=== PATIENT | female | born 1950 | race Two or more races ===

== ENCOUNTER 2018-01-31 23:51 | Inpatient (IN) | payer OTHER, MEDICAID ==
[~2018-01-31] VITALS: Ht 154.9 cm; Wt 65.7 kg
[~2018-01-31 23:51] MED LIST: ATOR40TA52 PO; CALC-473 PO; DILT240C PO; DONE5TAB31 PO; HYDR25TA35 PO; MET50T PO; MULT-228 PO
[2018-02-01 00:42] LABS: Basophils # (auto) 0 uL; Basophils % (auto) 0.3 % (0.0-2.0); Eosinophils # (auto) 0.1 uL; Eosinophils % (auto) 1.5 % (0.0-7.0); Hematocrit 35.3 % (36.0-46.0); Hemoglobin 11.8 g/dL (12.2-16.2); Lymphocytes # (auto) 0.5 uL; Lymphocytes % (auto) 5.6 % (10.0-50.0); Mean Corpuscular Hemoglobin 28.4 pg (28.0-32.0); Mean Corpuscular Hgb Conc. 33.6 g/dL (32.0-36.0); Mean Corpuscular Volume 84.6 fL (80.0-100.0); Monocytes # (auto) 0.6 uL; Monocytes % (auto) 6.9 % (0.0-12.0); Neutrophils # (auto) 7.6 uL; Neutrophils % (auto) 85.7 % (37.0-80.0); Platelet Count (auto) 184 10^3/uL (140-450); Red Blood Cells 4.17 10^6/uL (4.0-5.20); Red Cell Distribution Width 13.9 % (11.8-14.3); White Blood Cell 8.9 10^3/uL (4.4-10.8)
[2018-02-01 00:56] LABS: Alanine Aminotransferase 26 U/L (13-56); Albumin 3.5 g/dL (3.4-5.0); Anion Gap 12 (5-15); Aspartate Aminotransferase 22 U/L (15-37); Blood Urea Nitrogen 38 mg/dL (7-18); Calcium 8.3 mg/dL (8.5-10.1); Carbon Dioxide 22 mmol/L (21-32); Chloride 106 mmol/L (98-107); GFR African American 24 mL/min; GFR Non-African American 20 mL/min; Glucose 106 mg/dL (74-106); Potassium 3.4 mmol/L (3.5-5.1); Sodium 140 mmol/L (136-145)
[2018-02-01 01:00] LABS: Alkaline Phosphatase 93 U/L (45-117); Bilirubin, Total 0.5 mg/dL (0.2-1.0); Total Protein 7.2 g/dL (6.4-8.2)
[2018-02-01] MEDS ORDERED: SODIUM CHLORIDE 0.9% 1,950 ML IV ONE (01:00)
[2018-02-01 01:01] LABS: INR 0.97 (0.9-1.15); Partial Thromboplastin Time 26.6 sec (23.78-33.04); Prothrombin Time 10.4 sec (9.27-12.13)
[2018-02-01 01:33] LABS: Urine Bacteria FEW /hpf (None Seen); Urine Blood Negative /uL (Negative); Urine Specific Gravity 1.003 (1.001-1.035); Urine WBC 1 /hpf (0 - 5)
[2018-02-01] MEDS ORDERED: cefTRIAXone 1GM/10ml IVPUSH 10 ML IV ONE (02:15)
[2018-02-01] MEDS ORDERED: PIPERACILLIN-TAZOB 3.375GM 100 ML IV ONE (02:15)
[2018-02-01] MEDS ORDERED: ACETAMINOPHEN 500 MG TAB PO ONE (03:45)
[2018-02-01] MEDS ORDERED: NITROGLYCERIN 0.4 MG SL TAB SL PRN (06:15)
[2018-02-01] MEDS ORDERED: HYDROcodone-ACET 5/325MG TAB PO PRN (06:15)
[2018-02-01] MEDS ORDERED: MORPHINE SULFATE 4 MG/ML SYR/VIAL IV PRN (06:15)
[2018-02-01] MEDS ORDERED: ONDANSETRON HCL 4 MG/2 ML VIAL IV PRN (06:15)
[2018-02-01] MEDS ORDERED: TEMAZEPAM 15 MG CAP PO PRN (06:15)
[2018-02-01 06:17] LABS: Lactic Acid w/Reflex 2.2 mmol/L (0.4-2.0)
[2018-02-01 09:00] VITALS: BP 157/73
[2018-02-01] MEDS: ENOXAPARIN SOD 30 MG/0.3 ML SYRINGE SC SCH (10:00)
[2018-02-01] MEDS: LEVOFLOXACIN 250MG 50 ML IV SCH (10:00)
[2018-02-01] MEDS: PANTOPRAZOLE 40 MG TAB PO SCH (10:00)
[2018-02-01] MEDS: METOPROLOL TARTRATE 50 MG TAB PO SCH ×2 (10:00→22:14)
[2018-02-01] MEDS: hydrALAZINE HCL 25 MG TAB PO SCH ×2 (10:00→22:16)
[2018-02-01] MEDS: DILTIAZEM HCL 120MG ER CAP PO SCH (10:00)
[2018-02-01] MEDS: ACETAMINOPHEN 325 MG TAB PO PRN (10:42)
[2018-02-01] MEDS ORDERED: POTASSIUM CHL 20 Meq TABLET PO ONE (11:30)
[2018-02-01 13:00] VITALS: BP 136/80
[2018-02-01 17:00] VITALS: BP 152/81
[2018-02-01 20:00] VITALS: BP 153/85
[2018-02-01 22:00] VITALS: BP 153/85
[2018-02-01] MEDS: ATORVASTATIN 20 MG TAB PO SCH (22:07)
[2018-02-01] MEDS: DONEPEZIL HYDROCHLORIDE 5 MG TAB PO SCH (22:07)
[2018-02-02 05:00] VITALS: BP 154/81
[2018-02-02 06:47] LABS: Basophils # (auto) 0 uL; Basophils % (auto) 0.3 % (0.0-2.0); Eosinophils # (auto) 0.2 uL; Eosinophils % (auto) 2.6 % (0.0-7.0); Hematocrit 31.4 % (36.0-46.0); Hemoglobin 10.5 g/dL (12.2-16.2); Lymphocytes # (auto) 0.7 uL; Lymphocytes % (auto) 9.7 % (10.0-50.0); Mean Corpuscular Hemoglobin 28.9 pg (28.0-32.0); Mean Corpuscular Hgb Conc. 33.6 g/dL (32.0-36.0); Monocytes # (auto) 0.6 uL; Monocytes % (auto) 8.5 % (0.0-12.0); Neutrophils # (auto) 5.3 uL; Neutrophils % (auto) 78.9 % (37.0-80.0); Nucleated Red Blood Cells % 0.1 %; Platelet Count (auto) 139 10^3/uL (140-450); Red Blood Cells 3.65 10^6/uL (4.0-5.20); Red Cell Distribution Width 14.1 % (11.8-14.3); White Blood Cell 6.7 10^3/uL (4.4-10.8)
[2018-02-02 07:00] LABS: Albumin 2.8 g/dL (3.4-5.0); BUN/Creatinine Ratio 10.6; Calcium 7.6 mg/dL (8.5-10.1); Potassium 3.3 mmol/L (3.5-5.1)
[2018-02-02 07:03] LABS: Bilirubin, Total 0.6 mg/dL (0.2-1.0); Total Protein 6.4 g/dL (6.4-8.2)
[2018-02-02 09:00] VITALS: BP 163/86
[2018-02-02] MEDS: LEVOFLOXACIN 250MG 50 ML IV SCH (10:05)
[2018-02-02] MEDS: ENOXAPARIN SOD 30 MG/0.3 ML SYRINGE SC SCH (10:05)
[2018-02-02] MEDS: PANTOPRAZOLE 40 MG TAB PO SCH (10:06)
[2018-02-02] MEDS: METOPROLOL TARTRATE 50 MG TAB PO SCH ×3 (10:06→23:00)
[2018-02-02] MEDS: DILTIAZEM HCL 120MG ER CAP PO SCH (10:07)
[2018-02-02] MEDS: hydrALAZINE HCL 25 MG TAB PO SCH ×2 (10:07→23:00)
[2018-02-02] MEDS ORDERED: POTASSIUM CHL 20 Meq TABLET PO ONE (10:30)
[2018-02-02 13:00] VITALS: BP 146/83
[2018-02-02 17:00] VITALS: BP 163/85
[2018-02-02] MEDS ORDERED: cloNIDine HCL 0.1 MG TAB PO PRN ×2 (18:15)
[2018-02-02 22:00] VITALS: BP 149/80
[2018-02-02] MEDS ORDERED: hydrALAZINE HCL 25 MG TAB PO SCH (22:00)
[2018-02-02] MEDS: ATORVASTATIN 20 MG TAB PO SCH (22:59)
[2018-02-02] MEDS: DONEPEZIL HYDROCHLORIDE 5 MG TAB PO SCH (23:01)
[2018-02-03] MEDS: ACETAMINOPHEN 325 MG TAB PO PRN (03:16)
[2018-02-03 06:20] LABS: Basophils # (auto) 0 uL; Basophils % (auto) 0.3 % (0.0-2.0); Eosinophils # (auto) 0.2 uL; Eosinophils % (auto) 3.1 % (0.0-7.0); Hematocrit 33.4 % (36.0-46.0); Hemoglobin 11.2 g/dL (12.2-16.2); Lymphocytes # (auto) 0.6 uL; Lymphocytes % (auto) 11.4 % (10.0-50.0); Mean Corpuscular Hemoglobin 28.8 pg (28.0-32.0); Mean Corpuscular Hgb Conc. 33.4 g/dL (32.0-36.0); Monocytes # (auto) 0.5 uL; Monocytes % (auto) 9.1 % (0.0-12.0); Neutrophils % (auto) 76.1 % (37.0-80.0); Platelet Count (auto) 135 10^3/uL (140-450); Red Blood Cells 3.89 10^6/uL (4.0-5.20); White Blood Cell 5.2 10^3/uL (4.4-10.8)
[2018-02-03 06:31] LABS: BUN/Creatinine Ratio 9.6; Potassium 3.3 mmol/L (3.5-5.1)
[2018-02-03] MEDS: hydrALAZINE HCL 25 MG TAB PO SCH ×2 (06:41→14:03)
[2018-02-03 09:04] VITALS: BP 150/75
[2018-02-03] MEDS ORDERED: ENOXAPARIN SOD 30 MG/0.3 ML SYRINGE SC SCH (10:00)
[2018-02-03] MEDS: LEVOFLOXACIN 250MG 50 ML IV SCH (10:55)
[2018-02-03] MEDS: PANTOPRAZOLE 40 MG TAB PO SCH (10:56)
[2018-02-03] MEDS: DILTIAZEM HCL 120MG ER CAP PO SCH (10:56)
[2018-02-03] MEDS: ENOXAPARIN SOD 30 MG/0.3 ML SYRINGE SC SCH (10:57)
[2018-02-03 12:47] VITALS: BP 162/85
[2018-02-03] MEDS ORDERED: POTASSIUM CHL 20 Meq TABLET PO ONE (13:00)
[2018-02-03 13:35] VITALS: BP 162/85
== END 2018-02-03 14:20 | disposition home or self-care (01) | DRG 872 ==
LOC: ER 23:54 → OVERFLOW 23:55 → EAST 02-01 08:37
PROVIDERS: ADMIT Nurse Practitioner; ATTEND Internal Medicine
DX: A41.51 Sepsis due to Escherichia coli [E. coli] (principal); N18.3 Chronic kidney disease, stage 3 (moderate); E78.5 Hyperlipidemia, unspecified; N39.0 Urinary tract infection, site not specified; I12.9 Hypertensive chronic kidney disease with stage 1 through stage 4 chronic kidney disease, or unspecified chronic kidney disease; Z83.3 Family history of diabetes mellitus; Z84.1 Family history of disorders of kidney and ureter; Z82.49 Family history of ischemic heart disease and other diseases of the circulatory system; Z80.9 Family history of malignant neoplasm, unspecified
CPT/HCPCS: 36415; 36600; 71045; 80048; 80053; 81001; 82805; 83605; 83880; 84484; 85025; 85610; 85730; 86141; 87040; 87077; 87086; 87088; 87186; 87804; 93005; 96361; 96365; 96366; 96375; 99291; J2543

== ENCOUNTER 2018-10-24 13:34 | Emergency (ER) | payer OTHER, MEDICAID ==
[~2018-10-24 13:34] MED LIST changes: +HYDR-4296 PO; -HYDR25TA35 PO
[2018-10-24] MEDS ORDERED: cloNIDine HCL 0.1 MG TAB ONE (13:53)
[2018-10-24] MEDS ORDERED: cloNIDine HCL 0.1 MG TAB PO ONE (14:00)
[2018-10-24 14:09] LABS: Basophils # (auto) 0.1 uL; Basophils % (auto) 0.9 % (0.0-2.0); Eosinophils # (auto) 0.4 uL; Eosinophils % (auto) 4.4 % (0.0-7.0); Hematocrit 42.1 % (36.0-46.0); Hemoglobin 13.8 g/dL (12.2-16.2); Lymphocytes # (auto) 1.6 uL; Lymphocytes % (auto) 16.4 % (10.0-50.0); Mean Corpuscular Hemoglobin 28.2 pg (28.0-32.0); Mean Corpuscular Hgb Conc. 32.8 g/dL (32.0-36.0); Monocytes # (auto) 0.4 uL; Monocytes % (auto) 4.1 % (0.0-12.0); Neutrophils # (auto) 7.5 uL; Neutrophils % (auto) 74.2 % (37.0-80.0); Platelet Count (auto) 309 10^3/uL (140-450); Red Cell Distribution Width 14.6 % (11.8-14.3)
[2018-10-24 14:24] LABS: Urine Bacteria FEW /hpf (None Seen); Urine Blood Negative /uL (Negative); Urine Specific Gravity 1.009 (1.001-1.035); Urine WBC 9 /hpf (0 - 5)
[2018-10-24 14:27] LABS: Albumin 4.4 g/dL (3.4-5.0); Anion Gap 7 (5-15); Blood Urea Nitrogen 42 mg/dL (7-18); Calcium 9.4 mg/dL (8.5-10.1); Carbon Dioxide 23 mmol/L (21-32); Chloride 109 mmol/L (98-107); Glucose 96 mg/dL (74-106); Potassium 4.8 mmol/L (3.5-5.1); Sodium 139 mmol/L (136-145)
[2018-10-24 14:33] LABS: Alanine Aminotransferase 29 U/L (13-56); Alkaline Phosphatase 100 U/L (45-117); Aspartate Aminotransferase 22 U/L (15-37); BUN/Creatinine Ratio 13.7; Bilirubin, Total 0.5 mg/dL (0.2-1.0); GFR African American 19 mL/min; GFR Non-African American 16 mL/min; Total Protein 8.6 g/dL (6.4-8.2)
[2018-10-24 17:19] VITALS: BP 158/79
== END 2018-10-24 17:23 | disposition home or self-care (01) ==
LOC: ER 13:40
DX: I10 Essential (primary) hypertension (principal); F41.9 Anxiety disorder, unspecified; E78.5 Hyperlipidemia, unspecified; Z88.0 Allergy status to penicillin; Z86.39 Personal history of other endocrine, nutritional and metabolic disease
CPT/HCPCS: 36415; 80053; 81001; 84484; 85025

== ENCOUNTER 2020-12-08 08:47 | Inpatient (IN) | payer OTHER, MEDICAID ==
[2020-12-08] VITALS (7 sets, daily range): BP systolic 142–158; BP diastolic 78–92
[~2020-12-08] VITALS: Ht 170.2 cm; Wt 61.0 kg
[~2020-12-08 08:47] MED LIST changes: +DILT-29 PO; -DILT240C PO; -DONE5TAB31 PO; +DONE5TAB80 PO
[2020-12-08 10:03] LABS: Basophils # (auto) 0 10 ^3/uL (0-0.2); Basophils % (auto) 0.1 % (0.0-2.0); Eosinophils # (auto) 0 10 ^3/uL (0-0.8); Eosinophils % (auto) 0.2 % (0.0-7.0); Hematocrit 23.3 % (36.0-46.0); Hemoglobin 8.1 g/dL (12.2-16.2); Lymphocytes # (auto) 0.1 10 ^3/uL (0.4-5.4); Lymphocytes % (auto) 1.7 % (10.0-50.0); Mean Corpuscular Hemoglobin 30.9 pg (28.0-32.0); Mean Corpuscular Hgb Conc. 34.6 g/dL (32.0-36.0); Mean Corpuscular Volume 89.2 fL (80.0-100.0); Monocytes # (auto) 0.3 10 ^3/uL (0-1.3); Monocytes % (auto) 4.1 % (0.0-12.0); Neutrophils % (auto) 93.9 % (37.0-80.0); Platelet Count (auto) 89 10^3/uL (140-450); Red Blood Cells 2.61 10^6/uL (4.0-5.20); Red Cell Distribution Width 13.4 % (11.8-14.3); White Blood Cell 6.4 10^3/uL (4.4-10.8)
[2020-12-08 10:40] LABS: Chloride 107 mmol/L (98-107); Sodium 139 mmol/L (136-145)
[2020-12-08 10:52] LABS: Alanine Aminotransferase 35 U/L (13-56); Albumin 3.2 g/dL (3.4-5.0); Alkaline Phosphatase 110 U/L (45-117); Anion Gap 15 (5-15); Aspartate Aminotransferase 47 U/L (15-37); BUN/Creatinine Ratio 9.2; Bilirubin, Total 0.6 mg/dL (0.2-1.0); Blood Urea Nitrogen 64 mg/dL (7-18); Calcium 7.9 mg/dL (8.5-10.1); Carbon Dioxide 17 mmol/L (21-32); GFR African American 8 mL/min; GFR Non-African American 6 mL/min; Glucose 89 mg/dL (74-106); Magnesium 2.4 mg/dL (1.6-2.6); Total Protein 6.4 g/dL (6.4-8.2)
[2020-12-08 10:53] LABS: Urine Amorphous Crystal FEW /hpf (None Seen); Urine Bacteria FEW /hpf (None Seen); Urine Blood 1+ /uL (Negative); Urine Budding Yeast OCCASIONAL /hpf (None Seen); Urine Mucus FEW (None Seen); Urine Specific Gravity 1.016 (1.001-1.035); Urine WBC 37 /hpf (0 - 5)
[2020-12-08 11:03] LABS: CRP High Sensitivity > 19 mg/dL (< 0.3)
[2020-12-08] MEDS ORDERED: cefTRIAXone 1GM/50ML D5W 50 ML IV ONE (11:15)
[2020-12-08] MEDS ORDERED: ENOXAPARIN SOD 60 MG/0.6 ML SYRINGE SC ONE (11:15)
[2020-12-08] MEDS ORDERED: POTASSIUM EFFERVESENT TAB 25 MEQ PO ONE (11:15)
[2020-12-08] MEDS ORDERED: FUROSEMIDE 40 MG/4 ML VIAL IV ONE (12:45)
[2020-12-08] MEDS ORDERED: METOPROLOL TARTRATE 25 MG TAB PO ONE (13:30)
[2020-12-08] MEDS ORDERED: ASPirin 81 mg TAB PO ONE (14:15)
[2020-12-08] MEDS ORDERED: NITROGLYCERIN 0.4 MG SL TAB SL PRN (14:15)
[2020-12-08] MEDS ORDERED: BUMETANIDE 2.5mg/10ml (0.25 mg/ml) INJ IV ONE (14:15)
[2020-12-08] MEDS ORDERED: MORPHINE SULF INJ 2 MG/ML SYRINGE 1ML IV PRN ×2 (14:15)
[2020-12-08] MEDS ORDERED: ONDANSETRON HCL 4 MG/2 ML VIAL IV PRN (14:15)
[2020-12-08] MEDS: FAMOTIDINE 20 MG TAB PO SCH (14:52)
[2020-12-08 15:01] LABS: Cholesterol 97 mg/dL (< 200); Triglycerides 106 mg/dL (< 150)
[2020-12-08 15:04] LABS: HDL Cholesterol 37 mg/dL (40-59); LDL Cholesterol 41 mg/dL (< 100)
[2020-12-08] MEDS ORDERED: BENA40TA8 PO (18:09)
[2020-12-08] MEDS ORDERED: ISOS60TA24 PO (18:09)
[2020-12-08] MEDS ORDERED: LEVO25TA6 PO (18:09)
[2020-12-08 18:24] LABS: Phosphorus 4.7 mg/dL (2.5-4.90); Uric Acid 9.2 mg/dL (2.6-6.0)
[2020-12-08] MEDS: METOPROLOL TARTRATE 25 MG TAB PO SCH (21:37)
[2020-12-08] MEDS: ATORVASTATIN 20 MG TAB PO SCH (21:37)
[2020-12-08] MEDS ORDERED: ATORVASTATIN 20 MG TAB PO SCH (22:00)
[2020-12-08] MEDS ORDERED: METOPROLOL TARTRATE 25 MG TAB PO SCH (22:00)
[2020-12-08] MEDS ORDERED: VANCOMYCIN PER PHARMACY 0 MG IV SCH (22:15)
[2020-12-08] MEDS ORDERED: VANCOMYCIN 750mg/250ml 250 ML IV ONE (22:30)
[2020-12-08] MEDS: HYDROcodone-ACET 5/325MG TAB PO PRN (23:15)
[2020-12-09] VITALS (20 sets, daily range): BP systolic 110–171; BP diastolic 68–90
[2020-12-09 06:21] LABS: Basophils # (auto) 0 10 ^3/uL (0-0.2); Basophils % (auto) 0.4 % (0.0-2.0); Eosinophils # (auto) 0.1 10 ^3/uL (0-0.8); Eosinophils % (auto) 0.8 % (0.0-7.0); Hematocrit 25.5 % (36.0-46.0); Hemoglobin 8.8 g/dL (12.2-16.2); Lymphocytes # (auto) 0.7 10 ^3/uL (0.4-5.4); Mean Corpuscular Hgb Conc. 34.6 g/dL (32.0-36.0); Mean Corpuscular Volume 89.4 fL (80.0-100.0); Monocytes # (auto) 0.6 10 ^3/uL (0-1.3); Monocytes % (auto) 6.2 % (0.0-12.0); Neutrophils # (auto) 8.2 10 ^3/uL (1.6-8.6); Neutrophils % (auto) 85.6 % (37.0-80.0); Platelet Count (auto) 123 10^3/uL (140-450); Red Blood Cells 2.85 10^6/uL (4.0-5.20); White Blood Cell 9.6 10^3/uL (4.4-10.8)
[2020-12-09] MEDS: hydrALAZINE HCL 20 MG/ML VL IV PRN (06:22)
[2020-12-09 06:36] LABS: INR 0.99 (0.9-1.15); Partial Thromboplastin Time 37.9 sec (23.0-31.2)
[2020-12-09 06:38] LABS: BUN/Creatinine Ratio 10.3; Calcium 7.5 mg/dL (8.5-10.1); Potassium 4.3 mmol/L (3.5-5.1)
[2020-12-09] MEDS ORDERED: SODIUM CHL 0.9% 1000 ML BAG XX ONE (07:00)
[2020-12-09] MEDS: HYDROcodone-ACET 5/325MG TAB PO PRN (07:00)
[2020-12-09] MEDS ORDERED: ENOXAPARIN SOD 60 MG/0.6 ML SYRINGE SC SCH (10:00)
[2020-12-09] MEDS ORDERED: ENOXAPARIN SOD 60 MG/0.6 ML SYRINGE SC ONE (10:15)
[2020-12-09] MEDS ORDERED: LIDOCAINE 2%HCL (LOCAL ANESTH.) INJ 20ML MDV ONE (11:56)
[2020-12-09] MEDS ORDERED: IODIXANOL 320MG/ML 100ML BTL IV ONE (11:56)
[2020-12-09] MEDS ORDERED: HEPARIN IN NS 1000Units/500mL 0 ML ONE (11:57)
[2020-12-09] MEDS ORDERED: VANCOMYCIN 750mg/250ml 250 ML IV ONE (14:00)
[2020-12-09] MEDS: LISINOPRIL 10 MG TAB PO SCH (16:00)
[2020-12-09] MEDS: METOPROLOL TARTRATE 25 MG TAB PO SCH ×2 (16:00→22:29)
[2020-12-09] MEDS: ASPirin-EC 81 mg tab PO SCH (16:00)
[2020-12-09] MEDS: cefTRIAXone 1GM/50ML D5W 50 ML IV SCH (16:00)
[2020-12-09] MEDS ORDERED: EPOETIN ALFA-EPBX 10,000 UNIT/1ML VIAL SC ONE (21:00)
[2020-12-09] MEDS: ATORVASTATIN 20 MG TAB PO SCH (22:29)
[2020-12-09] MEDS ORDERED: dilTIAZem 25 MG/5 ML VIAL IV ONE ×2 (23:27→23:30)
[2020-12-10] VITALS (37 sets, daily range): BP systolic 108–181; BP diastolic 54–95
[2020-12-10] MEDS: ACETAMINOPHEN 500 MG TAB PO PRN ×2 (00:06→17:52)
[2020-12-10] MEDS: HYDROcodone-ACET 5/325MG TAB PO PRN (05:02)
[2020-12-10 06:27] LABS: Basophils # (auto) 0 10 ^3/uL (0-0.2); Basophils % (auto) 0.5 % (0.0-2.0); Eosinophils # (auto) 0.1 10 ^3/uL (0-0.8); Eosinophils % (auto) 1.2 % (0.0-7.0); Hemoglobin 8.3 g/dL (12.2-16.2); Lymphocytes # (auto) 0.6 10 ^3/uL (0.4-5.4); Lymphocytes % (auto) 8.2 % (10.0-50.0); Mean Corpuscular Hemoglobin 30.6 pg (28.0-32.0); Mean Corpuscular Hgb Conc. 34.5 g/dL (32.0-36.0); Mean Corpuscular Volume 88.7 fL (80.0-100.0); Monocytes # (auto) 0.7 10 ^3/uL (0-1.3); Monocytes % (auto) 10.1 % (0.0-12.0); Neutrophils # (auto) 5.8 10 ^3/uL (1.6-8.6); Platelet Count (auto) 132 10^3/uL (140-450); Red Blood Cells 2.71 10^6/uL (4.0-5.20); Red Cell Distribution Width 13.5 % (11.8-14.3); White Blood Cell 7.3 10^3/uL (4.4-10.8)
[2020-12-10 06:34] LABS: Calcium 7.1 mg/dL (8.5-10.1)
[2020-12-10 06:37] LABS: BUN/Creatinine Ratio 8.8
[2020-12-10] MEDS: cefTRIAXone 1GM/50ML D5W 50 ML IV SCH (08:30)
[2020-12-10] MEDS ORDERED: ANGIOMAX 250 MG VIAL IV ONE (09:44)
[2020-12-10] MEDS: METOPROLOL TARTRATE 25 MG TAB PO SCH ×3 (09:45→23:02)
[2020-12-10] MEDS ORDERED: MIDAZOLAM HCL 1MG/1ML-2 ML VIAL ONE (09:45)
[2020-12-10] MEDS: FAMOTIDINE 20 MG TAB PO SCH (09:45)
[2020-12-10] MEDS ORDERED: VERAPAMIL 2.5MG/ML INJ 2ML VIAL IV ONE (09:45)
[2020-12-10] MEDS ORDERED: fentaNYL CITRATE 100 MCG/2 ML VL ONE (09:45)
[2020-12-10] MEDS ORDERED: SODIUM CHL 0.9% 0 ML ONE (09:45)
[2020-12-10] MEDS: LISINOPRIL 10 MG TAB PO SCH (09:45)
[2020-12-10] MEDS: ASPirin-EC 81 mg tab PO SCH (09:45)
[2020-12-10] MEDS ORDERED: HEPARIN SODIUM (PORCINE) 5000 UNITS/ML 1ML VIAL ONE (09:45)
[2020-12-10] MEDS ORDERED: LIDOCAINE 2%HCL (LOCAL ANESTH.) INJ 20ML MDV ONE (09:48)
[2020-12-10] MEDS ORDERED: SODIUM CHL 0.9% 1000 ML BAG XX ONE (11:15)
[2020-12-10] MEDS: hydrALAZINE HCL 20 MG/ML VL IV PRN (16:49)
[2020-12-10] MEDS ORDERED: LABETALOL HCL 5 MG/ML 4ML SYRINGE IV PRN (18:15)
[2020-12-10] MEDS: LABETALOL HCL 5 MG/ML ML 20ML VIAL IV PRN (18:39)
[2020-12-10] MEDS: ATORVASTATIN 20 MG TAB PO SCH (22:10)
[2020-12-11] MEDS ORDERED: dilTIAZem 25 MG/5 ML VIAL IV ONE ×2 (02:40→05:45)
[2020-12-11 05:00] VITALS: BP 155/87
[2020-12-11] MEDS ORDERED: SODIUM CHLORIDE 0.9% 250 ML IV ONE (06:00)
[2020-12-11] MEDS ORDERED: VANCOMYCIN HCL 125MG/5ML ORAL SOL PO SCH (06:00)
[2020-12-11 06:32] LABS: Hematocrit 23.4 % (36.0-46.0)
[2020-12-11 06:46] LABS: Calcium 8.1 mg/dL (8.5-10.1); Magnesium 2.3 mg/dL (1.6-2.6); Potassium 3.9 mmol/L (3.5-5.1)
[2020-12-11 06:49] LABS: BUN/Creatinine Ratio 6.8
[2020-12-11] MEDS: cefTRIAXone 1GM/50ML D5W 50 ML IV SCH (08:48)
[2020-12-11] MEDS: ASPirin-EC 81 mg tab PO SCH (08:49)
[2020-12-11] MEDS: METOPROLOL TARTRATE 25 MG TAB PO SCH ×2 (08:50→21:11)
[2020-12-11] MEDS: LISINOPRIL 10 MG TAB PO SCH (08:51)
[2020-12-11 09:00] VITALS: BP 145/75
[2020-12-11] MEDS ORDERED: levoFLOXacin 250 MG TAB PO ONE (12:45)
[2020-12-11] MEDS ORDERED: LIDOCAINE 2%HCL (LOCAL ANESTH.) INJ 20ML MDV ONE ×2 (12:58→14:25)
[2020-12-11 13:00] VITALS: BP 142/84
[2020-12-11] MEDS ORDERED: fentaNYL CITRATE 100 MCG/2 ML VL ONE (14:24)
[2020-12-11] MEDS ORDERED: MIDAZOLAM HCL 1MG/1ML-2 ML VIAL ONE (14:25)
[2020-12-11] MEDS ORDERED: HEPARIN SODIUM (PORCINE) 5000 UNITS/ML 1ML VIAL ONE (14:31)
[2020-12-11 15:02] LABS: Hepatitis B Surface Antigen Negative (Negative); Hepatitis C Antibody Negative (Negative)
[2020-12-11 17:15] VITALS: BP 140/76
[2020-12-11] MEDS: HYDROcodone-ACET 5/325MG TAB PO PRN (20:05)
[2020-12-11] MEDS: ATORVASTATIN 20 MG TAB PO SCH (21:10)
[2020-12-11] MEDS: LABETALOL HCL 5 MG/ML ML 20ML VIAL IV PRN (21:11)
[2020-12-11 22:00] VITALS: BP 173/99
[2020-12-12] VITALS (7 sets, daily range): BP systolic 134–161; BP diastolic 83–89
[2020-12-12] MEDS: LABETALOL HCL 5 MG/ML ML 20ML VIAL IV PRN (01:47)
[2020-12-12 07:08] LABS: Basophils # (auto) 0 10 ^3/uL (0-0.2); Eosinophils # (auto) 0.1 10 ^3/uL (0-0.8); Hemoglobin 7.3 g/dL (12.2-16.2); Lymphocytes # (auto) 0.6 10 ^3/uL (0.4-5.4); Mean Corpuscular Hemoglobin 30.3 pg (28.0-32.0); Monocytes # (auto) 0.9 10 ^3/uL (0-1.3); White Blood Cell 6.8 10^3/uL (4.4-10.8)
[2020-12-12 07:10] LABS: Basophils % (auto) 0.2 % (0.0-2.0); Eosinophils % (auto) 1.3 % (0.0-7.0); Hematocrit 21.4 % (36.0-46.0); Lymphocytes % (auto) 8.8 % (10.0-50.0); Mean Corpuscular Hgb Conc. 33.9 g/dL (32.0-36.0); Mean Corpuscular Volume 89.5 fL (80.0-100.0); Monocytes % (auto) 13.4 % (0.0-12.0); Neutrophils # (auto) 5.2 10 ^3/uL (1.6-8.6); Neutrophils % (auto) 76.3 % (37.0-80.0); Platelet Count (auto) 161 10^3/uL (140-450); Red Blood Cells 2.39 10^6/uL (4.0-5.20); Red Cell Distribution Width 13.3 % (11.8-14.3)
[2020-12-12 07:28] LABS: BUN/Creatinine Ratio 6.8; Calcium 8.3 mg/dL (8.5-10.1); Magnesium 2.5 mg/dL (1.6-2.6); Potassium 4.5 mmol/L (3.5-5.1)
[2020-12-12] MEDS: dilTIAZem 120MG ER CAP PO SCH (09:08)
[2020-12-12] MEDS: ASPirin-EC 81 mg tab PO SCH (09:08)
[2020-12-12] MEDS: METOPROLOL TARTRATE 25 MG TAB PO SCH ×2 (09:09→22:35)
[2020-12-12] MEDS: FAMOTIDINE 20 MG TAB PO SCH (09:09)
[2020-12-12] MEDS ORDERED: levoFLOXacin 500 MG TAB PO SCH (10:00)
[2020-12-12] MEDS ORDERED: SACU1TAB PO (11:10)
[2020-12-12] MEDS ORDERED: hydrALAZINE HCL 25 MG TAB PO ONE (11:45)
[2020-12-12] MEDS ORDERED: LEVO500T31 PO (12:31)
[2020-12-12] MEDS: SACUBITRIL-VALSARTAN 24mg/26mg TAB PO SCH (22:31)
[2020-12-12] MEDS: ATORVASTATIN 20 MG TAB PO SCH (22:32)
[2020-12-13] MEDS: ACETAMINOPHEN 500 MG TAB PO PRN (05:21)
[2020-12-13 05:50] VITALS: BP 149/88
[2020-12-13 08:35] VITALS: BP 127/85
[2020-12-13] MEDS: METOPROLOL TARTRATE 25 MG TAB PO SCH (10:00)
[2020-12-13] MEDS: SACUBITRIL-VALSARTAN 24mg/26mg TAB PO SCH (10:00)
[2020-12-13] MEDS: ASPirin-EC 81 mg tab PO SCH (10:01)
[2020-12-13] MEDS: dilTIAZem 120MG ER CAP PO SCH (10:01)
[2020-12-13 13:00] VITALS: BP 126/78
== END 2020-12-13 13:30 | disposition home health service (06) | DRG 871 ==
LOC: EDBD 08:47 → ER 08:47 → TELE 08:48 → DOU IN ICU 16:14 → TELE-CENTR 12-10 20:55
PROVIDERS: ADMIT Nurse Practitioner Acute Care; ATTEND Internal Medicine
PROC: 5A1D70Z Performance of Urinary Filtration, Intermittent, Less than 6 Hours Per Day (ICD-10-PCS; 2020-12-09)
PROC: 02HV33Z Insertion of Infusion Device into Superior Vena Cava, Percutaneous Approach (ICD-10-PCS; 2020-12-09)
PROC: 4A023N7 Measurement of Cardiac Sampling and Pressure, Left Heart, Percutaneous Approach (ICD-10-PCS; principal; 2020-12-10)
PROC: B2111ZZ Fluoroscopy of Multiple Coronary Arteries using Low Osmolar Contrast (ICD-10-PCS; 2020-12-10)
PROC: B2151ZZ Fluoroscopy of Left Heart using Low Osmolar Contrast (ICD-10-PCS; 2020-12-10)
PROC: 0JH63XZ Insertion of Tunneled Vascular Access Device into Chest Subcutaneous Tissue and Fascia, Percutaneous Approach (ICD-10-PCS; 2020-12-11)
PROC: 02H633Z Insertion of Infusion Device into Right Atrium, Percutaneous Approach (ICD-10-PCS; 2020-12-11)
PROC: B5181ZA Fluoroscopy of Superior Vena Cava using Low Osmolar Contrast, Guidance (ICD-10-PCS; 2020-12-11)
DX: A41.51 Sepsis due to Escherichia coli [E. coli] (principal); N18.6 End stage renal disease; I50.43 Acute on chronic combined systolic (congestive) and diastolic (congestive) heart failure; I21.A1 Myocardial infarction type 2; E44.1 Mild protein-calorie malnutrition; E87.2 Acidosis; N39.0 Urinary tract infection, site not specified; I13.2 Hypertensive heart and chronic kidney disease with heart failure and with stage 5 chronic kidney disease, or end stage renal disease; Z20.822 Contact with and (suspected) exposure to COVID-19; E87.6 Hypokalemia; E03.9 Hypothyroidism, unspecified; D63.8 Anemia in other chronic diseases classified elsewhere; E78.5 Hyperlipidemia, unspecified; Z68.21 Body mass index [BMI] 21.0-21.9, adult; D69.59 Other secondary thrombocytopenia; I25.10 Atherosclerotic heart disease of native coronary artery without angina pectoris; I25.2 Old myocardial infarction; Z79.899 Other long term (current) drug therapy
CPT/HCPCS: 36415; 36561; 71045; 76775; 76942; 77001; 80048; 80053; 80061; 80202; 81001; 83605; 83735; 83880; 84100; 84443; 84484; 84550; 85014; 85018; 85025; 85610; 85730; 86141; 86803; 87040; 87077; 87081; 87086; 87186; 87340; 87426; 90935; 93005; 93306; 93458; 96365; 96372; 99152; 99153; G0378; J0696; J1642; J2250; Q9967

== ENCOUNTER 2023-08-01 15:31 | Emergency (ER) | payer OTHER, MEDICAID ==
[~2023-08-01] VITALS: Ht 152.4 cm; Wt 60.0 kg
[~2023-08-01 15:31] MED LIST changes: +ISOS60TA24 PO; +LEVO25TA6 PO; +LEVO500T31 PO; +SACU1TAB PO
[2023-08-01 16:46] LABS: Basophils # (auto) 0 10 ^3/uL (0-0.2); Basophils % (auto) 0.1 % (0.0-2.0); Eosinophils # (auto) 0.2 10 ^3/uL (0-0.8); Eosinophils % (auto) 1.3 % (0.0-7.0); Hematocrit 32.9 % (36.0-46.0); Hemoglobin 10.6 g/dL (12.2-16.2); Lymphocytes # (auto) 1.2 10 ^3/uL (0.4-5.4); Lymphocytes % (auto) 10.1 % (10.0-50.0); Mean Corpuscular Hemoglobin 28.9 pg (28.0-32.0); Mean Corpuscular Hgb Conc. 32.1 g/dL (32.0-36.0); Mean Corpuscular Volume 90.2 fL (80.0-100.0); Monocytes # (auto) 0.8 10 ^3/uL (0-1.3); Neutrophils # (auto) 9.4 10 ^3/uL (1.6-8.6); Neutrophils % (auto) 81.5 % (37.0-80.0); Red Blood Cells 3.65 10^6/uL (4.0-5.20); Red Cell Distribution Width 14.2 % (11.8-14.3); White Blood Cell 11.5 10^3/uL (4.4-10.8)
[2023-08-01 17:06] LABS: Albumin 3.4 g/dL (3.2-4.8); Alkaline Phosphatase 115 U/L (46-116); Anion Gap 15 (5-15); Aspartate Aminotransferase < 8 U/L (13-40); BUN/Creatinine Ratio 4.8 (10.0-20.0); Bilirubin, Total 0.3 mg/dL (0.2-1.0); Blood Urea Nitrogen 15 mg/dL (9-23); Calcium 6.7 mg/dL (8.5-10.1); Carbon Dioxide 27 mmol/L (20-30); Chloride 97 mmol/L (98-107); Glucose 84 mg/dL (74-106); Potassium 3.4 mmol/L (3.5-5.1); Sodium 139 mmol/L (136-145); Total Protein 5.3 g/dL (5.7-8.2)
[2023-08-01 17:56] LABS: Alanine Aminotransferase < 9 U/L (7-40)
[2023-08-01 20:38] LABS: Urine Bacteria FEW /hpf (None Seen); Urine Blood TRACE /uL (Negative); Urine Clarity CLOUDY (Clear); Urine Color Yellow (Yellow); Urine Protein, UAD 2+ (Negative); Urine Specific Gravity 1.013 (1.001-1.035); Urine Urobilinogen Normal (Negative); Urine WBC 22 /hpf (0 - 5); Urine pH 8.5 (5.0-8.0)
[2023-08-01] MEDS ORDERED: NITR-87 PO (21:29)
[2023-08-01 23:22] VITALS: BP 115/74; PULSE 85; RESP 18; TEMP 98.2; O2SAT 98
== END 2023-08-01 23:22 | disposition home or self-care (01) ==
LOC: ER 15:31
DX: N39.0 Urinary tract infection, site not specified (principal); I12.0 Hypertensive chronic kidney disease with stage 5 chronic kidney disease or end stage renal disease; N18.6 End stage renal disease; E78.5 Hyperlipidemia, unspecified; E03.9 Hypothyroidism, unspecified; Z79.2 Long term (current) use of antibiotics; Z79.899 Other long term (current) drug therapy; Z88.0 Allergy status to penicillin
CPT/HCPCS: 36415; 74176; 80053; 81001; 85025; 93005

== ENCOUNTER 2023-12-19 13:39 | Inpatient (IN) | payer OTHER, MEDICAID ==
[~2023-12-19] VITALS: Ht 152.4 cm; Wt 61.9 kg
[~2023-12-19 13:39] MED LIST changes: -HYDR-4296 PO; +HYDR25TA88 PO; +ISOS1TAB29 PO; -ISOS60TA24 PO; +NITR-87 PO
[2023-12-19 14:37] LABS: Eosinophils # (auto) 0.4 10 ^3/uL (0-0.8); Lymphocytes # (auto) 0.8 10 ^3/uL (0.4-5.4); Monocytes # (auto) 0.8 10 ^3/uL (0-1.3)
[2023-12-19 14:38] LABS: Urine Bacteria None Seen /hpf (None Seen)
[2023-12-19 14:40] LABS: Basophils # (auto) 0 10 ^3/uL (0-0.2); Basophils % (auto) 0.5 % (0.0-2.0); Eosinophils % (auto) 4.7 % (0.0-7.0); Hematocrit 31.5 % (36.0-46.0); Hemoglobin 10.1 g/dL (12.2-16.2); Lymphocytes % (auto) 9.7 % (10.0-50.0); Mean Corpuscular Hemoglobin 26.8 pg (28.0-32.0); Mean Corpuscular Hgb Conc. 31.9 g/dL (32.0-36.0); Mean Corpuscular Volume 84.1 fL (80.0-100.0); Monocytes % (auto) 9.7 % (0.0-12.0); Neutrophils # (auto) 6.1 10 ^3/uL (1.6-8.6); Neutrophils % (auto) 75.4 % (37.0-80.0); Nucleated Red Blood Cells % 0.1 %; Red Blood Cells 3.75 10^6/uL (4.0-5.20); White Blood Cell 8.1 10^3/uL (4.4-10.8)
[2023-12-19 14:48] LABS: Urine Blood 2+ /uL (Negative); Urine Clarity Clear (Clear); Urine Color Light-Yellow (Yellow); Urine Protein, UAD 1+ (Negative); Urine Specific Gravity 1.006 (1.001-1.035); Urine Urobilinogen Normal (Negative); Urine WBC 1 /hpf (0 - 5)
[2023-12-19 14:55] LABS: Alanine Aminotransferase < 9 U/L (7-40); Albumin 4.2 g/dL (3.2-4.8); Alkaline Phosphatase 100 U/L (46-116); Anion Gap 5 (5-15); Aspartate Aminotransferase 22 U/L (13-40); BUN/Creatinine Ratio 4.3 (10.0-20.0); Blood Urea Nitrogen 19 mg/dL (9-23); Calcium 9.2 mg/dL (8.5-10.1); Carbon Dioxide 36 mmol/L (20-30); Chloride 96 mmol/L (98-107); Glucose 114 mg/dL (74-106); Potassium 3.2 mmol/L (3.5-5.1); Sodium 137 mmol/L (136-145)
[2023-12-19 14:56] LABS: Bilirubin, Total 0.4 mg/dL (0.2-1.0); Total Protein 6.7 g/dL (5.7-8.2)
[2023-12-19] MEDS ORDERED: MORPHINE SULFATE INJ 2 MG/ml SYRG IV PRN ×2 (18:45→19:30)
[2023-12-19] MEDS ORDERED: ACETAMINOPHEN 325 MG TAB PO PRN (18:45)
[2023-12-19] MEDS ORDERED: DOCUSATE SOD 100 MG CAP PO PRN (18:45)
[2023-12-19] MEDS ORDERED: NITROGLYCERIN 0.4 MG SL TAB SL PRN (18:45)
[2023-12-19] MEDS ORDERED: HYDR50TA47 PO (19:29)
[2023-12-19] MEDS ORDERED: OMEP1CAP70 PO (19:29)
[2023-12-19] MEDS ORDERED: B-CO-6 PO (19:29)
[2023-12-19] MEDS ORDERED: HYDROcodone-ACET 5/325MG TAB PO PRN (19:30)
[2023-12-19 22:05] VITALS: PULSE 97; RESP 16; O2SAT 97
[2023-12-20] VITALS (8 sets, daily range): BP systolic 141–158; BP diastolic 65–76; PULSE 72–78; RESP 16–20; TEMP 97.1–98.3; O2SAT 96–100
[2023-12-20] MEDS: hydrALAZINE HCL 25 MG TAB PO SCH (00:06)
[2023-12-20] MEDS: LEVOTHYROXINE SODIUM 25 MCG TAB PO SCH (06:02)
[2023-12-20 07:46] LABS: Basophils # (auto) 0 10 ^3/uL (0-0.2); Basophils % (auto) 0.4 % (0.0-2.0); Eosinophils # (auto) 0.4 10 ^3/uL (0-0.8); Hemoglobin 8.8 g/dL (12.2-16.2); Neutrophils # (auto) 4.9 10 ^3/uL (1.6-8.6); White Blood Cell 7.1 10^3/uL (4.4-10.8)
[2023-12-20 07:47] LABS: Eosinophils % (auto) 5.5 % (0.0-7.0); Hematocrit 27.9 % (36.0-46.0); Lymphocytes % (auto) 14.6 % (10.0-50.0); Mean Corpuscular Hemoglobin 26.9 pg (28.0-32.0); Mean Corpuscular Hgb Conc. 31.7 g/dL (32.0-36.0); Mean Corpuscular Volume 84.9 fL (80.0-100.0); Monocytes # (auto) 0.7 10 ^3/uL (0-1.3); Monocytes % (auto) 10.6 % (0.0-12.0); Neutrophils % (auto) 68.9 % (37.0-80.0); Red Blood Cells 3.28 10^6/uL (4.0-5.20); Red Cell Distribution Width 19.8 % (11.8-14.3)
[2023-12-20 08:03] LABS: Albumin 3.7 g/dL (3.2-4.8); Alkaline Phosphatase 85 U/L (46-116); Anion Gap 5 (5-15); Aspartate Aminotransferase 18 U/L (13-40); BUN/Creatinine Ratio 3.4 (10.0-20.0); Blood Urea Nitrogen 22 mg/dL (9-23); Calcium 8.7 mg/dL (8.5-10.1); Carbon Dioxide 34 mmol/L (20-30); Chloride 97 mmol/L (98-107); Glucose 89 mg/dL (74-106); Potassium 3.7 mmol/L (3.5-5.1); Sodium 136 mmol/L (136-145)
[2023-12-20 08:04] LABS: Alanine Aminotransferase < 9 U/L (7-40); Bilirubin, Total 0.5 mg/dL (0.2-1.0); Total Protein 5.9 g/dL (5.7-8.2)
[2023-12-20] MEDS: DONEPEZIL HYDROCHLORIDE 5 MG TAB PO SCH (09:15)
[2023-12-20] MEDS: B-COMPLEX W/ C & FOLIC ACID(NEPHROVITE TAB) PO SCH (09:15)
[2023-12-20] MEDS: ENOXAPARIN SOD 30 MG/0.3 ML SYRINGE SC SCH (09:15)
[2023-12-20] MEDS: ATORVASTATIN 20 MG TAB PO SCH (09:15)
[2023-12-20] MEDS: DONEPEZIL HYDROCHLORIDE 5 MG TAB ONE (09:15)
[2023-12-20] MEDS: hydrALAZINE HCL 25 MG TAB ONE ×2 (09:15)
[2023-12-20] MEDS: ATORVASTATIN 20 MG TAB ONE (09:15)
[2023-12-20] MEDS: ENOXAPARIN SOD 30 MG/0.3 ML SYRINGE ONE (09:15)
[2023-12-20] MEDS: B-COMPLEX W/ C & FOLIC ACID(NEPHROVITE TAB) ONE (09:15)
[2023-12-20] MEDS: LEVOTHYROXINE SODIUM 25 MCG TAB ONE (09:15)
[2023-12-20] MEDS ORDERED: OMEPRAZOLE 40MG/20ML ORAL SUSP PO SCH (10:00)
[2023-12-20] MEDS: OMEPRAZOLE-SOD BICARB 20 MG POWDER GT SCH (10:30)
[2023-12-21] VITALS (9 sets, daily range): BP systolic 140–164; BP diastolic 61–82; PULSE 69–85; RESP 14–20; TEMP 97.9–98.8; O2SAT 96–100
[2023-12-21] MEDS ORDERED: SODIUM CHL 0.9% 1000 ML BAG XX ONE (07:00)
[2023-12-21] MEDS: ONDANSETRON HCL 4 MG/2 ML VIAL IV PRN (07:04)
[2023-12-21] MEDS: dilTIAZem 120MG ER CAP PO SCH (09:46)
[2023-12-21] MEDS: FAMOTIDINE 20 MG TAB PO SCH (09:47)
[2023-12-21] MEDS ORDERED: PATIENTS OWN MEDICATION (Diltiazem Hcl (Diltiazem Hcl Er) 1 CAP) PO SCH (10:00)
[2023-12-21] MEDS: hydrALAZINE HCL 25 MG TAB PO PRN (16:46)
[2023-12-21] MEDS: CARVEDILOL 3.125 MG TAB PO ONE (18:18)
[2023-12-21] MEDS: cloNIDine HCL 0.1 MG TAB PO ONE (19:44)
[2023-12-21] MEDS: EPOETIN ALFA-EPBX 4,000 UNIT/ML VIAL SC ONE (21:00)
[2023-12-22] MEDS ORDERED: PANTOPRAZOLE 40 MG TAB PO SCH (10:00)
== END 2023-12-21 22:43 | disposition home or self-care (01) | DRG 441 ==
LOC: ER 13:39 → OVERFLOW 18:50 → WEST WING 12-20 01:35
PROVIDERS: ADMIT Nurse Practitioner Family; ATTEND Family Medicine
PROC: 5A1D70Z Performance of Urinary Filtration, Intermittent, Less than 6 Hours Per Day (ICD-10-PCS; principal; 2023-12-21)
DX: K76.89 Other specified diseases of liver (principal); N18.6 End stage renal disease; I12.0 Hypertensive chronic kidney disease with stage 5 chronic kidney disease or end stage renal disease; E03.9 Hypothyroidism, unspecified; E87.6 Hypokalemia; E87.8 Other disorders of electrolyte and fluid balance, not elsewhere classified; Z99.2 Dependence on renal dialysis; E78.00 Pure hypercholesterolemia, unspecified; K21.9 Gastro-esophageal reflux disease without esophagitis; I48.91 Unspecified atrial fibrillation; Z88.0 Allergy status to penicillin; Z90.710 Acquired absence of both cervix and uterus; Z83.3 Family history of diabetes mellitus; Z82.49 Family history of ischemic heart disease and other diseases of the circulatory system; Z82.71 Family history of polycystic kidney; Z91.199 Patient's noncompliance with other medical treatment and regimen due to unspecified reason
CPT/HCPCS: 36415; 74176; 80053; 81001; 85025; 87081; 87340; 90935; 93005; G0378; J2405

== ENCOUNTER 2023-12-28 05:11 | Inpatient (IN) | payer OTHER, MEDICAID ==
[~2023-12-28] VITALS: Ht 152.4 cm; Wt 77.0 kg
[~2023-12-28 05:11] MED LIST changes: +B-CO-6 PO; +HYDR50TA47 PO; +OMEP1CAP70 PO
[2023-12-28 06:00] VITALS: PULSE 89; RESP 25; O2SAT 93
[2023-12-28] MEDS: ACETAMINOPHEN 325 MG TAB PO ONE (06:29)
[2023-12-28 07:05] LABS: Basophils # (auto) 0 10 ^3/uL (0-0.2); Eosinophils # (auto) 0 10 ^3/uL (0-0.8); Eosinophils % (auto) 0.5 % (0.0-7.0); Hemoglobin 8.2 g/dL (12.2-16.2); Lymphocytes # (auto) 0.7 10 ^3/uL (0.4-5.4); Neutrophils # (auto) 7.5 10 ^3/uL (1.6-8.6)
[2023-12-28 07:09] LABS: Basophils % (auto) 0.1 % (0.0-2.0); Hematocrit 25.9 % (36.0-46.0); Lymphocytes % (auto) 8.1 % (10.0-50.0); Mean Corpuscular Hemoglobin 26.4 pg (28.0-32.0); Mean Corpuscular Hgb Conc. 31.7 g/dL (32.0-36.0); Mean Corpuscular Volume 83.4 fL (80.0-100.0); Monocytes # (auto) 0.9 10 ^3/uL (0-1.3); Monocytes % (auto) 9.9 % (0.0-12.0); Neutrophils % (auto) 81.4 % (37.0-80.0); Red Cell Distribution Width 18.9 % (11.8-14.3); White Blood Cell 9.2 10^3/uL (4.4-10.8)
[2023-12-28 07:20] LABS: Chloride 100 mmol/L (98-107); Potassium 4.8 mmol/L (3.5-5.1); Sodium 138 mmol/L (136-145)
[2023-12-28 07:21] LABS: Anion Gap 7 (5-15); Carbon Dioxide 31 mmol/L (20-30)
[2023-12-28 07:26] LABS: BUN/Creatinine Ratio 4.9 (10.0-20.0); Blood Urea Nitrogen 34 mg/dL (9-23); Glucose 99 mg/dL (74-106)
[2023-12-28 08:00] VITALS: PULSE 87; RESP 25; O2SAT 95
[2023-12-28] MEDS ORDERED: DOCUSATE SOD 100 MG CAP PO PRN (09:15)
[2023-12-28] MEDS: hydrALAZINE HCL 25 MG TAB PO SCH (10:00)
[2023-12-28] MEDS: SACUBITRIL-VALSARTAN 24mg/26mg TAB PO SCH (10:00)
[2023-12-28] MEDS: PANTOPRAZOLE 40 MG TAB PO SCH (10:00)
[2023-12-28] MEDS: ISOSORBIDE MONONITRATE ER 60 MG TAB PO SCH (10:00)
[2023-12-28] MEDS: METOPROLOL TARTRATE 50 MG TAB PO SCH (10:00)
[2023-12-28] MEDS ORDERED: ACETAMINOPHEN 650 mg PER 20.3 mL UD PO PRN (10:15)
[2023-12-28] MEDS: DONEPEZIL HYDROCHLORIDE 5 MG TAB PO SCH (10:44)
[2023-12-28] MEDS: MULTIPLE VITAMIN TAB PO SCH (10:46)
[2023-12-28] MEDS: B-COMPLEX W/ C & FOLIC ACID(NEPHROVITE TAB) PO SCH (10:46)
[2023-12-28 11:16] LABS: Urine Bacteria None Seen /hpf (None Seen)
[2023-12-28 11:50] LABS: Urine Blood Negative /uL (Negative); Urine Clarity Clear (Clear); Urine Color Light-Yellow (Yellow); Urine Protein, UAD 2+ (Negative); Urine Specific Gravity 1.008 (1.001-1.035); Urine Urobilinogen Normal (Negative); Urine WBC 1 /hpf (0 - 5); Urine pH 8.5 (5.0-9.0)
[2023-12-28] MEDS: ONDANSETRON HCL 4 MG/2 ML VIAL IV PRN (13:32)
[2023-12-28] MEDS: MORPHINE SULFATE INJ 2 MG/ml SYRG IV PRN (13:38)
[2023-12-28 14:54] LABS: Rapid Influenza A Negative (Negative); Rapid Influenza B Negative (Negative)
[2023-12-28 14:57] LABS: COVID19 ANTIGEN SOFIA FIA NEGATIVE (NEGATIVE)
[2023-12-28] MEDS ORDERED: PIPERACILLIN-TAZOB 3.375GM 100 ML IV ONE (16:15)
[2023-12-28] MEDS: cefTRIAXone 1GM/50ML D5W 50 ML IV ONE (17:06)
[2023-12-28] MEDS: metroNIDAZOLE 500MG/100ML 100 ML IV SCH (17:07)
[2023-12-28] MEDS ORDERED: PIPERACILLIN-TAZOB 3.375GM 100 ML IV SCH (18:00)
[2023-12-28 19:27] LABS: INR 1.14 (0.9-1.15); Prothrombin Time 11.9 sec (9.3-11.8)
[2023-12-28 19:35] VITALS: PULSE 90; RESP 18; O2SAT 94
[2023-12-28] MEDS: ATORVASTATIN 20 MG TAB PO SCH (22:00)
[2023-12-29] MEDS ORDERED: VANCOMYCIN PER PHARMACY 0 MG IV SCH
[2023-12-29] MEDS ORDERED: ACETAMINOPHEN/CODEINE#3 (300/30mg) TAB PO PRN (01:15)
[2023-12-29] MEDS: VANCOMYCIN 1GM/200ML 200 ML IV ONE (01:42)
[2023-12-29] MEDS: ACETAMINOPHEN 325 MG TAB PO PRN (02:05)
[2023-12-29 05:16] LABS: Basophils # (auto) 0 10 ^3/uL (0-0.2); Basophils % (auto) 0.4 % (0.0-2.0); Eosinophils # (auto) 0.2 10 ^3/uL (0-0.8); Eosinophils % (auto) 1.2 % (0.0-7.0); Hematocrit 27.7 % (36.0-46.0); Hemoglobin 8.5 g/dL (12.2-16.2); Lymphocytes # (auto) 1.2 10 ^3/uL (0.4-5.4); Lymphocytes % (auto) 9.4 % (10.0-50.0); Mean Corpuscular Hemoglobin 25.9 pg (28.0-32.0); Mean Corpuscular Hgb Conc. 30.7 g/dL (32.0-36.0); Mean Corpuscular Volume 84.4 fL (80.0-100.0); Monocytes # (auto) 1.2 10 ^3/uL (0-1.3); Monocytes % (auto) 9.1 % (0.0-12.0); Neutrophils # (auto) 10.3 10 ^3/uL (1.6-8.6); Neutrophils % (auto) 79.9 % (37.0-80.0); Red Blood Cells 3.28 10^6/uL (4.0-5.20); Red Cell Distribution Width 19.5 % (11.8-14.3); White Blood Cell 12.9 10^3/uL (4.4-10.8)
[2023-12-29 05:36] LABS: Alanine Aminotransferase 10 U/L (7-40); Albumin 3.8 g/dL (3.2-4.8); Alkaline Phosphatase 105 U/L (46-116); Anion Gap 11 (5-15); Aspartate Aminotransferase 16 U/L (13-40); BUN/Creatinine Ratio 4.9 (10.0-20.0); Bilirubin, Total 0.3 mg/dL (0.2-1.0); Blood Urea Nitrogen 43 mg/dL (9-23); Calcium 9.6 mg/dL (8.7-10.4); Carbon Dioxide 28 mmol/L (20-30); Chloride 98 mmol/L (98-107); Glucose 96 mg/dL (74-106); Potassium 4.8 mmol/L (3.5-5.1); Sodium 137 mmol/L (136-145); Total Protein 6.6 g/dL (5.7-8.2)
[2023-12-29] MEDS: LEVOTHYROXINE SODIUM 25 MCG TAB PO SCH (07:00)
[2023-12-29] MEDS ORDERED: SODIUM CHL 0.9% 1000 ML BAG XX ONE (07:00)
[2023-12-29] MEDS: cefTRIAXone 1GM/50ML D5W 50 ML IV SCH (09:25)
[2023-12-29] MEDS ORDERED: traMADol HCL 50 MG TAB PO PRN ×2 (10:45→12:00)
[2023-12-29 11:00] VITALS: RESP 18; O2SAT 94
[2023-12-29 11:44] VITALS: BP 138/75; PULSE 72; RESP 17; TEMP 98.4; O2SAT 93
[2023-12-29 11:46] VITALS: BP 138/75; PULSE 72; RESP 17; TEMP 98.4; O2SAT 93
[2023-12-29] MEDS ORDERED: APIX2.5T PO (12:23)
[2023-12-29 13:42] LABS: Magnesium 2.4 mg/dL (1.6-2.6)
[2023-12-29 13:43] LABS: Phosphorus 3.6 mg/dL (2.4-5.1)
[2023-12-29 16:43] VITALS: BP 140/75; PULSE 80; RESP 20; TEMP 98.2; O2SAT 96
[2023-12-29 20:22] LABS: Free T3 1.75 pg/mL (2.3-4.2)
[2023-12-29 20:23] LABS: Free T4 (Free Thyroxine) 1.01 ng/dL (0.89-1.76)
[2023-12-29] MEDS: EPOETIN ALFA-EPBX 10,000 UNIT/1ML VIAL SC ONE (21:28)
[2023-12-29 21:54] VITALS: BP 138/74; PULSE 80; RESP 18; TEMP 98.3; O2SAT 100
[2023-12-30 01:29] VITALS: BP 133/73; PULSE 80; RESP 18; TEMP 99; O2SAT 93
[2023-12-30 05:46] VITALS: BP 136/81; PULSE 81; RESP 18; TEMP 98.6; O2SAT 96
[2023-12-30] MEDS: LEVOTHYROXINE SODIUM 50 MCG TAB PO SCH (05:48)
[2023-12-30 06:33] LABS: Eosinophils # (auto) 0.2 10 ^3/uL (0-0.8); Hemoglobin 7.8 g/dL (12.2-16.2); Mean Corpuscular Volume 85.1 fL (80.0-100.0); Red Cell Distribution Width 19.2 % (11.8-14.3)
[2023-12-30 06:36] LABS: Basophils # (auto) 0.1 10 ^3/uL (0-0.2); Basophils % (auto) 0.5 % (0.0-2.0); Eosinophils % (auto) 1.9 % (0.0-7.0); Hematocrit 25.1 % (36.0-46.0); Lymphocytes # (auto) 0.9 10 ^3/uL (0.4-5.4); Lymphocytes % (auto) 8.6 % (10.0-50.0); Mean Corpuscular Hemoglobin 26.5 pg (28.0-32.0); Mean Corpuscular Hgb Conc. 31.1 g/dL (32.0-36.0); Monocytes # (auto) 0.9 10 ^3/uL (0-1.3); Monocytes % (auto) 8.8 % (0.0-12.0); Neutrophils # (auto) 8.6 10 ^3/uL (1.6-8.6); Neutrophils % (auto) 80.2 % (37.0-80.0); Red Blood Cells 2.94 10^6/uL (4.0-5.20); White Blood Cell 10.7 10^3/uL (4.4-10.8)
[2023-12-30 06:46] LABS: Albumin 3.4 g/dL (3.2-4.8); Alkaline Phosphatase 89 U/L (46-116); Anion Gap 11 (5-15); Aspartate Aminotransferase 15 U/L (13-40); BUN/Creatinine Ratio 4.9 (10.0-20.0); Blood Urea Nitrogen 49 mg/dL (9-23); Calcium 9.1 mg/dL (8.7-10.4); Carbon Dioxide 25 mmol/L (20-30); Chloride 99 mmol/L (98-107); Glucose 96 mg/dL (74-106); Magnesium 2.4 mg/dL (1.6-2.6); Phosphorus 3.5 mg/dL (2.4-5.1); Potassium 4.9 mmol/L (3.5-5.1); Sodium 135 mmol/L (136-145)
[2023-12-30 06:47] LABS: Alanine Aminotransferase < 9 U/L (7-40); Bilirubin, Total 0.2 mg/dL (0.2-1.0); Total Protein 5.9 g/dL (5.7-8.2)
[2023-12-30 09:00] VITALS: BP 143/72; PULSE 77; RESP 18; TEMP 98.7; O2SAT 97
[2023-12-30] MEDS: dilTIAZem 120MG ER CAP PO SCH (09:57)
[2023-12-30] MEDS: PIPERACILLIN-TAZOB 2.25GM 50 ML IV ONE (10:30)
[2023-12-30 13:00] VITALS: BP 141/76; PULSE 76; RESP 20; TEMP 98; O2SAT 97
[2023-12-30 21:00] VITALS: BP 152/73; PULSE 87; RESP 17; TEMP 98; O2SAT 95
[2023-12-30] MEDS: PIPERACILLIN-TAZOB 2.25GM 50 ML IV SCH (21:20)
[2023-12-31] VITALS (7 sets, daily range): BP systolic 142–156; BP diastolic 72–79; PULSE 71–115; RESP 17–19; TEMP 97.9–98.9; O2SAT 93–99
[2023-12-31 07:03] LABS: Basophils # (auto) 0 10 ^3/uL (0-0.2); Eosinophils # (auto) 0.1 10 ^3/uL (0-0.8); Eosinophils % (auto) 1.8 % (0.0-7.0); Hematocrit 23.9 % (36.0-46.0); Monocytes # (auto) 0.8 10 ^3/uL (0-1.3); Nucleated Red Blood Cells % 0.1 %; Red Blood Cells 2.88 10^6/uL (4.0-5.20); White Blood Cell 7.9 10^3/uL (4.4-10.8)
[2023-12-31 07:07] LABS: Basophils % (auto) 0.4 % (0.0-2.0); Hemoglobin 7.7 g/dL (12.2-16.2); Lymphocytes % (auto) 12.2 % (10.0-50.0); Mean Corpuscular Hemoglobin 26.6 pg (28.0-32.0); Monocytes % (auto) 10.2 % (0.0-12.0); Neutrophils # (auto) 5.9 10 ^3/uL (1.6-8.6); Neutrophils % (auto) 75.4 % (37.0-80.0); Red Cell Distribution Width 19.3 % (11.8-14.3)
[2023-12-31 07:28] LABS: Albumin 3.3 g/dL (3.2-4.8); Alkaline Phosphatase 89 U/L (46-116); Anion Gap 10 (5-15); Aspartate Aminotransferase 21 U/L (13-40); BUN/Creatinine Ratio 4.3 (10.0-20.0); Blood Urea Nitrogen 22 mg/dL (9-23); Calcium 8.4 mg/dL (8.5-10.1); Carbon Dioxide 29 mmol/L (20-30); Chloride 100 mmol/L (98-107); Glucose 96 mg/dL (74-106); Potassium 4.3 mmol/L (3.5-5.1); Sodium 139 mmol/L (136-145)
[2023-12-31 07:29] LABS: Bilirubin, Total 0.3 mg/dL (0.2-1.0); Phosphorus 2.2 mg/dL (2.4-5.1); Total Protein 5.4 g/dL (5.7-8.2)
[2023-12-31 07:32] LABS: Alanine Aminotransferase < 9 U/L (7-40)
[2023-12-31] MEDS: guaiFENesin-DM 100/10mg/5ml SYR PO ONE (11:29)
[2023-12-31 21:32] LABS: Amphetamine Screen, Urine Neg (NEGATIVE); Barbiturate Scree,Urine Neg (NEGATIVE); Benzodiazephine Screen, Urine Neg (NEGATIVE); Cannabinoid Screen, Urine Neg (NEGATIVE); Cocaine Screen, Urine Neg (NEGATIVE); Opiate Scree,Urine Neg (NEGATIVE); Phencyclidine Screen, Urine Neg (NEGATIVE)
[2024-01-01] VITALS (7 sets, daily range): BP systolic 128–167; BP diastolic 61–81; PULSE 70–95; RESP 16–20; TEMP 97.7–98.8; O2SAT 93–98
[2024-01-01 07:35] LABS: Basophils # (auto) 0 10 ^3/uL (0-0.2); Basophils % (auto) 0.6 % (0.0-2.0); Eosinophils # (auto) 0.2 10 ^3/uL (0-0.8); Hemoglobin 8.1 g/dL (12.2-16.2); Lymphocytes # (auto) 1.2 10 ^3/uL (0.4-5.4); Monocytes # (auto) 0.8 10 ^3/uL (0-1.3); Nucleated Red Blood Cells % 0.1 %; White Blood Cell 8.1 10^3/uL (4.4-10.8)
[2024-01-01 07:37] LABS: Eosinophils % (auto) 2.7 % (0.0-7.0); Hematocrit 25.9 % (36.0-46.0); Lymphocytes % (auto) 14.5 % (10.0-50.0); Mean Corpuscular Hemoglobin 26.2 pg (28.0-32.0); Mean Corpuscular Hgb Conc. 31.2 g/dL (32.0-36.0); Mean Corpuscular Volume 84.1 fL (80.0-100.0); Monocytes % (auto) 9.5 % (0.0-12.0); Neutrophils # (auto) 5.9 10 ^3/uL (1.6-8.6); Neutrophils % (auto) 72.7 % (37.0-80.0); Red Blood Cells 3.08 10^6/uL (4.0-5.20); Red Cell Distribution Width 19.5 % (11.8-14.3)
[2024-01-01 07:49] LABS: Albumin 3.4 g/dL (3.2-4.8); Alkaline Phosphatase 92 U/L (46-116); Anion Gap 11 (5-15); Aspartate Aminotransferase 15 U/L (13-40); BUN/Creatinine Ratio 4.7 (10.0-20.0); Bilirubin, Total 0.3 mg/dL (0.2-1.0); Blood Urea Nitrogen 31 mg/dL (9-23); Calcium 8.4 mg/dL (8.5-10.1); Carbon Dioxide 27 mmol/L (20-30); Chloride 100 mmol/L (98-107); Glucose 110 mg/dL (74-106); Potassium 4.7 mmol/L (3.5-5.1); Sodium 138 mmol/L (136-145); Total Protein 5.6 g/dL (5.7-8.2)
[2024-01-01 07:51] LABS: Alanine Aminotransferase < 9 U/L (7-40)
[2024-01-01] MEDS: hydrALAZINE HCL 25 MG TAB PO SCH (10:00)
[2024-01-01] MEDS: HEPARIN SODIUM (PORCINE) 5000 UNITS/ML 1ML VIAL IV ONE (12:45)
[2024-01-01 14:54] LABS: Basophils # (auto) 0 10 ^3/uL (0-0.2); Basophils % (auto) 0.3 % (0.0-2.0); Eosinophils # (auto) 0.2 10 ^3/uL (0-0.8); Hemoglobin 8.2 g/dL (12.2-16.2); Lymphocytes # (auto) 0.9 10 ^3/uL (0.4-5.4); Monocytes # (auto) 0.9 10 ^3/uL (0-1.3); Neutrophils # (auto) 7.1 10 ^3/uL (1.6-8.6)
[2024-01-01 14:56] LABS: Eosinophils % (auto) 2.7 % (0.0-7.0); Hematocrit 26.2 % (36.0-46.0); Lymphocytes % (auto) 9.3 % (10.0-50.0); Mean Corpuscular Hemoglobin 26.7 pg (28.0-32.0); Mean Corpuscular Hgb Conc. 31.5 g/dL (32.0-36.0); Mean Corpuscular Volume 84.7 fL (80.0-100.0); Monocytes % (auto) 9.5 % (0.0-12.0); Neutrophils % (auto) 78.2 % (37.0-80.0); Red Blood Cells 3.09 10^6/uL (4.0-5.20); Red Cell Distribution Width 19.2 % (11.8-14.3); White Blood Cell 9.1 10^3/uL (4.4-10.8)
[2024-01-01 15:11] LABS: INR 1.17 (0.9-1.15); Partial Thromboplastin Time 33.1 SEC (24.5-34.5); Prothrombin Time 12.2 sec (9.3-11.8)
[2024-01-01] MEDS: HEPARIN DRIP/D5W 100UNITS/ML 250 ML IV SCH (16:24)
[2024-01-01] MEDS: CALCIUM ACETATE 667 MG CAP PO SCH (17:40)
[2024-01-01 23:04] LABS: INR 1.17 (0.9-1.15); Prothrombin Time 12.2 sec (9.3-11.8)
[2024-01-02] VITALS (12 sets, daily range): BP systolic 109–173; BP diastolic 60–79; PULSE 61–75; RESP 15–19; TEMP 97.4–98.6; O2SAT 95–99
[2024-01-02] MEDS: cloNIDine HCL 0.1 MG TAB PO PRN (01:39)
[2024-01-02 07:43] LABS: INR 1.16 (0.9-1.15); Partial Thromboplastin Time 33.6 SEC (24.5-34.5); Prothrombin Time 12.1 sec (9.3-11.8)
[2024-01-02 07:47] LABS: Albumin 3.4 g/dL (3.2-4.8); Alkaline Phosphatase 90 U/L (46-116); Anion Gap 8 (5-15); Aspartate Aminotransferase 16 U/L (13-40); BUN/Creatinine Ratio 4.6 (10.0-20.0); Blood Urea Nitrogen 36 mg/dL (9-23); Calcium 8.6 mg/dL (8.7-10.4); Carbon Dioxide 28 mmol/L (20-30); Chloride 99 mmol/L (98-107); Glucose 101 mg/dL (74-106); Magnesium 2.1 mg/dL (1.6-2.6); Potassium 4.8 mmol/L (3.5-5.1); Sodium 135 mmol/L (136-145)
[2024-01-02 07:48] LABS: Bilirubin, Total 0.3 mg/dL (0.2-1.0); Phosphorus 3.5 mg/dL (2.4-5.1); Total Protein 5.9 g/dL (5.7-8.2)
[2024-01-02 07:50] LABS: Alanine Aminotransferase < 9 U/L (7-40)
[2024-01-02 08:41] LABS: Hepatitis B Surface Antigen Negative (Negative)
[2024-01-02 09:02] LABS: Hepatitis A Ab IgM Negative
[2024-01-02 09:03] LABS: Hepatitis B Core IgM Negative; Hepatitis C Antibody Negative (Negative)
[2024-01-02] MEDS: IPRATROPIUM BROM 0.5 MG/2.5ML INH SOL NEB SCH (14:05)
[2024-01-02] MEDS ORDERED: SODIUM CHL 0.9% 1000 ML BAG XX ONE (14:15)
[2024-01-02] MEDS: guaiFENesin 200 MG/10 ML UD PO PRN (17:02)
[2024-01-02] MEDS ORDERED: EPOETIN ALFA-EPBX 10,000 UNIT/1ML VIAL SC ONE (21:00)
[2024-01-03] VITALS (7 sets, daily range): BP systolic 138–179; BP diastolic 72–76; PULSE 58–69; RESP 14–20; TEMP 36.7; O2SAT 97–100
[2024-01-03 06:55] LABS: Eosinophils # (auto) 0.4 10 ^3/uL (0-0.8); Monocytes # (auto) 0.9 10 ^3/uL (0-1.3); White Blood Cell 9.2 10^3/uL (4.4-10.8)
[2024-01-03] MEDS ORDERED: SODIUM CHL 0.9% 1000 ML BAG XX ONE (07:00)
[2024-01-03 07:01] LABS: Basophils # (auto) 0.1 10 ^3/uL (0-0.2); Basophils % (auto) 0.7 % (0.0-2.0); Hematocrit 24.3 % (36.0-46.0); Hemoglobin 7.9 g/dL (12.2-16.2); Lymphocytes # (auto) 1.3 10 ^3/uL (0.4-5.4); Lymphocytes % (auto) 14.1 % (10.0-50.0); Mean Corpuscular Hemoglobin 26.8 pg (28.0-32.0); Mean Corpuscular Hgb Conc. 32.3 g/dL (32.0-36.0); Monocytes % (auto) 9.3 % (0.0-12.0); Neutrophils # (auto) 6.6 10 ^3/uL (1.6-8.6); Neutrophils % (auto) 71.9 % (37.0-80.0); Nucleated Red Blood Cells % 0.1 %; Red Blood Cells 2.93 10^6/uL (4.0-5.20); Red Cell Distribution Width 19.2 % (11.8-14.3)
[2024-01-03 07:03] LABS: Albumin 3.1 g/dL (3.2-4.8); Alkaline Phosphatase 79 U/L (46-116); Anion Gap 9 (5-15); Aspartate Aminotransferase 13 U/L (13-40); BUN/Creatinine Ratio 4.6 (10.0-20.0); Bilirubin, Total 0.2 mg/dL (0.2-1.0); Blood Urea Nitrogen 41 mg/dL (9-23); Calcium 8.5 mg/dL (8.7-10.4); Carbon Dioxide 25 mmol/L (20-30); Chloride 100 mmol/L (98-107); Glucose 90 mg/dL (74-106); Magnesium 2.3 mg/dL (1.6-2.6); Potassium 5.3 mmol/L (3.5-5.1); Sodium 134 mmol/L (136-145); Total Protein 5.4 g/dL (5.7-8.2)
[2024-01-03 07:12] LABS: Alanine Aminotransferase < 9 U/L (7-40)
[2024-01-03] MEDS ORDERED: MET500T PO (11:54)
[2024-01-03] MEDS ORDERED: LEVO250T58 PO (11:54)
[2024-01-03] MEDS ORDERED: LEV50T PO (11:54)
[2024-01-03] MEDS ORDERED: GUA200LQ PO ×2 (11:54→15:13)
[2024-01-03] MEDS ORDERED: EPOETIN ALFA-EPBX 10,000 UNIT/1ML VIAL SC ONE (21:00)
== END 2024-01-03 17:11 | disposition home or self-care (01) | DRG 871 ==
LOC: ER 05:11 → EDBD 05:11 → OVERFLOW 10:13 → WEST WING 12-29 12:09 → TELE-WESTW 01-01 14:35 → WEST WING 01-02 21:18
PROVIDERS: ADMIT Internal Medicine; ATTEND Internal Medicine
PROC: 5A1D70Z Performance of Urinary Filtration, Intermittent, Less than 6 Hours Per Day (ICD-10-PCS; 2023-12-30)
PROC: 05HB33Z Insertion of Infusion Device into Right Basilic Vein, Percutaneous Approach (ICD-10-PCS; principal; 2024-01-01)
PROC: B54MZZA Ultrasonography of Right Upper Extremity Veins, Guidance (ICD-10-PCS; 2024-01-01)
PROC: 5A1D70Z Performance of Urinary Filtration, Intermittent, Less than 6 Hours Per Day (ICD-10-PCS; 2024-01-03)
DX: A41.81 Sepsis due to Enterococcus (principal); K75.0 Abscess of liver; N18.6 End stage renal disease; N25.81 Secondary hyperparathyroidism of renal origin; I50.22 Chronic systolic (congestive) heart failure; Q61.3 Polycystic kidney, unspecified; I13.2 Hypertensive heart and chronic kidney disease with heart failure and with stage 5 chronic kidney disease, or end stage renal disease; D68.69 Other thrombophilia; C22.8 Malignant neoplasm of liver, primary, unspecified as to type; E78.5 Hyperlipidemia, unspecified; E03.9 Hypothyroidism, unspecified; D63.1 Anemia in chronic kidney disease; I16.0 Hypertensive urgency; Z20.822 Contact with and (suspected) exposure to COVID-19; K42.9 Umbilical hernia without obstruction or gangrene; R16.0 Hepatomegaly, not elsewhere classified; Z99.2 Dependence on renal dialysis; Z88.0 Allergy status to penicillin; Z90.710 Acquired absence of both cervix and uterus; Z82.71 Family history of polycystic kidney; Z83.3 Family history of diabetes mellitus; Z82.49 Family history of ischemic heart disease and other diseases of the circulatory system; Z80.9 Family history of malignant neoplasm, unspecified
CPT/HCPCS: 36415; 71045; 74176; 76700; 78226; 80048; 80053; 80074; 80202; 80307; 81001; 82140; 82306; 82607; 83036; 83605; 83735; 84100; 84439; 84443; 84481; 85025; 85610; 85730; 87040; 87077; 87086; 87186; 87426; 87804; 90935; 93005; 93306; 94640; 97110; 97116; 97163; 97530; G0378; J2405; J2543; J3490

== ENCOUNTER 2024-01-10 09:27 | Inpatient (IN) | payer OTHER, MEDICAID ==
[~2024-01-10] VITALS: Ht 152.4 cm; Wt 91.6 kg
[~2024-01-10 09:27] MED LIST changes: +APIX2.5T PO; +GUA200LQ PO; -HYDR25TA88 PO; +LEV50T PO; +LEVO250T58 PO; -LEVO25TA6 PO; -LEVO500T31 PO; +MET500T PO; -NITR-87 PO
[2024-01-10] MEDS ORDERED: SODIUM CHLORIDE 0.9% 1,000 ML IV ONE ×2 (10:15)
[2024-01-10 10:47] LABS: Basophils # (auto) 0 10 ^3/uL (0-0.2); Basophils % (auto) 0.4 % (0.0-2.0); Eosinophils # (auto) 0.2 10 ^3/uL (0-0.8); Eosinophils % (auto) 3.4 % (0.0-7.0); Hematocrit 26.4 % (36.0-46.0); Hemoglobin 8.2 g/dL (12.2-16.2); Lymphocytes # (auto) 1.1 10 ^3/uL (0.4-5.4); Lymphocytes % (auto) 16.9 % (10.0-50.0); Mean Corpuscular Hemoglobin 26.2 pg (28.0-32.0); Mean Corpuscular Hgb Conc. 31.1 g/dL (32.0-36.0); Mean Corpuscular Volume 84.3 fL (80.0-100.0); Monocytes # (auto) 0.7 10 ^3/uL (0-1.3); Monocytes % (auto) 11.1 % (0.0-12.0); Neutrophils # (auto) 4.5 10 ^3/uL (1.6-8.6); Neutrophils % (auto) 68.2 % (37.0-80.0); Red Blood Cells 3.13 10^6/uL (4.0-5.20); Red Cell Distribution Width 19.6 % (11.8-14.3); White Blood Cell 6.7 10^3/uL (4.4-10.8)
[2024-01-10 10:50] LABS: Urine Bacteria FEW /hpf (None Seen); Urine Blood TRACE /uL (Negative); Urine Clarity Clear (Clear); Urine Color Light-Yellow (Yellow); Urine Protein, UAD 2+ (Negative); Urine Specific Gravity 1.013 (1.001-1.035); Urine Urobilinogen Normal (Negative); Urine WBC 7 /hpf (0 - 5); Urine pH 8.5 (5.0-9.0)
[2024-01-10 11:01] VITALS: PULSE 74; RESP 16; O2SAT 95
[2024-01-10 11:36] LABS: Albumin 3.9 g/dL (3.2-4.8); Alkaline Phosphatase 95 U/L (46-116); Anion Gap 8 (5-15); Aspartate Aminotransferase 16 U/L (13-40); BUN/Creatinine Ratio 4.5 (10.0-20.0); Bilirubin, Total 0.3 mg/dL (0.2-1.0); Blood Urea Nitrogen 25 mg/dL (9-23); Calcium 9.1 mg/dL (8.7-10.4); Carbon Dioxide 30 mmol/L (20-30); Chloride 98 mmol/L (98-107); Glucose 86 mg/dL (74-106); Lipase 94 U/L (12-53); Potassium 4.7 mmol/L (3.5-5.1); Sodium 136 mmol/L (136-145); Total Protein 6.7 g/dL (5.7-8.2)
[2024-01-10 11:41] LABS: Alanine Aminotransferase < 9 U/L (7-40)
[2024-01-10] MEDS ORDERED: ONDANSETRON HCL 4 MG/2 ML VIAL IV PRN (12:45)
[2024-01-10] MEDS ORDERED: MORPHINE SULFATE INJ 2 MG/ml SYRG IV PRN (12:45)
[2024-01-10] MEDS ORDERED: DOCUSATE SOD 100 MG CAP PO PRN (12:45)
[2024-01-10 16:55] VITALS: PULSE 84; RESP 14; O2SAT 97
[2024-01-10 19:45] VITALS: PULSE 82; RESP 16; O2SAT 98
[2024-01-10] MEDS: ATORVASTATIN 20 MG TAB PO SCH (22:00)
[2024-01-10] MEDS: SACUBITRIL-VALSARTAN 24mg/26mg TAB PO SCH (22:00)
[2024-01-10] MEDS: hydrALAZINE HCL 25 MG TAB PO SCH (22:00)
[2024-01-10] MEDS: APIXABAN 2.5 MG TAB PO SCH (22:00)
[2024-01-10] MEDS: METOPROLOL TARTRATE 50 MG TAB PO SCH (22:02)
[2024-01-11] VITALS (7 sets, daily range): BP systolic 147–165; BP diastolic 70–79; PULSE 66–76; RESP 16–19; TEMP 97.8–99.3; O2SAT 95–98
[2024-01-11] MEDS: HYDROcodone-ACET 5/325MG TAB PO PRN (03:34)
[2024-01-11 06:29] LABS: Basophils # (auto) 0 10 ^3/uL (0-0.2); Eosinophils # (auto) 0.3 10 ^3/uL (0-0.8); Hemoglobin 7.9 g/dL (12.2-16.2); Lymphocytes # (auto) 1.1 10 ^3/uL (0.4-5.4); Monocytes # (auto) 0.7 10 ^3/uL (0-1.3)
[2024-01-11 06:33] LABS: Basophils % (auto) 0.4 % (0.0-2.0); Eosinophils % (auto) 3.9 % (0.0-7.0); Hematocrit 24.9 % (36.0-46.0); Lymphocytes % (auto) 15.5 % (10.0-50.0); Mean Corpuscular Hemoglobin 26.5 pg (28.0-32.0); Mean Corpuscular Hgb Conc. 31.8 g/dL (32.0-36.0); Mean Corpuscular Volume 83.5 fL (80.0-100.0); Monocytes % (auto) 9.7 % (0.0-12.0); Neutrophils % (auto) 70.5 % (37.0-80.0); Nucleated Red Blood Cells % 0.1 %; Red Blood Cells 2.98 10^6/uL (4.0-5.20); Red Cell Distribution Width 19.5 % (11.8-14.3); White Blood Cell 7.1 10^3/uL (4.4-10.8)
[2024-01-11 06:40] LABS: Albumin 3.5 g/dL (3.2-4.8); Alkaline Phosphatase 90 U/L (46-116); Anion Gap 9 (5-15); Aspartate Aminotransferase 30 U/L (13-40); BUN/Creatinine Ratio 4.5 (10.0-20.0); Bilirubin, Total 0.2 mg/dL (0.2-1.0); Blood Urea Nitrogen 31 mg/dL (9-23); Calcium 8.8 mg/dL (8.5-10.1); Carbon Dioxide 30 mmol/L (20-30); Chloride 98 mmol/L (98-107); Glucose 82 mg/dL (74-106); Potassium 5.4 mmol/L (3.5-5.1); Sodium 137 mmol/L (136-145); Total Protein 6.2 g/dL (5.7-8.2)
[2024-01-11 06:41] LABS: Alanine Aminotransferase < 9 U/L (7-40)
[2024-01-11] MEDS: SODIUM CHL 0.9% 1000 ML BAG XX ONE (09:00)
[2024-01-11] MEDS: B-COMPLEX W/ C & FOLIC ACID(NEPHROVITE TAB) PO SCH (13:02)
[2024-01-11] MEDS: dilTIAZem 120MG ER CAP PO SCH (13:15)
[2024-01-11] MEDS: LEVOTHYROXINE SODIUM 50 MCG TAB PO SCH (15:04)
[2024-01-11] MEDS: DONEPEZIL HYDROCHLORIDE 5 MG TAB PO SCH (15:04)
[2024-01-11] MEDS: MULTIPLE VITAMIN TAB PO SCH (16:08)
[2024-01-11] MEDS: PANTOPRAZOLE 40 MG TAB PO SCH (16:09)
[2024-01-11] MEDS: ISOSORBIDE MONONITRATE ER 60 MG TAB PO SCH (16:36)
[2024-01-11] MEDS: EPOETIN ALFA-EPBX 10,000 UNIT/1ML VIAL SC ONE (21:03)
[2024-01-12 01:00] VITALS: BP 145/75; PULSE 75; RESP 18; TEMP 97.3; O2SAT 100
[2024-01-12 04:41] VITALS: BP 152/85; PULSE 74; RESP 16; TEMP 98.6; O2SAT 94
[2024-01-12 05:59] LABS: Anion Gap 8 (5-15); Carbon Dioxide 30 mmol/L (20-30); Chloride 97 mmol/L (98-107); Potassium 4.5 mmol/L (3.5-5.1); Sodium 135 mmol/L (136-145)
[2024-01-12 06:06] LABS: BUN/Creatinine Ratio 3.7 (10.0-20.0); Blood Urea Nitrogen 19 mg/dL (9-23); Glucose 84 mg/dL (74-106)
[2024-01-12 08:00] VITALS: PULSE 76; RESP 20
[2024-01-12 09:00] VITALS: BP 147/74; PULSE 76; RESP 20; TEMP 98.2; O2SAT 96
[2024-01-12 13:00] VITALS: BP 140/78; PULSE 75; RESP 18; TEMP 98.2; O2SAT 97
[2024-01-12 14:55] VITALS: BP 140/78; PULSE 75; RESP 18; TEMP 98.6; O2SAT 97
== END 2024-01-12 15:27 | disposition home or self-care (01) | DRG 438 ==
LOC: ER 09:27 → OVERFLOW 13:48 → CENTRAL 01-11 13:47
PROVIDERS: ADMIT Nurse Practitioner Family; ATTEND Nurse Practitioner Acute Care
PROC: 5A1D70Z Performance of Urinary Filtration, Intermittent, Less than 6 Hours Per Day (ICD-10-PCS; principal; 2024-01-11)
DX: K85.90 Acute pancreatitis without necrosis or infection, unspecified (principal); N18.6 End stage renal disease; Q61.2 Polycystic kidney, adult type; I13.2 Hypertensive heart and chronic kidney disease with heart failure and with stage 5 chronic kidney disease, or end stage renal disease; I50.22 Chronic systolic (congestive) heart failure; E78.5 Hyperlipidemia, unspecified; E87.5 Hyperkalemia; I48.0 Paroxysmal atrial fibrillation; K76.89 Other specified diseases of liver; D63.1 Anemia in chronic kidney disease; E03.9 Hypothyroidism, unspecified; K42.9 Umbilical hernia without obstruction or gangrene; F10.10 Alcohol abuse, uncomplicated; Y90.9 Presence of alcohol in blood, level not specified; R16.0 Hepatomegaly, not elsewhere classified; Z99.2 Dependence on renal dialysis; Z88.0 Allergy status to penicillin; Z79.899 Other long term (current) drug therapy; Z90.710 Acquired absence of both cervix and uterus; Z82.71 Family history of polycystic kidney; Z82.49 Family history of ischemic heart disease and other diseases of the circulatory system; Z83.3 Family history of diabetes mellitus
CPT/HCPCS: 36415; 70450; 74176; 76705; 80048; 80053; 81001; 83690; 85025; 87086; 90935; G0378

== ENCOUNTER 2024-01-25 14:32 | Emergency (ER) | payer OTHER, MEDICAID ==
[~2024-01-25] VITALS: Ht 152.4 cm; Wt 57.6 kg
[2024-01-25] MEDS ORDERED: NAP500T GT (18:03)
[2024-01-25 23:50] VITALS: BP 148/75; PULSE 83; RESP 16; TEMP 98.8; O2SAT 98
== END 2024-01-25 23:50 | disposition home or self-care (01) ==
LOC: ER 14:32
DX: M79.18 Myalgia, other site (principal); M54.6 Pain in thoracic spine; M54.2 Cervicalgia; I12.0 Hypertensive chronic kidney disease with stage 5 chronic kidney disease or end stage renal disease; N18.6 End stage renal disease; E78.5 Hyperlipidemia, unspecified; Z90.710 Acquired absence of both cervix and uterus; Z88.0 Allergy status to penicillin
CPT/HCPCS: 72040; 72070

== ENCOUNTER 2024-07-05 12:41 | Emergency (ER) | payer OTHER, MEDICAID ==
[~2024-07-05] VITALS: Ht 152.4 cm; Wt 58.7 kg
[~2024-07-05 12:41] MED LIST changes: -LEV50T PO; +LEVO-848 PO; +NAP500T GT
[2024-07-05] MEDS ORDERED: TRAM50TA2 PO (13:20)
[2024-07-05 15:10] VITALS: BP 151/77; PULSE 79; RESP 16; TEMP 98; O2SAT 96
== END 2024-07-05 15:13 | disposition home or self-care (01) ==
LOC: ER 12:41
DX: M54.9 Dorsalgia, unspecified (principal); I12.0 Hypertensive chronic kidney disease with stage 5 chronic kidney disease or end stage renal disease; N18.6 End stage renal disease; E78.5 Hyperlipidemia, unspecified; Z76.0 Encounter for issue of repeat prescription; Z90.710 Acquired absence of both cervix and uterus; Z98.890 Other specified postprocedural states; Z88.0 Allergy status to penicillin; Z79.1 Long term (current) use of non-steroidal anti-inflammatories (NSAID); Z79.01 Long term (current) use of anticoagulants; Z79.899 Other long term (current) drug therapy

== ENCOUNTER 2024-07-21 13:01 | Emergency (ER) | payer OTHER, MEDICAID ==
[~2024-07-21] VITALS: Ht 152.4 cm; Wt 58.0 kg
[~2024-07-21 13:01] MED LIST changes: +TRAM50TA2 PO
[2024-07-21 13:52] VITALS: TEMP 98.4
[2024-07-21 13:55] VITALS: BP 133/74; PULSE 88; RESP 16; O2SAT 98
[2024-07-21] MEDS ORDERED: TRAM-626 PO (13:59)
--- NOTE | 2024-07-21 13:59 | ED.PDOC ---
History of Present Illness HPI Comments A 74 YEAR OLD FEMALE PRESENTS TO THE ED WITH COMPLAINT OF CHRONIC BACK PAIN AND MEDICATION REFILL. PATIENT STATES SHE HAS A HISTORY OF CHRONIC BACK PAIN/DDD AND TAKES TRAMADOL TO MANAGE HER PAIN. PATIENT REPORTS SHE RAN OUT OF THIS MEDICATION AND WOULD NOW LIKE A MEDICATION REFILL FOR HER TRAMADOL. PATIENT DENIES SADDLE ANESTHESIA, URINARY INCONTINENCE, BOWEL INCONTINENCE, FEVER, CHILLS, SHORTNESS OF BREATH, CHEST PAIN, ABDOMINAL PAIN, NAUSEA, VOMITING, HEADACHE, OR OTHER COMPLAINTS. NO OTHER SYMPTOMS OR MODIFYING FACTORS AT THIS TIME. PATIENT IS ALERT, ORIENTED X 4, AND HAS STEADY GAIT. Chief Complaint: Back Pain Time Seen by MD: 13:08 Primary Care Provider: UNKNOWN Reviewed Notes: Nurses Notes, Medications, Allergies Allergies: Coded Allergies: Penicillins (Verified Allergy, Unknown, 06/14/22) Home Meds Active Scripts Tramadol HCl (Tramadol HCl) 50 Mg Tab, 50 MG PO BID, #24 TAB Prov:DOMINICK PHELPS 07/21/24 Tramadol Hcl (Tramadol Hcl) 50 Mg Tab, 50 MG PO DAILY PRN for 30 Days, #30 TAB Prov:LEDA ARGUELLO MD 07/05/24 Naproxen (NAPROSYN TABLET) 500 Mg Tb, 500 MG GT BID for 20 Days, #40 TAB Prov:NORRIS RAMIREZ MD 01/25/24 Guaifenesin (Guaifenesin) 100 Mg/5 Ml Syp, 100 MG PO Q6HPRN PRN for 30 Days, #30 SYP Prov:THEO ARCOS 01/03/24 Metronidazole (Metronidazole) 500 Mg Tab, 500 MG PO TID for 10 Days, #30 TAB Prov:THEO ARCOS 01/03/24 Levofloxacin Hemihydrate (LEVOFLOXACIN) 250 Mg Tab, 250 MG PO DAILY for 10 Days, #10 TAB Prov:THEO ARCOS 01/03/24 Levothyroxine Sodium (SYNTHROID TABLET) 50 Mcg Tb, 50 MCG PO QAM for 30 Days, #30 TAB Prov:THEO ARCOS 01/03/24 Guaifenesin (Guaifenesin) 100 Mg/5 Ml Syp, 200 MG PO Q4HP PRN for 30 Days, #30 SYP Prov:THEO ARCOS 01/03/24 Sacubitril-Valsartan (Entresto 24-26 mg) 1 Tab Tab, 1 TAB PO BID, #60 TAB Prov:CALLY HOOPER MD 12/12/20 Reported Medications Apixaban Base (ELIQUIS) 2.5 Mg Tab, 1 TAB PO BID 12/29/23 Hydralazine Hcl (Hydralazine Hcl) 50 Mg Tab, 1 TAB PO TID 12/19/23 B-Complex W/ C & Folic Acid (Shannan-Agnieszka Rx) Tab, 1 TAB PO DAILY 12/19/23 Omeprazole (Omeprazole Dr) 20 Mg Cap, 1 CAP PO DAILY 12/19/23 Isosorbide Mononitrate (Isosorbide Mononitrate Er) 60 Mg Tab, 60 MG PO for 30 Days, MG 12/08/20 Calcium Carbonate-Cholecalcife (Oyster Calcium/D3 500-200 mg-Unit) 1 Tab Tab, 1 TAB PO DAILY, TAB 08/18/17 Diltiazem Hcl (DILTIAZEM HCL ER) 240 Mg Cap, 1 CAP PO DAILY, #30 CAP 5 Refills 08/04/17 Multiple Vitamin (Multi-Day Vitamins) Vitamins Tab, 1 TAB PO DAILY, #30 TAB 08/04/17 Donepezil Hydrochloride (DONEPEZIL HCL) 5 Mg Tab, 1 TAB PO DAILY, #30 TAB 5 Refills 08/04/17 Metoprolol Tartrate (LOPRESSOR TABLET) 50 Mg Tb, 1 TAB PO BID, #180 TAB 1 Refill 08/04/17 Atorvastatin Calcium (ATORVASTATIN CALCIUM) 40 Mg Tab, 1 TAB PO DAILY, #30 TAB 5 Refills 08/04/17 Information Source: Patient Mode of Arrival: Ambulatory Severity: Mild, Moderate, None Timing: Days Duration: Since onset, Days Prehospital treatment: None Medication Refill: Ran out of Medication, For: Pain, For: Other (MEDICATION REFILL FOR PAIN MEDICINE) Past Medical History PAST MEDICAL HISTORY: ESRD, High Lipids, HTN, Thyroid Past Medical History (Other): DDD/CHRONIC BACK PAIN Surgical History: Hernia Repair, Hysterectomy 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 Family History Family History: Reviewed,noncontributory to illness Social History Smoker: Non-Smoker Alcohol: Denies ETOH Use Drugs: Denies Drug Use Lives In: Home Constitutional: denies: chills, diaphoresis, fatigue, fever, malaise, sweats, weakness, others EENTM: denies: blurred vision, double vision, ear bleeding, ear discharge, ear drainage, ear pain, ear ringing, eye pain, eye redness, hearing loss, mouth pain, mouth swelling, nasal discharge, nose bleeding, nose congestion, nose pain, photophobia, tearing, throat pain, throat swelling, voice changes, others Respiratory: denies: cough, hemoptysis, orthopnea, SOB at rest, shortness of breath, SOB with excertion, stridor, wheezing, others Cardiovascular: denies: chest pain, dizzy spells, diaphoresis, Dyspnea on exertion, edema, irregular heart beat, left arm pain, lightheadedness, p alpitations, PND, syncope, others Gastrointestinal: denies: abdomen distended, abdominal pain, blood streaked bowels, constipated, diarrhea, dysphagia, difficulty swallowing, hematemesis, melena, nausea, poor appetite, poor fluid intake, rectal bleeding, rectal pain, vomiting, others Genitourinary: denies: abnormal vagina bleeding, burning, dyspareunia, dysuria, flank pain, frequency, hematuria, incontinence, pain, , vagina discharge, urgency, others Neurological: denies: dizziness, fainting, headache, left sided numbness, left sided weakness, numbness, paresthesia, pre-existing deficit, right sided numbness, right sided weakness, seizure, speech problems, tingling, tremors, weakness, others Musculoskeletal: reports: back pain, muscle pain; denies: gout, joint pain, joint swelling, muscle stiffness, neck pain, others Integumetry: denies: bruises, change in color, change in hair/nails, dryness, laceration, lesions, lumps, rash, wounds, others Allergic/Immunocompromised: denies: Difficulty Healing, Frequent Infections, Hives, Itching, others Hematologic/Lymphatic: denies: anemia, blood clots, easy bleeding, easy bruising, swollen glands, others Endocrine: denies: excessive hunger, excessive sweating, excessive thirst, excessive urination, flushing, intolerance to cold, intolerance to heat, u nexplained weight gain, unexplained weight loss, others Psychiatric: denies: anxiety, bipolar disorder, depression, hopeless, panic disorder, schizophrenia, sleepless, suicidal, others All Other Systems: Reviewed and Negative Physical Exam General Appearance: No Apparent Distress, Normal HEENT: Normal ENT Inspection, PERRL/EOMI, Pharynx Normal, TMs Normal Neck: Full Range of Motion, Non-Tender, Normal, Normal Inspection Respiratory: Chest Non-Tender, Lungs Clear, No Accessory Muscle Use, No Respiratory Distress, Normal Breath Sounds Cardiovascular: No Edema, No JVD, No Murmur, No Gallop, Normal Peripheral Pulses, Regular Rate/Rhythm Breast Exam: Deferred Gastrointestinal: No Organomegaly, Non Tender, No Pulsatile Mass, Normal Bowel Sounds, Soft Genitalia: Deferred Pelvic: Deferred Rectal: Deferred Extremities: No calf tenderness, Normal capillary refill, Normal inspection, Normal range of motion, Non-tender, No pedal edema Musculoskeletal : Location: Bilateral Extremity Location: Back Apperance: Tenderness (muscle spasm on lower back, no bony tenderness, swelling and deformity. 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 Was a procedure done?: No Differential Dx Considerations may include: MEDICATION REFILL FOR PAIN MEDICINE, DDD, CHRONIC BACK PAIN X-Ray, Labs, Meds, VS Vital Signs Date Time Temp Pulse Resp B/P (MAP) Pulse Ox O2 Delivery O2 Flow Rate FiO2 07/21/24 13:55 98.4 88 16 133/74 (93) 98 07/21/24 13:52 88 16 98 Room Air 07/21/24 13:52 98.4 88 16 133/74 (93) 98 98.4 Time of 1ST Reevaluation: 14:02 Reevaluation 1ST: Improved Patient Education/Counseling: Diagnosis, Treatment, Need For Follow Up Family Education/Counseling: Diagnosis, Treatment, Need For Follow Up Medical Screening: No EMC Exist At This Time Departure 1 Departure Time of Disposition: 14:02 Impression: Primary Impression: Encounter for medication refill Additional Impression: History of chronic back pain Disposition: 01 HOME / SELF CARE / HOMELESS Condition: Stable Additional Instructions: FOLLOW-UP WITH PCP IN 1 TO 2 DAYS. TAKE MEDICATIONS PRESCRIBED. RETURN TO ED FOR ANY NEW OR WORSENING SYMPTOMS. e-Prescriptions Tramadol HCl (Tramadol HCl) 50 Mg Tab 50 MG PO BID, #24 TAB Prov: DOMINICK PHELPS 07/21/24 Discharged With: Self Critical Care Note Critical Care Time?: No Stability Stability form required: No I personally scribed for DOMINICK PHELPS ([email or web address]) on 07/21/24 at 13:59. Electronically submitted by Higinio Wright ([email or web address]). DOMINICK PHELPS Jul 21, 2024 13:59
== END 2024-07-21 14:09 | disposition home or self-care (01) ==
LOC: ER 13:01
DX: M54.9 Dorsalgia, unspecified (principal); G89.29 Other chronic pain; I12.0 Hypertensive chronic kidney disease with stage 5 chronic kidney disease or end stage renal disease; N18.6 End stage renal disease; E78.5 Hyperlipidemia, unspecified; Z76.0 Encounter for issue of repeat prescription; Z98.890 Other specified postprocedural states; Z90.710 Acquired absence of both cervix and uterus; Z88.0 Allergy status to penicillin; Z79.01 Long term (current) use of anticoagulants; Z79.1 Long term (current) use of non-steroidal anti-inflammatories (NSAID); Z79.899 Other long term (current) drug therapy

== ENCOUNTER 2024-10-06 10:36 | Emergency (ER) | payer OTHER, MEDICAID ==
[~2024-10-06] VITALS: Ht 152.4 cm; Wt 55.4 kg
[~2024-10-06 10:36] MED LIST changes: +TRAM-626 PO
[2024-10-06 10:55] VITALS: TEMP 98.1
[2024-10-06 11:47] VITALS: BP 147/72; PULSE 83; RESP 16; O2SAT 98
[2024-10-06] MEDS ORDERED: TRAM50TA2 PO (12:41)
--- NOTE | 2024-10-06 12:42 | ED.PDOC ---
History of Present Illness HPI Comments A 74 YEAR OLD FEMALE PRESENTS TO THE ED WITH COMPLAINT OF MEDICATION REFILL FOR PAIN MEDICATION. PATIENT STATES SHE HAS A HISTORY OF CHRONIC LOWER BACK PAIN/DDD AND TAKES TRAMADOL TO MANAGE HER PAIN, BUT RECENTLY RAN OUT OF THIS MEDICATION. PATIENT IS REQUESTING A MEDICATION REFILL FOR HER TRAMADOL. PATIENT DENIES FEVER, CHILLS, SHORTNESS OF BREATH, CHEST PAIN, ABDOMINAL PAIN, NAUSEA, VOMITING, HEADACHE, OR OTHER COMPLAINTS. NO OTHER SYMPTOMS OR MODIFYING FACTORS AT THIS TIME. PATIENT IS ALERT, ORIENTED X 4, AND HAS STEADY GAIT. Chief Complaint: Back Pain Time Seen by MD: 11:41 Primary Care Provider: UNKNOWN Reviewed Notes: Nurses Notes, Medications, Allergies Allergies: Coded Allergies: Penicillins (Verified Allergy, Unknown, 06/14/22) Home Meds Active Scripts Tramadol Hcl (Tramadol Hcl) 50 Mg Tab, 50 MG PO BID, #24 TAB Prov:DOMINICK PHELPS 10/06/24 Tramadol HCl (Tramadol HCl) 50 Mg Tab, 50 MG PO BID, #24 TAB Prov:DOMINICK PHELPS 07/21/24 Tramadol Hcl (Tramadol Hcl) 50 Mg Tab, 50 MG PO DAILY PRN for 30 Days, #30 TAB Prov:LEDA ARGUELLO MD 07/05/24 Naproxen (NAPROSYN TABLET) 500 Mg Tb, 500 MG GT BID for 20 Days, #40 TAB Prov:NORRIS RAMIREZ MD 01/25/24 Guaifenesin (Guaifenesin) 100 Mg/5 Ml Syp, 100 MG PO Q6HPRN PRN for 30 Days, #30 SYP Prov:THEO ARCOS 01/03/24 Metronidazole (Metronidazole) 500 Mg Tab, 500 MG PO TID for 10 Days, #30 TAB Prov:THEO ARCOS 01/03/24 Levofloxacin Hemihydrate (LEVOFLOXACIN) 250 Mg Tab, 250 MG PO DAILY for 10 Days, #10 TAB Prov:THEO ARCOS 01/03/24 Levothyroxine Sodium (SYNTHROID TABLET) 50 Mcg Tb, 50 MCG PO QAM for 30 Days, #30 TAB Prov:THEO ARCOS 01/03/24 Guaifenesin (Guaifenesin) 100 Mg/5 Ml Syp, 200 MG PO Q4HP PRN for 30 Days, #30 SYP Prov:THEO ARCOS RESIDENT 01/03/24 Sacubitril-Valsartan (Entresto 24-26 mg) 1 Tab Tab, 1 TAB PO BID, #60 TAB Prov:CALLY HOOPER MD 12/12/20 Reported Medications Apixaban Base (ELIQUIS) 2.5 Mg Tab, 1 TAB PO BID 12/29/23 Hydralazine Hcl (Hydralazine Hcl) 50 Mg Tab, 1 TAB PO TID 12/19/23 B-Complex W/ C & Folic Acid (Shannan-Agnieszka Rx) Tab, 1 TAB PO DAILY 12/19/23 Omeprazole (Omeprazole Dr) 20 Mg Cap, 1 CAP PO DAILY 12/19/23 Isosorbide Mononitrate (Isosorbide Mononitrate Er) 60 Mg Tab, 60 MG PO for 30 Days, MG 12/08/20 Calcium Carbonate-Cholecalcife (Oyster Calcium/D3 500-200 mg-Unit) 1 Tab Tab, 1 TAB PO DAILY, TAB 08/18/17 Diltiazem Hcl (DILTIAZEM HCL ER) 240 Mg Cap, 1 CAP PO DAILY, #30 CAP 5 Refills 08/04/17 Multiple Vitamin (Multi-Day Vitamins) Vitamins Tab, 1 TAB PO DAILY, #30 TAB 08/04/17 Donepezil Hydrochloride (DONEPEZIL HCL) 5 Mg Tab, 1 TAB PO DAILY, #30 TAB 5 Refills 08/04/17 Metoprolol Tartrate (LOPRESSOR TABLET) 50 Mg Tb, 1 TAB PO BID, #180 TAB 1 Refill 08/04/17 Atorvastatin Calcium (ATORVASTATIN CALCIUM) 40 Mg Tab, 1 TAB PO DAILY, #30 TAB 5 Refills 08/04/17 Information Source: Patient Mode of Arrival: Ambulatory Severity: Moderate Timing: Days Duration: Since onset, Days Prehospital treatment: None Medication Refill: Ran out of Medication, For: Other (MEDICATION REFILL) Past Medical History PAST MEDICAL HISTORY: ESRD, High Lipids, HTN, Thyroid Past Medical History (Other): CHRONIC LOWER BACK PAIN Surgical History: Hernia Repair, Hysterectomy 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 DOCUMENT CONTROL CLERK Hx Family History Family History: Reviewed,noncontributory to illness Social History Smoker: Non-Smoker Alcohol: Denies ETOH Use Drugs: Denies Drug Use Lives In: Home Constitutional: denies: chills, diaphoresis, fatigue, fever, malaise, sweats, weakness, others EENTM: denies: blurred vision, double vision, ear bleeding, ear discharge, ear drainage, ear pain, ear ringing, eye pain, eye redness, hearing loss, mouth pain, mouth swelling, nasal discharge, nose bleeding, nose congestion, nose p ain, photophobia, tearing, throat pain, throat swelling, voice changes, others Respiratory: denies: cough, hemoptysis, orthopnea, SOB at rest, shortness of breath, SOB with excertion, stridor, wheezing, others Cardiovascular: denies: chest pain, dizzy spells, diaphoresis, Dyspnea on exertion, edema, irregular heart beat, left arm pain, lightheadedness, palpitations, PND, syncope, others Gastrointestinal: denies: abdomen distended, abdominal pain, blood streaked bowels, constipated, diarrhea, dysphagia, difficulty swallowing, hematemesis, melena, nausea, poor appetite, poor fluid intake, rectal bleeding, rectal pain, vomiting, others Genitourinary: denies: abnormal vagina bleeding, burning, dyspareunia, dysuria, flank pain, frequency, hematuria, incontinence, pain, , vagina discharge, urgency, others Neurological: denies: dizziness, fainting, headache, left sided numbness, left sided weakness, numbness, paresthesia, pre-existing deficit, right sided numbness, right sided weakness, seizure, speech problems, tingling, tremors, weakness, others Musculoskeletal: reports: back pain (LOWER BACK PAIN), muscle pain; denies: gout, joint pain, joint swelling, muscle stiffness, neck pain, others Integumetry: denies: bruises, change in color, change in hair/nails, dryness, laceration, lesions, lumps, rash, wounds, others Allergic/Immunocompromised: denies: Difficulty Healing, Frequent Infections, Hives, Itching, others Hematologic/Lymphatic: denies: anemia, blood clots, easy bleeding, easy bruising, swollen glands, others Endocrine: denies: excessive hunger, excessive sweating, excessive thirst, excessive urination, flushing, intolerance to cold, intolerance to heat, unexplained weight gain, unexplained weight loss, others Psychiatric: denies: anxiety, bipolar disorder, depression, hopeless, panic disorder, schizophrenia, sleepless, suicidal, others All Other Systems: Reviewed and Negative Physical Exam General Appearance: No Apparent Distress, Normal, Obese HEENT: Normal ENT Inspection, PERRL/EOMI, Pharynx Normal, TMs Normal Neck: Full Range of Motion, Non-Tender, Normal, Normal Inspection Respiratory: Chest Non-Tender, Lungs Clear, No Accessory Muscle Use, No Respiratory Distress, Normal Breath Sounds Cardiovascular: No Edema, No JVD, No Murmur, No Gallop, Normal Peripheral Pulses, Regular Rate/Rhythm Breast Exam: Deferred Gastrointestinal: No Organomegaly, Non Tender, No Pulsatile Mass, Normal Bowel Sounds, Soft Genitalia: Deferred Pelvic: Deferred Rectal: Deferred Extremities: No calf tenderness, Normal capillary refill, Normal inspection, Normal range of motion, Non-tender, No pedal edema Musculoskeletal : Location: Bilateral Extremity Location: Back Apperance: Tenderness (and muscle spasm on low back, no bony tenderness, swelling and deformity. ) Neurologic: Alert, disaster recovery specialist II-XII nml as Tested, No Motor Deficits, Normal Affect, Normal Mood, No Sensory Deficits Cerebellar Function: Normal Reflexes: Normal Skin: Dry, Normal Color, Warm Peripheral Pulses: 2+ carotid (R), 2+ carotid (L) Lymphatic: No Adenopathy Was a procedure done? Was a procedure done?: No Differential Dx Considerations may include: MEDICATION REFILL, HISTORY OF CHRONIC LOWER BACK PAIN, HISTORY OF DDD X-Ray, Labs, Meds, VS Vital Signs Date Time Temp Pulse Resp B/P (MAP) Pulse Ox O2 Delivery O2 Flow Rate FiO2 10/06/24 11:47 98.1 83 16 147/72 (97) 98 10/06/24 10:55 83 18 98 Room Air 10/06/24 10:55 98.1 83 18 147/72 (97) 98 98.1 X-Ray, Labs, Meds, VS Comment EXTERNAL MEDICAL RECORDS REVIEWED: [NONE] INDEPENDENT HISTORIANS: [NONE] SOCIAL DETERMINANTS OF HEALTH: [NONE] LABS ORDERED: NONE REVIEWED AND INTERPRETED RESULTS: NONE IMAGING ORDERED: NONE TREATMENTS ORDERED: NONE PROCEDURES PERFORMED: NONE CRITICAL CARE TIME: NONE I HAVE DISCUSSED THE PATIENT WITH THE ATTENDING PHYSICIAN DR. PROCTOR AND SHE AGREES WITH THE PATIENT'S PLAN OF CARE AND DISPOSITION. BASED ON HISTORY OF PRESENT ILLNESS, AND PHYSICAL EXAM, PATIENT WILL BE DISCHARGED HOME. DISCUSSED PLAN FOR DISCHARGE HOME WITH RX [[id number]]. MEDICATION WARNINGS GIVEN. SHARED DECISION MAKING: PATIENT INSTRUCTED TO FOLLOW UP WITH PRIMARY CARE PROVIDER IN 1-2 DAYS FOR RE-EVALUATION OF SYMPTOMS. PATIENT VERBALIZES UNDERSTANDING TO RETURN TO ED FOR NEW OR WORSENING SYMPTOMS OR IF FOLLOW UP WITH PCP CANNOT BE OBTAINED. PATIENT FEELS COMFORTABLE GOING HOME AT THIS TIME. ALL QUESTIONS ADDRESSED AT TIME OF DISCHARGE. Time of 1ST Reevaluation: 12:44 Reevaluation 1ST: Improved Patient Education/Counseling: Diagnosis, Treatment, Need For Follow Up Family Education/Counseling: Diagnosis, Treatment, Need For Follow Up Medical Screening: No EMC Exist At This Time Departure 1 Departure Time of Disposition: 13:00 Impression: Primary Impression: Encounter for medication refill Additional Impression: Chronic low back pain Qualified Codes: M54.50 - Low back pain, unspecified; G89.29 - Other chronic pain Disposition: 01 HOME / SELF CARE / HOMELESS Condition: Stable Additional Instructions: FOLLOW-UP WITH PCP IN 1 TO 2 DAYS. TAKE MEDICATIONS PRESCRIBED. RETURN TO ED FOR ANY NEW OR WORSENING SYMPTOMS. e-Prescriptions Tramadol Hcl (Tramadol Hcl) 50 Mg Tab 50 MG PO BID, #24 TAB Prov: DOMINICK PHELPS 10/06/24 Discharged With: Self Critical Care Note Critical Care Time?: No Stability Stability form required: No I personally scribed for DOMINICK PHELPS ([email or web address]) on 10/06/24 at 12:42. Electronically submitted by Higinio Wright ([email or web address]). DOMINICK PHELPS Oct 06, 2024 12:42
== END 2024-10-06 12:52 | disposition home or self-care (01) ==
LOC: ER 10:36
DX: G89.29 Other chronic pain (principal); M54.59 Other low back pain; E03.9 Hypothyroidism, unspecified; E78.5 Hyperlipidemia, unspecified; I12.0 Hypertensive chronic kidney disease with stage 5 chronic kidney disease or end stage renal disease; N18.6 End stage renal disease; Z90.710 Acquired absence of both cervix and uterus; Z98.890 Other specified postprocedural states; Z76.0 Encounter for issue of repeat prescription; Z88.0 Allergy status to penicillin; Z79.899 Other long term (current) drug therapy; Z79.84 Long term (current) use of oral hypoglycemic drugs

== ENCOUNTER 2024-11-08 10:36 | Emergency (ER) | payer OTHER, MEDICAID ==
[~2024-11-08] VITALS: Ht 152.4 cm; Wt 58.2 kg
[2024-11-08] MEDS ORDERED: TRAM-626 PO (11:09)
--- NOTE | 2024-11-08 11:15 | ED.PDOC ---
History of Present Illness HPI Comments A 74 YEAR OLD FEMALE PRESENTS TO THE ED WITH CHIEF COMPLAINT OF MEDICATION REFILL. PATIENT REPORTS THAT SHE NEEDS A REFILL OF HER TRAMADOL TO TREAT HER CHRONIC LOWER BACK PAIN. PATIENT RELAYS THAT SHE ONLY USES 1 PILL EVERY 3 DAYS. PATIENT DENIES SOB, CHEST PAIN, NAUSEA, VOMITING, ABD PAIN, NUMBNESS, WEAKNESS, DIZZINESS, FALL, OR INJURY. NO OTHER SYMPTOMS REPORTED AT THIS TIME OF CARE. Chief Complaint: Back Pain Time Seen by MD: 11:12 Primary Care Provider: UNKNOWN Reviewed Notes: Nurses Notes, Medications, Allergies Allergies: Coded Allergies: Penicillins (Verified Allergy, Unknown, 06/14/22) Home Meds Active Scripts Tramadol HCl (Tramadol HCl) 50 Mg Tab, 50 MG PO DAILY, #20 TAB Prov:DOMINICK PHELPS 11/08/24 Tramadol Hcl (Tramadol Hcl) 50 Mg Tab, 50 MG PO BID, #24 TAB Prov:DOMINICK PHELPS 10/06/24 Tramadol HCl (Tramadol HCl) 50 Mg Tab, 50 MG PO BID, #24 TAB Prov:DOMINICK PHELPS 07/21/24 Tramadol Hcl (Tramadol Hcl) 50 Mg Tab, 50 MG PO DAILY PRN for 30 Days, #30 TAB Prov:LEDA ARGUELLO MD 07/05/24 Naproxen (NAPROSYN TABLET) 500 Mg Tb, 500 MG GT BID for 20 Days, #40 TAB Prov:NORRIS RAMIREZ MD 01/25/24 Guaifenesin (Guaifenesin) 100 Mg/5 Ml Syp, 100 MG PO Q6HPRN PRN for 30 Days, #30 SYP Prov:THEO ARCOS 01/03/24 Metronidazole (Metronidazole) 500 Mg Tab, 500 MG PO TID for 10 Days, #30 TAB Prov:THEO ARCOS 01/03/24 Levofloxacin Hemihydrate (LEVOFLOXACIN) 250 Mg Tab, 250 MG PO DAILY for 10 Days, #10 TAB Prov:THEO ARCOS 01/03/24 Levothyroxine Sodium (SYNTHROID TABLET) 50 Mcg Tb, 50 MCG PO QAM for 30 Days, #30 TAB Prov:THEO ARCOS 01/03/24 Guaifenesin (Guaifenesin) 100 Mg/5 Ml Syp, 200 MG PO Q4HP PRN for 30 Days, #30 SYP Prov:THEO ARCOS 01/03/24 Sacubitril-Valsartan (Entresto 24-26 mg) 1 Tab Tab, 1 TAB PO BID, #60 TAB Prov:CALLY HOOPER MD 12/12/20 Reported Medications Apixaban Base (ELIQUIS) 2.5 Mg Tab, 1 TAB PO BID 12/29/23 Hydralazine Hcl (Hydralazine Hcl) 50 Mg Tab, 1 TAB PO TID 12/19/23 B-Complex W/ C & Folic Acid (Shannan-Agnieszka Rx) Tab, 1 TAB PO DAILY 12/19/23 Omeprazole (Omeprazole Dr) 20 Mg Cap, 1 CAP PO DAILY 12/19/23 Isosorbide Mononitrate (Isosorbide Mononitrate Er) 60 Mg Tab, 60 MG PO for 30 Days, MG 12/08/20 Calcium Carbonate-Cholecalcife (Oyster Calcium/D3 500-200 mg-Unit) 1 Tab Tab, 1 TAB PO DAILY, TAB 08/18/17 Diltiazem Hcl (DILTIAZEM HCL ER) 240 Mg Cap, 1 CAP PO DAILY, #30 CAP 5 Refills 08/04/17 Multiple Vitamin (Multi-Day Vitamins) Vitamins Tab, 1 TAB PO DAILY, #30 TAB 08/04/17 Donepezil Hydrochloride (DONEPEZIL HCL) 5 Mg Tab, 1 TAB PO DAILY, #30 TAB 5 Refills 08/04/17 Metoprolol Tartrate (LOPRESSOR TABLET) 50 Mg Tb, 1 TAB PO BID, #180 TAB 1 Refill 08/04/17 Atorvastatin Calcium (ATORVASTATIN CALCIUM) 40 Mg Tab, 1 TAB PO DAILY, #30 TAB 5 Refills 08/04/17 Information Source: Patient Mode of Arrival: Ambulatory Severity: Mild Timing: Days Duration: Since onset Prehospital treatment: None Medication Refill: Ran out of Medication, For: Pain Past Medical History PAST MEDICAL HISTORY: ESRD, High Lipids, HTN, Thyroid Past Medical History (Other): CHRONIC BACK PAIN Surgical History: Hernia Repair, Hysterectomy 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: 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 all MACHINE FITTER Hx Family History Family History: Reviewed,noncontributory to illness Social History Smoker: Non-Smoker Alcohol: Denies ETOH Use Drugs: Denies Drug Use Lives In: Home Constitutional: denies: chills, diaphoresis, fatigue, fever, malaise, sweats, weakness, others EENTM: denies: blurred vision, double vision, ear bleeding, ear discharge, ear drainage, ear pain, ear ringing, eye pain, eye redness, hearing loss, mouth pain, mouth swelling, nasal discharge, nose bleeding, nose congestion, nose pain, photophobia, tearing, throat pain, throat swelling, voice changes, others Respiratory: denies: cough, hemoptysis, orthopnea, SOB at rest, shortness of breath, SOB with excertion, stridor, wheezing, others Cardiovascular: denies: chest pain, dizzy spells, diaphoresis, Dyspnea on exertion, edema, irregular heart beat, left arm pain, lightheadedness, palpitations, PND, syncope, others Gastrointestinal: denies: abdomen distended, abdominal pain, blood streaked bowels, constipated, diarrhea, dysphagia, difficulty swallowing, hematemesis, melena, nausea, poor appetite, poor fluid intake, rectal bleeding, rectal pain, vomiting, others Genitourinary: denies: abnormal vagina bleeding, burning, dyspareunia, dysuria, flank pain, frequency, hematuria, incontinence, pain, , vagina discharge, urgency, others Neurological: denies: dizziness, fainting, headache, left sided numbness, left sided weakness, numbness, paresthesia, pre-existing deficit, right sided numbness, right sided weakness, seizure, speech problems, tingling, tremors, weakness, others Musculoskeletal: reports: back pain, muscle pain; denies: gout, joint pain, joint swelling, muscle stiffness, neck pain, others Integumetry: denies: bruises, change in color, change in hair/nails, dryness, laceration, lesions, lumps, rash, wounds, others Allergic/Immunocompromised: denies: Difficulty Healing, Frequent Infections, Hives, Itching, others Hematologic/Lymphatic: denies: anemia, blood clots, easy bleeding, easy bruising, swollen glands, others Endocrine: denies: excessive hunger, excessive sweating, excessive thirst, excessive urination, flushing, intolerance to cold, intolerance to heat, unexplained weight gain, unexplained weight loss, others Psychiatric: denies: anxiety, bipolar disorder, depression, hopeless, panic disorder, schizophrenia, sleepless, suicidal, others All Other Systems: Reviewed and Negative Physical Exam General Appearance: No Apparent Distress, Normal HEENT: Normal ENT Inspection, PERRL/EOMI Neck: Full Range of Motion, Non-Tender, Normal, Normal Inspection Respiratory: Chest Non-Tender, Lungs Clear, No Accessory Muscle Use, No Respiratory Distress, Normal Breath Sounds Cardiovascular: No Edema, No JVD, No Murmur, No Gallop, Normal Peripheral Pulses, Regular Rate/Rhythm Breast Exam: Deferred Gastrointestinal: No Organomegaly, Non Tender, No Pulsatile Mass, Normal Bowel Sounds, Soft Genitalia: Deferred Pelvic: Deferred Rectal: Deferred Extremities: No calf tenderness, Normal capillary refill, Normal inspection, Normal range of motion, Non-tender, No pedal edema Musculoskeletal : Location: Bilateral Extremity Location: Back Apperance: Tenderness (BACK, NO BONY TENDERNESS, SWELLING AND DEFORMITY. ) Neurologic: Alert, pill packer II-XII nml as Tested, No Motor Deficits, Normal Affect, Normal Mood, No Sensory Deficits Cerebellar Function: Normal Reflexes: Normal Skin: Dry, Normal Color, Warm Peripheral Pulses: 2+ carotid (R), 2+ carotid (L), 2+ Radial (R), 2+ Radial (L) Lymphatic: No Adenopathy Was a procedure done? Was a procedure done?: No Differential Dx Considerations may include: CHRONIC BACK PAIN, MEDICATION REFILL X-Ray, Labs, Meds, VS Vital Signs Date Time Temp Pulse Resp B/P (MAP) Pulse Ox O2 Delivery O2 Flow Rate FiO2 11/08/24 10:46 98.1 95 18 148/70 (96) 97 X-Ray, Labs, Meds, VS Comment EXTERNAL MEDICAL RECORDS REVIEWED: 10/06/24 FOR MED REFILL INDEPENDENT HISTORIANS: [NONE] SOCIAL DETERMINANTS OF HEALTH: [NONE] LABS ORDERED: NONE REVIEWED AND INTERPRETED RESULTS: NONE IMAGING ORDERED: NONE TREATMENTS ORDERED: NONE PROCEDURES PERFORMED: NONE CRITICAL CARE TIME: NONE I HAVE DISCUSSED THE PATIENT WITH THE ATTENDING PHYSICIAN DR. GARDUNO AND HE AGREES WITH THE PATIENT'S PLAN OF CARE AND DISPOSITION. BASED ON HISTORY OF PRESENT ILLNESS, AND PHYSICAL EXAM, PATIENT WILL BE DISCHARGED HOME. DISCUSSED PLAN FOR DISCHARGE HOME WITH RX TRAMADOL. MEDICATION WARNINGS GIVEN. SHARED DECISION MAKING: DISCUSSED WITH PATIENT THAT THEIR WORKUP WAS NORMAL. PATIENT INSTRUCTED TO FOLLOW UP WITH PRIMARY CARE PROVIDER IN 1-2 DAYS FOR RE- EVALUATION OF SYMPTOMS. PATIENT VERBALIZES UNDERSTANDING TO RETURN TO ED FOR NEW OR WORSENING SYMPTOMS OR IF FOLLOW UP WITH PCP CANNOT BE OBTAINED. PATIENT FEELS COMFORTABLE GOING HOME AT THIS TIME. ALL QUESTIONS ADDRESSED AT TIME OF DISCHARGE. Time of 1ST Reevaluation: 11:13 Reevaluation 1ST: Improved Patient Education/Counseling: Diagnosis, Treatment, Need For Follow Up Family Education/Counseling: Diagnosis, Treatment, Need For Follow Up Medical Screening: No EMC Exist At This Time Departure 1 Departure Time of Disposition: 11:20 Impression: Primary Impression: Encounter for medication refill Additional Impression: History of chronic back pain Disposition: 01 HOME / SELF CARE / HOMELESS Condition: Stable Additional Instructions: FOLLOW-UP WITH PCP IN 1 TO 2 DAYS. TAKE MEDICATIONS PRESCRIBED. RETURN TO ED FOR ANY NEW OR WORSENING SYMPTOMS. e-Prescriptions Tramadol HCl (Tramadol HCl) 50 Mg Tab 50 MG PO DAILY, #20 TAB Prov: DOMINICK PHELPS 11/08/24 Discharged With: Self Critical Care Note Critical Care Time?: No Stability Stability form required: No Heart Score Heart Score: Heart Score Response (Comments) Value History N/A 0 EKG N/A 0 Age N/A 0 Risk Factors N/A 0 Troponin N/A 0 Total 0 I personally scribed for DOMINICK PHELPS ([email or web address]) on 11/08/24 at 11:15. Electronically submitted by Yevgeniy Fragoso ([email or web address]). DOMINICK PHELPS Nov 08, 2024 11:15
[2024-11-08 11:31] VITALS: BP 148/70; PULSE 95; RESP 18; TEMP 98.1; O2SAT 97
== END 2024-11-08 11:30 | disposition home or self-care (01) ==
LOC: ER 10:36
DX: G89.29 Other chronic pain (principal); M54.50 Low back pain, unspecified; I12.0 Hypertensive chronic kidney disease with stage 5 chronic kidney disease or end stage renal disease; N18.6 End stage renal disease; Z76.0 Encounter for issue of repeat prescription; Z90.710 Acquired absence of both cervix and uterus; Z98.890 Other specified postprocedural states; Z79.01 Long term (current) use of anticoagulants; Z79.1 Long term (current) use of non-steroidal anti-inflammatories (NSAID); Z79.890 Hormone replacement therapy; Z79.899 Other long term (current) drug therapy; Z88.0 Allergy status to penicillin

== ENCOUNTER 2024-12-02 12:23 | Emergency (ER) | payer OTHER, MEDICAID ==
[~2024-12-02] VITALS: Ht 152.4 cm; Wt 57.6 kg
--- NOTE | 2024-12-02 13:25 | ED.PDOC ---
SOB-HPI HPI Comments 74 year old female presents to the ED with chief complaint of cough. Patient reports that she has been experiencing a cough with associated nasal congestion and phlegm production for the past 2 weeks. Patient relays that she has not been able to spit out all phlegm in her chest and she still feels congested. Patient states she is currently taking Promethazine with no relief noted. Patient denies any SOB, chest pain, fever, chills, N/V, or abdominal pain. Chief Complaint: Flu like Time Seen by MD: 13:23 Primary Care Provider: UNKNOWN Reviewed notes: Nurses Notes, Medications, Allergies Information Source: Patient Mode of Arrival: Ambulatory Severity: Moderate Timing: Weeks Duration: Since onset Context: At Rest PE Risk Factors: None History of: None Prehospital treatment: None Modifying Factors: Nothing Associated Signs and Symptoms: Cough, Nasal Congestion If cough with SOB: Productive Past Medical History PAST MEDICAL HISTORY: DM, ESRD, High Lipids, HTN, Thyroid Surgical History: Hernia Repair, Hysterectomy RUG DYER HELPER History: Denies all RUG DYER HELPER Hx Family History Family History: Reviewed,noncontributory to illness Social History Smoker: Non-Smoker Alcohol: Denies ETOH Use Drugs: Denies Drug Use Lives In: Home Constitutional: denies: chills, diaphoresis, fatigue, fever, malaise, sweats, w eakness, others EENTM: reports: nose congestion; denies: blurred vision, double vision, ear bleeding, ear discharge, ear drainage, ear pain, ear ringing, eye pain, eye redness, hearing loss, mouth pain, mouth swelling, nasal discharge, nose bleeding, nose pain, photophobia, tearing, throat pain, throat swelling, voice changes, others Respiratory: reports: cough; denies: hemoptysis, orthopnea, SOB at rest, shortness of breath, SOB with excertion, stridor, wheezing, others Cardiovascular: denies: chest pain, dizzy spells, diaphoresis, Dyspnea on exertion, edema, irregular heart beat, left arm pain, lightheadedness, palpitations, PND, syncope, others Gastrointestinal: denies: abdomen distended, abdominal pain, blood streaked bowels, constipated, diarrhea, dysphagia, difficulty swallowing, hematemesis, melena, nausea, poor appetite, poor fluid intake, rectal bleeding, rectal pain, vomiting, others Genitourinary: denies: abnormal vagina bleeding, burning, dyspareunia, dysuria, flank pain, frequency, hematuria, incontinence, pain, , vagina discharge, urgency, others Neurological: denies: dizziness, fainting, headache, left sided numbness, left sided weakness, numbness, paresthesia, pre-existing deficit, right sided numbness, right sided weakness, seizure, speech problems, tingling, tremors, weakness, others Musculoskeletal: denies: back pain, gout, joint pain, joint swelling, muscle pain, muscle stiffness, neck pain, others Integumetry: denies: bruises, change in color, change in hair/nails, dryness, laceration, lesions, lumps, rash, wounds, others Allergic/Immunocompromised: denies: Difficulty Healing, Frequent Infections, Hives, Itching, others Hematologic/Lymphatic: denies: anemia, blood clots, easy bleeding, easy bruising, swollen glands, others Endocrine: denies: excessive hunger, excessive sweating, excessive thirst, excessive urination, flushing, intolerance to cold, intolerance to heat, unexplained weight gain, unexplained weight loss, others Psychiatric: denies: anxiety, bipolar disorder, depression, hopeless, panic disorder, schizophrenia, sleepless, suicidal, others All Other Systems: Reviewed and Negative Physical Exam General Appearance: Mild Distress, Normal HEENT: Normal ENT Inspection, PERRL/EOMI Neck: Full Range of Motion, Non-Tender, Normal, Normal Inspection Respiratory: Chest Non-Tender, Decreased Breath Sounds, Expiration, Inspiration, No Accessory Muscle Use, No Respiratory Distress, Rhonchi, Wheezing Cardiovascular: No Edema, No JVD, No Murmur, No Gallop, Normal Peripheral Pulses, Regular Rate/Rhythm Breast Exam: Deferred Gastrointestinal: No Organomegaly, Non Tender, No Pulsatile Mass, Normal Bowel Sounds, Soft Genitalia: Deferred Pelvic: Deferred Rectal: Deferred Extremities: No calf tenderness, Normal capillary refill, Normal inspection, Normal range of motion, Non-tender, No pedal edema Musculoskeletal : Apperance: Normal Neurologic: Alert, pharmacy order entry technician II-XII nml as Tested, No Motor Deficits, Normal Affect, Normal Mood, No Sensory Deficits Cerebellar Function: Normal Reflexes: Normal Skin: Dry, Normal Color, Warm Peripheral Pulses: 1+ carotid (R), 1+ carotid (L) Lymphatic: No Adenopathy Was a procedure done? Was a procedure done?: No Differential Dx Differential Diagnosis: Asthma, Bronchitis, CHF, Dysrhythmia, Hypertension, Hyponatremia, Pneumonia, Respiratory Distress, URI X-Ray, Labs, Meds, VS Vital Signs Date Time Temp Pulse Resp B/P (MAP) Pulse Ox O2 Delivery O2 Flow Rate FiO2 12/02/24 13:51 15 97 Room Air* 0 21 12/02/24 13:49 97.0 79 15 135/70 (91) 97 97.0 12/02/24 12:40 98.1 89 19 152/73 (99) 99 98.1 12/02/24 12:39 19 99 Room Air* 0 21 Lab Test 12/02/24 14:15 12/02/24 13:29 Range/Units Urine Color Light-yellow Yellow Urine Clarity Clear Clear Urine pH 8.0 5.0-9.0 Urine Specific [place] 1.007 1.001-1.035 Urine Protein 2+ H Negative Urine Ketones Negative Negative Urine Blood Trace H Negative /uL Urine Nitrite Negative Negative Urine Bilirubin Negative Negative Urine Urobilinogen Normal Negative mg/dL Urine Leukocyte Esterase Negative Negative /uL Urine RBC 2 0 - 4 /hpf Urine Microscopic WBC 4 0-5 /HPF Urine Squamous Epithelial Cells Mod <5 /hpf Urine Bacteria None seen None Seen /hpf Urine Glucose 1+ H Normal mg/dL White Blood Count 9.8 4.4-10.8 10^3/uL Red Blood Count 4.42 4.0-5.20 10^6/uL Hemoglobin 11.1 L 12.2-16.2 g/dL Hematocrit 35.9 L 36.0-46.0 % Mean Corpuscular Volume 81.2 80.0-100.0 fL Mean Corpuscular Hemoglobin 25.1 L 28.0-32.0 pg Mean Corpuscular Hemoglobin Concent 30.9 L 32.0-36.0 g/dL Red Cell Distribution Width 19.6 H 11.8-14.3 % Platelet Count 312 140-450 10^3/uL Mean Platelet Volume 7.2 6.9-10.8 fL Neutrophils (%) (Auto) 79.9 37.0-80.0 % Lymphocytes (%) (Auto) 9.0 L 10.0-50.0 % Monocytes (%) (Auto) 6.9 0.0-12.0 % Eosinophils (%) (Auto) 3.8 0.0-7.0 % Basophils (%) (Auto) 0.4 0.0-2.0 % Neutrophils # (Auto) 7.9 1.6-8.6 10 ^3/uL Lymphocytes # (Auto) 0.9 0.4-5.4 10 ^3/uL Monocytes # (Auto) 0.7 0-1.3 10 ^3/uL Eosinophils # (Auto) 0.4 0-0.8 10 ^3/uL Basophils # (Auto) 0 0-0.2 10 ^3/uL Nucleated Red Blood Cells 0.0 % Prothrombin Time 12.0 H 9.3-11.8 sec Prothrombin Time INR 1.15 0.9-1.15 Activated Partial Thromboplast Time 35.2 H 24.5-34.5 SEC D-Dimer, Quantitative 1.99 H 0.0-0.49 mg/L FEU Sodium Level 135 L 136-145 mmol/L Potassium Level 4.6 3.5-5.1 mmol/L Chloride Level 94 L 98-107 mmol/L Carbon Dioxide Level 27 20-31 mmol/L Anion Gap 14 5-15 Blood Urea Nitrogen 49 H 9-23 mg/dL Creatinine 7.09 H 0.550-1.02 mg/dL Glomerular Filtration Rate Calc 6 >90 mL/min BUN/Creatinine Ratio 6.9 L 10.0-20.0 Serum Glucose 108 H 74-106 mg/dL Calcium Level 9.5 8.7-10.4 mg/dL Magnesium Level 2.4 1.6-2.6 mg/dL Total Bilirubin 0.2 0.2-1.0 mg/dL Aspartate Amino Transferase (AST) 15 13-40 U/L Alanine Aminotransferase (ALT) 11 7-40 U/L Alkaline Phosphatase 154 H 46-116 U/L Troponin I High Sensitivity 17 </=34 ng/L B-Type Natriuretic Peptide 571.17 0-100 pg/mL Total Protein 7.6 5.7-8.2 g/dL Albumin 4.5 3.2-4.8 g/dL Thyroid Stimulating Hormone (TSH) 5.29 H 0.55-4.78 uIU/mL Current Medications Medications (Trade) Dose Ordered Sig/Geo Route Start Time Stop Time Status Last Admin Sodium Chloride 1,000 ml @ 30 mls/hr Q24H ONCE IV 12/02/24 13:30 12/03/24 13:29 12/02/24 18:07 Chest XR: FINDINGS: Lines and Tubes: None Lungs: No focal consolidation. Pleura: No effusion. No pneumothorax. Cardiomediastinal contours: Unremarkable Bones: No acute osseous abnormality. IMPRESSION: No acute cardiopulmonary disease. X-Ray, Labs, Meds, VS Comment Course in the emergency department eventful patient came in because of cough shortness of breath for the past two weeks admitted two weeks ago for pneumonia patient has history of CHF hypothyroidism high cholesterol hypertension GERD and also dementia her blood pressure is 154/73 The chest x-ray is normal EKG pending CT chest angio pending CBC 9800 79.9% neutrophils H&H 11 and 36 INR 1.15 D-dimer 1.99 elevated BUN 49 creatinine 7.09 with a GFR of six patient is on dialysis Magnesium 2.4 Troponin [address] Warner to follow Images Reviewed?: Images reviewed and evaluated by me Time of 1ST Reevaluation: 14:23 Reevaluation 1ST: Unchanged Time of 2ND Reevaluation: 18:11 Reevaluation 2ND: Unchanged Patient Education/Counseling: Diagnosis, Treatment Family Education/Counseling: No Family Present Departure 1 Departure Time of Disposition: 18:11 Impression: Primary Impression: ESRD on dialysis Additional Impressions: Pulmonary vascular congestion Elevated d-dimer Anemia in chronic kidney disease Disposition: 30 STILL A PATIENT Condition: Fair Critical Care Note Critical Care Time?: No Stability Stability form required: Yes Heart Score Heart Score: Heart Score Response (Comments) Value History Slightly Suspicious 0 EKG Normal 0 Age >65 2 Risk Factors 1 or 2 risk factors 1 Troponin N/A 0 Total 3 I personally scribed for MINA TORRES MD ([email or web address]) on 12/02/24 at 13:25. Electronically submitted by Yevgeniy Fragoso ([email or web address]). I personally scribed for MINA TORRES MD ([email or web address]) on 12/02/24 at 14:16. Electronically submitted by Yevgeniy Fragoso ([email or web address]). MINA TORRES MD Dec 02, 2024 13:25
[2024-12-02 13:49] LABS: Basophils # (auto) 0 10 ^3/uL (0-0.2); Basophils % (auto) 0.4 % (0.0-2.0); Eosinophils # (auto) 0.4 10 ^3/uL (0-0.8); Eosinophils % (auto) 3.8 % (0.0-7.0); Hematocrit 35.9 % (36.0-46.0); Hemoglobin 11.1 g/dL (12.2-16.2); Lymphocytes # (auto) 0.9 10 ^3/uL (0.4-5.4); Mean Corpuscular Hemoglobin 25.1 pg (28.0-32.0); Mean Corpuscular Hgb Conc. 30.9 g/dL (32.0-36.0); Mean Corpuscular Volume 81.2 fL (80.0-100.0); Monocytes # (auto) 0.7 10 ^3/uL (0-1.3); Monocytes % (auto) 6.9 % (0.0-12.0); Neutrophils # (auto) 7.9 10 ^3/uL (1.6-8.6); Neutrophils % (auto) 79.9 % (37.0-80.0); Platelet Count (auto) 312 10^3/uL (140-450); Red Blood Cells 4.42 10^6/uL (4.0-5.20); Red Cell Distribution Width 19.6 % (11.8-14.3); White Blood Cell 9.8 10^3/uL (4.4-10.8)
[2024-12-02 13:51] VITALS: RESP 15; O2SAT 97
--- NOTE | 2024-12-02 13:51 | DVH ---
XY CHEST TWO VIEWS ROUTINE CLINICAL HISTORY: sob chf COMPARISON: None TECHNIQUE: Frontal and lateral view of the chest was obtained FINDINGS: Lines and Tubes: None Lungs: No focal consolidation. Pleura: No effusion. No pneumothorax. Cardiomediastinal contours: Unremarkable Bones: No acute osseous abnormality. IMPRESSION: No acute cardiopulmonary disease.
[2024-12-02] MEDS: SODIUM CHLORIDE 0.9% 1,000 ML IV ONE (13:59)
[2024-12-02 14:08] LABS: Alanine Aminotransferase 11 U/L (7-40); Albumin 4.5 g/dL (3.2-4.8); Anion Gap 14 (5-15); Aspartate Aminotransferase 15 U/L (13-40); Calcium 9.5 mg/dL (8.7-10.4); Carbon Dioxide 27 mmol/L (20-31); Magnesium 2.4 mg/dL (1.6-2.6); Potassium 4.6 mmol/L (3.5-5.1); Total Protein 7.6 g/dL (5.7-8.2)
[2024-12-02 14:12] LABS: INR 1.15 (0.9-1.15); Partial Thromboplastin Time 35.2 SEC (24.5-34.5)
[2024-12-02 14:13] LABS: Alkaline Phosphatase 154 U/L (46-116); Bilirubin, Total 0.2 mg/dL (0.2-1.0); Chloride 94 mmol/L (98-107); Glucose 108 mg/dL (74-106); Sodium 135 mmol/L (136-145)
[2024-12-02 14:24] LABS: Urine Bacteria None Seen /hpf (None Seen)
[2024-12-02 14:24] LABS: BUN/Creatinine Ratio 6.9 (10.0-20.0)
[2024-12-02 14:26] LABS: Blood Urea Nitrogen 49 mg/dL (9-23)
[2024-12-02 14:44] LABS: Urine Blood TRACE /uL (Negative); Urine Clarity Clear (Clear); Urine Color Light-Yellow (Yellow); Urine Protein, UAD 2+ (Negative); Urine Specific Gravity 1.007 (1.001-1.035); Urine Squamous Epithelial Cell MOD /hpf (<5); Urine Urobilinogen Normal (Negative); Urine WBC 4 /HPF (0-5)
[2024-12-02 19:30] VITALS: BP 154/81; TEMP 98.7
[2024-12-02] MEDS: IOHEXOL 350 MG/ML 100ML IJ ONE ×2 (19:30→21:03)
[2024-12-02 19:47] VITALS: PULSE 89; RESP 17; O2SAT 97
[2024-12-02 20:00] VITALS: PULSE 86
--- NOTE | 2024-12-02 21:46 | ED.PDOC ---
Departure 1 Departure Time of Disposition: 21:45 (He was signs and symptoms of viral syndrome. She has now resolved he had likely in the setting of ESRD and viral syndrome. Patient reports she is feeling significantly better. She would like to go home. We will discharge patient home with outpatient follow up) Impression: Primary Impression: ESRD on dialysis Additional Impressions: Elevated d-dimer Pulmonary vascular congestion Anemia in chronic kidney disease Disposition: HOME / SELF CARE / HOMELESS Condition: Stable Additional Instructions: You likely have a viral illness. It is important to stay well rested and well hydrated. You can take Tylenol and Motrin as needed for pain and fever. For a sore throat you can drink warm tea with honey. You can take [id number] pseudoephedrine for nasal congestion. He should follow up with your regular doctor within 1 week to ensure you are doing better. If your symptoms worsen or you have any other concerns please return to the emergency room. Discharged With: Self TONY LEE MD Dec 02, 2024 21:46
== END 2024-12-02 22:35 | disposition home or self-care (01) ==
LOC: ER 12:23
DX: N18.6 End stage renal disease (principal); R09.89 Other specified symptoms and signs involving the circulatory and respiratory systems; R74.01 Elevation of levels of liver transaminase levels; D63.1 Anemia in chronic kidney disease; I13.2 Hypertensive heart and chronic kidney disease with heart failure and with stage 5 chronic kidney disease, or end stage renal disease; I50.9 Heart failure, unspecified; E11.22 Type 2 diabetes mellitus with diabetic chronic kidney disease; E03.9 Hypothyroidism, unspecified; E78.00 Pure hypercholesterolemia, unspecified; K21.9 Gastro-esophageal reflux disease without esophagitis; Z90.710 Acquired absence of both cervix and uterus; Z98.890 Other specified postprocedural states; Z99.2 Dependence on renal dialysis
CPT/HCPCS: 36415; 71046; 80053; 81001; 83735; 83880; 84443; 84484; 85025; 85379; 85610; 85730; 96360; 96361; 99285; J7030

== ENCOUNTER 2024-12-31 15:03 | Inpatient (IN) | payer OTHER, MEDICAID ==
[~2024-12-31] VITALS: Ht 152.4 cm; Wt 57.9 kg
--- NOTE | 2024-12-31 15:57 | ED.PDOC ---
HPI Comments 74 y.o female presents to the ED for an evaluation evaluation of a medication refill for chronic back pain. Patient ran out of her medication 3 days ago, is taking Toradol. During triage vital sign assessment, patient was incidentally found to be AFIB with RVR. Patient reports no cardiac history of AFIB although she is a poor historian and in her medication list has Eliquis and diltiazem in which she takes daily. Patient states she saw her rickshaw driver one month ago, unsure of his name. Patient has dialysis today, goes Tuesday, Tuesday and Tuesday. Patient denies any SOB, chest pain, palpitations, nausea or vomiting. Patient does complaint of generalized weakness that has been ongoing " for while". HPI: Vitals Temperature: 97.8 F Respiratory rate: 18 SpO2: 96% RA Heart rate: 108 Blood pressure: 105/75 Past Medical History: ESRD, dialysis Tuesday, Tuesday and Tuesday, arthritis, thyroid disease, hyperlipidemia Past Surgical History: Hernia repair and hysterectomy Social History: Denies Chiu: Back pain and atrial fibrillation HPI: Poor Historian. REVIEW OF SYSTEMS: CONSTITUTIONAL: Denies acute: fever, diaphoresis, chills, generalized weakness. HEAD: Denies acute: headache, photophobia Eyes: Denies acute: Double vision, vision loss, eye pain, eye discharge. EARS: Denies acute: tinnitus, hearing loss, ear discharge, ear pain, THROAT: Denies acute: sore throat, swelling, difficulty swallowing , pain with swallowing, change in voice. NECK: Denies acute: neck pain, neck swelling, stiff neck. HEART: Denies acute : chest pain, palpitations, LUNGS: Denies acute: SOB, wheezing, cough, hemoptysis ABDOMEN: Denies acute: abdominal pain, Nausea, Vomiting, diarrhea, melena , hematemesis, hematochezia SKIN: Denies acute: rash, redness, lesions, itchiness. EXTREMITIES: Denies acute: calf pain, numbness, tingling, weakness, denies pain in extremity. Denies acute: Low back pain. Neuro: Denies acute: focal neurological deficit, motor or sensory focal neurological deficit, tremors, seizure like activity, confusion, dizziness, change in mental status, loss of bowel or bladder function, cauda equina like symptoms. : Denies acute: dysuria, hematuria, flank pain, increase in urinary frequency. PSYCH: Denies acute: hallucination, suicidal ideation, homicidal ideation. FEMALE: Denies acute: abnormal vaginal bleeding, foul odor, unusual discharge. PHYSICAL EXAM: General: ----mild----acute distress, awake and alert. Head: normocephalic, atraumatic. Neck: supple, trachea is midline, no swelling. Throat: Normal phonation. Eyes:, no erythema, no purulent discharge, no proptosis, no icterus. Heart: Irregular rate and rhythm consistent with atrial fibrillation with RVR, no significant murmur appreciated. Lungs: no apparent respiratory distress, Able to speak in full sentences. No wheezing, no rhonchi, no crackles. No stridors Clear to auscultation bilaterally. Abdomen: non tender to palpation, non distended, soft, no guarding, no rebound, + bowel sounds. Neuro: Awake, Alert, oriented to name, self, situation, follows commands GCS=15. Speech is normal. Skin: no petechia, no purpura, no cyanosis, non-pale, not jaundice. Lower extremities: --trace bilateral- Pitting edema no deformity, no focal swelling, no calf TTP. Makes eye contact. moves all four extremities. Face: no apparent facial droop. Ambulating in the ED independently. ED COURSE: Chief Complaint: Back Pain Time Seen by MD: 15:19 Primary Care Provider: UNKNOWN Reviewed Notes: Nurses Notes, Medications, Allergies Allergies: Coded Allergies: Insulin (Verified Allergy, Unknown, 12/31/24) Penicillins (Verified Allergy, Unknown, 06/14/22) Home Meds Active Scripts Tramadol HCl (Tramadol HCl) 50 Mg Tab, 50 MG PO DAILY, #20 TAB Prov:DOMINICK PHELPS 11/08/24 Tramadol Hcl (Tramadol Hcl) 50 Mg Tab, 50 MG PO BID, #24 TAB Prov:DOMINICK PHELPS 10/06/24 Tramadol HCl (Tramadol HCl) 50 Mg Tab, 50 MG PO BID, #24 TAB Prov:DOMINICK PHELPS 11/9/24 Tramadol Hcl (Tramadol Hcl) 50 Mg Tab, 50 MG PO DAILY PRN for 30 Days, #30 TAB Prov:LEDA ARGUELLO MD 07/05/24 Naproxen (NAPROSYN TABLET) 500 Mg Tb, 500 MG GT BID for 20 Days, #40 TAB Prov:NORRIS RAMIREZ MD 01/25/24 Guaifenesin (Guaifenesin) 100 Mg/5 Ml Syp, 100 MG PO Q6HPRN PRN for 30 Days, #30 SYP Prov:THEO ARCOS 01/03/24 Metronidazole (Metronidazole) 500 Mg Tab, 500 MG PO TID for 10 Days, #30 TAB Prov:THEO ARCOS 01/03/24 Levofloxacin Hemihydrate (LEVOFLOXACIN) 250 Mg Tab, 250 MG PO DAILY for 10 Days, #10 TAB Prov:THEO ARCOS 01/03/24 Levothyroxine Sodium (SYNTHROID TABLET) 50 Mcg Tb, 50 MCG PO QAM for 30 Days, #30 TAB Prov:THEO ARCOS 01/03/24 Guaifenesin (Guaifenesin) 100 Mg/5 Ml Syp, 200 MG PO Q4HP PRN for 30 Days, #30 SYP Prov:THEO ARCOS 01/03/24 Sacubitril-Valsartan (Entresto 24-26 mg) 1 Tab Tab, 1 TAB PO BID, #60 TAB Prov:CALLY HOOPER MD 12/12/20 Reported Medications Apixaban Base (ELIQUIS) 2.5 Mg Tab, 1 TAB PO BID 12/29/23 Hydralazine Hcl (Hydralazine Hcl) 50 Mg Tab, 1 TAB PO TID 12/19/23 B-Complex W/ C & Folic Acid (Shannan-Agnieszka Rx) Tab, 1 TAB PO DAILY 12/19/23 Omeprazole (Omeprazole Dr) 20 Mg Cap, 1 CAP PO DAILY 12/19/23 Isosorbide Mononitrate (Isosorbide Mononitrate Er) 60 Mg Tab, 60 MG PO for 30 Days, MG 12/08/20 Calcium Carbonate-Cholecalcife (Oyster Calcium/D3 500-200 mg-Unit) 1 Tab Tab, 1 TAB PO DAILY, TAB 08/18/17 Diltiazem Hcl (DILTIAZEM HCL ER) 240 Mg Cap, 1 CAP PO DAILY, #30 CAP 5 Refills 08/04/17 Multiple Vitamin (Multi-Day Vitamins) Vitamins Tab, 1 TAB PO DAILY, #30 TAB 08/04/17 Donepezil Hydrochloride (DONEPEZIL HCL) 5 Mg Tab, 1 TAB PO DAILY, #30 TAB 5 Refills 08/04/17 Metoprolol Tartrate (LOPRESSOR TABLET) 50 Mg Tb, 1 TAB PO BID, #180 TAB 1 Refill 08/04/17 Atorvastatin Calcium (ATORVASTATIN CALCIUM) 40 Mg Tab, 1 TAB PO DAILY, #30 TAB 5 Refills 08/04/17 Mode of Arrival: Ambulatory Past Medical History PAST MEDICAL HISTORY: DM, ESRD, High Lipids, HTN, Thyroid Surgical History: Hernia Repair, Hysterectomy ASTRONOMY INSTRUCTOR History: Denies all ASTRONOMY INSTRUCTOR Hx Family History Family History: Reviewed,noncontributory to illness Social History Smoker: Non-Smoker Alcohol: Denies ETOH Use Drugs: Denies Drug Use Lives In: Home Physical Exam General Appearance: Other (a) HEENT: Other (a) Neck: Other (a) Respiratory: Other Cardiovascular: Other (a) Breast Exam: Other (a) Gastrointestinal: Other (a) Genitalia: Other (a) Pelvic: Other (a) Rectal: Other (a) Extremities: Other (a) Neurologic: Other Cerebellar Function: Other (a) Reflexes: Other (a) Skin: Other (a) Lymphatic: Other (a) Was a procedure done? Was a procedure done?: No CP Differential Dx Differential Diagnosis: A-fib, A-Flutter, Angina, Anxiety / Panic Attack, Atrial Dysrhythmia, AV Block 1st Degree, AV Block 2nd Degree, AV Block 3rd De gree, Digoxin Toxicity, Electrolyte Disorder, Heart Failure, Hyperthyroidism, Hyperventilation, Hypoxia, MAT, RI, PAC's, Pacemaker Malfunction, PSVT, Pulmonary Embolus, PVC's, Renal Failure, Sinus Tachycardia, Torsades De Pointes, Ventricular Dysrhythmia, V-Fib, V-Tach, WPW X-Ray, Labs, Meds, VS Vital Signs Date Time Temp Pulse Resp B/P (MAP) Pulse Ox O2 Delivery O2 Flow Rate FiO2 12/31/24 23:48 98.4 77 17 150/70 (96) 98 98.4 12/31/24 20:30 98 20 141/67 (91) 96 12/31/24 20:01 102 12/31/24 20:00 82 12/31/24 19:25 99.7 109 19 145/66 (92) 99 99.7 12/31/24 19:25 109 19 99 Room Air* 0 21 12/31/24 18:46 99.9 111 18 142/83 (102) 96 99.9 12/31/24 15:45 97.8 108 18 105/75 (85) 96 97.8 12/31/24 15:30 109 Lab Test 12/31/24 19:04 12/31/24 17:10 12/31/24 16:02 Range/Units Troponin I High Sensitivity 25 24 19 </=34 ng/L Sodium Level 133 L 136-145 mmol/L Potassium Level 5.0 3.5-5.1 mmol/L Chloride Level 94 L 98-107 mmol/L Carbon Dioxide Level 31 20-31 mmol/L Anion Gap 8 5-15 Blood Urea Nitrogen 32 H 9-23 mg/dL Creatinine 4.47 H 0.550-1.02 mg/dL Glomerular Filtration Rate Calc 10 >90 mL/min BUN/Creatinine Ratio 7.2 L 10.0-20.0 Serum Glucose 118 H 74-106 mg/dL Calcium Level 9.7 8.7-10.4 mg/dL Magnesium Level 2.1 1.6-2.6 mg/dL Total Bilirubin 0.4 0.2-1.0 mg/dL Aspartate Amino Transferase (AST) 29 13-40 U/L Alanine Aminotransferase (ALT) 13 7-40 U/L Alkaline Phosphatase 183 H 46-116 U/L Total Protein 7.4 5.7-8.2 g/dL Albumin 4.5 3.2-4.8 g/dL White Blood Count 11.7 H 4.4-10.8 10^3/uL Red Blood Count 4.69 4.0-5.20 10^6/uL Hemoglobin 12.3 12.2-16.2 g/dL Hematocrit 38.0 36.0-46.0 % Mean Corpuscular Volume 81.0 80.0-100.0 fL Mean Corpuscular Hemoglobin 26.2 L 28.0-32.0 pg Mean Corpuscular Hemoglobin Concent 32.3 32.0-36.0 g/dL Red Cell Distribution Width 20.5 H 11.8-14.3 % Platelet Count 240 140-450 10^3/uL Mean Platelet Volume 8.6 6.9-10.8 fL Neutrophils (%) (Auto) 82.8 H 37.0-80.0 % Lymphocytes (%) (Auto) 7.3 L 10.0-50.0 % Monocytes (%) (Auto) 7.8 0.0-12.0 % Eosinophils (%) (Auto) 1.9 0.0-7.0 % Basophils (%) (Auto) 0.2 0.0-2.0 % Neutrophils # (Auto) 9.7 H 1.6-8.6 10 ^3/uL Lymphocytes # (Auto) 0.9 0.4-5.4 10 ^3/uL Monocytes # (Auto) 0.9 0-1.3 10 ^3/uL Eosinophils # (Auto) 0.2 0-0.8 10 ^3/uL Basophils # (Auto) 0 0-0.2 10 ^3/uL Nucleated Red Blood Cells 0.0 % Current Medications Medications (Trade) Dose Ordered Sig/Geo Route Start Time Stop Time Status Last Admin Diltiazem HCl (Cardizem Injection) 5 mg ONCE ONCE IV 12/31/24 15:45 12/31/24 15:46 DC 12/31/24 21:43 Time of 1ST Reevaluation: 01:31 Reevaluation 1ST: Improved Patient Education/Counseling: Diagnosis, Treatment Family Education/Counseling: Other Comments Patient presented with the above HPI.--atrial fibrillation with RVR----workup was initiated. patient was found with the above mentioned diagnosis. the following medications were ordered: please refer to order lists of meds and tests obtained by myself Dr. Love. Patient ED course and VS have been stabilized. Patient has been reassessed in the ED and remained in a stable condition. Pertinent incidental findings were discussed with the patient and/or family. Patient/family voices understanding and is agreeable with plan. Patient has been observed in the ED adequate length of time to insure improvement/stability. Escalation of care considered: Consideration of escalation to observation or admission Patient was ADMITTED to the medicine team for further evaluation and treatment of their presentation. All the reports of any imaging studies that were ordered by myself were reviewed by myself. Departure 1 Departure Time of Disposition: 19:14 Impression: Primary Impression: Atrial fibrillation with RVR Additional Impressions: Chronic back pain ESRD on dialysis Disposition: ADMITTED INPATIENT Admit to: Tele Condition: Guarded Discharged With: Self Critical Care Note Critical Care Time?: Yes (35 min-critical care time only) Stability Stability form required: No Heart Score Heart Score: Heart Score Response (Comments) Value History Slightly Suspicious [address]-Deviation 2 Age >65 2 Risk Factors >3 or Hx ASHD 2 Troponin Normal limit 0 Total 6 I personally scribed for STEVE LOVE DO ([email or web address]) on 12/31/24 at 15:57. Electronically submitted by Lexie Huerta ([email or web address]). STEVE LOVE DO Dec 31, 2024 15:57
[2024-12-31 16:13] LABS: Basophils # (auto) 0 10 ^3/uL (0-0.2); Basophils % (auto) 0.2 % (0.0-2.0); Eosinophils # (auto) 0.2 10 ^3/uL (0-0.8); Eosinophils % (auto) 1.9 % (0.0-7.0); Hemoglobin 12.3 g/dL (12.2-16.2); Lymphocytes # (auto) 0.9 10 ^3/uL (0.4-5.4); Lymphocytes % (auto) 7.3 % (10.0-50.0); Mean Corpuscular Hemoglobin 26.2 pg (28.0-32.0); Mean Corpuscular Hgb Conc. 32.3 g/dL (32.0-36.0); Monocytes # (auto) 0.9 10 ^3/uL (0-1.3); Monocytes % (auto) 7.8 % (0.0-12.0); Neutrophils # (auto) 9.7 10 ^3/uL (1.6-8.6); Neutrophils % (auto) 82.8 % (37.0-80.0); Platelet Count (auto) 240 10^3/uL (140-450); Red Blood Cells 4.69 10^6/uL (4.0-5.20); Red Cell Distribution Width 20.5 % (11.8-14.3); White Blood Cell 11.7 10^3/uL (4.4-10.8)
[2024-12-31 17:36] LABS: Anion Gap 8 (5-15)
[2024-12-31 17:47] LABS: BUN/Creatinine Ratio 7.2 (10.0-20.0)
[2024-12-31 17:48] LABS: Alanine Aminotransferase 13 U/L (7-40); Albumin 4.5 g/dL (3.2-4.8); Alkaline Phosphatase 183 U/L (46-116); Aspartate Aminotransferase 29 U/L (13-40); Bilirubin, Total 0.4 mg/dL (0.2-1.0); Blood Urea Nitrogen 32 mg/dL (9-23); Calcium 9.7 mg/dL (8.7-10.4); Carbon Dioxide 31 mmol/L (20-31); Chloride 94 mmol/L (98-107); Glucose 118 mg/dL (74-106); Magnesium 2.1 mg/dL (1.6-2.6); Sodium 133 mmol/L (136-145); Total Protein 7.4 g/dL (5.7-8.2)
[2024-12-31 19:25] VITALS: PULSE 109; RESP 19; O2SAT 99
[2024-12-31] MEDS: dilTIAZem 25 MG/5 ML VIAL IV ONE (21:43)
--- NOTE | 2024-12-31 23:49 | DVHHPRES ---
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 Does not know if she has AFib in the past and therefore she was kept in the ER. Where she received IV diltiazem, which reverted her back to sinus rhythm. Patient reports palpitation earlier this morning when she was undergoing hemodialysis. Patient does report making urine, small amounts only and mostly during nighttime. She has been on hemodialysis for the past 3 years. Patient denies chest pain, fever, chills, any abdominal or urinary complaint. Patient had a left heart catheterization [address] Chairez 01/12/2024 admitted in this facility for pancreatitis and liver abcess 12/2023 admitted in this facility for sepsis with Enterococcus faecalis Past medical/surgical history: See above Social history: Lives with daughter, denies smoking or drinking or illicit drug use Medications: Atorvastatin, diltiazem, donepezil, levothyroxine, meclizine p.r.n., vitamin-D PCP: Dr. Cash Zimmerman Turning Machine Set Up Operator: Dr. Estrada On arrival to the ER, patient had low-grade fever 99.9 F, patient was tachycardic quadrant room air. WBC 11.7. BUN 32, creatinine 4.4. Troponins WNL. Patient seen and examined in ER bed 11. Reports no acute complaint. Family History: None Smoke: No ALCOHOL: none Drugs: None Lives: with Family Review of Systems Cardiovascular: Palpitations Allergies: Coded Allergies: Insulin (Verified Allergy, Unknown, 12/31/24) Penicillins (Verified Allergy, Unknown, 06/14/22) Exam Vital Signs Vital Signs Date Time Temp Pulse Resp B/P (MAP) Pulse Ox O2 Delivery O2 Flow Rate FiO2 12/31/24 20:30 98 20 141/67 (91) 96 12/31/24 19:25 99.7 99.7 12/31/24 19:25 Room Air* 0 21 Exam Patient lying in bed, in no acute distress General: Well-built, afebrile, palor, mucosae are moist Cardiovascular: Regular S1 and S2. No murmurs, gallops or rubs. No JVD elevation. No pedal edema Respiratory: Normal B/L air entry on room air. Clear lung sounds on auscultation Abdomen: Soft, nontender, nondistended, normoactive bowel sounds, no rebound tenderness, no organomegaly, no masses Genitourinary: Deferred MSK/skin: Mobilizes 4 limbs. Skin is dry and warm Neurological: No motor, no sensitive deficits, normal speech. Pupils are isocoric and reactive. Psych/Mental Status: A/Ox3 Labs/Xrays Labs Test 12/31/24 19:04 12/31/24 17:10 12/31/24 16:02 Range/Units Troponin I High Sensitivity 25 </=34 ng/L Sodium Level 133 L 136-145 mmol/L Potassium Level 5.0 3.5-5.1 mmol/L Chloride Level 94 L 98-107 mmol/L Carbon Dioxide Level 31 20-31 mmol/L Anion Gap 8 5-15 Blood Urea Nitrogen 32 H 9-23 mg/dL Creatinine 4.47 H 0.550-1.02 mg/dL Glomerular Filtration Rate Calc 10 >90 mL/min BUN/Creatinine Ratio 7.2 L 10.0-20.0 Serum Glucose 118 H 74-106 mg/dL Calcium Level 9.7 8.7-10.4 mg/dL Magnesium Level 2.1 1.6-2.6 mg/dL Total Bilirubin 0.4 0.2-1.0 mg/dL Aspartate Amino Transferase (AST) 29 13-40 U/L Alanine Aminotransferase (ALT) 13 7-40 U/L Alkaline Phosphatase 183 H 46-116 U/L Total Protein 7.4 5.7-8.2 g/dL Albumin 4.5 3.2-4.8 g/dL White Blood Count 11.7 H 4.4-10.8 10^3/uL Red Blood Count 4.69 4.0-5.20 10^6/uL Hemoglobin 12.3 12.2-16.2 g/dL Hematocrit 38.0 36.0-46.0 % Mean Corpuscular Volume 81.0 80.0-100.0 fL Mean Corpuscular Hemoglobin 26.2 L 28.0-32.0 pg Mean Corpuscular Hemoglobin Concent 32.3 32.0-36.0 g/dL Red Cell Distribution Width 20.5 H 11.8-14.3 % Platelet Count 240 140-450 10^3/uL Mean Platelet Volume 8.6 6.9-10.8 fL Neutrophils (%) (Auto) 82.8 H 37.0-80.0 % Lymphocytes (%) (Auto) 7.3 L 10.0-50.0 % Monocytes (%) (Auto) 7.8 0.0-12.0 % Eosinophils (%) (Auto) 1.9 0.0-7.0 % Basophils (%) (Auto) 0.2 0.0-2.0 % Neutrophils # (Auto) 9.7 H 1.6-8.6 10 ^3/uL Lymphocytes # (Auto) 0.9 0.4-5.4 10 ^3/uL Monocytes # (Auto) 0.9 0-1.3 10 ^3/uL Eosinophils # (Auto) 0.2 0-0.8 10 ^3/uL Basophils # (Auto) 0 0-0.2 10 ^3/uL Nucleated Red Blood Cells 0.0 % Assessment/Plan Assessment/Plan Paroxysmal atrial fibrillation with a RVR-now [id number], has bled 3 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 [facility] secondary to ADPKD CHF, previously HFrEF now HFpEF EF 60% 12/2023 hypothyroidism History of liver abscess Anemia of CKD Hypertension Hyperlipidemia Plan: 1 dose of IV diltiazem given by ER physician Patient is now normal sinus rhythm Continue home medication diltiazem ER 240 mg daily Could not verify if the patient is on anticoagulation, Eliquis 2.5 mg b.i.d., patient unaware Consulted Neph[facility], patient had a hemodialysis session earlier 12/31 Continue home medication levothyroxine, donepezil, atorvastatin Plan discussed with patient in which all questions have been answered Goals of care discussed for more than 27 minutes, full code status Case discussed with Dr. Warren Plan discussed with: Patient Date of Service: Dec 31, 2024 Billing Provider: SHIRLENE WARREN MD Common Visit Codes: [id number] INP/OBS CARE (HIGH) Secondary Visit Codes: [id number] CARE PLAN 30 MINUTES MARYAN CHO Dec 31, 2024 23:48 SHIRLENE WARREN MD Jan 01, 2025 20:58
[2025-01-01] VITALS (10 sets, daily range): BP systolic 138–166; BP diastolic 73–85; PULSE 71–84; RESP 12–19; TEMP 97.6–98.7; O2SAT 96–100
[2025-01-01] MEDS: ATORVASTATIN 20 MG TAB PO ONE (02:04)
[2025-01-01] MEDS: DONEPEZIL HYDROCHLORIDE 5 MG TAB PO ONE (02:04)
[2025-01-01] MEDS ORDERED: LEVO25TA6 PO (03:05)
--- NOTE | 2025-01-01 04:22 | ECG ---
[facility] Test Date: 2024-12-31 Test Time: 15:30:39 Pat Name: JOSE DANIEL ZAFAR Department: ER Room: [facility]2T A Gender: F Ict Help Desk Officer: TOSHA : 1950 Requested By: STEVE LOVE Order Number: [id number] Reading MD: Jose Luis Chairez Measurements Intervals [place] Rate: 109 P: 0 CA: 0 QRS: -83 QRSD: 79 T: 31 QT: 338 QTc: 456 Interpretive Statements Atrial fibrillation Inferior infarct, old Anteroseptal infarct, age indeterminate Electronically Signed On 01-02-2025 13:07:34 PDT by Jose Luis Chairez Please click the below link to view image of tracing.
[2025-01-01] MEDS: LEVOTHYROXINE SODIUM 25 MCG TAB PO SCH (05:38)
--- NOTE | 2025-01-01 07:31 | DVH ---
EXAM: XR Chest, 1 View CLINICAL INDICATION: Afib RVR TECHNIQUE: Frontal view of the chest. COMPARISON: XY CHEST PORTABLE on DOS: 12/28/23, CHEST PORTABLE on DOS: 06/14/22, CXRP on DOS: 06/14/22 , CHEST PORTABLE on DOS: 12/09/20, CHEST PORTABLE on DOS: 12/09/20 FINDINGS: LUNGS AND PLEURAL SPACES: See below. HEART: Cardiomegaly with mild congestion. MEDIASTINUM: Unremarkable. Normal mediastinal contour. BONES/JOINTS: Unremarkable. No acute fracture. OTHER FINDINGS: . IMPRESSION: Cardiomegaly with mild congestion.
[2025-01-01 07:49] LABS: Basophils # (auto) 0 10 ^3/uL (0-0.2); Basophils % (auto) 0.3 % (0.0-2.0); Eosinophils # (auto) 0.2 10 ^3/uL (0-0.8); Eosinophils % (auto) 2.7 % (0.0-7.0); Hemoglobin 10.4 g/dL (12.2-16.2); Lymphocytes # (auto) 0.8 10 ^3/uL (0.4-5.4); Lymphocytes % (auto) 9.6 % (10.0-50.0); Mean Corpuscular Hemoglobin 26.2 pg (28.0-32.0); Mean Corpuscular Hgb Conc. 31.5 g/dL (32.0-36.0); Monocytes # (auto) 0.8 10 ^3/uL (0-1.3); Neutrophils # (auto) 6.3 10 ^3/uL (1.6-8.6); Neutrophils % (auto) 77.4 % (37.0-80.0); Platelet Count (auto) 170 10^3/uL (140-450); Red Blood Cells 3.97 10^6/uL (4.0-5.20); Red Cell Distribution Width 20.6 % (11.8-14.3); White Blood Cell 8.1 10^3/uL (4.4-10.8)
[2025-01-01 07:59] LABS: INR 1.14 (0.9-1.15); Prothrombin Time 11.9 sec (9.3-11.8)
[2025-01-01 08:17] LABS: Alanine Aminotransferase 10 U/L (7-40); Albumin 3.8 g/dL (3.2-4.8); Anion Gap 11 (5-15); Aspartate Aminotransferase 18 U/L (13-40); BUN/Creatinine Ratio 7.8 (10.0-20.0); Calcium 9.4 mg/dL (8.7-10.4); Carbon Dioxide 31 mmol/L (20-31); Glucose 88 mg/dL (74-106); Magnesium 2.2 mg/dL (1.6-2.6); Sodium 137 mmol/L (136-145); Total Protein 6.4 g/dL (5.7-8.2)
[2025-01-01 08:18] LABS: Alkaline Phosphatase 152 U/L (46-116); Bilirubin, Total 0.4 mg/dL (0.2-1.0); Blood Urea Nitrogen 44 mg/dL (9-23); Chloride 95 mmol/L (98-107); Potassium 5.3 mmol/L (3.5-5.1)
[2025-01-01] MEDS: ALBUTEROL SULF 2.5 MG/0.5ML(0.5%) NEB SOLN NEB ONE (08:54)
[2025-01-01] MEDS: dilTIAZem 120MG ER CAP PO SCH (09:16)
[2025-01-01] MEDS: APIXABAN 2.5 MG TAB PO SCH (09:16)
[2025-01-01] MEDS: SODIUM ZIRCONIUM CYCL 10 GM PAK PO ONE (09:26)
[2025-01-01 09:48] LABS: Urine Bacteria None Seen /hpf (None Seen)
[2025-01-01 10:12] LABS: Urine Blood 3+ /uL (Negative); Urine Clarity Ex.Turbid (Clear); Urine Color Light-Red (Yellow); Urine Protein, UAD 2+ (Negative); Urine Specific Gravity 1.008 (1.001-1.035); Urine Squamous Epithelial Cell None Seen /hpf (<5); Urine Urobilinogen Normal (Negative); Urine WBC 13 /HPF (0-5); Urine pH 8.5 (5.0-9.0)
[2025-01-01] MEDS ORDERED: ACETAMINOPHEN 325 MG TAB PO PRN (10:15)
[2025-01-01] MEDS ORDERED: CYCLOBENZAPRINE HCL 10 MG TAB PO PRN (10:15)
[2025-01-01 10:24] LABS: Amphetamine Screen, Urine Neg (NEGATIVE); Barbiturate Scree,Urine Neg (NEGATIVE); Benzodiazephine Screen, Urine Neg (NEGATIVE); Cannabinoid Screen, Urine Neg (NEGATIVE); Cocaine Screen, Urine Neg (NEGATIVE); Opiate Scree,Urine Neg (NEGATIVE); Phencyclidine Screen, Urine Neg (NEGATIVE)
[2025-01-01 10:57] LABS: Free T3 1.97 pg/mL (2.3-4.2); Free T4 (Free Thyroxine) 1.22 ng/dL (0.89-1.76)
--- NOTE | 2025-01-01 11:16 | DVHPNRES ---
Progress Note Date Seen: Jan 01, 2025 Resident Creating Document: FADI DAIGLE RESIDENT Has the PT tested + for MRSA If YES, has PT been informed?: No Medical Necessity Reason Pt with a Central, PICC or Fol: No Subjective Review of Systems Ms Chiu 74-year-old male patient with past medical history of AFib on Eliquis and diltiazem, 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 [facility] secondary to ADPKD, CHF, previously HFrEF now HFpEF EF 60% 12/2023, hypothyroidism, liver abscess, anemia of CKD, hypertension, hyperlipidemia who presented to the ER initially to get refills for her pain medication tramadol 50 mg when she was found to be in AFib with RVR. Does not know if she has AFib in the past and therefore she was kept in the ER. Where she received IV diltiazem, which reverted her back to sinus rhythm. Patient reports palpitation earlier this morning when she was undergoing hemodialysis. Patient does report making urine, small amounts only and mostly during nighttime. She has been on hemodialysis for the past 3 years. Patient denies chest pain, fever, chills, any abdominal or urinary complaint. Patient had a left heart catheterization [address] Chairez 01/12/2024 admitted in this facility for pancreatitis and liver abcess 12/2023 admitted in this facility for sepsis with Enterococcus faecalis Past medical/surgical history: See above Social history: Lives with daughter, denies smoking or drinking or illicit drug use Medications: Atorvastatin, diltiazem, donepezil, levothyroxine, meclizine p.r.n., vitamin-D PCP: Dr. Cash Zimmerman [employer] Supervisor: Dr. Estrada On arrival to the ER, patient had low-grade fever 99.9 F, patient was tachycardic quadrant room air. WBC 11.7. BUN 32, creatinine 4.4. Troponins WNL. 01/01/2025: pain management: tylenol, flexeril and gabapentin, UA shoed hematuria, urine culture sent, nephrology on board Objective vital signs Vital Sign Date Time Temp Pulse Resp B/P (MAP) Pulse Ox O2 Delivery O2 Flow Rate FiO2 01/01/25 09:16 83 168/74 01/01/25 09:04 14 100 01/01/25 09:00 98.7 98.7 01/01/25 02:30 Room Air* 0 21 Total Intake and Output 12/31/24 12/31/24 01/01/25 15:00 23:00 07:00 Intake Total 200 ml Balance 200 ml medications Current Medications Medications Dose Ordered Sig/Geo Route Start Time Stop Time Status Last Admin Dose Admin Diltiazem HCl 240 mg DAILY PO 01/01/25 10:00 01/01/25 09:16 240 MG Atorvastatin Calcium 40 mg HS PO 01/01/25 22:00 Donepezil HCl 5 mg HS PO 01/01/25 22:00 Levothyroxine Sodium 25 mcg QAM@0600 PO 01/01/25 06:00 01/01/25 05:38 25 MCG Apixaban 2.5 mg BID PO 01/01/25 10:00 01/01/25 09:16 2.5 MG Acetaminophen 650 mg Q4HP PRN PO 01/01/25 10:15 Cyclobenzaprine HCl 5 mg Q8HPRN PRN PO 01/01/25 10:15 Gabapentin 100 mg BID PO 01/01/25 22:00 Examination Patient lying in bed, in no acute distress General: Well-built, afebrile, palor, mucosae are moist Cardiovascular: Regular S1 and S2. No murmurs, gallops or rubs. No JVD elevation. No pedal edema Respiratory: Normal B/L air entry on room air. Clear lung sounds on auscultation Abdomen: Soft, nontender, nondistended, normoactive bowel sounds, no rebound tenderness, no organomegaly, no masses Genitourinary: Deferred MSK/skin: Mobilizes 4 limbs. Skin is dry and warm Neurological: No motor, no sensitive deficits, normal speech. Pupils are isocoric and reactive. 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[facility] secondary to ADPKD #CHF, previously HFrEF now HFpEF EF 60% 12/2023, stable #hypothyroidism #History of liver abscess #Anemia of CKD #Hypertension #Hyperlipidemia #Hematuria #Hyperkalemia 5.3 Plan: 1 dose of IV diltiazem given by ER physician Patient is now normal sinus rhythm Continue home medication diltiazem ER 240 mg daily Eliquis 2.5 mg b.i.d., patient is taking eliquis at home Consulted Nephrology [facility], patient had a hemodialysis session earlier 12/31: hematuria in UA: urine culture sent Continue home medication levothyroxine, donepezil, atorvastatin Pain management: tylenol, gabapentin, flexeril Lokelma and albuterol ordered Plan discussed with patient in which all questions have been answered Goals of care discussed for more than 27 minutes, full code status Case discussed with Dr. Montenegro Plan discussed with: Patient, Other (rn) My Orders My Orders Orders - FADI DAIGLE RESIDENT Procedure Category Date Status Time Acetaminophen Tablet PHA 01/01/25 In Process (Tylenol Tablet) 10:15 Cyclobenzaprine PHA 01/01/25 In Process Tablet (Flexeril 10:15 Gabapentin Capsule PHA 01/01/25 In Process (Neurontin Capsule) 22:00 Urine Bacterial DEMETRIO 01/01/25 In Process Culture 10:20 Date of Service: Jan 01, 2025 Billing Provider: JACE MONTENEGRO MD Common Visit Codes: [id number] INP/OBS CARE(HIGH) FADI DAIGLE RESIDENT Jan 01, 2025 11:16 JACE MONTENEGRO MD Jan 02, 2025 22:24
--- NOTE | 2025-01-01 13:34 | DVHINCON2 ---
DATE OF CONSULTATION: 01/01/2025 CONSULTING PHYSICIAN: Dr. Tong. REASON FOR CONSULTATION: Management of dialysis. HISTORY OF PRESENT ILLNESS: The patient is a 74-year-old female who is well known to me. She has polycystic kidneys. She has been doing hemodialysis for the last 4 years. She has chronic pain, for which she needs tramadol. She says her primary doctor and pain management doctor have been refusing to give her tramadol, so she is now coming to the Emergency Room here to get the prescription for tramadol. This time, apparently, they put her on a monitor and they found some irregular heartbeats and decided to keep her in the hospital. She says she did not want to stay in the hospital and did not come for any of that. She just wanted her pain medication prescription. Now she is here being consulted to assess if she needs dialysis. REVIEW OF SYSTEMS: Otherwise, unremarkable. PAST MEDICAL HISTORY: Significant for polycystic kidneys, hypertension, end-stage renal disease, anemia, hyperparathyroidism, and chronic back pain. HOME MEDICATIONS: Include acetaminophen, Eliquis, diltiazem, gabapentin, and levothyroxine. SOCIAL HISTORY: She denies smoking cigarettes or drinking alcohol. FAMILY HISTORY: Negative for chronic conditions other than polycystic kidneys. PHYSICAL EXAMINATION: VITAL SIGNS: Blood pressure is 150/70, heart rate 83, respirations 14, temperature 98. GENERAL: The patient is at her normal usual state of health, in no acute distress. Alert and oriented x3. HEENT: Unremarkable. Oral mucosa . No conjunctiva abnormalities. No jugular venous distention. LUNGS: Clear to auscultation. CARDIOVASCULAR: Shows regular rate with an S4 gallop. ABDOMEN: Soft, nontender. No organomegaly. No ascites. EXTREMITIES: Show no clubbing, cyanosis, or edema. SKIN: Unremarkable. NEUROLOGIC: Normal. LABORATORY FINDINGS: Hemoglobin is 10.4, white blood cell count 8.1, sodium 136, potassium 5.3, creatinine 5. ASSESSMENT AND PLAN: End-stage renal disease. There is no need to keep this patient in the hospital. My advice would be to send her home so she can have her dialysis tomorrow at the clinic. Please consider having cardiac clearance as soon as possible. I will give her a prescription for tramadol for pain management related to her polycystic kidneys. Thank you for the consult. Trey Florian MD EVT/HERMELINDA/ALYCE TID: [id number] RECEIPT: [id number]
[2025-01-01] MEDS: DONEPEZIL HYDROCHLORIDE 5 MG TAB PO SCH (21:01)
[2025-01-01] MEDS: GABAPENTIN 100 MG CAP PO SCH (21:01)
[2025-01-01] MEDS: ATORVASTATIN 20 MG TAB PO SCH (21:02)
[2025-01-02 01:00] VITALS: BP 172/82; PULSE 86; RESP 19; TEMP 99.3; O2SAT 98
[2025-01-02] MEDS: ONDANSETRON HCL 4 MG/2 ML VIAL IV ONE (04:05)
[2025-01-02] MEDS: ONDANSETRON HCL 4 MG/2 ML VIAL ONE (04:06)
[2025-01-02 05:00] VITALS: BP 159/79; PULSE 83; RESP 17; TEMP 99.1; O2SAT 96
[2025-01-02] MEDS ORDERED: SODIUM CHL 0.9% 1000 ML BAG XX ONE (07:00)
[2025-01-02 09:00] VITALS: BP 154/72; PULSE 84; RESP 19; TEMP 98.3; O2SAT 100
--- NOTE | 2025-01-02 15:27 | DVHDSRES ---
Discharge Summary Date of Admission Resident Creating Document: FADI DAIGLE RESIDENT Dec 31, 2024 at 23:48 Date of Discharge: Jan 02, 2025 Admitting Diagnosis afib with RVR Labs/Diagnostic Data: Laboratory Results Test 01/01/25 09:21 01/01/25 09:20 01/01/25 07:00 12/31/24 19:04 Urine Color Light-red (Yellow) Urine Clarity Ex.turbid (Clear) Urine pH 8.5 (5.0-9.0) Urine Specific [place] 1.008 (1.001-1.035) Urine Protein 2+ (Negative) Urine Ketones Negative (Negative) Urine Blood 3+ /uL (Negative) Urine Nitrite Negative (Negative) Urine Bilirubin Negative (Negative) Urine Urobilinogen Normal mg/dL (Negative) Urine Leukocyte Esterase Trace /uL (Negative) Urine RBC 4462 /hpf (0 - 4) Urine Microscopic WBC 13 /HPF (0-5) Urine Squamous Epithelial Cells None seen /hpf (<5) Urine Bacteria None seen /hpf (None Seen) Urine Osmolality 281 mOsm/kg Urine Glucose 1+ mg/dL (Normal) Urine Opiates Screen Neg (NEGATIVE) Urine Fentanyl Screen Neg (NEGATIVE) Urine Barbiturates Screen Neg (NEGATIVE) Urine Phencyclidine Screen Neg (NEGATIVE) Urine Amphetamines Screen Neg (NEGATIVE) Urine Benzodiazepines Screen Neg (NEGATIVE) Urine Cocaine Screen Neg (NEGATIVE) Urine Cannabinoids Screen Neg (NEGATIVE) White Blood Count 8.1 10^3/uL (4.4-10.8) Red Blood Count 3.97 10^6/uL (4.0-5.20) Hemoglobin 10.4 g/dL (12.2-16.2) Hematocrit 33.0 % (36.0-46.0) Mean Corpuscular Volume 83.0 fL (80.0-100.0) Mean Corpuscular Hemoglobin 26.2 pg (28.0-32.0) Mean Corpuscular Hemoglobin Concent 31.5 g/dL (32.0-36.0) Red Cell Distribution Width 20.6 % (11.8-14.3) Platelet Count 170 10^3/uL (140-450) Mean Platelet Volume 8.3 fL (6.9-10.8) Neutrophils (%) (Auto) 77.4 % (37.0-80.0) Lymphocytes (%) (Auto) 9.6 % (10.0-50.0) Monocytes (%) (Auto) 10.0 % (0.0-12.0) Eosinophils (%) (Auto) 2.7 % (0.0-7.0) Basophils (%) (Auto) 0.3 % (0.0-2.0) Neutrophils # (Auto) 6.3 10 ^3/uL (1.6-8.6) Lymphocytes # (Auto) 0.8 10 ^3/uL (0.4-5.4) Monocytes # (Auto) 0.8 10 ^3/uL (0-1.3) Eosinophils # (Auto) 0.2 10 ^3/uL (0-0.8) Basophils # (Auto) 0 10 ^3/uL (0-0.2) Nucleated Red Blood Cells 0.0 % Prothrombin Time 11.9 sec (9.3-11.8) Prothrombin Time INR 1.14 (0.9-1.15) Activated Partial Thromboplast Time 35.0 SEC (24.5-34.5) Sodium Level 137 mmol/L (136-145) Potassium Level 5.3 mmol/L (3.5-5.1) Chloride Level 95 mmol/L (98-107) Carbon Dioxide Level 31 mmol/L (20-31) Anion Gap 11 (5-15) Blood Urea Nitrogen 44 mg/dL (9-23) Creatinine 5.66 mg/dL (0.550-1.02) Glomerular Filtration Rate Calc 7 mL/min (>90) BUN/Creatinine Ratio 7.8 (10.0-20.0) Serum Glucose 88 mg/dL (74-106) Hemoglobin A1c 3.9 % A1C (<5.7) Serum Osmolality 304 mOsm/kg (278-298) Calcium Level 9.4 mg/dL (8.7-10.4) Magnesium Level 2.2 mg/dL (1.6-2.6) Total Bilirubin 0.4 mg/dL (0.2-1.0) Aspartate Amino Transferase (AST) 18 U/L (13-40) Alanine Aminotransferase (ALT) 10 U/L (7-40) Alkaline Phosphatase 152 U/L (46-116) Total Protein 6.4 g/dL (5.7-8.2) Albumin 3.8 g/dL (3.2-4.8) Vitamin B12 Level 461 pg/mL (211-911) Vitamin D 25-Hydroxy 42.7 ng/mL (30.0-100) Thyroid Stimulating Hormone (TSH) 9.52 uIU/mL (0.55-4.78) Free Thyroxine (T4) Calculated 1.22 ng/dL (0.89-1.76) Free Triiodothyronine (T3) pg/mL 1.97 pg/mL (2.3-4.2) Troponin I High Sensitivity 25 ng/L (</=34) Other Laboratory Tests 01/01/25 07:00 Brief Hx & Hospital Course: A 74-year-old female with PMHx of paroxysmal atrial fibrillation with RVR (now sinus rhythm on diltiazem), ESRD on MWF hemodialysis via [facility] secondary to ADPKD, CHF (previously HFrEF, now HFpEF with EF 60% as of 12/2023), hypothyroidism, anemia of CKD, hypertension, hyperlipidemia, liver abscess, pancreatitis, and recurrent UTIs. Was admited because she was found with afib with rvr. Labs revealed WBC 11.7, BUN 32, Cr 4.4, and K 5.3. Troponins were WNL. UA showed hematuria due to ADPKD; urine culture rule out UTI. She was evaluated by Nephrology who stated that she is cleared for DC and continue dialysis as outpatient She received 1 dose of IV diltiazem in the ER for AFib with RVR and reverted to NSR. No further episodes of palpitations were reported. Pain was managed with Tylenol, gabapentin, and Flexeril. She required hyperkalemia protocol She remained hemodynamically stable throughout hospitalization. Her Leucocytosis resolved. Patient lying in bed, in no acute distress General: Well-built, afebrile, palor, mucosae are moist Cardiovascular: Regular S1 and S2. No murmurs, gallops or rubs. No JVD elevation. No pedal edema Respiratory: Normal B/L air entry on room air. Clear lung sounds on auscultation Abdomen: Soft, nontender, nondistended, normoactive bowel sounds, no rebound tenderness, no organomegaly, no masses Genitourinary: Deferred MSK/skin: Mobilizes 4 limbs. Skin is dry and warm Neurological: No motor, no sensitive deficits, normal speech. Pupils are isocoric and reactive. Psych/Mental Status: A/Ox3 Case discussed with Dr Bill Consults/Reason for consult nephrology due to dialysis Condition at Discharge: Stable Final Diagnosis/Problems List #Paroxysmal atrial fibrillation with a RVR-now [id number] 4, has bled 3 #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 [facility] secondary to ADPKD #CHF, previously HFrEF now HFpEF EF 60% 12/2023, stable #hypothyroidism #History of liver abscess #Anemia of CKD #Hypertension #Hyperlipidemia #Hematuria #Hyperkalemia 5.3 Discharge Disposition: Home Discharge Instruct/Medications Diet: Renal Activity: Light activity Follow Up/Referral: DIALYSIS MWF, FU PCP Medications: resume home meds Discharge Statement: "Patient was advised to return to the ER or call 911 if any headaches, dizziness, shortness of breath, chest pain, abdominal pain, bleeding, fevers, or worsening of medical condition. Patient was counseled about treatment plan, medications, possible side effects, patientverbalized understanding. All questions were answered to the best of my ability. This discharge took greater then 30 minutes in planning, reviewing documentation, counseling the patient, and discussing with other team members." ASSESSMENT ASSESSMENT Assessment AFIB WITH RVR Date of Service: Jan 02, 2025 Billing Provider: JACE BILL MD Common Visit Codes: 36269-EVK/OBS DISCH DAY >30min FADI DAIGLE RESIDENT Jan 02, 2025 15:27 JACE BILL MD Jan 04, 2025 21:15
== END 2025-01-02 10:00 | disposition home or self-care (01) | DRG 308 ==
LOC: ER 15:03 → OVERFLOW 23:48 → TELE-WESTW 01-01 02:37
PROVIDERS: ADMIT Student in an Organized Health Care Education/Training Program; ATTEND Emergency Medicine
DX: I48.0 Paroxysmal atrial fibrillation (principal); N18.6 End stage renal disease; I50.40 Unspecified combined systolic (congestive) and diastolic (congestive) heart failure; I13.2 Hypertensive heart and chronic kidney disease with heart failure and with stage 5 chronic kidney disease, or end stage renal disease; Q61.2 Polycystic kidney, adult type; E78.5 Hyperlipidemia, unspecified; E03.9 Hypothyroidism, unspecified; E11.22 Type 2 diabetes mellitus with diabetic chronic kidney disease; E87.5 Hyperkalemia; R31.9 Hematuria, unspecified; G89.29 Other chronic pain; M54.9 Dorsalgia, unspecified; D63.1 Anemia in chronic kidney disease; Z90.710 Acquired absence of both cervix and uterus; Z88.0 Allergy status to penicillin; Z88.8 Allergy status to other drugs, medicaments and biological substances; Z79.01 Long term (current) use of anticoagulants; Z79.899 Other long term (current) drug therapy; Z99.2 Dependence on renal dialysis; Z82.71 Family history of polycystic kidney
CPT/HCPCS: 36415; 71045; 80053; 80307; 81001; 82306; 82607; 83036; 83735; 83930; 83935; 84439; 84443; 84481; 84484; 85025; 85610; 85730; 87086; 93005; 94640; 96374; 99291; G0378; J2405

== ENCOUNTER 2025-01-05 10:59 | Emergency (ER) | payer OTHER, MEDICAID ==
[~2025-01-05] VITALS: Ht 152.4 cm; Wt 56.9 kg
[~2025-01-05 10:59] MED LIST changes: -CALC-473 PO; -GUA200LQ PO; -ISOS1TAB29 PO; -LEVO-848 PO; -LEVO250T58 PO; +LEVO25TA6 PO; -MET500T PO; -MET50T PO; -MULT-228 PO; -NAP500T GT; -SACU1TAB PO; -TRAM-626 PO; -TRAM50TA2 PO
[2025-01-05 11:34] VITALS: BP 142/66; PULSE 87; RESP 17; TEMP 98; O2SAT 98
[2025-01-05] MEDS ORDERED: TRAM-626 PO (11:40)
--- NOTE | 2025-01-05 11:44 | ED.PDOC ---
History of Present Illness HPI Comments A 74 YEAR OLD FEMALE PRESENTS TO THE ED WITH COMPLAINT OF MEDICATION REFILL. PATIENT STATES SHE HAS A HISTORY OF CHRONIC BACK PAIN AND USUALLY TAKES TRAMADOL FOR HER PAIN, BUT RAN OUT OF THIS MEDICATION AND WOULD LIKE A REFILL FOR THIS MEDICATION. PATIENT DENIES FEVER, CHILLS, SHORTNESS OF BREATH, CHEST PAIN, ABDOMINAL PAIN, NAUSEA, VOMITING, HEADACHE, OR OTHER COMPLAINTS. NO OTHER SYMPTOMS OR MODIFYING FACTORS AT THIS TIME. PATIENT IS ALERT, ORIENTED X 4, AND HAS STEADY GAIT. Chief Complaint: Back Pain Time Seen by MD: 11:11 Primary Care Provider: ALBA Reviewed Notes: Nurses Notes, Medications, Allergies Allergies: Coded Allergies: Insulin (Verified Allergy, Unknown, 12/31/24) Penicillins (Verified Allergy, Unknown, 06/14/22) Home Meds Active Scripts Tramadol HCl (Tramadol HCl) 50 Mg Tab, 50 MG PO BID PRN, #20 TAB Prov:DOMINICK PHELPS 01/05/25 Reported Medications Levothyroxine Sodium (Levothyroxine Sodium) 25 Mcg Tab, 1 TAB PO QAM for disorder of thyroid gland 01/01/25 Apixaban Base (ELIQUIS) 2.5 Mg Tab, 1 TAB PO BID 12/29/23 Hydralazine Hcl (Hydralazine Hcl) 50 Mg Tab, 1 TAB PO BID 12/19/23 B-Complex W/ C & Folic Acid (Shannan-Agnieszka Rx) Tab, 1 TAB PO DAILY 12/19/23 Omeprazole (Omeprazole Dr) 20 Mg Cap, 1 CAP PO DAILY 12/19/23 Diltiazem Hcl (DILTIAZEM HCL ER) 240 Mg Cap, 1 CAP PO DAILY, #30 CAP 5 Refills 08/04/17 Donepezil Hydrochloride (DONEPEZIL HCL) 5 Mg Tab, 1 TAB PO HS, #30 TAB 5 Refills 08/04/17 Atorvastatin Calcium (ATORVASTATIN CALCIUM) 40 Mg Tab, 1 TAB PO HS, #30 TAB 5 Refills 08/04/17 Information Source: Patient Mode of Arrival: Ambulatory Severity: Mild, Moderate Timing: Days Duration: Since onset, Days Prehospital treatment: None Medication Refill: Ran out of Medication, For: Pain Past Medical History PAST MEDICAL HISTORY: DM, ESRD, High Lipids, HTN, Thyroid Past Medical History (Other): DDD of LOW BACK Surgical History: Hernia Repair, Hysterectomy SCIENTIFIC INFORMATICS ANALYST History: Denies all SCIENTIFIC INFORMATICS ANALYST Hx Family History Family History: Reviewed,noncontributory to illness Social History Smoker: Non-Smoker Alcohol: Denies ETOH Use Drugs: Denies Drug Use Lives In: Home Constitutional: denies: chills, diaphoresis, fatigue, fever, malaise, sweats, weakness, others EENTM: denies: blurred vision, double vision, ear bleeding, ear discharge, ear drainage, ear pain, ear ringing, eye pain, eye redness, hearing loss, mouth pain, mouth swelling, nasal discharge, nose bleeding, nose congestion, nose pain, photophobia, tearing, throat pain, throat swelling, voice changes, others Respiratory: denies: cough, hemoptysis, orthopnea, SOB at rest, shortness of breath, SOB with excertion, stridor, wheezing, others Cardiovascular: denies: chest pain, dizzy spells, diaphoresis, Dyspnea on exertion, edema, irregular heart beat, left arm pain, lightheadedness, palpitations, PND, syncope, others Genitourinary: denies: abnormal vagina bleeding, burning, dyspareunia, dysuria, flank pain, frequency, hematuria, incontinence, pain, , vagina d ischarge, urgency, others Neurological: denies: dizziness, fainting, headache, left sided numbness, left sided weakness, numbness, paresthesia, pre-existing deficit, right sided numbness, right sided weakness, seizure, speech problems, tingling, tremors, weakness, others Musculoskeletal: reports: back pain, muscle pain; denies: gout, joint pain, joint swelling, muscle stiffness, neck pain, others Integumetry: denies: bruises, change in color, change in hair/nails, dryness, laceration, lesions, lumps, rash, wounds, others Allergic/Immunocompromised: denies: Difficulty Healing, Frequent Infections, Hives, Itching, others Hematologic/Lymphatic: denies: anemia, blood clots, easy bleeding, easy bruising, swollen glands, others Endocrine: denies: excessive hunger, excessive sweating, excessive thirst, excessive urination, flushing, intolerance to cold, intolerance to heat, unexplained weight gain, unexplained weight loss, others Psychiatric: denies: anxiety, bipolar disorder, depression, hopeless, panic disorder, schizophrenia, sleepless, suicidal, others All Other Systems: Reviewed and Negative Physical Exam General Appearance: No Apparent Distress, Normal HEENT: Normal ENT Inspection, PERRL/EOMI, Pharynx Normal, TMs Normal Neck: Full Range of Motion, Non-Tender, Normal, Normal Inspection Respiratory: Chest Non-Tender, Lungs Clear, No Accessory Muscle Use, No Respiratory Distress, Normal Breath Sounds Cardiovascular: No Edema, No JVD, No Murmur, No Gallop, Normal Peripheral Pulses, Regular Rate/Rhythm Breast Exam: Deferred Gastrointestinal: No Organomegaly, Non Tender, No Pulsatile Mass, Normal Bowel Sounds, Soft Genitalia: Deferred Pelvic: Deferred Rectal: Deferred Extremities: No calf tenderness, Normal capillary refill, Normal inspection, Normal range of motion, Non-tender, No pedal edema Musculoskeletal : Location: Bilateral Extremity Location: Back Apperance: Tenderness (AND MUSCLE SPASM ON LOW BACK, NO BONY TENDERNESS, SWELLING AND DEFORMITY. ) Neurologic: Alert, financial planning analyst II-XII nml as Tested, No Motor Deficits, Normal Affect, Normal Mood, No Sensory Deficits Cerebellar Function: Normal Reflexes: Normal Skin: Dry, Normal Color, Warm Peripheral Pulses: 2+ carotid (R), 2+ carotid (L), 2+ dorsalis pedis (R), 2+ dorsalis pedis (L) Lymphatic: No Adenopathy Was a procedure done? Was a procedure done?: No Differential Dx Considerations may include: MEDICATION REFILL FOR PAIN MEDICATION, HX OF CHRONIC BACK PAIN X-Ray, Labs, Meds, VS Vital Signs Date Time Temp Pulse Resp B/P (MAP) Pulse Ox O2 Delivery O2 Flow Rate FiO2 01/05/25 11:34 87 17 98 Room Air 01/05/25 11:34 98.0 88 16 142/66 (91) 97 98.0 01/05/25 11:23 97.8 91 16 151/70 (97) 98 97.8 X-Ray, Labs, Meds, VS Comment EXTERNAL MEDICAL RECORDS REVIEWED: [NONE] INDEPENDENT HISTORIANS: [NONE] SOCIAL DETERMINANTS OF HEALTH: [NONE] LABS ORDERED: NONE REVIEWED AND INTERPRETED RESULTS: NONE IMAGING ORDERED: NONE TREATMENTS ORDERED: NONE PROCEDURES PERFORMED: NONE CRITICAL CARE TIME: NONE I HAVE DISCUSSED THE PATIENT WITH THE ATTENDING PHYSICIAN DR. GREENBERG AND HE AGREES WITH THE PATIENT'S PLAN OF CARE AND DISPOSITION. BASED ON HISTORY OF PRESENT ILLNESS, AND PHYSICAL EXAM, PATIENT WILL BE DISCHARGED HOME. DISCUSSED PLAN FOR DISCHARGE HOME WITH RX [ULTRAM]. MEDICATION WARNINGS GIVEN. SHARED DECISION MAKING: PATIENT INSTRUCTED TO FOLLOW UP WITH PRIMARY CARE PROVIDER IN 1-2 DAYS FOR RE-EVALUATION OF SYMPTOMS. PATIENT VERBALIZES UNDERSTANDING TO RETURN TO ED FOR NEW OR WORSENING SYMPTOMS OR IF FOLLOW UP WITH PCP CANNOT BE OBTAINED. PATIENT FEELS COMFORTABLE GOING HOME AT THIS TIME. ALL QUESTIONS ADDRESSED AT TIME OF DISCHARGE. Time of 1ST Reevaluation: 11:46 Reevaluation 1ST: Improved Patient Education/Counseling: Diagnosis, Treatment, Need For Follow Up Family Education/Counseling: Diagnosis, Treatment, Need For Follow Up Medical Screening: No EMC Exist At This Time Departure 1 Departure Time of Disposition: 12:00 Impression: Primary Impression: Encounter for medication refill Additional Impression: Chronic low back pain Qualified Codes: M54.50 - Low back pain, unspecified; G89.29 - Other chronic pain Disposition: 01 HOME / SELF CARE / HOMELESS Condition: Stable Additional Instructions: FOLLOW-UP WITH PCP IN 1 TO 2 DAYS. TAKE MEDICATIONS PRESCRIBED. RETURN TO ED FOR ANY NEW OR WORSENING SYMPTOMS. e-Prescriptions Tramadol HCl (Tramadol HCl) 50 Mg Tab 50 MG PO BID PRN, #20 TAB Prov: DOMINICK PHELPS 01/05/25 Discharged With: Self Critical Care Note Critical Care Time?: No Stability Stability form required: No I personally scribed for DOMINICK PHELPS ([email or web address]) on 01/05/25 at 11:44. Electronically submitted by Higinio Wright ([email or web address]). DOMINICK PHELPS Jan 05, 2025 11:44
== END 2025-01-05 11:52 | disposition home or self-care (01) ==
LOC: ER 11:23
DX: G89.29 Other chronic pain (principal); M54.50 Low back pain, unspecified; I12.0 Hypertensive chronic kidney disease with stage 5 chronic kidney disease or end stage renal disease; N18.6 End stage renal disease; E11.22 Type 2 diabetes mellitus with diabetic chronic kidney disease; E78.5 Hyperlipidemia, unspecified; Z76.0 Encounter for issue of repeat prescription; Z90.710 Acquired absence of both cervix and uterus; Z98.890 Other specified postprocedural states; Z79.01 Long term (current) use of anticoagulants; Z79.899 Other long term (current) drug therapy; Z88.0 Allergy status to penicillin; Z88.8 Allergy status to other drugs, medicaments and biological substances

== ENCOUNTER 2025-01-26 09:01 | Emergency (ER) | payer OTHER, MEDICAID ==
[~2025-01-26] VITALS: Ht 152.4 cm; Wt 57.0 kg
[~2025-01-26 09:01] MED LIST changes: +TRAM-626 PO
[2025-01-26 09:35] VITALS: BP 166/82; PULSE 91; RESP 18; TEMP 98.7; O2SAT 98
[2025-01-26] MEDS: OXYMETAZOLINE HCL 0.05 % NASAL SPRAY 15ML EACHNOSTRI ONE (09:42)
--- NOTE | 2025-01-26 09:44 | ED.PDOC ---
Epistaxis- HPI HPI Comments A 74 YEAR OLD FEMALE PRESENTS TO THE ED WITH COMPLAINT OF NOSEBLEED. PATIENT STATES SHE BEGAN TO EXPERIENCE A NOSEBLEED FROM HER RIGHT NOSTRIL EARLIER TODAY WHEN SHE WOKE UP. PATIENT REPORTS SHE IS IN NO BLEEDING AT THIS TIME, BUT WOULD LIKE TO BE EVALUATED REGARDLESS. PATIENT DENIES VISION CHANGES, SLURRED SPEECH, ONE-SIDED WEAKNESS, FACIAL DROOP, FEVER, CHILLS, SHORTNESS OF BREATH, CHEST PAIN, ABDOMINAL PAIN, NAUSEA, VOMITING, HEADACHE, OR OTHER COMPLAINTS. NO OTHER SYMPTOMS OR MODIFYING FACTORS AT THIS TIME. PATIENT IS ALERT, ORIENTED X 4, AND HAS STEADY GAIT. Chief Complaint: Nose Bleed Time Seen by MD: 09:11 Primary Care Provider: UNKNOWN Reviewed Notes: Nurses Notes, Medications, Allergies Allergies: Coded Allergies: Insulin (Verified Allergy, Unknown, 12/31/24) Penicillins (Verified Allergy, Unknown, 06/14/22) Home Meds Active Scripts Tramadol HCl (Tramadol HCl) 50 Mg Tab, 50 MG PO BID PRN, #20 TAB Prov:DOMINICK PHELPS 01/05/25 Reported Medications Levothyroxine Sodium (Levothyroxine Sodium) 25 Mcg Tab, 1 TAB PO QAM for disorde r of thyroid gland 01/01/25 Apixaban Base (ELIQUIS) 2.5 Mg Tab, 1 TAB PO BID 12/29/23 Hydralazine Hcl (Hydralazine Hcl) 50 Mg Tab, 1 TAB PO BID 12/19/23 B-Complex W/ C & Folic Acid (Shannan-Agnieszka Rx) Tab, 1 TAB PO DAILY 12/19/23 Omeprazole (Omeprazole Dr) 20 Mg Cap, 1 CAP PO DAILY 12/19/23 Diltiazem Hcl (DILTIAZEM HCL ER) 240 Mg Cap, 1 CAP PO DAILY, #30 CAP 5 Refills 08/04/17 Donepezil Hydrochloride (DONEPEZIL HCL) 5 Mg Tab, 1 TAB PO HS, #30 TAB 5 Refills 08/04/17 Atorvastatin Calcium (ATORVASTATIN CALCIUM) 40 Mg Tab, 1 TAB PO HS, #30 TAB 5 Refills 08/04/17 Information Source: Patient Mode of Arrival: Ambulatory Severity: Bleeding Controlled Timing: Hours Duration: Since onset, Hours Prehospital treatment: None Location: Right naris Mechanism: Spontaneous onset Circumstances: Unknown History of: HTN Last Tetanus: Unknown Nose: Normal Nose: Intranasal/Septum: Blood Bleeding Status: No active bleeding Bleeding Amount: Mild Source: Right Associated signs and symptoms: None Past Medical History PAST MEDICAL HISTORY: AFIB, CKF, DM, ESRD, High Lipids, HTN, Thyroid Surgical History: Hernia Repair, Hysterectomy 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 Hx Family History Family History: Reviewed,noncontributory to illness Social History Smoker: Non-Smoker Alcohol: Denies ETOH Use Drugs: Denies Drug Use Lives In: Home Constitutional: denies: chills, diaphoresis, fatigue, fever, malaise, sweats, weakness, others EENTM: reports: nose bleeding; denies: blurred vision, double vision, ear bleeding, ear discharge, ear drainage, ear pain, ear ringing, eye pain, eye redness, hearing loss, mouth pain, mouth swelling, nasal discharge, nose co ngestion, nose pain, photophobia, tearing, throat pain, throat swelling, voice changes, others Respiratory: denies: cough, hemoptysis, orthopnea, SOB at rest, shortness of breath, SOB with excertion, stridor, wheezing, others Cardiovascular: denies: chest pain, dizzy spells, diaphoresis, Dyspnea on exertion, edema, irregular heart beat, left arm pain, lightheadedness, palpitations, PND, syncope, others Gastrointestinal: denies: abdomen distended, abdominal pain, blood streaked bowels, constipated, diarrhea, dysphagia, difficulty swallowing, hematemesis, melena, nausea, poor appetite, poor fluid intake, rectal bleeding, rectal pain, vomiting, others Genitourinary: denies: abnormal vagina bleeding, burning, dyspareunia, dysuria, flank pain, frequency, hematuria, incontinence, pain, , vagina discharge, urgency, others Neurological: denies: dizziness, fainting, headache, left sided numbness, left sided weakness, numbness, paresthesia, pre-existing deficit, right sided numbness, right sided weakness, seizure, speech problems, tingling, tremors, weakness, others Musculoskeletal: denies: back pain, gout, joint pain, joint swelling, muscle pain, muscle stiffness, neck pain, others Integumetry: denies: bruises, change in color, change in hair/nails, dryness, laceration, lesions, lumps, rash, wounds, others Allergic/Immunocompromised: denies: Difficulty Healing, Frequent Infections, Hives, Itching, others Hematologic/Lymphatic: denies: anemia, blood clots, easy bleeding, easy bruising, swollen glands, others Endocrine: denies: excessive hunger, excessive sweating, excessive thirst, excessive urination, flushing, intolerance to cold, intolerance to heat, unexplained weight gain, unexplained weight loss, others Psychiatric: denies: anxiety, bipolar disorder, depression, hopeless, panic disorder, schizophrenia, sleepless, suicidal, others All Other Systems: Reviewed and Negative Physical Exam General Appearance: No Apparent Distress, Normal HEENT: Normal ENT Inspection, PERRL/EOMI, Pharynx Normal, TMs Normal, Other (NO NOSE BLEEDING AND BLOOD CLOTS, +ANTERIOR NOSE BLOOD, MILD DRY BLOOD OF RIGHT NOSTRIL. ) Neck: Full Range of Motion, Non-Tender, Normal, Normal Inspection Respiratory: Chest Non-Tender, Lungs Clear, No Accessory Muscle Use, No Respiratory Distress, Normal Breath Sounds Cardiovascular: No Edema, No JVD, No Murmur, No Gallop, Normal Peripheral Pulses, Regular Rate/Rhythm Breast Exam: Deferred Gastrointestinal: No Organomegaly, Non Tender, No Pulsatile Mass, Normal Bowel Sounds, Soft Genitalia: Deferred Pelvic: Deferred Rectal: Deferred Extremities: No calf tenderness, Normal capillary refill, Normal inspection, Normal range of motion, Non-tender, No pedal edema Musculoskeletal : Apperance: Normal Neurologic: Alert, digital photographic printer II-XII nml as Tested, No Motor Deficits, Normal Affect, Normal Mood, No Sensory Deficits Cerebellar Function: Normal Reflexes: Normal Skin: Dry, Normal Color, Warm Peripheral Pulses: 2+ carotid (R), 2+ carotid (L) Lymphatic: No Adenopathy Was a procedure done? Was a procedure done?: No Differential Diagnosis (NSB) Differential Diagnosis: Anterior Nasal Bleed X-Ray, Labs, Meds, VS Vital Signs Date Time Temp Pulse Resp B/P (MAP) Pulse Ox O2 Delivery O2 Flow Rate FiO2 01/26/25 09:35 91 18 98 Room Air 01/26/25 09:35 98.7 91 18 166/82 (110) 98 98.7 01/26/25 09:11 98.7 91 18 166/82 (110) 98 98.7 Lab Test 01/26/25 09:55 Range/Units White Blood Count 9.2 4.4-10.8 10^3/uL Red Blood Count 4.03 4.0-5.20 10^6/uL Hemoglobin 10.7 L 12.2-16.2 g/dL Hematocrit 33.5 L 36.0-46.0 % Mean Corpuscular Volume 83.0 80.0-100.0 fL Mean Corpuscular Hemoglobin 26.5 L 28.0-32.0 pg Mean Corpuscular Hemoglobin Concent 31.9 L 32.0-36.0 g/dL Red Cell Distribution Width 19.8 H 11.8-14.3 % Platelet Count 312 140-450 10^3/uL Mean Platelet Volume 7.2 6.9-10.8 fL Neutrophils (%) (Auto) 76.2 37.0-80.0 % Lymphocytes (%) (Auto) 12.0 10.0-50.0 % Monocytes (%) (Auto) 8.9 0.0-12.0 % Eosinophils (%) (Auto) 2.2 0.0-7.0 % Basophils (%) (Auto) 0.7 0.0-2.0 % Neutrophils # (Auto) 7.0 1.6-8.6 10 ^3/uL Lymphocytes # (Auto) 1.1 0.4-5.4 10 ^3/uL Monocytes # (Auto) 0.8 0-1.3 10 ^3/uL Eosinophils # (Auto) 0.2 0-0.8 10 ^3/uL Basophils # (Auto) 0.1 0-0.2 10 ^3/uL Nucleated Red Blood Cells 0.0 % Prothrombin Time 11.9 H 9.3-11.8 sec Prothrombin Time INR 1.14 0.9-1.15 Sodium Level 137 136-145 mmol/L Potassium Level 5.0 3.5-5.1 mmol/L Chloride Level 96 L 98-107 mmol/L Carbon Dioxide Level 32 H 20-31 mmol/L Anion Gap 9 5-15 Blood Urea Nitrogen 30 H 9-23 mg/dL Creatinine 4.73 H 0.550-1.02 mg/dL Glomerular Filtration Rate Calc 9 >90 mL/min BUN/Creatinine Ratio 6.3 L 10.0-20.0 Serum Glucose 82 74-106 mg/dL Calcium Level 9.7 8.7-10.4 mg/dL X-Ray, Labs, Meds, VS Comment EXTERNAL MEDICAL RECORDS REVIEWED: [NONE] INDEPENDENT HISTORIANS: [NONE] SOCIAL DETERMINANTS OF HEALTH: [NONE] LABS ORDERED: CBC, BMP, PT INR REVIEWED AND INTERPRETED RESULTS: IMAGING ORDERED: NONE TREATMENTS ORDERED: PATIENT WAS INSTRUCTED TO BLOWHER NOSE TO REMOVE ANY POSSIBLE BLOOD CLOTS FROM HIS NOSE. +ANTERIOR NOSE BLOOD. ONE SPRAY OF AFRIN WAS APPLIED TO THE PATIENT'S NOSTRILS AND THEY WERE MONITORED FOR 50 MINUTES AND NO BLEEDING WAS NOTED. PROCEDURES PERFORMED: NONE CRITICAL CARE TIME: NONE I HAVE DISCUSSED THE PATIENT WITH THE ATTENDING PHYSICIAN DR. TORRES AND HE AGREES WITH THE PATIENT'S PLAN OF CARE AND DISPOSITION. BASED ON HISTORY OF PRESENT ILLNESS, AND PHYSICAL EXAM, PATIENT WILL BE DISCHARGED HOME. SHARED DECISION MAKING: PATIENT INSTRUCTED TO FOLLOW UP WITH PRIMARY CARE PROVIDER IN 1-2 DAYS FOR RE-EVALUATION OF SYMPTOMS. PATIENT VERBALIZES UNDERSTANDING TO RETURN TO ED FOR NEW OR WORSENING SYMPTOMS OR IF FOLLOW UP WITH PCP CANNOT BE OBTAINED. PATIENT FEELS COMFORTABLE GOING HOME AT THIS TIME. ALL QUESTIONS ADDRESSED AT TIME OF DISCHARGE. Time of 1ST Reevaluation: 10:43 Reevaluation 1ST: Improved Patient Education/Counseling: Diagnosis, Treatment, Need For Follow Up Family Education/Counseling: Diagnosis, Treatment, Need For Follow Up Medical Screening: No EMC Exist At This Time Departure 1 Departure Time of Disposition: 11:00 Impression: Primary Impression: Anterior epistaxis Disposition: 01 HOME / SELF CARE / HOMELESS Condition: Stable Additional Instructions: FOLLOW-UP WITH PCP IN 1 TO 2 DAYS. TAKE MEDICATIONS PRESCRIBED. RETURN TO ED FOR ANY NEW OR WORSENING SYMPTOMS. Discharged With: Self Critical Care Note Critical Care Time?: No Stability Stability form required: No I personally scribed for DOMINICK PHELPS ([email or web address]) on 01/26/25 at 09:44. Electronically submitted by Higinio Wright ([email or web address]). DOMINICK PHELPS January 26, 2025 09:44
[2025-01-26 10:10] LABS: Basophils # (auto) 0.1 10 ^3/uL (0-0.2); Basophils % (auto) 0.7 % (0.0-2.0); Eosinophils # (auto) 0.2 10 ^3/uL (0-0.8); Eosinophils % (auto) 2.2 % (0.0-7.0); Hematocrit 33.5 % (36.0-46.0); Hemoglobin 10.7 g/dL (12.2-16.2); Lymphocytes # (auto) 1.1 10 ^3/uL (0.4-5.4); Mean Corpuscular Hemoglobin 26.5 pg (28.0-32.0); Mean Corpuscular Hgb Conc. 31.9 g/dL (32.0-36.0); Monocytes # (auto) 0.8 10 ^3/uL (0-1.3); Monocytes % (auto) 8.9 % (0.0-12.0); Neutrophils % (auto) 76.2 % (37.0-80.0); Platelet Count (auto) 312 10^3/uL (140-450); Red Blood Cells 4.03 10^6/uL (4.0-5.20); Red Cell Distribution Width 19.8 % (11.8-14.3); White Blood Cell 9.2 10^3/uL (4.4-10.8)
[2025-01-26 10:19] LABS: Sodium 137 mmol/L (136-145)
[2025-01-26 10:20] LABS: Anion Gap 9 (5-15); INR 1.14 (0.9-1.15); Prothrombin Time 11.9 sec (9.3-11.8)
[2025-01-26 10:21] LABS: Calcium 9.7 mg/dL (8.7-10.4)
[2025-01-26 10:23] LABS: Carbon Dioxide 32 mmol/L (20-31); Chloride 96 mmol/L (98-107)
[2025-01-26 10:25] LABS: BUN/Creatinine Ratio 6.3 (10.0-20.0); Glucose 82 mg/dL (74-106)
[2025-01-26 10:28] LABS: Blood Urea Nitrogen 30 mg/dL (9-23)
== END 2025-01-26 10:55 | disposition home or self-care (01) ==
LOC: ER 09:01
DX: R04.0 Epistaxis (principal); I12.0 Hypertensive chronic kidney disease with stage 5 chronic kidney disease or end stage renal disease; E11.22 Type 2 diabetes mellitus with diabetic chronic kidney disease; N18.6 End stage renal disease; I48.91 Unspecified atrial fibrillation; E78.5 Hyperlipidemia, unspecified; Z90.710 Acquired absence of both cervix and uterus; Z98.890 Other specified postprocedural states; Z79.01 Long term (current) use of anticoagulants; Z79.899 Other long term (current) drug therapy; Z88.0 Allergy status to penicillin; Z88.8 Allergy status to other drugs, medicaments and biological substances
CPT/HCPCS: 36415; 80048; 85025; 85610

== ENCOUNTER 2025-02-15 10:11 | Emergency (ER) | payer OTHER, MEDICAID ==
[~2025-02-15] VITALS: Ht 152.4 cm; Wt 56.0 kg
--- NOTE | 2025-02-15 10:33 | ED.PDOC ---
Musculoskeletal HPI Comments 74 y/o F, with PMHx of AFib, CKF, DM, ESRD, HLD, and HTN presents to the ED for CC of lower extremity. Patient states, she stubbed her left foot against the kitchen table on Tuesday (02/12/25) d/t standing up after having a cramp in her right leg. Patient reports, following trauma she has began to experience pain to her left 4th toe with associated swelling. Patient denies fall, head injury, or ope wounds. No other symptoms or modifying factors present at this time. Chief Complaint: Lower Extremity Time Seen by MD: 10:15 Primary Care Provider: UNKNOWN Reviewed Notes: Nurses Notes, Medications, Allergies Allergies: Coded Allergies: Insulin (Verified Allergy, Unknown, 12/31/24) Penicillins (Verified Allergy, Unknown, 06/14/22) Home Meds Active Scripts Tramadol HCl (Tramadol HCl) 50 Mg Tab, 50 MG PO BID PRN, #20 TAB Prov:DOMINICK PHELPS 01/05/25 Reported Medications Levothyroxine Sodium (Levothyroxine Sodium) 25 Mcg Tab, 1 TAB PO QAM for disorder of thyroid gland 01/01/25 Apixaban Base (ELIQUIS) 2.5 Mg Tab, 1 TAB PO BID 12/29/23 Hydralazine Hcl (Hydralazine Hcl) 50 Mg Tab, 1 TAB PO BID 12/19/23 B-Complex W/ C & Folic Acid (Shannan-Agnieszka Rx) Tab, 1 TAB PO DAILY 12/19/23 Omeprazole (Omeprazole Dr) 20 Mg Cap, 1 CAP PO DAILY 12/19/23 Diltiazem Hcl (DILTIAZEM HCL ER) 240 Mg Cap, 1 CAP PO DAILY, #30 CAP 5 Refills 08/04/17 Donepezil Hydrochloride (DONEPEZIL HCL) 5 Mg Tab, 1 TAB PO HS, #30 TAB 5 Refills 08/04/17 Atorvastatin Calcium (ATORVASTATIN CALCIUM) 40 Mg Tab, 1 TAB PO HS, #30 TAB 5 Refills 08/04/17 Information Source: Patient Mode of Arrival: Ambulatory Location: Left Extremity Location: Foot, Toe 4 Timing: Days Prehospital treatment: None Severity: Moderate Able to Move Extremity: Yes Bear Weight: Limited Pain: Moderate Mechanism: Blunt Trauma Circumstances: Accident Symptoms: Swelling, Pain DVT Risk Factors: NONE Last Tetanus: Unknown Associated signs and symptoms: Foot pain Past Medical History PAST MEDICAL HISTORY: AFIB, CKF, DM, ESRD, High Lipids, HTN, Thyroid Surgical History: Hernia Repair, Hysterectomy 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 Family History Family History: Reviewed,noncontributory to illness Social History Smoker: Non-Smoker Alcohol: Denies ETOH Use Drugs: Denies Drug Use Lives In: Home Constitutional: denies: chills, diaphoresis, fatigue, fever, malaise, sweats, weakness, others EENTM: denies: blurred vision, double vision, ear bleeding, ear discharge, ear drainage, ear pain, ear ringing, eye pain, eye redness, hearing loss, mouth pain, mouth swelling, nasal discharge, nose bleeding, nose congestion, nose pain, photophobia, tearing, throat pain, throat swelling, voice changes, others Respiratory: denies: cough, hemoptysis, orthopnea, SOB at rest, shortness of breath, SOB with excertion, stridor, wheezing, others Cardiovascular: denies: chest pain, dizzy spells, diaphoresis, Dyspnea on exertion, edema, irregular heart beat, left arm pain, lightheadedness, palpitations, PND, syncope, others Gastrointestinal: denies: abdomen distended, abdominal pain, blood streaked bowels, constipated, diarrhea, dysphagia, difficulty swallowing, hematemesis, melena, nausea, poor appetite, poor fluid intake, rectal bleeding, rectal pain, vomiting, others Genitourinary: denies: abnormal vagina bleeding, burning, dyspareunia, dysuria, flank pain, frequency, hematuria, incontinence, pain, , vagina discharge, urgency, others Neurological: denies: dizziness, fainting, headache, left sided numbness, left sided weakness, numbness, paresthesia, pre-existing deficit, right sided numbness, right sided weakness, seizure, speech problems, tingling, tremors, weakness, others Musculoskeletal: reports: others (left foot pain); denies: back pain, gout, joint pain, joint swelling, muscle pain, muscle stiffness, neck pain Integumetry: denies: bruises, change in color, change in hair/nails, dryness, laceration, lesions, lumps, rash, wounds, others Allergic/Immunocompromised: denies: Difficulty Healing, Frequent Infections, Hives, Itching, others Hematologic/Lymphatic: denies: anemia, blood clots, easy bleeding, easy bruising, swollen glands, others Endocrine: denies: excessive hunger, excessive sweating, excessive thirst, excessive urination, flushing, intolerance to cold, intolerance to heat, unexplained weight gain, unexplained weight loss, others Psychiatric: denies: anxiety, bipolar disorder, depression, hopeless, panic disorder, schizophrenia, sleepless, suicidal, others All Other Systems: Reviewed and Negative Physical Exam General Appearance: No Apparent Distress, Normal HEENT: Normal ENT Inspection, Pharynx Normal Neck: Full Range of Motion, Non-Tender, Normal, Normal Inspection Respiratory: Chest Non-Tender, Lungs Clear, No Accessory Muscle Use, No Respiratory Distress, Normal Breath Sounds Cardiovascular: No Edema, No Murmur, No Gallop, Normal Peripheral Pulses, Regular Rate/Rhythm Breast Exam: Deferred Gastrointestinal: No Organomegaly, Non Tender, No Pulsatile Mass, Normal Bowel Sounds, Soft Genitalia: Deferred Pelvic: Deferred Rectal: Deferred Extremities: No calf tenderness, Normal capillary refill, Normal inspection, Normal range of motion, Non-tender, No pedal edema Musculoskeletal : Location: Left Extremity Location: Foot, Toe 4 Apperance: Swelling (left foot ttp) Neurologic: Alert, commutator inspector II-XII nml as Tested, No Motor Deficits, Normal Affect, Normal Mood, No Sensory Deficits Cerebellar Function: Normal Reflexes: Normal Skin: Dry, Normal Color, Warm Lymphatic: No Adenopathy Was a procedure done? Was a procedure done?: No Differential Diagnosis EXT Differential Diagnosis: Cellulitis, Fracture, Sprain, Strain X-Ray, Labs, Meds, VS Vital Signs Date Time Temp Pulse Resp B/P (MAP) Pulse Ox O2 Delivery O2 Flow Rate FiO2 02/15/25 10:33 97.1 85 16 138/66 (90) 97 97.1 [place] [address] Ph: [phone] DIAGNOSTIC IMAGING Diagnostic Imaging Report : [id number] Signed PATIENT: JOSE DANIEL ZAFAR ACCT: [id number] UNIT: [id number] : 1950 LOC: ER ROOM / BED: / AGE / SEX: 74 / F ADM STATUS: REG ER SERVICE 1023 ORDERING PHYSICIAN: FACUNDO PROCTOR MD PROCEDURE(s): LFOOT - L FOOT 3 VIEW XRAY REASON: RO 4TH TOE FRACTURE ORDER NUMBER(s): [id number], ACCESSION NUMBER(s): [id number] CLINICAL INDICATION: RO 4TH TOE FRACTURE TECHNIQUE: XY L FOOT 3 VIEW XRAY Comparison: None FINDINGS/IMPRESSION: : There is no evidence of acute fracture or dislocation. Soft tissues are unremarkable. Degenerative spurring of the calcaneus. Vascular calcifications. ATED BY: JALIL FITZGERALD MD DICTATED DATE/TIME: 02/15/25 1102 SIGNED BY: JALIL FITZGERALD MD SIGNED DATE/TIME: 02/15/25 110 CC: 74-year-old female presents here after stubbing her toe. On exam she has swelling to her left 4th toe. X-ray has been done with no evidence of fracture or dislocation. At this time I have discharging home. Patient is able to ambulate without difficulty. Advised her to follow up with the PCP in 2-3 days and return to the ER if symptoms worsen or persist. Advised her to use heat packs ice packs and Tylenol for pain control. Patient agreeable Time of 1ST Reevaluation: 12:15 Reevaluation 1ST: Unchanged Patient Education/Counseling: Diagnosis, Treatment Family Education/Counseling: No Family Present Departure 1 Departure Time of Disposition: 11:58 Impression: Primary Impression: Toe sprain Qualified Codes: S93.509A - Unspecified sprain of unspecified toe(s), initial encounter Disposition: 01 HOME / SELF CARE / HOMELESS Condition: Stable Additional Instructions: Follow up with the primary care physician in 2-3 days. Return to the ER if symptoms worsen or persist. Discharged With: Self Critical Care Note Critical Care Time?: No Stability Stability form required: No Heart Score Heart Score: Heart Score Response (Comments) Value History N/A 0 EKG N/A 0 Age N/A 0 Risk Factors N/A 0 Troponin N/A 0 Total 0 I personally scribed for FACUNDO PROCTOR MD ([email or web address]) on 02/15/25 at 10:33. Electronically submitted by Karen Gilman ([email or web address]). I personally scribed for FACUNDO PROCTOR MD ([email or web address]) on 02/15/25 at 10:37. Electronically submitted by Karen Gilman ([email or web address]). I personally scribed for FACUNOD PROCTOR MD ([email or web address]) on 02/15/25 at 10:53. Electronically submitted by Karen Gilman ([email or web address]). I personally scribed for FACUNDO PROCTOR MD ([email or web address]) on 02/15/25 at 11:27. Electronically submitted by Karen Gilman ([email or web address]). FACUNDO PROCTOR MD Feb 15, 2025 10:33
--- NOTE | 2025-02-15 11:04 | DVH ---
CLINICAL INDICATION: RO 4TH TOE FRACTURE TECHNIQUE: XY L FOOT 3 VIEW XRAY Comparison: None FINDINGS/IMPRESSION: : There is no evidence of acute fracture or dislocation. Soft tissues are unremarkable. Degenerative spurring of the calcaneus. Vascular calcifications.
[2025-02-15 11:59] VITALS: BP 141/64; PULSE 80; RESP 16; TEMP 98.4; O2SAT 98
== END 2025-02-15 13:02 | disposition home or self-care (01) ==
LOC: ER 10:11
DX: S93.505A Unspecified sprain of left lesser toe(s), initial encounter (principal); I12.0 Hypertensive chronic kidney disease with stage 5 chronic kidney disease or end stage renal disease; E11.22 Type 2 diabetes mellitus with diabetic chronic kidney disease; N18.6 End stage renal disease; E78.5 Hyperlipidemia, unspecified; I48.91 Unspecified atrial fibrillation; Z79.899 Other long term (current) drug therapy; Z90.710 Acquired absence of both cervix and uterus; Z98.890 Other specified postprocedural states; Z88.0 Allergy status to penicillin; W22.03XA Walked into furniture, initial encounter; Y93.89 Activity, other specified; Y92.89 Other specified places as the place of occurrence of the external cause; Y99.8 Other external cause status
CPT/HCPCS: 73630

== ENCOUNTER 2025-02-19 10:45 | Emergency (ER) | payer OTHER, MEDICAID ==
[~2025-02-19] VITALS: Ht 152.4 cm; Wt 56.2 kg
[2025-02-19 10:52] VITALS: TEMP 98.3
--- NOTE | 2025-02-19 11:03 | ED.PDOC ---
Musculoskeletal HPI Comments 75y F who presents to the ED for chief complaint of lower extremity pain - pt states she has been having bilateral lower extremity cramping since last night PM - pt states she gets this cramping like pain whenever her labs show elevated K levels - pt has history of ESRD on dialysis and gets dialysis, M, W, and F and states she got dialysis yesterday - pt states past 2x she had blood work, she had elevated K with noted extremity camping - pt states she has otherwise not gotten her labs drawn this past month - pt otherwise denies any other symptoms at this time Past Medical history: ESRD on dialysis, HTN, thyroid disease, liver cyst, Past Surgical history: hernia, hysterectomy, liver cyst Medications: uknown Allergies: penicillin Social History: denies ETOH, denies tobacco use, denies drug use HPI: Poor Historian. Bilateral generalized leg cramps involving the entire leg. REVIEW OF SYSTEMS: CONSTITUTIONAL: Denies acute: fever, diaphoresis, chills, generalized weakness. HEAD: Denies acute: headache, photophobia Eyes: Denies acute: Double vision, vision loss, eye pain, eye discharge. EARS: Denies acute: tinnitus, hearing loss, ear discharge, ear pain, THROAT: Denies acute: sore throat, swelling, difficulty swallowing , pain with swallowing, change in voice. NECK: Denies acute: neck pain, neck swelling, stiff neck. HEART: Denies acute : chest pain, palpitations, LUNGS: Denies acute: SOB, wheezing, cough, hemoptysis ABDOMEN: Denies acute: abdominal pain, Nausea, Vomiting, diarrhea, melena , hematemesis, hematochezia SKIN: Denies acute: rash, redness, lesions, itchiness. EXTREMITIES: Denies acute: calf pain, numbness, tingling, weakness, Denies acute: Low back pain. Neuro: Denies acute: focal neurological deficit, motor or sensory focal neurological deficit, tremors, seizure like activity, confusion, dizziness, change in mental status, loss of bowel or bladder function, cauda equina like symptoms. : Denies acute: dysuria, hematuria, flank pain, increase in urinary frequency. PSYCH: Denies acute: hallucination, suicidal ideation, homicidal ideation. FEMALE: Denies acute: abnormal vaginal bleeding, foul odor, unusual discharge. PHYSICAL EXAM: General: -----no---acute distress, awake and alert. Head: normocephalic, atraumatic. Neck: supple, trachea is midline, no swelling. Throat: Normal phonation. Eyes:, no erythema, no purulent discharge, no proptosis, no icterus. Heart: regular rate, regular rhythm, no significant murmur appreciated. Lungs: no apparent respiratory distress, Able to speak in full sentences. No wheezing, no rhonchi, no crackles. No stridors Clear to auscultation bilaterally. Abdomen: non tender to palpation, non distended, soft, no guarding, no rebound, + bowel sounds. Neuro: Awake, Alert, oriented to name, self, situation, follows commands GCS=15. Speech is normal. Skin: no petechia, no purpura, no cyanosis, non-pale, not jaundice. Lower extremities: --no - Pitting edema no deformity, no focal swelling, no calf TTP. Patient is neurovascularly intact in bilateral lower extremities. Pedal pulses palpable. Motor and sensory are present. No focal tenderness to palpation. Makes eye contact. moves all four extremities. Face: no apparent facial droop. Pedal pulses are palpable. ED COURSE: Chief Complaint: Lower Extremity Time Seen by MD: 11:59 Primary Care Provider: TRINI Reviewed Notes: Nurses Notes, Medications, Allergies Allergies: Coded Allergies: Insulin (Verified Allergy, Unknown, 12/31/24) Penicillins (Verified Allergy, Unknown, 06/14/22) Home Meds Active Scripts Tramadol HCl (Tramadol HCl) 50 Mg Tab, 50 MG PO BID PRN, #20 TAB Prov:DOMINICK PHELPS 01/05/25 Reported Medications Levothyroxine Sodium (Levothyroxine Sodium) 25 Mcg Tab, 1 TAB PO QAM for disorder of thyroid gland 01/01/25 Apixaban Base (ELIQUIS) 2.5 Mg Tab, 1 TAB PO BID 12/29/23 Hydralazine Hcl (Hydralazine Hcl) 50 Mg Tab, 1 TAB PO BID 12/19/23 B-Complex W/ C & Folic Acid (Shannan-Agnieszka Rx) Tab, 1 TAB PO DAILY 12/19/23 Omeprazole (Omeprazole Dr) 20 Mg Cap, 1 CAP PO DAILY 12/19/23 Diltiazem Hcl (DILTIAZEM HCL ER) 240 Mg Cap, 1 CAP PO DAILY, #30 CAP 5 Refills 08/04/17 Donepezil Hydrochloride (DONEPEZIL HCL) 5 Mg Tab, 1 TAB PO HS, #30 TAB 5 Refills 08/04/17 Atorvastatin Calcium (ATORVASTATIN CALCIUM) 40 Mg Tab, 1 TAB PO HS, #30 TAB 5 Refills 08/04/17 Information Source: Patient Mode of Arrival: Ambulatory Location: Bilateral Past Medical History PAST MEDICAL HISTORY: AFIB, CKF, DM, ESRD, High Lipids, HTN, Thyroid Surgical History: Hernia Repair, Hysterectomy 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 Was a procedure done?: No EKG EKG : Pulse Rate (adult): 90 [place] Arc: Normal Cardiac Rhythm: NSR Block: None Hypertrophy: None ST: Normal Differential Diagnosis EXT Differential Diagnosis: Cellulitis, Deep Vein Thrombosis, Compartment Syndrome, Fracture, Sprain, Dislocation, Contusion, Strain, Neurovascular injury X-Ray, Labs, Meds, VS Vital Signs Date Time Temp Pulse Resp B/P (MAP) Pulse Ox O2 Delivery O2 Flow Rate FiO2 02/19/25 12:00 90 02/19/25 11:25 96 18 98 Room Air 02/19/25 11:25 90 18 126/70 (88) 97 02/19/25 11:10 90 02/19/25 11:00 Room Air* 0 21 02/19/25 10:52 98.3 93 18 143/79 (100) 96 98.3 Lab Test 02/19/25 11:19 Range/Units White Blood Count 9.5 4.4-10.8 10^3/uL Red Blood Count 4.44 4.0-5.20 10^6/uL Hemoglobin 11.4 L 12.2-16.2 g/dL Hematocrit 35.7 L 36.0-46.0 % Mean Corpuscular Volume 80.4 80.0-100.0 fL Mean Corpuscular Hemoglobin 25.6 L 28.0-32.0 pg Mean Corpuscular Hemoglobin Concent 31.9 L 32.0-36.0 g/dL Red Cell Distribution Width 18.4 H 11.8-14.3 % Platelet Count 265 140-450 10^3/uL Mean Platelet Volume 7.7 6.9-10.8 fL Neutrophils (%) (Auto) 79.2 37.0-80.0 % Lymphocytes (%) (Auto) 8.8 L 10.0-50.0 % Monocytes (%) (Auto) 8.8 0.0-12.0 % Eosinophils (%) (Auto) 2.7 0.0-7.0 % Basophils (%) (Auto) 0.5 0.0-2.0 % Neutrophils # (Auto) 7.6 1.6-8.6 10 ^3/uL Lymphocytes # (Auto) 0.8 0.4-5.4 10 ^3/uL Monocytes # (Auto) 0.8 0-1.3 10 ^3/uL Eosinophils # (Auto) 0.3 0-0.8 10 ^3/uL Basophils # (Auto) 0 0-0.2 10 ^3/uL Nucleated Red Blood Cells 0.0 % Sodium Level 136 136-145 mmol/L Potassium Level 4.7 3.5-5.1 mmol/L Chloride Level 94 L 98-107 mmol/L Carbon Dioxide Level 31 20-31 mmol/L Anion Gap 11 5-15 Blood Urea Nitrogen 35 H 9-23 mg/dL Creatinine 5.31 H 0.550-1.02 mg/dL Glomerular Filtration Rate Calc 8 >90 mL/min BUN/Creatinine Ratio 6.6 L 10.0-20.0 Serum Glucose 113 H 74-106 mg/dL Calcium Level 9.2 8.7-10.4 mg/dL Total Bilirubin 0.2 0.2-1.0 mg/dL Aspartate Amino Transferase (AST) 15 13-40 U/L Alanine Aminotransferase (ALT) < 9 7-40 U/L Alkaline Phosphatase 170 H 46-116 U/L Total Protein 7.4 5.7-8.2 g/dL Albumin 4.3 3.2-4.8 g/dL Time of 1ST Reevaluation: 00:00 Reevaluation 1ST: Improved Patient Education/Counseling: Diagnosis, Treatment Family Education/Counseling: No Family Present Comments Patient presented with the above HPI.--leg cramps----workup was initiated. patient was found with the above mentioned diagnosis. the following medications were ordered: please refer to order lists of meds and tests obtained by myself Dr. Sweeney. Patient ED course and VS have been stabilized. Patient has been reassessed in the ED and remained in a stable condition. Pertinent incidental findings were discussed with the patient and/or family. Patient/family voices understanding and is agreeable with plan. Patient has been observed in the ED adequate length of time to insure improvement/stability. Escalation of care considered: Consideration of escalation to observation or admission Rule out hyperkalemia. Patient's electrolytes were essentially unremarkable with chronic findings of end-stage renal disease. Patient will get dialysis tomorrow. Patient was DISCHARGED home in a stable condition. All the reports of any imaging studies that were ordered by myself were reviewed by myself. Departure 1 Departure Time of Disposition: 12:36 Impression: Primary Impression: Bilateral leg cramps Disposition: HOME / SELF CARE / HOMELESS Condition: Stable Additional Instructions: Additional instructions: You MUST follow-up with your primary care/family doctor in 1 to 2 days. If you are unable to see your primary care/family doctor, please return to our emergency room for re-assessment and re-evaluation in 1 to 2 days. Return to the emergency room here in our facility or to the nearest ER [facility] if your symptoms change or worsen. CONSULTATIONS: you MUST Follow-up for consultation as soon as possible with: -nephrology in 1-2 days. Please call for appointment You MUST call the consultants office yourself to make an appointment. You may need to arrange that through your insurance and/or your primary/family doctor. If you are unable to see the new home sales consultant in 1 to 2 days, you must return to our emergency room (or any other ER of your choice) for re-assessment and re- evaluation. Adequate fluid hydration. Follow up with the dialysis as scheduled tomorrow Discharged With: Self Critical Care Note Critical Care Time?: No I personally scribed for STEVE SWEENEY DO ([email or web address]) on 02/19/25 at 11:03. Electronically submitted by Yash Reddy ([email or web address]). I personally scribed for STEVE SWEENEY DO ([email or web address]) on 02/19/25 at 12:00. Electronically submitted by Yash Reddy ([email or web address]). STEVE SWEENEY DO Feb 19, 2025 11:03
--- NOTE | 2025-02-19 11:11 | ECG ---
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
[2025-02-19 11:25] VITALS: BP 126/70; RESP 18; O2SAT 98
[2025-02-19 11:28] LABS: Basophils # (auto) 0 10 ^3/uL (0-0.2); Eosinophils # (auto) 0.3 10 ^3/uL (0-0.8); Lymphocytes # (auto) 0.8 10 ^3/uL (0.4-5.4); Lymphocytes % (auto) 8.8 % (10.0-50.0); Monocytes # (auto) 0.8 10 ^3/uL (0-1.3); Neutrophils # (auto) 7.6 10 ^3/uL (1.6-8.6); White Blood Cell 9.5 10^3/uL (4.4-10.8)
[2025-02-19 11:30] LABS: Basophils % (auto) 0.5 % (0.0-2.0); Eosinophils % (auto) 2.7 % (0.0-7.0); Hematocrit 35.7 % (36.0-46.0); Hemoglobin 11.4 g/dL (12.2-16.2); Mean Corpuscular Hemoglobin 25.6 pg (28.0-32.0); Mean Corpuscular Hgb Conc. 31.9 g/dL (32.0-36.0); Mean Corpuscular Volume 80.4 fL (80.0-100.0); Monocytes % (auto) 8.8 % (0.0-12.0); Neutrophils % (auto) 79.2 % (37.0-80.0); Platelet Count (auto) 265 10^3/uL (140-450); Red Blood Cells 4.44 10^6/uL (4.0-5.20); Red Cell Distribution Width 18.4 % (11.8-14.3)
[2025-02-19 11:53] LABS: Albumin 4.3 g/dL (3.2-4.8); Anion Gap 11 (5-15); BUN/Creatinine Ratio 6.6 (10.0-20.0); Calcium 9.2 mg/dL (8.7-10.4); Potassium 4.7 mmol/L (3.5-5.1); Sodium 136 mmol/L (136-145); Total Protein 7.4 g/dL (5.7-8.2)
[2025-02-19 12:00] VITALS: PULSE 90
[2025-02-19 12:01] LABS: Alanine Aminotransferase < 9 U/L (7-40); Alkaline Phosphatase 170 U/L (46-116); Bilirubin, Total 0.2 mg/dL (0.2-1.0); Blood Urea Nitrogen 35 mg/dL (9-23); Carbon Dioxide 31 mmol/L (20-31); Chloride 94 mmol/L (98-107); Glucose 113 mg/dL (74-106)
[2025-02-19 12:15] LABS: Aspartate Aminotransferase 15 U/L (13-40)
== END 2025-02-19 13:24 | disposition home or self-care (01) ==
LOC: ER 10:45
DX: R25.2 Cramp and spasm (principal); I48.91 Unspecified atrial fibrillation; I12.0 Hypertensive chronic kidney disease with stage 5 chronic kidney disease or end stage renal disease; E11.22 Type 2 diabetes mellitus with diabetic chronic kidney disease; N18.6 End stage renal disease; E78.5 Hyperlipidemia, unspecified; Z99.2 Dependence on renal dialysis; Z90.710 Acquired absence of both cervix and uterus; Z98.890 Other specified postprocedural states; Z79.01 Long term (current) use of anticoagulants; Z79.899 Other long term (current) drug therapy; Z88.0 Allergy status to penicillin
CPT/HCPCS: 36415; 80053; 85025; 93005

== ENCOUNTER 2025-04-01 20:14 | Emergency (ER) | payer OTHER, MEDICAID ==
[~2025-04-01] VITALS: Ht 160 cm; Wt 56.0 kg
--- NOTE | 2025-04-01 20:37 | ED.PDOC ---
General HPI Comments 75 y.o female with PMHx of ESRD, dialysis M,W,F, HTN, DM, HLD, thyroid disease, and AFIB, presents to the ED for an evaluation of hematuria. Patient reports finishing dialysis session today, went to the restroom and noticed bright red bleeding when urinating and wiping. Patient reports never having his symptom in the past. Patient is passing minimal urine due to dialysis. No other symptoms or pain reported. Chief Complaint: Urinary Time Seen by MD: 20:30 Primary Care Provider: TRINI Reviewed notes: Nurses Notes, Medications, Allergies Allergies: Coded Allergies: Insulin (Verified Allergy, Unknown, 12/31/24) Penicillins (Verified Allergy, Unknown, 06/14/22) Home Meds Active Scripts Tramadol HCl (Tramadol HCl) 50 Mg Tab, 50 MG PO BID PRN, #20 TAB Prov:DOMINICK PHELPS 01/05/25 Reported Medications Levothyroxine Sodium (Levothyroxine Sodium) 25 Mcg Tab, 1 TAB PO QAM for disorder of thyroid gland 01/01/25 Apixaban Base (ELIQUIS) 2.5 Mg Tab, 1 TAB PO BID 12/29/23 Hydralazine Hcl (Hydralazine Hcl) 50 Mg Tab, 1 TAB PO BID 12/19/23 B-Complex W/ C & Folic Acid (Shannan-Agnieszka Rx) Tab, 1 TAB PO DAILY 12/19/23 Omeprazole (Omeprazole Dr) 20 Mg Cap, 1 CAP PO DAILY 12/19/23 Diltiazem Hcl (DILTIAZEM HCL ER) 240 Mg Cap, 1 CAP PO DAILY, #30 CAP 5 Refills 08/04/17 Donepezil Hydrochloride (DONEPEZIL HCL) 5 Mg Tab, 1 TAB PO HS, #30 TAB 5 Refills 08/04/17 Atorvastatin Calcium (ATORVASTATIN CALCIUM) 40 Mg Tab, 1 TAB PO HS, #30 TAB 5 Refills 08/04/17 Information Source: Patient Mode of Arrival: Ambulatory Severity: Moderate Inability to void: Mild Timing: Hours Duration: Since onset Onset: Spontaneous Symptoms: Hematuria History of: UTI Location: None Modifying factors: None associated signs and symptoms: Hematuria Past Medical History PAST MEDICAL HISTORY: AFIB, CKF, DM, ESRD, High Lipids, HTN, Thyroid Surgical History: Hernia Repair, Hysterectomy 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: 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 all CASEWORK SUPERVISOR Hx Family History Family History: Reviewed,noncontributory to illness Social History Smoker: Non-Smoker Alcohol: Denies ETOH Use Drugs: Denies Drug Use Lives In: Home Constitutional: denies: chills, diaphoresis, fatigue, fever, malaise, sweats, weakness, others EENTM: denies: blurred vision, double vision, ear bleeding, ear discharge, ear drainage, ear pain, ear ringing, eye pain, eye redness, hearing loss, mouth pain, mouth swelling, nasal discharge, nose bleeding, nose congestion, nose pain, photophobia, tearing, throat pain, throat swelling, voice changes, others Respiratory: denies: cough, hemoptysis, orthopnea, SOB at rest, shortness of breath, SOB with excertion, stridor, wheezing, others Gastrointestinal: denies: abdomen distended, abdominal pain, blood streaked bowels, constipated, diarrhea, dysphagia, difficulty swallowing, hematemesis, melena, nausea, poor appetite, poor fluid intake, rectal bleeding, rectal pain, vomiting, others Genitourinary: reports: hematuria; denies: abnormal vagina bleeding, burning, dyspareunia, dysuria, flank pain, frequency, incontinence, pain, , vagina discharge, urgency, others Neurological: denies: dizziness, fainting, headache, left sided numbness, left sided weakness, numbness, paresthesia, pre-existing deficit, right sided numbness, right sided weakness, seizure, speech problems, tingling, tremors, weakness, others Musculoskeletal: denies: back pain, gout, joint pain, joint swelling, muscle pain, muscle stiffness, neck pain, others Integumetry: denies: bruises, change in color, change in hair/nails, dryness, laceration, lesions, lumps, rash, wounds, others Allergic/Immunocompromised: denies: Difficulty Healing, Frequent Infections, Hives, Itching, others Hematologic/Lymphatic: denies: anemia, blood clots, easy bleeding, easy bruising, swollen glands, others Endocrine: denies: excessive hunger, excessive sweating, excessive thirst, excessive urination, flushing, intolerance to cold, intolerance to heat, unexplained weight gain, unexplained weight loss, others Psychiatric: denies: anxiety, bipolar disorder, depression, hopeless, panic disorder, schizophrenia, sleepless, suicidal, others All Other Systems: Reviewed and Negative Physical Exam General Appearance: No Apparent Distress, Normal HEENT: Normal ENT Inspection, Pharynx Normal, TMs Normal Neck: Full Range of Motion, Non-Tender, Normal, Normal Inspection Respiratory: Chest Non-Tender, Lungs Clear, No Accessory Muscle Use, No Respiratory Distress, Normal Breath Sounds Cardiovascular: No Edema, No JVD, No Murmur, No Gallop, Normal Peripheral Pulses, Regular Rate/Rhythm Breast Exam: Deferred Gastrointestinal: No Organomegaly, Non Tender, No Pulsatile Mass, Normal Bowel Sounds, Soft Genitalia: Deferred Pelvic: Deferred Rectal: Deferred Extremities: No calf tenderness, Normal capillary refill, Normal inspection, Normal range of motion, Non-tender, No pedal edema Musculoskeletal : Apperance: Normal Neurologic: Alert, manager intel II-XII nml as Tested, No Motor Deficits, Normal Affect, Normal Mood, No Sensory Deficits Cerebellar Function: Normal Reflexes: Normal Skin: Dry, Normal Color, Warm Lymphatic: No Adenopathy Was a procedure done? Was a procedure done?: No Differential Diagnosis Kidney stone (Female): N/A Kidney stone (Male): Strain, Renal infarction, Urinary tract infection X-Ray, Labs, Meds, VS Vital Signs Date Time Temp Pulse Resp B/P (MAP) Pulse Ox O2 Delivery O2 Flow Rate FiO2 04/02/25 01:03 98.4 78 14 157/73 (101) 97 98.4 04/01/25 22:43 97.4 79 16 164/72 (102) 97 97.4 04/01/25 20:14 97.8 78 18 163/70 (101) 97 97.8 Lab Test 04/02/25 01:20 Range/Units Urine Color Dark-brown Yellow Urine Clarity Ex.turbid Clear Urine pH 8.0 5.0-9.0 Urine Specific [place] 1.025 1.001-1.035 Urine Protein 2+ H Negative Urine Ketones Negative Negative Urine Blood 3+ H Negative /uL Urine Nitrite Negative Negative Urine Bilirubin 1+ H Negative Urine Urobilinogen Normal Negative mg/dL Urine Leukocyte Esterase 1+ Negative /uL Urine RBC 1285 0 - 4 /hpf Urine Microscopic WBC 144 H 0-5 /HPF Urine Squamous Epithelial Cells None seen <5 /hpf Urine Bacteria Mod H None Seen /hpf Urine Glucose Trace Normal mg/dL X-Ray, Labs, Meds, VS Comment Imaging: X-rays and CT scans were reviewed and interpreted by this provider, imaging shows no fractures and no pathological disease. Pending radiology review. Laboratory: Labs reviewed and interpreted by this provider. Shows positive leuks positive blood concerns for urinary tract infection Patient has prior medical visits reviewed. Med reconciliation performed Vital signs reviewed Time of 1ST Reevaluation: 21:30 Reevaluation 1ST: Unchanged Patient Education/Counseling: Diagnosis, Treatment, Prognosis, Need For Follow Up (Follow up PCP next available appointment.) Family Education/Counseling: No Family Present SEPSIS Sepsis Screen Vital Signs Date Time Temp Pulse Resp B/P (MAP) Pulse Ox O2 Delivery O2 Flow Rate FiO2 04/02/25 01:03 98.4 78 14 157/73 (101) 97 98.4 04/01/25 22:43 97.4 79 16 164/72 (102) 97 97.4 04/01/25 20:14 97.8 78 18 163/70 (101) 97 97.8 Departure 1 Departure Time of Disposition: 02:14 Impression: Primary Impression: UTI (urinary tract infection) Qualified Codes: N30.01 - Acute cystitis with hematuria Disposition: HOME / SELF CARE / HOMELESS Condition: Fair e-Prescriptions Nitrofurantoin Monohydrate Mac (Macrobid) 100 Mg Cap 100 MG PO BID for 7 Days, #14 CAP Prov: EDUIN VERDUGO 04/02/25 Discharged With: Self Critical Care Note Critical Care Time?: No Stability Stability form required: No I personally scribed for EDUIN VERDUGO ([facility]) on 04/01/25 at 20:37. Electronically submitted by Lexie Huerta ([facility]). EDUIN VERDUGO Apr 01, 2025 20:37
[2025-04-02 01:50] LABS: Urine Protein, UAD 2+ (Negative)
[2025-04-02] MEDS ORDERED: NITR-87 PO (02:20)
[2025-04-02] MEDS ORDERED: cefTRIAXone SOD 1,000 MG VL IM ONE (03:45)
[2025-04-02 04:10] VITALS: BP 192/92; PULSE 78; RESP 18; TEMP 98.1; O2SAT 98
== END 2025-04-02 04:10 | disposition home or self-care (01) ==
LOC: ER 20:14
DX: N39.0 Urinary tract infection, site not specified (principal); I12.0 Hypertensive chronic kidney disease with stage 5 chronic kidney disease or end stage renal disease; E11.22 Type 2 diabetes mellitus with diabetic chronic kidney disease; N18.6 End stage renal disease; E78.5 Hyperlipidemia, unspecified; I48.91 Unspecified atrial fibrillation; Z99.2 Dependence on renal dialysis; Z90.710 Acquired absence of both cervix and uterus; Z87.440 Personal history of urinary (tract) infections; Z79.899 Other long term (current) drug therapy; Z79.890 Hormone replacement therapy; Z79.01 Long term (current) use of anticoagulants; Z98.890 Other specified postprocedural states; Z88.0 Allergy status to penicillin
CPT/HCPCS: 81001

== ENCOUNTER 2025-04-30 12:26 | Emergency (ER) | payer OTHER, MEDICAID ==
[~2025-04-30] VITALS: Ht 152.4 cm; Wt 62.0 kg
[~2025-04-30 12:26] MED LIST changes: +NITR-87 PO
[2025-04-30 12:33] VITALS: TEMP 98.3
--- NOTE | 2025-04-30 13:54 | ED.PDOC ---
Back pain HPI HPI Comments 75 y/o F, with PMHx of AFib, HLD, HTN, DM, ESRD, arthritis, and thyroid disease presents to the ED for CC of back pain. Patient states, she has been experiencing back pain sudden onset, today (04/30/25). Patient reports, that she currently takes tramadol at home once every three days for her chronic back pain however, has been unable to experience relief. Patient denies any trauma, injury, or fall. No other symptoms or modifying factors are present at this time. Chief Complaint: Back Pain Time Seen by MD: 13:45 Primary Care Provider: TRINI Reviewed Notes: Nurses Notes, Medications, Allergies Allergies: Coded Allergies: Insulin (Verified Allergy, Unknown, 12/31/24) Penicillins (Verified Allergy, Unknown, 06/14/22) Home Meds Active Scripts Nitrofurantoin Monohydrate Mac (Macrobid) 100 Mg Cap, 100 MG PO BID for 7 Days, #14 CAP Prov:EDUIN VERDUGO 04/02/25 Tramadol HCl (Tramadol HCl) 50 Mg Tab, 50 MG PO BID PRN, #20 TAB Prov:DOMINICK PHELPS 01/05/25 Reported Medications Levothyroxine Sodium (Levothyroxine Sodium) 25 Mcg Tab, 1 TAB PO QAM for disorder of thyroid gland 01/01/25 Apixaban Base (ELIQUIS) 2.5 Mg Tab, 1 TAB PO BID 12/29/23 Hydralazine Hcl (Hydralazine Hcl) 50 Mg Tab, 1 TAB PO BID 12/19/23 B-Complex W/ C & Folic Acid (Shannan-Agnieszka Rx) Tab, 1 TAB PO DAILY 12/19/23 Omeprazole (Omeprazole Dr) 20 Mg Cap, 1 CAP PO DAILY 12/19/23 Diltiazem Hcl (DILTIAZEM HCL ER) 240 Mg Cap, 1 CAP PO DAILY, #30 CAP 5 Refills 08/04/17 Donepezil Hydrochloride (DONEPEZIL HCL) 5 Mg Tab, 1 TAB PO HS, #30 TAB 5 Refills 08/04/17 Atorvastatin Calcium (ATORVASTATIN CALCIUM) 40 Mg Tab, 1 TAB PO HS, #30 TAB 5 Refills 08/04/17 Information Source: Patient Mode of Arrival: EMS Timing: Days Duration: Since onset Location of Back pain: (B) Lumbar Severity: Moderate Prehospital treatment: None Onset: Spontaneous Circumstance: Other (SPONTANEOUS) Modifying Factors: Nothing Associated signs and symptoms: None Past Medical History PAST MEDICAL HISTORY: AFIB, CKF, DM, ESRD, High Lipids, HTN, Thyroid Surgical History: Hernia Repair, Hysterectomy 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: Denies all CONSUMER INSIGHTS SPECIALIST Hx Family History Family History: Reviewed,noncontributory to illness Social History Smoker: Non-Smoker Alcohol: Denies ETOH Use Drugs: Denies Drug Use Lives In: Home Constitutional: denies: chills, diaphoresis, fatigue, fever, malaise, sweats, weakness, others EENTM: denies: blurred vision, double vision, ear bleeding, ear discharge, ear drainage, ear pain, ear ringing, eye pain, eye redness, hearing loss, mouth pain, mouth swelling, nasal discharge, nose bleeding, nose congestion, nose pain, photophobia, tearing, throat pain, throat swelling, voice changes, others Respiratory: denies: cough, hemoptysis, orthopnea, SOB at rest, shortness of breath, SOB with excertion, stridor, wheezing, others Cardiovascular: denies: chest pain, dizzy spells, diaphoresis, Dyspnea on exertion, edema, irregular heart beat, left arm pain, lightheadedness, palpitations, PND, syncope, others Gastrointestinal: denies: abdomen distended, abdominal pain, blood streaked bowels, constipated, diarrhea, dysphagia, difficulty swallowing, hematemesis, melena, nausea, poor appetite, poor fluid intake, rectal bleeding, rectal pain, vomiting, others Genitourinary: denies: abnormal vagina bleeding, burning, dyspareunia, dysuria, flank pain, frequency, hematuria, incontinence, pain, , vagina discharge, urgency, others Neurological: denies: dizziness, fainting, headache, left sided numbness, left sided weakness, numbness, paresthesia, pre-existing deficit, right sided numbness, right sided weakness, seizure, speech problems, tingling, tremors, wea kness, others Musculoskeletal: reports: back pain; denies: gout, joint pain, joint swelling, muscle pain, muscle stiffness, neck pain, others Integumetry: denies: bruises, change in color, change in hair/nails, dryness, laceration, lesions, lumps, rash, wounds, others Allergic/Immunocompromised: denies: Difficulty Healing, Frequent Infections, Hives, Itching, others Hematologic/Lymphatic: denies: anemia, blood clots, easy bleeding, easy bruising, swollen glands, others Endocrine: denies: excessive hunger, excessive sweating, excessive thirst, excessive urination, flushing, intolerance to cold, intolerance to heat, unexplained weight gain, unexplained weight loss, others Psychiatric: denies: anxiety, bipolar disorder, depression, hopeless, panic disorder, schizophrenia, sleepless, suicidal, others All Other Systems: Reviewed and Negative Physical Exam General Appearance: Moderate Distress HEENT: Normal ENT Inspection, Pharynx Normal, TMs Normal Neck: Full Range of Motion, Non-Tender, Normal, Normal Inspection Respiratory: Chest Non-Tender, Lungs Clear, No Accessory Muscle Use, No Respiratory Distress, Normal Breath Sounds Cardiovascular: No Edema, No JVD, No Murmur, No Gallop, Normal Peripheral Pulses, Regular Rate/Rhythm Breast Exam: Deferred Gastrointestinal: No Organomegaly, Non Tender, No Pulsatile Mass, Normal Bowel Sounds, Soft Genitalia: Deferred Pelvic: Deferred Rectal: Deferred Extremities: No calf tenderness, Normal capillary refill, Normal inspection, Normal range of motion, Non-tender, No pedal edema Musculoskeletal : Apperance: Normal Neurologic: Alert, substance abuse clinician II-XII nml as Tested, No Motor Deficits, Normal Affect, Normal Mood, No Sensory Deficits Cerebellar Function: Normal Reflexes: Normal Skin: Dry, Normal Color, Warm Peripheral Pulses: 3+ Radial (R), 3+ Radial (L) Lymphatic: No Adenopathy Was a procedure done? Was a procedure done?: No Back Pain Differential Dx Differential Diagnosis: Musculoskeletal Pain, Strain X-Ray, Labs, Meds, VS Vital Signs Date Time Temp Pulse Resp B/P (MAP) Pulse Ox O2 Delivery O2 Flow Rate FiO2 04/30/25 13:59 79 18 148/72 (97) 96 04/30/25 13:59 79 18 96 Room Air 04/30/25 12:41 79 04/30/25 12:33 98.3 80 16 136/63 95 98.3 Patient alert. Complaining of back pain. History of arthritis. Vitals stable. Answering questions. Ambulating. She does not want any tests done. She notes she has a arthritis. Came in for pain medication. Was given prescription of tramadol. Explained to the patient. Was told to follow up with her primary care physician. Was told to come back if there is any problem. Time of 1ST Reevaluation: 14:15 Reevaluation 1ST: Improved Patient Education/Counseling: Diagnosis, Treatment Family Education/Counseling: No Family Present SEPSIS Sepsis Screen Date sepsis recognized/suspect: Apr 30, 2025 Time Sepsis recognized/suspect: 1233 Recent Procedure: No On Antibiotic Therapy: No Respiratory Rate >20: No Heart Rate >90: No Temp<36 C (96.8 F) or >38.3 C: No SBP <90 or MAP <65 mmHG: No New Acute Mental Status Change: No Is the patient on CPAP, BIPAP,: No Physician Orders Electrocardigram (04/30/25 12:43) Vital Signs Date Time Temp Pulse Resp B/P (MAP) Pulse Ox O2 Delivery O2 Flow Rate FiO2 04/30/25 13:59 79 18 148/72 (97) 96 04/30/25 13:59 79 18 96 Room Air 04/30/25 12:41 79 04/30/25 12:33 98.3 80 16 136/63 95 98.3 Departure 1 Departure Time of Disposition: 14:34 Impression: Primary Impression: Musculoskeletal pain Additional Impressions: Chronic back pain Qualified Codes: M54.50 - Low back pain, unspecified; G89.29 - Other chronic pain Arthritis Disposition: 01 HOME / SELF CARE / HOMELESS Condition: Good e-Prescriptions Tramadol Hcl (Tramadol Hcl) 50 Mg Tab 50 MG PO BID for 5 Days, #10 TAB Prov: SUSSY GARDUNO MD 04/30/25 Discharged With: Self Critical Care Note Critical Care Time?: No Stability Stability form required: No Heart Score Heart Score: Heart Score Response (Comments) Value History N/A 0 EKG N/A 0 Age N/A 0 Risk Factors N/A 0 Troponin N/A 0 Total 0 I personally scribed for SUSSY GARDUNO MD ([email or web address]) on 04/30/25 at 13:54. Electronically submitted by Karen Gilman ([email or web address]). SUSSY GARDUNO MD Apr 30, 2025 13:54
[2025-04-30 13:59] VITALS: BP 148/72; PULSE 79; RESP 18; O2SAT 96
[2025-04-30] MEDS ORDERED: TRAM50TA2 PO (14:36)
--- NOTE | 2025-05-01 12:31 | ECG ---
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
== END 2025-04-30 14:51 | disposition home or self-care (01) ==
LOC: ER 12:26
DX: G89.29 Other chronic pain (principal); M19.90 Unspecified osteoarthritis, unspecified site; I12.0 Hypertensive chronic kidney disease with stage 5 chronic kidney disease or end stage renal disease; E11.22 Type 2 diabetes mellitus with diabetic chronic kidney disease; N18.6 End stage renal disease; E78.5 Hyperlipidemia, unspecified; I48.91 Unspecified atrial fibrillation; Z79.899 Other long term (current) drug therapy; Z98.890 Other specified postprocedural states; Z90.710 Acquired absence of both cervix and uterus; Z88.0 Allergy status to penicillin; Z79.890 Hormone replacement therapy; Z79.01 Long term (current) use of anticoagulants
CPT/HCPCS: 93005

== ENCOUNTER 2025-05-16 11:03 | Emergency (ER) | payer OTHER, MEDICAID ==
[~2025-05-16] VITALS: Ht 157.5 cm; Wt 56.6 kg
[~2025-05-16 11:03] MED LIST changes: +CLON0.1T PO; +DONE1TAB88 PO; +FLUT50SP NAS; +MEMA1TAB5 PO; +METO-289 PO; +OMEP-448 PO; +ONDA-188 PO; +TRAM50TA2 PO; +TRIO1TP TOP
[2025-05-16 11:29] VITALS: BP 113/71; PULSE 76; RESP 14; TEMP 98.1; O2SAT 94
--- NOTE | 2025-05-16 11:35 | ED.PDOC ---
History of Present Illness HPI Comments A 75 YEAR OLD FEMALE PRESENTS TO THE ED WITH COMPLAINT OF REQUEST FOR MEDICATION REFILL. PATIENT STATES SHE HAS A HISTORY OF CHRONIC BACK PAIN AND TAKES TRAMADOL TO MANAGE HER PAIN, BUT RAN OUT OF THIS MEDICATION. PATIENT IS REQUESTING A MEDICATION REFILL FOR HER TRAMADOL MEDICATION. PATIENT DENIES FEVER, CHILLS, SHORTNESS OF BREATH, CHEST PAIN, ABDOMINAL PAIN, NAUSEA, VOMITING, HEADACHE, OR OTHER COMPLAINTS. NO OTHER SYMPTOMS OR MODIFYING FACTORS AT THIS TIME. PATIENT IS ALERT, ORIENTED X 4, AND HAS STEADY GAIT. Chief Complaint: Back Pain Time Seen by MD: 11:07 Primary Care Provider: TRINI Reviewed Notes: Nurses Notes, Medications, Allergies Allergies: Coded Allergies: Insulin (Verified Allergy, Unknown, 12/31/24) Penicillins (Verified Allergy, Unknown, 06/14/22) Home Meds Active Scripts Tramadol HCl (Tramadol HCl) 50 Mg Tab, 50 MG PO BID PRN, #20 TAB Prov:DOMINICK PHELPS 05/16/25 Tramadol Hcl (Tramadol Hcl) 50 Mg Tab, 50 MG PO BID for 5 Days, #10 TAB Prov:SUSSY GARDUNO MD 04/30/25 Nitrofurantoin Monohydrate Mac (Macrobid) 100 Mg Cap, 100 MG PO BID for 7 Days, #14 CAP Prov:EDUIN VERDUGO 04/02/25 Reported Medications Levothyroxine Sodium (Levothyroxine Sodium) 25 Mcg Tab, 1 TAB PO QAM for disorder of thyroid gland 01/01/25 Apixaban Base (ELIQUIS) 2.5 Mg Tab, 1 TAB PO BID 12/29/23 Hydralazine Hcl (Hydralazine Hcl) 50 Mg Tab, 1 TAB PO BID 12/19/23 B-Complex W/ C & Folic Acid (Shannan-Agnieszka Rx) Tab, 1 TAB PO DAILY 12/19/23 Omeprazole (Omeprazole Dr) 20 Mg Cap, 1 CAP PO DAILY 12/19/23 Diltiazem Hcl (DILTIAZEM HCL ER) 240 Mg Cap, 1 CAP PO DAILY, #30 CAP 5 Refills 08/04/17 Donepezil Hydrochloride (DONEPEZIL HCL) 5 Mg Tab, 1 TAB PO HS, #30 TAB 5 Refills 08/04/17 Atorvastatin Calcium (ATORVASTATIN CALCIUM) 40 Mg Tab, 1 TAB PO HS, #30 TAB 5 Refills 08/04/17 Information Source: Patient Mode of Arrival: Ambulatory Severity: None Timing: Days Duration: Since onset, Days Prehospital treatment: None Medication Refill: For: Other (MEDICATION REFILL) Past Medical History PAST MEDICAL HISTORY: CKF, DM, ESRD, High Lipids, HTN, Thyroid Past Medical History (Other): CHRONIC LOW BACK PAIN Surgical History: Hernia Repair, Hysterectomy 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 MANAGER History: Denies all 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 MANAGER Hx Family History Family History: Reviewed,noncontributory to illness Social History Smoker: Non-Smoker Alcohol: Denies ETOH Use Drugs: Denies Drug Use Lives In: Home Constitutional: denies: chills, diaphoresis, fatigue, fever, malaise, sweats, weakness, others EENTM: denies: blurred vision, double vision, ear bleeding, ear discharge, ear drainage, ear pain, ear ringing, eye pain, eye redness, hearing loss, mouth pain, mouth swelling, nasal discharge, nose bleeding, nose congestion, nose pain, photophobia, tearing, throat pain, throat swelling, voice changes, others Respiratory: denies: cough, hemoptysis, orthopnea, SOB at rest, shortness of breath, SOB with excertion, stridor, wheezing, others Cardiovascular: denies: chest pain, dizzy spells, diaphoresis, Dyspnea on exertion, edema, irregular heart beat, left arm pain, lightheadedness, palpitations, PND, syncope, others Gastrointestinal: denies: abdomen distended, abdominal pain, blood streaked bowels, constipated, diarrhea, dysphagia, difficulty swallowing, hematemesis, melena, nausea, poor appetite, poor fluid intake, rectal bleeding, rectal pain, vomiting, others Genitourinary: denies: abnormal vagina bleeding, burning, dyspareunia, dysuria, flank pain, frequency, hematuria, incontinence, pain, , vagina discharge, urgency, others Neurological: denies: dizziness, fainting, headache, left sided numbness, left sided weakness, numbness, paresthesia, pre-existing deficit, right sided numbness, right sided weakness, seizure, speech problems, tingling, tremors, weakness, others Musculoskeletal: reports: back pain, muscle pain; denies: gout, joint pain, joint swelling, muscle stiffness, neck pain, others Integumetry: denies: bruises, change in color, change in hair/nails, dryness, laceration, lesions, lumps, rash, wounds, others Allergic/Immunocompromised: denies: Difficulty Healing, Frequent Infections, Hives, Itching, others Hematologic/Lymphatic: denies: anemia, blood clots, easy bleeding, easy bruising, swollen glands, others Endocrine: denies: excessive hunger, excessive sweating, excessive thirst, excessive urination, flushing, intolerance to cold, intolerance to heat, unexplained weight gain, unexplained weight loss, others Psychiatric: denies: anxiety, bipolar disorder, depression, hopeless, panic disorder, schizophrenia, sleepless, suicidal, others All Other Systems: Reviewed and Negative Physical Exam General Appearance: No Apparent Distress, Normal HEENT: Normal ENT Inspection, PERRL/EOMI, Pharynx Normal, TMs Normal Neck: Full Range of Motion, Non-Tender, Normal, Normal Inspection Respiratory: Chest Non-Tender, Lungs Clear, No Accessory Muscle Use, No Respiratory Distress, Normal Breath Sounds Cardiovascular: No Edema, No JVD, No Murmur, No Gallop, Normal Peripheral Pulses, Regular Rate/Rhythm Breast Exam: Deferred Gastrointestinal: No Organomegaly, Non Tender, No Pulsatile Mass, Normal Bowel Sounds, Soft Genitalia: Deferred Pelvic: Deferred Rectal: Deferred Extremities: No calf tenderness, Normal capillary refill, Normal inspection, Normal range of motion, Non-tender, No pedal edema Musculoskeletal : Location: Bilateral Extremity Location: Back Apperance: Tenderness (AND MUSCLE SPASM ON LOWER BACK, NO BONY TENDERNESS AND SWELLING, NO DEFORMITY. ) Neurologic: Alert, program specialist II-XII nml as Tested, No Motor Deficits, Normal Affect, Normal Mood, No Sensory Deficits Cerebellar Function: Normal Reflexes: Normal Skin: Dry, Normal Color, Warm Peripheral Pulses: 2+ carotid (R), 2+ carotid (L), 2+ dorsalis pedis (R), 2+ dorsalis pedis (L) Lymphatic: No Adenopathy Was a procedure done? Was a procedure done?: No Differential Dx Considerations may include: MEDICATION REFILL, HISTORY OF CHRONIC BACK PAIN X-Ray, Labs, Meds, VS Vital Signs Date Time Temp Pulse Resp B/P (MAP) Pulse Ox O2 Delivery O2 Flow Rate FiO2 05/16/25 11:29 98.1 76 14 113/71 (85) 94 98.1 05/16/25 11:29 76 14 94 Room Air 0 05/16/25 11:06 98.0 77 18 150/68 98 98.0 X-Ray, Labs, Meds, VS Comment EXTERNAL MEDICAL RECORDS REVIEWED: [NONE] INDEPENDENT HISTORIANS: [NONE] SOCIAL DETERMINANTS OF HEALTH: [NONE] LABS ORDERED: NONE REVIEWED AND INTERPRETED RESULTS: NONE IMAGING ORDERED: NONE TREATMENTS ORDERED: NONE PROCEDURES PERFORMED: NONE CRITICAL CARE TIME: NONE I HAVE DISCUSSED THE PATIENT WITH THE ATTENDING PHYSICIAN, DR. LEE HE AGREES WITH THE PATIENT'S PLAN OF CARE AND DISPOSITION. BASED ON HISTORY OF PRESENT ILLNESS, AND PHYSICAL EXAM, PATIENT WILL BE DISCHARGED HOME. DISCUSSED PLAN FOR DISCHARGE HOME WITH RX [[id number]]. MEDICATION WARNINGS GIVEN. SHARED DECISION MAKING: DISCUSSED WITH PATIENT THAT THEIR WORKUP WAS NORMAL. PATIENT INSTRUCTED TO FOLLOW UP WITH PRIMARY CARE PROVIDER IN 1-2 DAYS FOR RE- EVALUATION OF SYMPTOMS. PATIENT VERBALIZES UNDERSTANDING TO RETURN TO ED FOR NEW OR WORSENING SYMPTOMS OR IF FOLLOW UP WITH PCP CANNOT BE OBTAINED. PATIENT FEELS COMFORTABLE GOING HOME AT THIS TIME. ALL QUESTIONS ADDRESSED AT TIME OF DISCHARGE. Time of 1ST Reevaluation: 11:45 Reevaluation 1ST: Improved Patient Education/Counseling: Diagnosis, Treatment, Need For Follow Up Family Education/Counseling: Diagnosis, Treatment, Need For Follow Up Medical Screening: No EMC Exist At This Time SEPSIS Sepsis Screen Date sepsis recognized/suspect: May 16, 2025 Time Sepsis recognized/suspect: 1106 Recent Procedure: No On Antibiotic Therapy: No Respiratory Rate >20: No Heart Rate >90: No Temp<36 C (96.8 F) or >38.3 C: No SBP <90 or MAP <65 mmHG: No New Acute Mental Status Change: No Is the patient on CPAP, BIPAP,: No Vital Signs Date Time Temp Pulse Resp B/P (MAP) Pulse Ox O2 Delivery O2 Flow Rate FiO2 05/16/25 11:29 98.1 76 14 113/71 (85) 94 98.1 05/16/25 11:29 76 14 94 Room Air 0 05/16/25 11:06 98.0 77 18 150/68 98 98.0 Departure 1 Departure Time of Disposition: 11:45 Impression: Primary Impression: Encounter for medication refill Additional Impression: History of chronic back pain Disposition: 01 HOME / SELF CARE / HOMELESS Condition: Stable Additional Instructions: FOLLOW-UP WITH PCP IN 1 TO 2 DAYS. TAKE MEDICATIONS PRESCRIBED. RETURN TO ED FOR ANY NEW OR WORSENING SYMPTOMS. e-Prescriptions Tramadol HCl (Tramadol HCl) 50 Mg Tab 50 MG PO BID PRN, #20 TAB Prov: DOMINICK PHELPS 05/16/25 Discharged With: Self Critical Care Note Critical Care Time?: No Stability Stability form required: No I personally scribed for DOMINICK PHELPS ([email or web address]) on 05/16/25 at 11:35. Electronically submitted by Higinio Wright ([email or web address]). DOMINICK PHELPS May 16, 2025 11:35
== END 2025-05-16 11:39 | disposition home or self-care (01) ==
LOC: ER 11:03
DX: G89.29 Other chronic pain (principal); M54.50 Low back pain, unspecified; E11.22 Type 2 diabetes mellitus with diabetic chronic kidney disease; Z76.0 Encounter for issue of repeat prescription; Z88.0 Allergy status to penicillin; Z79.899 Other long term (current) drug therapy; Z90.710 Acquired absence of both cervix and uterus; Z98.890 Other specified postprocedural states

== ENCOUNTER 2025-05-19 11:18 | Inpatient (IN) | payer OTHER, MEDICAID ==
[~2025-05-19] VITALS: Ht 152.4 cm; Wt 93.3 kg
--- NOTE | 2025-05-19 11:37 | ECG ---
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
--- NOTE | 2025-05-19 12:08 | ED.PDOC ---
History of Present Illness HPI Comments 75-year-old female who is Indonesian-speaking presents to the ER with prior medical history of CKF, diabetes, ESRD (M, W, F), high lipids, hypertension, thyroid, chronic back pain: Surgical history of hernia repair, hysterectomy and a chief complaint of shortness a breath. Patient reports on recently having high blood pressure and shortness a breath. Patient notes on symptom this morning of nausea. Denies chills, fever, /V/D, CP. No other associated symptoms, modifiers, recent injuries or sick contacts present at this time. Chief Complaint: Shortness of Breath Time Seen by MD: 12:00 Primary Care Provider: TRINI Reviewed Notes: Nurses Notes, Medications, Allergies Allergies: Coded Allergies: Insulin (Verified Allergy, Unknown, 12/31/24) Penicillins (Verified Allergy, Unknown, 06/14/22) Home Meds Active Scripts Tramadol HCl (Tramadol HCl) 50 Mg Tab, 50 MG PO BID PRN, #20 TAB Prov:DOMINICK PHELPS 05/16/25 Tramadol Hcl (Tramadol Hcl) 50 Mg Tab, 50 MG PO BID for 5 Days, #10 TAB Prov:SUSSY GARDUNO MD 04/30/25 Nitrofurantoin Monohydrate Mac (Macrobid) 100 Mg Cap, 100 MG PO BID for 7 Days, #14 CAP Prov:EDUIN VERDUGO 04/02/25 Reported Medications Levothyroxine Sodium (Levothyroxine Sodium) 25 Mcg Tab, 1 TAB PO QAM for disor hal of thyroid gland 01/01/25 Apixaban Base (ELIQUIS) 2.5 Mg Tab, 1 TAB PO BID 12/29/23 Hydralazine Hcl (Hydralazine Hcl) 50 Mg Tab, 1 TAB PO BID 12/19/23 B-Complex W/ C & Folic Acid (Shannan-Agnieszka Rx) Tab, 1 TAB PO DAILY 12/19/23 Omeprazole (Omeprazole Dr) 20 Mg Cap, 1 CAP PO DAILY 12/19/23 Diltiazem Hcl (DILTIAZEM HCL ER) 240 Mg Cap, 1 CAP PO DAILY, #30 CAP 5 Refills 08/04/17 Donepezil Hydrochloride (DONEPEZIL HCL) 5 Mg Tab, 1 TAB PO HS, #30 TAB 5 Refills 08/04/17 Atorvastatin Calcium (ATORVASTATIN CALCIUM) 40 Mg Tab, 1 TAB PO HS, #30 TAB 5 Refills 08/04/17 Information Source: Patient Mode of Arrival: Ambulatory Severity: Moderate Timing: Came on: Gradually Duration: Since onset Prehospital treatment: None Past Medical History PAST MEDICAL HISTORY: CKF, DM, ESRD (M, W, F), High Lipids, HTN, Thyroid Past Medical History (Other): Chronic back pain Surgical History: Hernia Repair, Hysterectomy CHERRY CUTTER History: Denies all CHERRY CUTTER Hx Family History Family History: Reviewed,noncontributory to illness, Unknown Social History Smoker: Non-Smoker Alcohol: Denies ETOH Use Drugs: Denies Drug Use Lives In: Home Constitutional: reports: others (High blood pressure); denies: chills, diaphoresis, fatigue, fever, malaise, sweats, weakness EENTM: denies: blurred vision, double vision, ear bleeding, ear discharge, ear drainage, ear pain, ear ringing, eye pain, eye redness, hearing loss, mouth pain, mouth swelling, nasal discharge, nose bleeding, nose congestion, nose pain , photophobia, tearing, throat pain, throat swelling, voice changes, others Respiratory: reports: shortness of breath; denies: cough, hemoptysis, orthopnea, SOB at rest, SOB with excertion, stridor, wheezing, others Cardiovascular: denies: chest pain, dizzy spells, diaphoresis, Dyspnea on exertion, edema, irregular heart beat, left arm pain, lightheadedness, palpitations, PND, syncope, others Gastrointestinal: denies: abdomen distended, abdominal pain, blood streaked bowels, constipated, diarrhea, dysphagia, difficulty swallowing, hematemesis, melena, nausea, poor appetite, poor fluid intake, rectal bleeding, rectal pain, vomiting, others Genitourinary: denies: abnormal vagina bleeding, burning, dyspareunia, dysuria, flank pain, frequency, hematuria, incontinence, pain, , vagina discharge, urgency, others Neurological: denies: dizziness, fainting, headache, left sided numbness, left sided weakness, numbness, paresthesia, pre-existing deficit, right sided numbness, right sided weakness, seizure, speech problems, tingling, tremors, weakness, others Musculoskeletal: denies: back pain, gout, joint pain, joint swelling, muscle pain, muscle stiffness, neck pain, others Integumetry: denies: bruises, change in color, change in hair/nails, dryness, laceration, lesions, lumps, rash, wounds, others Allergic/Immunocompromised: denies: Difficulty Healing, Frequent Infections, Hives, Itching, others Hematologic/Lymphatic: denies: anemia, blood clots, easy bleeding, easy bruising, swollen glands, others Endocrine: denies: excessive hunger, excessive sweating, excessive thirst, excessive urination, flushing, intolerance to cold, intolerance to heat, unexplained weight gain, unexplained weight loss, others Psychiatric: denies: anxiety, bipolar disorder, depression, hopeless, panic disorder, schizophrenia, sleepless, suicidal, others All Other Systems: Reviewed and Negative Physical Exam General Appearance: Normal HEENT: Normal ENT Inspection, Pharynx Normal, TMs Normal Neck: Full Range of Motion, Non-Tender, Normal, Normal Inspection Respiratory: Chest Non-Tender, Lungs Clear, No Accessory Muscle Use, No Respiratory Distress, Normal Breath Sounds Cardiovascular: No Edema, No JVD, No Murmur, No Gallop, Normal Peripheral Pulses, Regular Rate/Rhythm Breast Exam: Deferred Gastrointestinal: No Organomegaly, Non Tender, No Pulsatile Mass, Normal Bowel Sounds, Soft Genitalia: Deferred Pelvic: Deferred Rectal: Deferred Extremities: No calf tenderness, Normal capillary refill, Normal inspection, Normal range of motion, Non-tender, No pedal edema Musculoskeletal : Apperance: Normal Neurologic: Alert, project manager/design manager II-XII nml as Tested, No Motor Deficits, Normal Affect, Normal Mood, No Sensory Deficits Cerebellar Function: Normal Reflexes: Normal Skin: Dry, Normal Color, Warm Peripheral Pulses: 3+ Radial (R), 3+ Radial (L) Lymphatic: No Adenopathy Was a procedure done? Was a procedure done?: No EKG EKG : Pulse Rate (adult): 79 [place]: Normal Cardiac Rhythm: NSR Block: None Hypertrophy: None ST: Normal Differential Dx Considerations may include: CHF Electrolyte imbalance X-Ray, Labs, Meds, VS Vital Signs Date Time Temp Pulse Resp B/P (MAP) Pulse Ox O2 Delivery O2 Flow Rate FiO2 05/19/25 12:14 79 05/19/25 11:58 80 16 100 Room Air 05/19/25 11:58 98.7 80 16 153/74 (100) 100 98.7 05/19/25 11:29 79 05/19/25 11:19 97.9 82 15 146/79 99 97.9 Lab Test 05/19/25 12:33 Range/Units White Blood Count 7.5 4.4-10.8 10^3/uL Red Blood Count 4.35 4.0-5.20 10^6/uL Hemoglobin 11.0 L 12.2-16.2 g/dL Hematocrit 34.2 L 36.0-46.0 % Mean Corpuscular Volume 78.7 L 80.0-100.0 fL Mean Corpuscular Hemoglobin 25.4 L 28.0-32.0 pg Mean Corpuscular Hemoglobin Concent 32.2 32.0-36.0 g/dL Red Cell Distribution Width 20.3 H 11.8-14.3 % Platelet Count 262 140-450 10^3/uL Mean Platelet Volume 7.7 6.9-10.8 fL Neutrophils (%) (Auto) 78.2 37.0-80.0 % Lymphocytes (%) (Auto) 10.6 10.0-50.0 % Monocytes (%) (Auto) 8.1 0.0-12.0 % Eosinophils (%) (Auto) 2.5 0.0-7.0 % Basophils (%) (Auto) 0.6 0.0-2.0 % Neutrophils # (Auto) 5.8 1.6-8.6 10 ^3/uL Lymphocytes # (Auto) 0.8 0.4-5.4 10 ^3/uL Monocytes # (Auto) 0.6 0-1.3 10 ^3/uL Eosinophils # (Auto) 0.2 0-0.8 10 ^3/uL Basophils # (Auto) 0 0-0.2 10 ^3/uL Nucleated Red Blood Cells 0.0 % Sodium Level 139 136-145 mmol/L Potassium Level 4.4 3.5-5.1 mmol/L Chloride Level 95 L 98-107 mmol/L Carbon Dioxide Level 31 20-31 mmol/L Anion Gap 13 5-15 Blood Urea Nitrogen 37 H 9-23 mg/dL Creatinine 6.48 H 0.550-1.02 mg/dL Glomerular Filtration Rate Calc 6 >90 mL/min BUN/Creatinine Ratio 5.7 L 10.0-20.0 Serum Glucose 95 74-106 mg/dL Calcium Level 8.9 8.7-10.4 mg/dL Troponin I High Sensitivity 24 </=34 ng/L B-Type Natriuretic Peptide 1033.97 0-100 pg/mL Patient alert. Chronic kidney disease. Complaining of shortness a breath. Saturation pristine on room air. Heart rate within normal limits. Continues to have shortness a breath. Dialysis on Tuesday. Reviewed her history. Explained to the patient. Continue monitoring. Time of 1ST Reevaluation: 12:30 Reevaluation 1ST: Unchanged Patient Education/Counseling: Diagnosis, Treatment, Prognosis Family Education/Counseling: No Family Present SEPSIS Sepsis Screen Date sepsis recognized/suspect: May 19, 2025 Time Sepsis recognized/suspect: 1121 Recent Procedure: No On Antibiotic Therapy: No Respiratory Rate >20: No Heart Rate >90: No Temp<36 C (96.8 F) or >38.3 C: No SBP <90 or MAP <65 mmHG: No New Acute Mental Status Change: No Is the patient on CPAP, BIPAP,: No Physician Orders Chest Portable (05/19/25 12:24) Urinalysis (05/19/25 12:24) Vital Signs Date Time Temp Pulse Resp B/P (MAP) Pulse Ox O2 Delivery O2 Flow Rate FiO2 05/19/25 12:14 79 05/19/25 11:58 80 16 100 Room Air 05/19/25 11:58 98.7 80 16 153/74 (100) 100 98.7 05/19/25 11:29 79 05/19/25 11:19 97.9 82 15 146/79 99 97.9 Laboratory Tests Test 05/19/25 12:33 White Blood Count 7.5 10^3/uL (4.4-10.8) Departure 1 Departure Time of Disposition: 12:26 Impression: Primary Impression: ESRD on dialysis Additional Impressions: Anemia in chronic kidney disease Qualified Codes: N18.9 - Chronic kidney disease, unspecified; D63.1 - Anemia in chronic kidney disease CHF (congestive heart failure) Qualified Codes: I50.43 - Acute on chronic combined systolic (congestive) and diastolic (congestive) heart failure Disposition: ADMITTED INPATIENT Admit to: Med Surg Condition: Guarded Critical Care Note Critical Care Time?: No Stability Stability form required: No Heart Score Heart Score: Heart Score Response (Comments) Value History Slightly Suspicious 0 EKG Normal 0 Age >65 2 Risk Factors >3 or Hx ASHD 2 Troponin Normal limit 0 Total 4 I personally scribed for SUSSY GARDUNO MD ([email or web address]) on 05/19/25 at 12:08. Electronically submitted by Demetrius Araiza ([email or web address]). I personally scribed for SUSSY GARDUNO MD ([email or web address]) on 05/19/25 at 12:14. Electronically submitted by Demetrius Araiza ([email or web address]). SUSSY GARDUNO MD May 19, 2025 12:08
[2025-05-19 12:46] LABS: Hematocrit 34.2 % (36.0-46.0); Hemoglobin 11.0 g/dL (12.2-16.2); Mean Corpuscular Hemoglobin 25.4 pg (28.0-32.0); Mean Corpuscular Volume 78.7 fL (80.0-100.0); Nucleated Red Blood Cells % 0.0 %
[2025-05-19 13:04] LABS: Potassium 4.4 mmol/L (3.5-5.1); Sodium 139 mmol/L (136-145)
[2025-05-19 13:05] LABS: Anion Gap 13 (5-15)
[2025-05-19 13:06] LABS: Calcium 8.9 mg/dL (8.7-10.4)
[2025-05-19 13:10] LABS: BUN/Creatinine Ratio 5.7 (10.0-20.0); Glucose 95 mg/dL (74-106)
[2025-05-19 13:11] LABS: Chloride 95 mmol/L (98-107)
[2025-05-19 13:12] LABS: Blood Urea Nitrogen 37 mg/dL (9-23); Carbon Dioxide 31 mmol/L (20-31)
--- NOTE | 2025-05-19 13:15 | DVH ---
CHEST RADIOGRAPH Indication: sob Technique: Single frontal view of the chest was obtained Comparison: XY CHEST XRAY 1 VIEW on DOS: 01/01/25, XY CHEST PORTABLE on DOS: 12/28/23, CHEST PORTABLE o n DOS: 06/14/22 FINDINGS: Lines and Tubes: None Lungs: Indistinctness of the left hemidiaphragm Interstitial prominence. No pneumothorax. Cardiomediastinal contours: Borderline cardiomegaly Bones: No acute osseous abnormality. Surgical clips are noted over the left axilla. IMPRESSION: Pulmonary vascular congestion with possible trace left-sided pleural effusion/left basilar atelectasi s.
[2025-05-19] MEDS ORDERED: ONDANSETRON HCL 4 MG/2 ML VIAL IV PRN (19:15)
[2025-05-19] MEDS ORDERED: ACETAMINOPHEN 325 MG TAB PO PRN (19:15)
[2025-05-19 21:50] VITALS: BP 192/88; PULSE 71; RESP 16; TEMP 97.5; O2SAT 98
[2025-05-19] MEDS ORDERED: HYDR100T10 PO (22:31)
[2025-05-19] MEDS: APIXABAN 2.5 MG TAB PO SCH (22:35)
[2025-05-19] MEDS: DONEPEZIL HYDROCHLORIDE 5 MG TAB PO SCH (22:35)
[2025-05-19] MEDS: ATORVASTATIN 20 MG TAB PO SCH (22:35)
[2025-05-20] VITALS (8 sets, daily range): BP systolic 166–183; BP diastolic 76–88; PULSE 72–80; RESP 16–20; TEMP 97.5–98.5; O2SAT 96–100
--- NOTE | 2025-05-20 04:23 | DVHHP2 ---
History of Present Illness Reason for Visit: Shortness for breath History of Present Illness 75-year-old female presents for evaluation of shortness for breath. Patient is a dialysis patient was last dialyzed on Tuesday. She reports worsening shortness for breath over the past one day with associated chest pressure. No cough or fever. No other acute complaints reported. Past Medical History End-stage renal disease, diabetes mellitus, dyslipidemia, hypertension, thyroid Past Surgical History Hysterectomy, hernia repair, dialysis access Family History Noncontributory Smoke: No ALCOHOL: none Drugs: None Lives: with Family Review of Systems Review of Systems Review of systems are currently negative otherwise addressed in HPI. Allergies: Coded Allergies: Insulin (Verified Allergy, Unknown, 12/31/24) Penicillins (Verified Allergy, Unknown, 06/14/22) Medications Current Medications Medications Dose Ordered Sig/Geo Route Start Time Stop Time Status Last Admin Dose Admin Apixaban 2.5 mg BID PO 05/19/25 22:00 05/19/25 22:35 2.5 MG Atorvastatin Calcium 40 mg HS PO 05/19/25 22:00 05/19/25 22:35 40 MG Diltiazem HCl 240 mg DAILY PO 05/20/25 10:00 Donepezil HCl 5 mg HS PO 05/19/25 22:00 05/19/25 22:35 5 MG Levothyroxine Sodium 25 mcg QAM@0600 PO 05/20/25 06:00 Ondansetron HCl 4 mg Q4HP PRN IV 05/19/25 19:15 Acetaminophen 650 mg Q6HP PRN PO 05/19/25 19:15 Hydralazine HCl 100 mg Q12HR PO 05/20/25 10:00 Exam Vital Signs Vital Signs Date Time Temp Pulse Resp B/P (MAP) Pulse Ox O2 Delivery O2 Flow Rate FiO2 05/20/25 01:00 97.9 74 17 175/76 (109) 97 97.9 05/19/25 11:58 Room Air Exam Gen: 75-year-old female in mild distress Skin: Warm, dry, normal color and texture, no rash. HEENT: Normocephalic atraumatic, mucous membranes moist and pink. Neck: Cervical and supraclavicular nodes normal without enlargement, trachea is midline, thyroid gland is normal without masses. Pulmonary: Clear to auscultation and percussion bilaterally. Cardiac: Regular rate and rhythm. No murmur Abdomen: Soft, nontender, nondistended, bowel sounds present all 4 quadrants, no guarding, no rigidity, no organomegaly. Extremities: No cyanosis, clubbing, no edema Neuro: Cranial nerves II through XII grossly intact, normal affect and speech, no focal motor deficits. Labs/Xrays ORDERING PHYSICIAN: SUSSY GARDUNO MD PROCEDURE(s): CXRP - CHEST PORTABLE REASON: sob ORDER NUMBER(s): [id number], ACCESSION NUMBER(s): [id number] CHEST RADIOGRAPH Indication: sob Technique: Single frontal view of the chest was obtained Comparison: XY CHEST XRAY 1 VIEW on DOS: 01/01/25, XY CHEST PORTABLE on DOS: 12/28/23, CHEST PORTABLE on DOS: 06/14/22 FINDINGS: Lines and Tubes: None Lungs: Indistinctness of the left hemidiaphragm Interstitial prominence. No pneumothorax. Cardiomediastinal contours: Borderline cardiomegaly Bones: No acute osseous abnormality. Surgical clips are noted over the left axilla. IMPRESSION: Pulmonary vascular congestion with possible trace left-sided pleural effusion/left basilar atelectasis. Labs Test 05/19/25 21:00 05/19/25 12:33 Range/Units White Blood Count 7.5 4.4-10.8 10^3/uL Red Blood Count 4.35 4.0-5.20 10^6/uL Hemoglobin 11.0 L 12.2-16.2 g/dL Hematocrit 34.2 L 36.0-46.0 % Mean Corpuscular Volume 78.7 L 80.0-100.0 fL Mean Corpuscular Hemoglobin 25.4 L 28.0-32.0 pg Mean Corpuscular Hemoglobin Concent 32.2 32.0-36.0 g/dL Red Cell Distribution Width 20.3 H 11.8-14.3 % Platelet Count 262 140-450 10^3/uL Mean Platelet Volume 7.7 6.9-10.8 fL Neutrophils (%) (Auto) 78.2 37.0-80.0 % Lymphocytes (%) (Auto) 10.6 10.0-50.0 % Monocytes (%) (Auto) 8.1 0.0-12.0 % Eosinophils (%) (Auto) 2.5 0.0-7.0 % Basophils (%) (Auto) 0.6 0.0-2.0 % Neutrophils # (Auto) 5.8 1.6-8.6 10 ^3/uL Lymphocytes # (Auto) 0.8 0.4-5.4 10 ^3/uL Monocytes # (Auto) 0.6 0-1.3 10 ^3/uL Eosinophils # (Auto) 0.2 0-0.8 10 ^3/uL Basophils # (Auto) 0 0-0.2 10 ^3/uL Nucleated Red Blood Cells 0.0 % Sodium Level 139 136-145 mmol/L Potassium Level 4.4 3.5-5.1 mmol/L Chloride Level 95 L 98-107 mmol/L Carbon Dioxide Level 31 20-31 mmol/L Anion Gap 13 5-15 Blood Urea Nitrogen 37 H 9-23 mg/dL Creatinine 6.48 H 0.550-1.02 mg/dL Glomerular Filtration Rate Calc 6 >90 mL/min BUN/Creatinine Ratio 5.7 L 10.0-20.0 Serum Glucose 95 74-106 mg/dL Calcium Level 8.9 8.7-10.4 mg/dL Troponin I High Sensitivity 24 </=34 ng/L B-Type Natriuretic Peptide 1033.97 0-100 pg/mL SEPSIS Sepsis Screen Date sepsis recognized/suspect: May 19, 2025 Time Sepsis recognized/suspect: 1846 Recent Procedure: No On Antibiotic Therapy: No Respiratory Rate >20: No Heart Rate >90: No Temp<36 C (96.8 F) or >38.3 C: No SBP <90 or MAP <65 mmHG: No New Acute Mental Status Change: No Is the patient on CPAP, BIPAP,: No Physician Orders *Dr. Dulce Maria Reyez -Alfredo Salazar (05/19/25 21:00) Mrsa Screen (05/20/25 01:05) Hydralazine Hcl Tablet (Apresoline Table (05/20/25 10:00) Vital Signs Date Time Temp Pulse Resp B/P (MAP) Pulse Ox O2 Delivery O2 Flow Rate FiO2 05/20/25 01:00 97.9 74 17 175/76 (109) 97 97.9 05/20/25 00:36 175/76 05/19/25 22:39 177/82 05/19/25 21:50 97.5 71 16 192/88 (122) 98 97.5 Medications Medications Dose Ordered Sig/Geo Route Start Time Stop Time Status Last Admin Dose Admin Apixaban 2.5 mg BID PO 05/19/25 22:00 05/19/25 22:35 2.5 MG Atorvastatin Calcium 40 mg HS PO 05/19/25 22:00 05/19/25 22:35 40 MG Donepezil HCl 5 mg HS PO 05/19/25 22:00 05/19/25 22:35 5 MG Hydralazine HCl 50 mg ONCE ONCE PO 05/20/25 00:00 05/20/25 00:01 DC 05/20/25 00:36 50 MG Hydralazine HCl 50 mg Q12HR PO 05/19/25 22:00 05/19/25 23:41 DC 05/19/25 22:39 50 MG Assessment/Plan Assessment/Plan Assessment Fluid overload End-stage renal disease, dialysis dependent Congestive heart failure Hypertension Plan [facility]ist Nephrology consultation Resume home medications Continue treatment per orders. Plan discussed with: Patient My Orders Orders - CAITIE HUGGINS Procedure Category Date Status Time Apixaban (Eliquis) PHA 05/19/25 In Process 22:00 Atorvastatin (Lipitor) PHA 05/19/25 In Process 22:00 Diltiazem Er Capsule PHA 05/20/25 In Process (Cardizem Er Capsul 10:00 Donepezil Tablet PHA 05/19/25 In Process (Aricept Tablet) 22:00 Levothyroxine Tablet PHA 05/20/25 In Process (Synthroid Tablet) 06:00 Admit ADMIT 05/19/25 Transmitted 19:08 Renal DIET 05/20/25 Transmitted Standard(2gna,3gk,Lopho) Breakfast Ondansetron Hcl PHA 05/19/25 In Process (Zofran) 19:15 Echo 2d Mode Cardiac US 05/19/25 Logged DOP 19:08 Condition: Stable SARA 05/19/25 In Process 19:08 Acetaminophen Tablet PHA 05/19/25 In Process (Tylenol Tablet) 19:15 Bedrest With Bathroom SARA 05/19/25 In Process Privileg 19:08 Basic Metabolic Panel LAB 05/20/25 Logged 04:00 Mrsa Screen DEMETRIO 05/20/25 In Process 01:05 Hydralazine Hcl PHA 05/20/25 In Process Tablet (Apresoline 10:00 Date of Service: May 19, 2025 Billing Provider: CATIIE HUGGINS Common Visit Codes: [id number] INP/OBS CARE (HIGH) CAITIE HUGGINS May 20, 2025 04:23
[2025-05-20] MEDS: LEVOTHYROXINE SODIUM 25 MCG TAB PO SCH (06:39)
[2025-05-20 08:02] LABS: Anion Gap 15 (5-15)
[2025-05-20 08:05] LABS: Calcium 8.5 mg/dL (8.7-10.4); Carbon Dioxide 29 mmol/L (20-31); Chloride 95 mmol/L (98-107); Potassium 4.5 mmol/L (3.5-5.1); Sodium 139 mmol/L (136-145)
[2025-05-20 08:09] LABS: BUN/Creatinine Ratio 6.1 (10.0-20.0); Blood Urea Nitrogen 46 mg/dL (9-23); Glucose 70 mg/dL (74-106)
[2025-05-20] MEDS: dilTIAZem 120MG ER CAP PO SCH (10:33)
[2025-05-20 11:23] LABS: Urine Protein, UAD 2+ (Negative)
--- NOTE | 2025-05-20 12:53 | DVHPN2 ---
Subjective Seen and examined at bedside, patient is complaining of occasional shortness of breath. BP very uncontrolled. For Dialysis. Changes from previous H/P or p: No Changes Objective Vitals Vital Signs Date Time Temp Pulse Resp B/P (MAP) Pulse Ox O2 Delivery O2 Flow Rate FiO2 05/20/25 10:33 74 181/80 05/20/25 09:00 97.7 19 98 97.7 05/19/25 21:48 Room Air* 0 21 Intake/Output Intake and Output 05/20/25 07:00 Intake Total 450 ml Balance 450 ml Intake Oral 450 ml # Voids 2 Exam Gen: in bed mild distress Cvs: N S1/S2, RRR Resp: Creps b/l Abd: Soft, NT Mule Packer: AAO x 4 Ext: Left forearm fistula Medications Current Medications Medications Dose Ordered Sig/Geo Route Start Time Stop Time Status Last Admin Dose Admin Apixaban 2.5 mg BID PO 05/19/25 22:00 05/20/25 10:33 2.5 MG Atorvastatin Calcium 40 mg HS PO 05/19/25 22:00 05/19/25 22:35 40 MG Diltiazem HCl 240 mg DAILY PO 05/20/25 10:00 05/20/25 10:33 240 MG Donepezil HCl 5 mg HS PO 05/19/25 22:00 05/19/25 22:35 5 MG Levothyroxine Sodium 25 mcg QAM@0600 PO 05/20/25 06:00 05/20/25 06:39 25 MCG Ondansetron HCl 4 mg Q4HP PRN IV 05/19/25 19:15 Acetaminophen 650 mg Q6HP PRN PO 05/19/25 19:15 Hydralazine HCl 100 mg TID PO 05/20/25 14:00 UNV Clonidine HCl 0.1 mg Q6HP PRN PO 05/20/25 12:45 UNV Laboratory Results Laboratory Tests 05/19/25 12:33 05/20/25 06:10 Chemistry Test 05/20/25 06:10 Calcium Level 8.5 mg/dL (8.7-10.4) L Urinalysis Test 05/20/25 10:39 Urine Color Light-yellow (Yellow) Urine Clarity Clear (Clear) Urine pH 8.0 (5.0-9.0) Urine Specific [place] 1.006 (1.001-1.035) Urine Protein 2+ (Negative) H Urine Ketones Negative (Negative) Urine Blood 1+ /uL (Negative) H Urine Nitrite Negative (Negative) Urine Bilirubin Negative (Negative) Urine Urobilinogen Normal mg/dL (Negative) Urine Leukocyte Esterase 1+ /uL (Negative) Urine RBC 24 /hpf (0 - 4) Urine Microscopic WBC 6 /HPF (0-5) H Urine Squamous Epithelial Cells Few /hpf (<5) Urine Bacteria Few /hpf (None Seen) H Urine Glucose Trace mg/dL (Normal) Assessment/Plan Assessment/Plan # Hypertensive Urgency - Monitor and control BP # ESRD on HD # Pulm Edema critical care time 38 mins Plan discussed with: Patient My Orders Orders - SHIRLENE WOODS MD Procedure Category Date Status Time Hydralazine Hcl PHA 05/20/25 Logged Tablet (Apresoline 14:00 Clonidine Hcl Tablet PHA 05/20/25 Logged (Catapres Tablet) 12:45 Date of Service: May 20, 2025 Billing Provider: SHIRLENE WOODS MD Common Visit Codes: [id number] CARE 30-74 MIN SHIRLENE WOODS MD May 20, 2025 12:53
--- NOTE | 2025-05-20 16:44 | DVHINCON2 ---
Date of service: May 20, [address] Garduno Reason for Consultation Dialysis History of Present Illness 75 Y/O F with history of ESRD on HD via Lt radiocephalic AVF , DM , HTN, anemia, hysterectomy and hernia repair presented with SOB. CXR shows pulm congestion. K is 4.5 , and Hb is 11 g/dl. last dialysis was on Tuesday05/17/25 at [facility]. Past Medical History ESRD DM HTN Anemia Past Surgical History AVF creation Hernia repair Hysterectomy Allergies: Coded Allergies: Insulin (Verified Allergy, Unknown, 12/31/24) Penicillins (Verified Allergy, Unknown, 06/14/22) Home Meds Active Scripts Tramadol Hcl (Tramadol Hcl) 50 Mg Tab, 50 MG PO BID for 5 Days, #10 TAB Prov:SUSSY GARDUNO MD 04/30/25 Reported Medications Metoprolol Succinate (Metoprolol Succinate Er) 50 Mg Tab, 1 TAB PO DAILY for 90 Days, #90 05/20/25 Fluticasone Propionate (Nasal) (Fluticasone Propionate) 50 Mcg/Act Spr, 1 SPRAY TARA UD for 90 Days, #48 05/20/25 Clonidine Hydrochloride (Clonidine Hcl) 0.1 Mg Tab, 1 TAB PO BID for 90 Days, #180 05/20/25 Triamcinolone Acetonide (Kenalog) 1 Applic Ap, 1 APPLIC TOP PRN for 30 Days, #30 05/20/25 Hydralazine Hcl (Hydralazine Hcl) 50 Mg Tab, 1 TAB PO QID for 30 Days, #120 05/20/25 Apixaban Base (ELIQUIS) 2.5 Mg Tab, 1 TAB PO BID for 90 Days, #180 05/19/25 Omeprazole (Omeprazole Dr) 40 Mg Cap, 1 CAP PO DAILY for 90 Days, #90 05/19/25 Ondansetron HCl (Ondansetron Hydrochloride) 4 Mg Tab, 1 TAB PO Q8HPRN PRN for FOR STOMACH DISTRESS for 20 Days, #60 05/19/25 Memantine Hydrochloride (Memantine HCl) 10 Mg Tab, 1 TAB PO BID for 90 Days, #180 05/19/25 Donepezil Hydrochloride (DONEPEZIL HCL) 10 Mg Tab, 1 TAB PO HS for 90 Days, #90 05/19/25 Levothyroxine Sodium (Levothyroxine Sodium) 25 Mcg Tab, 1 TAB PO QAM for disorder of thyroid gland 01/01/25 B-Complex W/ C & Folic Acid (Shannan-Agnieszka Rx) Tab, 1 TAB PO DAILY for 30 Days, #30 12/19/23 Diltiazem Hcl (DILTIAZEM HCL ER) 240 Mg Cap, 1 CAP PO DAILY, #30 CAP 5 Refills 08/04/17 Atorvastatin Calcium (ATORVASTATIN CALCIUM) 40 Mg Tab, 1 TAB PO HS, #30 TAB 5 Refills 08/04/17 Discontinued Reported Medications Hydralazine Hcl (Hydralazine Hcl) 100 Mg Tab, 1 TAB PO BID 05/19/25 Hydralazine Hcl (Hydralazine Hcl) 50 Mg Tab, 1 TAB PO BID 12/19/23 Discontinued Scripts Tramadol HCl (Tramadol HCl) 50 Mg Tab, 50 MG PO BID PRN, #20 TAB Prov:DOMINICK PHELPS PA 01/05/25 Current Medications Current Medications Medications (Trade) Dose Ordered Sig/Geo Route PRN Reason Start Time Stop Time Status Last Admin Apixaban (Eliquis) 2.5 mg BID PO 05/19/25 22:00 05/20/25 10:33 Atorvastatin Calcium (Lipitor) 40 mg HS PO 05/19/25 22:00 05/19/25 22:35 Diltiazem HCl (Cardizem ER Capsule) 240 mg DAILY PO 05/20/25 10:00 05/20/25 10:33 Donepezil HCl (Aricept Tablet) 5 mg HS PO 05/19/25 22:00 05/19/25 22:35 Hydralazine HCl (Apresoline Tablet) 50 mg Q12HR PO 05/19/25 22:00 05/19/25 23:41 DC 05/19/25 22:39 Levothyroxine Sodium (Synthroid Tablet) 25 mcg QAM@0600 PO 05/20/25 06:00 05/20/25 06:39 Ondansetron HCl (Zofran) 4 mg Q4HP PRN IV NAUSEA / VOMITING 05/19/25 19:15 Acetaminophen (Tylenol Tablet) 650 mg Q6HP PRN PO PAIN SCALE 1-3 OR TEMP>100.4 05/19/25 19:15 Hydralazine HCl (Apresoline Tablet) 100 mg Q12HR PO 05/20/25 10:00 05/20/25 12:46 DC 05/20/25 10:31 Hydralazine HCl (Apresoline Tablet) 100 mg Q8H PO 05/20/25 18:00 Clonidine HCl (Catapres Tablet) 0.1 mg Q6HP PRN PO SBP>160 05/20/25 12:45 05/20/25 13:33 Family History: Diabetes mellitus G8 FATHER FH polycystic kidney 19 CHILD FH: cancer G8 MOTHER Hypertension G8 MOTHER G8 FATHER Review of Systems as per HPI, all other systems were reviewed and are negative H&P Exam Vital Signs/I&O Vital Sign Date Time Temp Pulse Resp B/P (MAP) Pulse Ox O2 Delivery O2 Flow Rate FiO2 05/20/25 13:33 163/76 05/20/25 13:00 97.5 77 16 100 97.5 05/19/25 21:48 Room Air* 0 21 Intake and Output 05/19/25 05/20/25 19:00 07:00 Intake Total 450 ml Balance 450 ml Intake Oral 450 ml # Voids 2 Physical Exam Gen : NAD HEENT: NC, AT Lungs: Crackles lung bases Cardiac: RRR, no murmur Abd soft, no tenderness Ext: no edema + Radiocephalic AVF Labs/Diagnostic Data Labs/Diagnostic Data Laboratory Tests Test 05/20/25 10:39 05/20/25 06:10 05/19/25 12:33 Range/Units Urine Color Light-yellow Yellow Urine Clarity Clear Clear Urine pH 8.0 5.0-9.0 Urine Specific [place] 1.006 1.001-1.035 Urine Protein 2+ H Negative Urine Ketones Negative Negative Urine Blood 1+ H Negative /uL Urine Nitrite Negative Negative Urine Bilirubin Negative Negative Urine Urobilinogen Normal Negative mg/dL Urine Leukocyte Esterase 1+ Negative /uL Urine RBC 24 0 - 4 /hpf Urine Microscopic WBC 6 H 0-5 /HPF Urine Squamous Epithelial Cells Few <5 /hpf Urine Bacteria Few H None Seen /hpf Urine Glucose Trace Normal mg/dL Sodium Level 139 139 136-145 mmol/L Potassium Level 4.5 4.4 3.5-5.1 mmol/L Chloride Level 95 L 95 L 98-107 mmol/L Carbon Dioxide Level 29 31 20-31 mmol/L Anion Gap 15 13 5-15 Blood Urea Nitrogen 46 H 37 H 9-23 mg/dL Creatinine 7.56 H 6.48 H 0.550-1.02 mg/dL Glomerular Filtration Rate Calc 5 6 >90 mL/min BUN/Creatinine Ratio 6.1 L 5.7 L 10.0-20.0 Serum Glucose 70 L 95 74-106 mg/dL Calcium Level 8.5 L 8.9 8.7-10.4 mg/dL White Blood Count 7.5 4.4-10.8 10^3/uL Red Blood Count 4.35 4.0-5.20 10^6/uL Hemoglobin 11.0 L 12.2-16.2 g/dL Hematocrit 34.2 L 36.0-46.0 % Mean Corpuscular Volume 78.7 L 80.0-100.0 fL Mean Corpuscular Hemoglobin 25.4 L 28.0-32.0 pg Mean Corpuscular Hemoglobin Concent 32.2 32.0-36.0 g/dL Red Cell Distribution Width 20.3 H 11.8-14.3 % Platelet Count 262 140-450 10^3/uL Mean Platelet Volume 7.7 6.9-10.8 fL Neutrophils (%) (Auto) 78.2 37.0-80.0 % Lymphocytes (%) (Auto) 10.6 10.0-50.0 % Monocytes (%) (Auto) 8.1 0.0-12.0 % Eosinophils (%) (Auto) 2.5 0.0-7.0 % Basophils (%) (Auto) 0.6 0.0-2.0 % Neutrophils # (Auto) 5.8 1.6-8.6 10 ^3/uL Lymphocytes # (Auto) 0.8 0.4-5.4 10 ^3/uL Monocytes # (Auto) 0.6 0-1.3 10 ^3/uL Eosinophils # (Auto) 0.2 0-0.8 10 ^3/uL Basophils # (Auto) 0 0-0.2 10 ^3/uL Nucleated Red Blood Cells 0.0 % Troponin I High Sensitivity 24 </=34 ng/L B-Type Natriuretic Peptide 1033.97 0-100 pg/mL Microbiology Date/Time Source Procedure Growth Status 05/20/25 01:05 Nose MRSA Screen - Final Complete Assessment ESRD on HD via radiocephaloic AVF pulmonary congestion Fluid overload DM type II HTN Anemia of CKD Secondary hyperparathyroidism Hyperphosphatemia Hypothyroidism Plan: HD today, goal 3 L UF ZANDER post HD as needed. goal Hb: 10 -11 g/dl Continue Hydralazine, and clonidine Plan discussed with: Patient JUAN PABLO SUÁREZ MD May 20, 2025 16:44
[2025-05-20] MEDS ORDERED: SODIUM CHL 0.9% 1000 ML BAG XX ONE (16:45)
[2025-05-21] VITALS (7 sets, daily range): BP systolic 137–170; BP diastolic 69–91; PULSE 65–75; RESP 16–20; TEMP 96.5–98.2; O2SAT 96–100
--- NOTE | 2025-05-21 13:00 | DVHSR ---
APPROVED REPORT EXAM: Two-dimensional and M-mode echocardiogram with Doppler and color Doppler. Blood Pressure: 180/83 mmHg INDICATION EF RISK FACTORS Height: 5', Weight: 124 DIMENSIONS LVDd4.9 (3.8-5.7cm)LA (2D)5.1 (1.9-4.0cm)Aortic Root3.0 (2.0-3.7cm) LVDs3.2 (2.5-4.0cm)LA (MM) (1.9-4.0cm)Aortic Cusp Exc1.6 (1.5-2.0cm) EF (%) 64.0 (55-70%)Rt. Atrium3.9 (1.9-4.0cm)Asc. Aorta3.9 cm IVSd1.8 (0.7-1.1cm)RV (D)3.1 (1.8-2.4cm) PWd1.2 (0.7-1.1cm) Mitral Valve MitralMitral Stenosis E wave1.42m/sMV Mean GR.mmHg A wave1.28m/sMV Peak GR.mmHg E/A ratio1.12D MVAcm2 DECEL [id number] 1/2 Timems Aortic Valve Aortic ValveAortic Stenosis V11.62m/Zafar Mean GR.9mmHg V22.05m/Zafar Peak GR.17mmHg LVOT Diameter1.8 (1.8-2.4cm)Doppler AVA2.01cm2 Pulmonic Valve V21.09m/s Tricuspid Valve TR Velocity2.64m/s [id number] Conclusion lvef 60% moderate LVH left atrium enlarged mild mitral regurg mild tricuspid regurg
--- NOTE | 2025-05-21 14:09 | DVHDS2 ---
Discharge Summary Date of Admission May 19, 2025 at 19:08 Date of Discharge: May 21, 2025 Admitting Diagnosis ESRD on HD Labs/Diagnostic Data: Laboratory Results Test 05/20/25 10:39 05/20/25 06:10 05/19/25 12:33 Urine Color Light-yellow (Yellow) Urine Clarity Clear (Clear) Urine pH 8.0 (5.0-9.0) Urine Specific [place] 1.006 (1.001-1.035) Urine Protein 2+ (Negative) Urine Ketones Negative (Negative) Urine Blood 1+ /uL (Negative) Urine Nitrite Negative (Negative) Urine Bilirubin Negative (Negative) Urine Urobilinogen Normal mg/dL (Negative) Urine Leukocyte Esterase 1+ /uL (Negative) Urine RBC 24 /hpf (0 - 4) Urine Microscopic WBC 6 /HPF (0-5) Urine Squamous Epithelial Cells Few /hpf (<5) Urine Bacteria Few /hpf (None Seen) Urine Glucose Trace mg/dL (Normal) Sodium Level 139 mmol/L (136-145) Potassium Level 4.5 mmol/L (3.5-5.1) Chloride Level 95 mmol/L (98-107) Carbon Dioxide Level 29 mmol/L (20-31) Anion Gap 15 (5-15) Blood Urea Nitrogen 46 mg/dL (9-23) Creatinine 7.56 mg/dL (0.550-1.02) Glomerular Filtration Rate Calc 5 mL/min (>90) BUN/Creatinine Ratio 6.1 (10.0-20.0) Serum Glucose 70 mg/dL (74-106) Calcium Level 8.5 mg/dL (8.7-10.4) White Blood Count 7.5 10^3/uL (4.4-10.8) Red Blood Count 4.35 10^6/uL (4.0-5.20) Hemoglobin 11.0 g/dL (12.2-16.2) Hematocrit 34.2 % (36.0-46.0) Mean Corpuscular Volume 78.7 fL (80.0-100.0) Mean Corpuscular Hemoglobin 25.4 pg (28.0-32.0) Mean Corpuscular Hemoglobin Concent 32.2 g/dL (32.0-36.0) Red Cell Distribution Width 20.3 % (11.8-14.3) Platelet Count 262 10^3/uL (140-450) Mean Platelet Volume 7.7 fL (6.9-10.8) Neutrophils (%) (Auto) 78.2 % (37.0-80.0) Lymphocytes (%) (Auto) 10.6 % (10.0-50.0) Monocytes (%) (Auto) 8.1 % (0.0-12.0) Eosinophils (%) (Auto) 2.5 % (0.0-7.0) Basophils (%) (Auto) 0.6 % (0.0-2.0) Neutrophils # (Auto) 5.8 10 ^3/uL (1.6-8.6) Lymphocytes # (Auto) 0.8 10 ^3/uL (0.4-5.4) Monocytes # (Auto) 0.6 10 ^3/uL (0-1.3) Eosinophils # (Auto) 0.2 10 ^3/uL (0-0.8) Basophils # (Auto) 0 10 ^3/uL (0-0.2) Nucleated Red Blood Cells 0.0 % Troponin I High Sensitivity 24 ng/L (</=34) B-Type Natriuretic Peptide 1033.97 pg/mL (0-100) Other Laboratory Tests 05/20/25 06:10 05/19/25 12:33 Brief Hx & Hospital Course: 75-year-old female presents for evaluation of shortness for breath. Patient is a dialysis patient was last dialyzed on Tuesday. She reports worsening shortness for breath over the past one day with associated chest pressure. Patient underwent dialysis, blood pressure was uncontrolled. Patients BP has improved. Will be discharged home. Operations or Procedures EXAM: Two-dimensional and M-mode echocardiogram with Doppler and color Doppler. Blood Pressure: 180/83 mmHg INDICATION EF RISK FACTORS Height: 5', Weight: 124 DIMENSIONS LVDd 4.9 (3.8-5.7cm) LA (2D) 5.1 (1.9-4.0cm) Aortic Root 3.0 (2.0- 3.7cm) LVDs 3.2 (2.5-4.0cm) LA (MM) (1.9-4.0cm) Aortic Cusp Exc 1.6 (1.5- 2.0cm) EF (%) 64.0 (55-70%) Rt. Atrium 3.9 (1.9-4.0cm) Asc. Aorta 3.9 cm IVSd 1.8 (0.7-1.1cm) RV (D) 3.1 (1.8-2.4cm) PWd 1.2 (0.7-1.1cm) Mitral Valve Mitral Mitral Stenosis E wave 1.42m/s MV Mean GR. mmHg A wave 1.28m/s MV Peak GR. mmHg E/A ratio 1.1 2D MVA cm2 DECEL Time 191ms PRESS 1/2 Time ms Aortic Valve Aortic Valve Aortic Stenosis V1 1.62m/s AO Mean GR. 9mmHg V2 2.05m/s AO Peak GR. 17mmHg LVOT Diameter 1.8 (1.8-2.4cm) Doppler TARSHA 2.01cm2 Pulmonic Valve V2 1.09m/s Tricuspid Valve TR Velocity 2.64m/s RVSP 31mmHg Conclusion lvef 60% moderate LVH left atrium enlarged mild mitral regurg mild tricuspid regurg Condition at Discharge: Poor Final Diagnosis/Problems List # Hypertensive Urgency # ESRD on HD # Pulm Edema Discharge Disposition: Home Discharge Instruct/Medications Diet: Renal Activity: Light activity Follow Up/Referral: Nephro Scheduled Apixaban Base (Eliquis), 1 TAB PO BID, (Reported) Atorvastatin Calcium (Atorvastatin Calcium), 1 TAB PO HS, (Reported) B-Complex W/ C & Folic Acid (Shannan-Agnieszka Rx), 1 TAB PO DAILY, (Reported) Clonidine Hydrochloride (Clonidine Hcl), 1 TAB PO BID, (Reported) Diltiazem Hcl (Diltiazem Hcl Er), 1 CAP PO DAILY, (Reported) Donepezil Hydrochloride (Donepezil Hcl), 1 TAB PO HS, (Reported) Fluticasone Propionate (Nasal) (Fluticasone Propionate), 1 SPRAY TARA UD, (Reported) Hydralazine Hcl (Hydralazine Hcl), 1 TAB PO QID, (Reported) Levothyroxine Sodium (Levothyroxine Sodium), 1 TAB PO QAM, (Reported) Memantine Hydrochloride (Memantine HCl), 1 TAB PO BID, (Reported) Metoprolol Succinate (Metoprolol Succinate Er), 1 TAB PO DAILY, (Reported) Omeprazole (Omeprazole Dr), 1 CAP PO DAILY, (Reported) Tramadol Hcl (Tramadol Hcl), 50 MG PO BID Triamcinolone Acetonide (Kenalog), 1 APPLIC TOP PRN, (Reported) Scheduled PRN Ondansetron HCl (Ondansetron Hydrochloride), 1 TAB PO Q8HPRN PRN for FOR STOMACH DISTRESS, (Reported) Discontinued Medications Hydralazine Hcl (Hydralazine Hcl), 1 TAB PO BID, (Reported) Hydralazine Hcl (Hydralazine Hcl), 1 TAB PO BID, (Reported) Discontinued Reason: Prescription changed Tramadol HCl (Tramadol HCl), 50 MG PO BID PRN Discontinued Reason: Prescription changed Discharge Statement: "Patient was advised to return to the ER or call 911 if any headaches, dizziness, shortness of breath, chest pain, abdominal pain, bleeding, fevers, or worsening of medical condition. Patient was counseled about treatment plan, medications, possible side effects, patientverbalized understanding. All questions were answered to the best of my ability. This discharge took greater then 30 minutes in planning, reviewing documentation, counseling the patient, and discussing with other team members." ASSESSMENT ASSESSMENT Assessment Date of Service: May 21, 2025 Billing Provider: SHIRLENE WOODS MD Common Visit Codes: 30425-KXG/OBS DISCH DAY >30min SHIRLENE WOODS MD May 21, 2025 14:09
--- NOTE | 2025-05-21 17:15 | DVHPN2 ---
Progress Note - Dictate Date Seen: May 21, 2025 Medical Necessity Reason Pt with a Central, PICC or Fol: No vital signs Vital Sign Date Time Temp Pulse Resp B/P (MAP) Pulse Ox O2 Delivery O2 Flow Rate FiO2 05/21/25 13:00 97.9 68 16 140/71 (94) 100 97.9 05/20/25 20:00 Room Air* 0 21 Total Intake and Output 05/20/25 05/20/25 05/21/25 15:00 23:00 07:00 Intake Total 490 ml 490 ml Balance 490 ml 490 ml medications Current Medications Medications Dose Ordered Sig/Geo Route Start Time Stop Time Status Last Admin Dose Admin Apixaban 2.5 mg BID PO 05/19/25 22:00 05/21/25 11:36 2.5 MG Atorvastatin Calcium 40 mg HS PO 05/19/25 22:00 05/20/25 22:05 40 MG Diltiazem HCl 240 mg DAILY PO 05/20/25 10:00 05/21/25 11:35 240 MG Donepezil HCl 5 mg HS PO 05/19/25 22:00 05/20/25 22:05 5 MG Levothyroxine Sodium 25 mcg QAM@0600 PO 05/20/25 06:00 05/21/25 06:26 25 MCG Ondansetron HCl 4 mg Q4HP PRN IV 05/19/25 19:15 Acetaminophen 650 mg Q6HP PRN PO 05/19/25 19:15 Hydralazine HCl 100 mg Q8H PO 05/20/25 18:00 05/21/25 11:35 100 MG Clonidine HCl 0.1 mg Q6HP PRN PO 05/20/25 12:45 05/21/25 06:56 0.1 MG objective Gen : NAD HEENT: NC, AT Lungs: Crackles lung bases Cardiac: RRR, no murmur Abd soft, no tenderness Ext: no edema + Radiocephalic AVF laboratory and microbiology Laboratory Tests 05/20/25 06:10 05/19/25 12:33 Test 05/20/25 06:10 Range/Units Serum Glucose 70 L 74-106 mg/dL Assessment/Plan ESRD on HD via radiocephaloic AVF pulmonary congestion Fluid overload DM type II HTN Anemia of CKD Secondary hyperparathyroidism Hyperphosphatemia Hypothyroidism Plan: s/p HD yesterday Next HD tomorrow if still in house. otherwise she can be discharged from nephrology perspective and have her dialysis at [facility]. ZANDER post HD as needed. goal Hb: 10 -11 g/dl Continue Hydralazine, and clonidine Plan discussed with: Patient JUAN PABLO SUÁREZ MD May 21, 2025 17:15
== END 2025-05-21 19:45 | disposition home or self-care (01) | DRG 291 ==
LOC: ER 11:18 → OVERFLOW 19:08 → CENTRAL 21:15
PROVIDERS: ADMIT Internal Medicine; ATTEND Internal Medicine
PROC: 5A1D70Z Performance of Urinary Filtration, Intermittent, Less than 6 Hours Per Day (ICD-10-PCS; principal; 2025-05-20)
DX: I13.2 Hypertensive heart and chronic kidney disease with heart failure and with stage 5 chronic kidney disease, or end stage renal disease (principal); I50.33 Acute on chronic diastolic (congestive) heart failure; N18.6 End stage renal disease; N25.81 Secondary hyperparathyroidism of renal origin; J81.1 Chronic pulmonary edema; E87.70 Fluid overload, unspecified; I16.0 Hypertensive urgency; E78.5 Hyperlipidemia, unspecified; E11.22 Type 2 diabetes mellitus with diabetic chronic kidney disease; E83.39 Other disorders of phosphorus metabolism; E03.9 Hypothyroidism, unspecified; Z99.2 Dependence on renal dialysis; Z88.0 Allergy status to penicillin; Z88.8 Allergy status to other drugs, medicaments and biological substances; Z79.01 Long term (current) use of anticoagulants; Z79.899 Other long term (current) drug therapy; Z90.710 Acquired absence of both cervix and uterus; D63.1 Anemia in chronic kidney disease; Z82.71 Family history of polycystic kidney; Z83.3 Family history of diabetes mellitus; Z82.49 Family history of ischemic heart disease and other diseases of the circulatory system
CPT/HCPCS: 36415; 71045; 80048; 81001; 83880; 84484; 85025; 87081; 87340; 90935; 93005; 93306; G0378

== ENCOUNTER 2025-06-08 12:27 | Emergency (ER) | payer OTHER, MEDICAID ==
[~2025-06-08] VITALS: Ht 12.7 cm; Wt 55.0 kg
[~2025-06-08 12:27] MED LIST changes: -DONE5TAB80 PO; -NITR-87 PO; -OMEP1CAP70 PO; -TRAM-626 PO
[2025-06-08 14:23] VITALS: BP 144/74; PULSE 84; RESP 20; TEMP 98; O2SAT 97
--- NOTE | 2025-06-08 15:36 | ED.PDOC ---
History of Present Illness HPI Comments This is 75-year-old female that comes in with chronic back pain. She has a prescription for Ultram with three refills in his here primarily for a medication refill. Patient denies any new injury no incidences of any worsening pain just wants refills on her meds.. Chief Complaint: Back Pain Time Seen by MD: 15:30 Primary Care Provider: TRINI Reviewed Notes: Nurses Notes, Medications, Allergies Allergies: Coded Allergies: Insulin (Verified Allergy, Unknown, 12/31/24) Penicillins (Verified Allergy, Unknown, 06/14/22) Home Meds Active Scripts Tramadol Hcl (Tramadol Hcl) 50 Mg Tab, 50 MG PO BID for 5 Days, #10 TAB Prov:SUSSY GARDUNO MD 04/30/25 Reported Medications Metoprolol Succinate (Metoprolol Succinate Er) 50 Mg Tab, 1 TAB PO DAILY for 90 Days, #90 05/20/25 Fluticasone Propionate (Nasal) (Fluticasone Propionate) 50 Mcg/Act Spr, 1 SPRAY TARA UD for 90 Days, #48 05/20/25 Clonidine Hydrochloride (Clonidine Hcl) 0.1 Mg Tab, 1 TAB PO BID for 90 Days, #180 05/20/25 Triamcinolone Acetonide (Kenalog) 1 Applic Ap, 1 APPLIC TOP PRN for 30 Days, #30 05/20/25 Hydralazine Hcl (Hydralazine Hcl) 50 Mg Tab, 1 TAB PO QID for 30 Days, #120 05/20/25 Apixaban Base (ELIQUIS) 2.5 Mg Tab, 1 TAB PO BID for 90 Days, #180 05/19/25 Omeprazole (Omeprazole Dr) 40 Mg Cap, 1 CAP PO DAILY for 90 Days, #90 05/19/25 Ondansetron HCl (Ondansetron Hydrochloride) 4 Mg Tab, 1 TAB PO Q8HPRN PRN for FOR STOMACH DISTRESS for 20 Days, #60 05/19/25 Memantine Hydrochloride (Memantine HCl) 10 Mg Tab, 1 TAB PO BID for 90 Days, #180 05/19/25 Donepezil Hydrochloride (DONEPEZIL HCL) 10 Mg Tab, 1 TAB PO HS for 90 Days, #90 05/19/25 Levothyroxine Sodium (Levothyroxine Sodium) 25 Mcg Tab, 1 TAB PO QAM for disorder of thyroid gland 4/22/25 B-Complex W/ C & Folic Acid (Shannan-Agnieszka Rx) Tab, 1 TAB PO DAILY for 30 Days, #30 12/19/23 Diltiazem Hcl (DILTIAZEM HCL ER) 240 Mg Cap, 1 CAP PO DAILY, #30 CAP 5 Refills 08/04/17 Atorvastatin Calcium (ATORVASTATIN CALCIUM) 40 Mg Tab, 1 TAB PO HS, #30 TAB 5 Refills 08/04/17 Information Source: Patient Mode of Arrival: Ambulatory Past Medical History PAST MEDICAL HISTORY: CKF, DM, ESRD, High Lipids, HTN, Thyroid Surgical History: Hernia Repair, Hysterectomy 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 Hx Family History Family History: Reviewed,noncontributory to illness, Unknown Social History Smoker: Non-Smoker Alcohol: Denies ETOH Use Drugs: Denies Drug Use Lives In: Home All Other Systems: Reviewed and Negative Physical Exam General Appearance: No Apparent Distress, Normal HEENT: TMs Normal Neck: Normal, Normal Inspection Respiratory: No Respiratory Distress, Normal Breath Sounds Cardiovascular: Regular Rate/Rhythm Breast Exam: Deferred Gastrointestinal: Non Tender, Soft Genitalia: Deferred Pelvic: Deferred Rectal: Deferred Extremities: Normal inspection, Normal range of motion Neurologic: Normal Affect, Normal Mood Cerebellar Function: NOT DONE Reflexes: NOT DONE Skin: Dry, Warm Lymphatic: No Adenopathy Was a procedure done? Was a procedure done?: No Differential Dx Considerations may include: Low back pain, sciatica X-Ray, Labs, Meds, VS Vital Signs Date Time Temp Pulse Resp B/P (MAP) Pulse Ox O2 Delivery O2 Flow Rate FiO2 06/08/25 14:23 84 20 97 Room Air 06/08/25 14:23 98.0 84 20 144/74 (97) 97 98.0 06/08/25 12:33 98.6 87 18 131/69 96 98.6 X-Ray, Labs, Meds, VS Comment Patient seen and examined by me. Patient showed me her bottle of medications and did not realize that she had three refills available to take. Patient was sent over to the pharmacy to get her medications. She was very happy with that news. I re-educated on the importance of heat and ice to help her back pain Time of 1ST Reevaluation: 23:00 Reevaluation 1ST: Unchanged Patient Education/Counseling: Diagnosis, Treatment, Prognosis, Need For Follow Up Family Education/Counseling: No Family Present SEPSIS Sepsis Screen Date sepsis recognized/suspect: Jun 08, 2025 Time Sepsis recognized/suspect: 1235 Recent Procedure: No On Antibiotic Therapy: No Respiratory Rate >20: No Heart Rate >90: No Temp<36 C (96.8 F) or >38.3 C: No SBP <90 or MAP <65 mmHG: No New Acute Mental Status Change: No Is the patient on CPAP, BIPAP,: No Vital Signs Date Time Temp Pulse Resp B/P (MAP) Pulse Ox O2 Delivery O2 Flow Rate FiO2 06/08/25 14:23 84 20 97 Room Air 06/08/25 14:23 98.0 84 20 144/74 (97) 97 98.0 06/08/25 12:33 98.6 87 18 131/69 96 98.6 Departure 1 Departure Time of Disposition: 14:30 Impression: Primary Impression: Lumbar radiculopathy Disposition: 01 HOME / SELF CARE / HOMELESS Condition: Good Additional Instructions: Please go to the pharmacy and cloth picker your refill of your medications Consider applying heat and ice to your lower back to help with pain Discharged With: Self Critical Care Note Critical Care Time?: No Stability Stability form required: ADELFO Torres Jun 08, 2025 15:36
== END 2025-06-08 15:00 | disposition home or self-care (01) ==
LOC: ER 12:27
DX: M54.16 Radiculopathy, lumbar region (principal); I12.0 Hypertensive chronic kidney disease with stage 5 chronic kidney disease or end stage renal disease; E11.22 Type 2 diabetes mellitus with diabetic chronic kidney disease; N18.6 End stage renal disease; Z76.0 Encounter for issue of repeat prescription; Z79.899 Other long term (current) drug therapy; Z90.710 Acquired absence of both cervix and uterus; Z98.890 Other specified postprocedural states; Z88.0 Allergy status to penicillin

== ENCOUNTER 2025-06-18 10:25 | Emergency (ER) | payer OTHER, MEDICAID ==
[~2025-06-18] VITALS: Ht 160 cm; Wt 54.8 kg
[2025-06-18 10:27] VITALS: TEMP 98.2
--- NOTE | 2025-06-18 11:13 | ED.PDOC ---
Back pain HPI HPI Comments Anette Villarreal is a 75-year-old female with past medical history of rheumatoid arthritis, chronic back pain, HTN, hypothyroidism, GERD and hyperlipidemia. The patient came to the ED with chief complaint of 3 days of worsening of chronic back pain, 6/10, intermittent, that increase with movements and improved with rest. The patient report she takes tramadol 50mg po bid prn for pain with relief, she ran out of medication 3 days ago. Today, the patient reports increase in back pain /10, this prompted her visit to the ED. The patient denies any type of trauma, fever, chills, abdominal pain, urinary symptoms or other. The patient reports she has been seeing by pain management, she will make an appointment. Chief Complaint: Back Pain Time Seen by MD: 10:33 Primary Care Provider: TRINI Reviewed Notes: Nurses Notes, Medications Allergies: Coded Allergies: Insulin (Verified Allergy, Unknown, 12/31/24) Penicillins (Verified Allergy, Unknown, 06/14/22) Home Meds Active Scripts Tramadol Hcl (Tramadol Hcl) 50 Mg Tab, 50 MG PO BID for 5 Days, #10 TAB Prov:SUSSY GARDUNO MD 04/30/25 Reported Medications Metoprolol Succinate (Metoprolol Succinate Er) 50 Mg Tab, 1 TAB PO DAILY for 90 Days, #90 05/20/25 Fluticasone Propionate (Nasal) (Fluticasone Propionate) 50 Mcg/Act Spr, 1 SPRAY TARA UD for 90 Days, #48 05/20/25 Clonidine Hydrochloride (Clonidine Hcl) 0.1 Mg Tab, 1 TAB PO BID for 90 Days, #180 05/20/25 Triamcinolone Acetonide (Kenalog) 1 Applic Ap, 1 APPLIC TOP PRN for 30 Days, #30 05/20/25 Hydralazine Hcl (Hydralazine Hcl) 50 Mg Tab, 1 TAB PO QID for 30 Days, #120 05/20/25 Apixaban Base (ELIQUIS) 2.5 Mg Tab, 1 TAB PO BID for 90 Days, #180 05/19/25 Omeprazole (Omeprazole Dr) 40 Mg Cap, 1 CAP PO DAILY for 90 Days, #90 05/19/25 Ondansetron HCl (Ondansetron Hydrochloride) 4 Mg Tab, 1 TAB PO Q8HPRN PRN for FOR STOMACH DISTRESS for 20 Days, #60 05/19/25 Memantine Hydrochloride (Memantine HCl) 10 Mg Tab, 1 TAB PO BID for 90 Days, #180 05/19/25 Donepezil Hydrochloride (DONEPEZIL HCL) 10 Mg Tab, 1 TAB PO HS for 90 Days, #90 05/19/25 Levothyroxine Sodium (Levothyroxine Sodium) 25 Mcg Tab, 1 TAB PO QAM for disorder of thyroid gland 01/01/25 B-Complex W/ C & Folic Acid (Shannan-Agnieszka Rx) Tab, 1 TAB PO DAILY for 30 Days, #30 12/19/23 Diltiazem Hcl (DILTIAZEM HCL ER) 240 Mg Cap, 1 CAP PO DAILY, #30 CAP 5 Refills 08/04/17 Atorvastatin Calcium (ATORVASTATIN CALCIUM) 40 Mg Tab, 1 TAB PO HS, #30 TAB 5 Refills 08/04/17 Information Source: Patient Mode of Arrival: Ambulatory Timing: Days Duration: Since onset Location of Back pain: (L) Lower back Severity: Mild History of: Chronic Back Pain, Arthritis Modifying Factors: Movement Past Medical History PAST MEDICAL HISTORY: CKF, DM, ESRD, High Lipids, HTN, Thyroid Surgical History: Hernia Repair, Hysterectomy CHICKEN SEXER History: Denies all CHICKEN SEXER Hx Family History Family History: Reviewed,noncontributory to illness, Unknown Social History Smoker: Non-Smoker Alcohol: Denies ETOH Use Drugs: Denies Drug Use Lives In: Home Constitutional: denies: chills, diaphoresis, fatigue, fever, malaise, sweats, weakness, others EENTM: denies: blurred vision, double vision, ear bleeding, ear discharge, ear drainage, ear pain, ear ringing, eye pain, eye redness, hearing loss, mouth pain, mouth swelling, nasal discharge, nose bleeding, nose congestion, nose pain, photophobia, tearing, throat pain, throat swelling, voice changes, others Respiratory: denies: cough, hemoptysis, orthopnea, SOB at rest, shortness of breath, SOB with excertion, stridor, wheezing, others Cardiovascular: denies: chest pain, dizzy spells, diaphoresis, Dyspnea on exertion, edema, irregular heart beat, left arm pain, lightheadedness, palpitations, PND, syncope, others Gastrointestinal: denies: abdomen distended, abdominal pain, blood streaked bowels, constipated, diarrhea, dysphagia, difficulty swallowing, hematemesis, melena, nausea, poor appetite, poor fluid intake, rectal bleeding, rectal pain, vomiting, others Genitourinary: denies: abnormal vagina bleeding, burning, dyspareunia, dysuria, flank pain, frequency, hematuria, incontinence, pain, , vagina d ischarge, urgency, others Neurological: denies: dizziness, fainting, headache, left sided numbness, left sided weakness, numbness, paresthesia, pre-existing deficit, right sided numbness, right sided weakness, seizure, speech problems, tingling, tremors, weakness, others Musculoskeletal: reports: back pain Integumetry: denies: bruises, change in color, change in hair/nails, dryness, laceration, lesions, lumps, rash, wounds, others Allergic/Immunocompromised: denies: Difficulty Healing, Frequent Infections, Hives, Itching, others Hematologic/Lymphatic: denies: anemia, blood clots, easy bleeding, easy bruising, swollen glands, others Endocrine: denies: excessive hunger, excessive sweating, excessive thirst, excessive urination, flushing, intolerance to cold, intolerance to heat, unexplained weight gain, unexplained weight loss, others Psychiatric: denies: anxiety, bipolar disorder, depression, hopeless, panic disorder, schizophrenia, sleepless, suicidal, others Physical Exam General Appearance: No Apparent Distress, Normal HEENT: Normal ENT Inspection, Pharynx Normal, TMs Normal Neck: Full Range of Motion, Non-Tender, Normal, Normal Inspection Respiratory: Chest Non-Tender, Lungs Clear, No Accessory Muscle Use, No Respiratory Distress, Normal Breath Sounds Cardiovascular: No Edema, No JVD, No Murmur, No Gallop, Normal Peripheral Pulses, Regular Rate/Rhythm Breast Exam: Deferred Gastrointestinal: No Organomegaly, Non Tender, No Pulsatile Mass, Normal Bowel Sounds, Soft Genitalia: Deferred Pelvic: Deferred Rectal: Deferred Extremities: No calf tenderness, Normal capillary refill, Normal inspection, Normal range of motion, Non-tender, No pedal edema Musculoskeletal : Extremity Location: Other (Lumbar: inspection WNL, Palpation: there is tendernes in lumbar area, ROM mildly limited due to pain. Normal gait. 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 Was a procedure done?: No Back Pain Differential Dx Differential Diagnosis: Musculoskeletal Pain, Other Other Differential Diagnosis #Chronic Arthritis #Lumbar spine stenosis #Lumbar polyradiculoneuropathy X-Ray, Labs, Meds, VS Vital Signs Date Time Temp Pulse Resp B/P (MAP) Pulse Ox O2 Delivery O2 Flow Rate FiO2 06/18/25 10:27 98.2 79 16 153/73 97 98.2 X-Ray, Labs, Meds, VS Comment The patient was reassessed. The patient reports chronic pain, gait is preserved. VS: wnl Tramadol 50mg po #1 was ordered. The patient reports improvement, she will follow up with pain management. Time of 1ST Reevaluation: 11:12 Reevaluation 1ST: Unchanged Patient Education/Counseling: Diagnosis, Treatment, Prognosis, Need For Follow Up Family Education/Counseling: Diagnosis, Treatment, Prognosis, Need For Follow Up SEPSIS Sepsis Screen Date sepsis recognized/suspect: Jun 18, 2025 Time Sepsis recognized/suspect: 1027 Recent Procedure: No Respiratory Rate >20: No Heart Rate >90: No Temp<36 C (96.8 F) or >38.3 C: No SBP <90 or MAP <65 mmHG: No New Acute Mental Status Change: No Is the patient on CPAP, BIPAP,: No Vital Signs Date Time Temp Pulse Resp B/P (MAP) Pulse Ox O2 Delivery O2 Flow Rate FiO2 06/18/25 10:27 98.2 79 16 153/73 97 98.2 Departure 1 Departure Time of Disposition: 12:10 Impression: Primary Impression: Lumbar radiculopathy Additional Impressions: Lumbar sprain Musculoskeletal pain Disposition: HOME / SELF CARE / HOMELESS Condition: Good Referrals F/U with pain management in 1 -2 days F/U with primary doctor in 1 -2 days Additional Instructions: Additional instructions: Please read all instructions provided in this packet carefully. You MUST follow-up with your primary care/family doctor in 1 to 2 days. If you are unable to see your primary care/family doctor, please return to our emergency room for re-assessment and re-evaluation in 1 to 2 days. Return to the emergency room here in our facility or to the nearest ER [facility] if your symptoms change or worsen. CONSULTATIONS: you MUST Follow-up for consultation as soon as possible with: -your specialist Pain Management doctor in 1-2 days. Warm compresses on the lumbar area. You MUST call the consultants office yourself to make an appointment. You may need to arrange that through your insurance and/or your primary/family doctor. If you are unable to see the beverage sales consultant in 1 to 2 days, you must return to our emergency room (or any other ER of your choice) for re-assessment and re-evaluat ion. Although you have been discharged from the Emergency Department, this does not mean that you have a "clean bill of health". No definitive diagnosis for your symptoms has been made today. It is possible that you are in the process of developing a serious illness. This is why you must return to the ED without fail if any new or worsening symptoms develop. Discharged With: Self Comments Goals of care discussed with the patient > 35 min. Discussed plan of care with Dr. Warner Code status: Full code PCP: Dr. LEDA WILLIS Plan discussed with: Patient, the patient agrees with the plan. Critical Care Note Critical Care Time?: No Stability Stability form required: No Heart Score Heart Score: Heart Score Response (Comments) Value History N/A 0 EKG N/A 0 Age N/A 0 Risk Factors N/A 0 Troponin N/A 0 Total 0 MASSIEL ONEAL RESIDENT Jun 18, 2025 11:13
[2025-06-18 12:13] VITALS: BP 134/69; PULSE 77; RESP 16; O2SAT 98
== END 2025-06-18 12:15 | disposition home or self-care (01) ==
LOC: ER 10:25
DX: S33.5XXA Sprain of ligaments of lumbar spine, initial encounter (principal); M54.16 Radiculopathy, lumbar region; M79.18 Myalgia, other site; G89.29 Other chronic pain; I12.0 Hypertensive chronic kidney disease with stage 5 chronic kidney disease or end stage renal disease; E11.22 Type 2 diabetes mellitus with diabetic chronic kidney disease; N18.6 End stage renal disease; Z90.710 Acquired absence of both cervix and uterus; Z98.890 Other specified postprocedural states; Z79.899 Other long term (current) drug therapy; Z88.0 Allergy status to penicillin; X58.XXXA Exposure to other specified factors, initial encounter; Y93.89 Activity, other specified; Y92.89 Other specified places as the place of occurrence of the external cause; Y99.8 Other external cause status

== ENCOUNTER 2025-07-05 06:18 | Inpatient (IN) | payer OTHER, MEDICAID ==
[~2025-07-05] VITALS: Ht 152.4 cm; Wt 56.8 kg
--- NOTE | 2025-07-05 06:59 | ED.PDOC ---
History of Present Illness HPI Comments This is a 75 year-old female, with a PMHx of CKF, DM, HTN, and Hyperlipidemia, who presents to the ED via wheelchair with a chief complaint of constant dizziness, back pain, and L shoulder pressure for days. Patient reports taking tramadol with no relief. Patient is on dialysis, M, W, F, and reports being told she has high potassium levels. Patient has no further complaints at this time and otherwise denies chest pain, migraine, palpitations, slurred speech, N/V/D, fever, or chills. Chief Complaint: Dizziness Time Seen by MD: 06:36 Primary Care Provider: TRINI Reviewed Notes: Medications, Allergies Allergies: Coded Allergies: Penicillins (Verified Allergy, Unknown, 06/14/22) Home Meds Active Scripts Tramadol Hcl (Tramadol Hcl) 50 Mg Tab, 50 MG PO BID for 5 Days, #10 TAB Prov:SUSSY GARDUNO MD 04/30/25 Reported Medications Metoprolol Succinate (Metoprolol Succinate Er) 50 Mg Tab, 1 TAB PO DAILY for 90 Days, #90 05/20/25 Fluticasone Propionate (Nasal) (Fluticasone Propionate) 50 Mcg/Act Spr, 1 SPRAY TARA UD for 90 Days, #48 05/20/25 Clonidine Hydrochloride (Clonidine Hcl) 0.1 Mg Tab, 1 TAB PO BID for 90 Days, #1 80 05/20/25 Triamcinolone Acetonide (Kenalog) 1 Applic Ap, 1 APPLIC TOP PRN for 30 Days, #30 05/20/25 Hydralazine Hcl (Hydralazine Hcl) 50 Mg Tab, 1 TAB PO QID for 30 Days, #120 05/20/25 Apixaban Base (ELIQUIS) 2.5 Mg Tab, 1 TAB PO BID for 90 Days, #180 05/19/25 Omeprazole (Omeprazole Dr) 40 Mg Cap, 1 CAP PO DAILY for 90 Days, #90 05/19/25 Ondansetron HCl (Ondansetron Hydrochloride) 4 Mg Tab, 1 TAB PO Q8HPRN PRN for FOR STOMACH DISTRESS for 20 Days, #60 05/19/25 Memantine Hydrochloride (Memantine HCl) 10 Mg Tab, 1 TAB PO BID for 90 Days, #180 05/19/25 Donepezil Hydrochloride (DONEPEZIL HCL) 10 Mg Tab, 1 TAB PO HS for 90 Days, #90 05/19/25 Levothyroxine Sodium (Levothyroxine Sodium) 25 Mcg Tab, 1 TAB PO QAM for disorder of thyroid gland 01/01/25 B-Complex W/ C & Folic Acid (Shannan-Agnieszka Rx) Tab, 1 TAB PO DAILY for 30 Days, #30 12/19/23 Diltiazem Hcl (DILTIAZEM HCL ER) 240 Mg Cap, 1 CAP PO DAILY, #30 CAP 5 Refills 08/04/17 Atorvastatin Calcium (ATORVASTATIN CALCIUM) 40 Mg Tab, 1 TAB PO HS, #30 TAB 5 Refills 08/04/17 Information Source: Patient Mode of Arrival: Wheelchair Severity: Moderate Timing: Days Duration: Since onset Prehospital treatment: None Associated signs and symptoms Dizziness, Back Pain, L shoulder pressure Past Medical History PAST MEDICAL HISTORY: CKF, DM, ESRD, High Lipids, HTN, Thyroid Surgical History: Hernia Repair, 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 History: Denies all TEACHER CITIZENSHIP Hx Family History Family History: Reviewed,noncontributory to illness, Unknown Social History Smoker: Non-Smoker Alcohol: Denies ETOH Use Drugs: Denies Drug Use Lives In: Home Constitutional: denies: chills, diaphoresis, fatigue, fever, malaise, sweats, weakness, others EENTM: denies: blurred vision, double vision, ear bleeding, ear discharge, ear drainage, ear pain, ear ringing, eye pain, eye redness, hearing loss, mouth pain, mouth swelling, nasal discharge, nose bleeding, nose congestion, nose pain, photophobia, tearing, throat pain, throat swelling, voice changes, others Respiratory: denies: cough, hemoptysis, orthopnea, SOB at rest, shortness of breath, SOB with excertion, stridor, wheezing, others Cardiovascular: denies: chest pain, dizzy spells, diaphoresis, Dyspnea on exertion, edema, irregular heart beat, left arm pain, lightheadedness, palpitations, PND, syncope, others Gastrointestinal: denies: abdomen distended, abdominal pain, blood streaked bowels, constipated, diarrhea, dysphagia, difficulty swallowing, hematemesis, melena, nausea, poor appetite, poor fluid intake, rectal bleeding, rectal pain, vomiting, others Genitourinary: denies: abnormal vagina bleeding, burning, dyspareunia, dysuria, flank pain, frequency, hematuria, incontinence, pain, , vagina discharge, urgency, others Neurological: reports: dizziness; denies: fainting, headache, left sided numbness, left sided weakness, numbness, paresthesia, pre-existing deficit, right sided numbness, right sided weakness, seizure, speech problems, tingling, tremors, weakness, others Musculoskeletal: reports: back pain, others (L Shoulder Pressure ); denies: gout, joint pain, joint swelling, muscle pain, muscle stiffness, neck pain Integumetry: denies: bruises, change in color, change in hair/nails, dryness, laceration, lesions, lumps, rash, wounds, others Allergic/Immunocompromised: denies: Difficulty Healing, Frequent Infections, Hives, Itching, others Hematologic/Lymphatic: denies: anemia, blood clots, easy bleeding, easy bruising, swollen glands, others Endocrine: denies: excessive hunger, excessive sweating, excessive thirst, excessive urination, flushing, intolerance to cold, intolerance to heat, unexplained weight gain, unexplained weight loss, others Psychiatric: denies: anxiety, bipolar disorder, depression, hopeless, panic disorder, schizophrenia, sleepless, suicidal, others All Other Systems: Reviewed and Negative Physical Exam General Appearance: Moderate Distress HEENT: Normal ENT Inspection, Pharynx Normal, TMs Normal Neck: Full Range of Motion, Non-Tender, Normal, Normal Inspection Respiratory: Chest Non-Tender, Lungs Clear, No Accessory Muscle Use, No Respiratory Distress, Normal Breath Sounds Cardiovascular: No Edema, No JVD, No Murmur, No Gallop, Normal Peripheral Pulses, Regular Rate/Rhythm Breast Exam: Deferred Gastrointestinal: No Organomegaly, Non Tender, No Pulsatile Mass, Normal Bowel Sounds, Soft Genitalia: Deferred Pelvic: Deferred Rectal: Deferred Extremities: No calf tenderness, Normal capillary refill, Normal inspection, Normal range of motion, Non-tender, No pedal edema Musculoskeletal : Apperance: Normal Neurologic: Alert, engineering faculty member II-XII nml as Tested, No Motor Deficits, Normal Affect, Normal Mood, No Sensory Deficits Cerebellar Function: Normal Reflexes: Normal Skin: Dry, Normal Color, Warm Peripheral Pulses: 3+ Radial (R), 3+ Radial (L) Lymphatic: No Adenopathy Was a procedure done? Was a procedure done?: No Differential Dx Considerations may include: Autonomic disorder Electrolyte imbalance X-Ray, Labs, Meds, VS Vital Signs Date Time Temp Pulse Resp B/P (MAP) Pulse Ox O2 Delivery O2 Flow Rate FiO2 07/05/25 06:21 98.1 75 20 163/87 98 98.1 Lab Test 07/05/25 07:44 07/05/25 06:54 Range/Units Urine Color Light-yellow Yellow Urine Clarity Clear Clear Urine pH 8.5 5.0-9.0 Urine Specific [place] 1.008 1.001-1.035 Urine Protein 2+ H Negative Urine Ketones Negative Negative Urine Blood Trace H Negative /uL Urine Nitrite Negative Negative Urine Bilirubin Negative Negative Urine Urobilinogen Normal Negative mg/dL Urine Leukocyte Esterase 2+ Negative /uL Urine RBC 3 0 - 4 /hpf Urine Microscopic WBC 13 H 0-5 /HPF Urine Squamous Epithelial Cells Few <5 /hpf Urine Bacteria Few H None Seen /hpf Urine Glucose 1+ H Normal mg/dL White Blood Count 8.6 4.4-10.8 10^3/uL Red Blood Count 4.17 4.0-5.20 10^6/uL Hemoglobin 10.5 L 12.2-16.2 g/dL Hematocrit 33.6 L 36.0-46.0 % Mean Corpuscular Volume 80.7 80.0-100.0 fL Mean Corpuscular Hemoglobin 25.2 L 28.0-32.0 pg Mean Corpuscular Hemoglobin Concent 31.2 L 32.0-36.0 g/dL Red Cell Distribution Width 19.5 H 11.8-14.3 % Platelet Count 242 140-450 10^3/uL Mean Platelet Volume 7.8 6.9-10.8 fL Neutrophils (%) (Auto) 79.3 37.0-80.0 % Lymphocytes (%) (Auto) 8.8 L 10.0-50.0 % Monocytes (%) (Auto) 8.4 0.0-12.0 % Eosinophils (%) (Auto) 3.0 0.0-7.0 % Basophils (%) (Auto) 0.5 0.0-2.0 % Neutrophils # (Auto) 6.8 1.6-8.6 10 ^3/uL Lymphocytes # (Auto) 0.8 0.4-5.4 10 ^3/uL Monocytes # (Auto) 0.7 0-1.3 10 ^3/uL Eosinophils # (Auto) 0.3 0-0.8 10 ^3/uL Basophils # (Auto) 0 0-0.2 10 ^3/uL Nucleated Red Blood Cells 0.0 % Sodium Level 137 136-145 mmol/L Potassium Level 4.0 3.5-5.1 mmol/L Chloride Level 95 L 98-107 mmol/L Carbon Dioxide Level 25 20-31 mmol/L Anion Gap 17 H 5-15 Blood Urea Nitrogen 46 H 9-23 mg/dL Creatinine 6.60 H 0.550-1.02 mg/dL Glomerular Filtration Rate Calc 6 >90 mL/min BUN/Creatinine Ratio 7.0 L 10.0-20.0 Serum Glucose 81 74-106 mg/dL Hemoglobin A1c < 3.8 <5.7 % A1C Calcium Level 8.7 8.7-10.4 mg/dL Troponin I High Sensitivity 21 </=34 ng/L [place] [address] Ph: [phone] DIAGNOSTIC IMAGING Diagnostic Imaging Report : [id number] Signed PATIENT: JOSE DANIEL ZAFARCCT: [id number] UNIT: [id number] : 1950 LOC: ER ROOM / BED: / AGE / SEX: 75 / F ADM STATUS: REG ER SERVICE [id number] ORDERING PHYSICIAN: SUSSY GARDUNO MD PROCEDURE(s): HWOCT - HEAD WITHOUT CONTRAST REASON: dizzy ORDER NUMBER(s): [id number], ACCESSION NUMBER(s): [id number] EXAM: CT HEAD WITHOUT CONTRAST INDICATION: Dizzy TECHNIQUE: CT of the head without intravenous contrast. Coronal and sagittal reformatted images are submitted. Radiation Dose : 1. Head: CT Dose: CTDI volume is 50.1 mGy. Dose-length product is 801.9 mGy*cm The dose indicators for CT are the volume Computed Tomography (CT) Dose Index (CTDIvol) and the Dose Length Product (DLP), and are measured in units of mGy a nd mGy-cm, respectively. These indicators are not patient dose, but values generated from the CT scanner acquisition factors. The report includes radiation exposure data for exposures received during this examination. All CT scans at this medical facility are performed using dose modulation techniques as appropriate to a performed exam including the following: Automated exposure c ontrol was utilized; adjustment of the MA and/or KV according to patient size; and use of iterative reconstruction technique. COMPARISON: CT HEAD WITHOUT CONTRAST on DOS: 01/10/24 FINDINGS: There is no evidence of acute intracranial hemorrhage, extra-axial collection, mass effect, midline shift, herniation or hydrocephalus. The ventricles, sulci and cisterns are age appropriate. The holman-white differentiation is intact. The visualized paranasal sinuses and mastoid air cells are clear. No depressed calvarial fracture. The surrounding soft tissues are unremarkable. IMPRESSION: 1. No evidence of acute intracranial abnormality. [place] [address] Ph: [phone] DIAGNOSTIC IMAGING Diagnostic Imaging Report : [id number] Signed PATIENT: JOSE DANIEL ZAFART: [id number] UNIT: [id number] : 1950 LOC: ER ROOM / BED: / AGE / SEX: 75 / F ADM STATUS: REG ER SERVICE 0639 ORDERING PHYSICIAN: SUSSY GARDUNO MD PROCEDURE(s): CXRP - CHEST PORTABLE REASON: sob ORDER NUMBER(s): [id number], ACCESSION NUMBER(s): [id number] CHEST RADIOGRAPH Indication: sob Technique: Single frontal view of the chest was obtained Comparison: XY CHEST PORTABLE on DOS: 05/19/25. FINDINGS: Lines and Tubes: None Lungs: No focal consolidation. Pleura: No effusion. No pneumothorax. Cardiomediastinal contours: Unremarkable Bones: No acute osseous abnormality. IMPRESSION: 1. No acute cardiopulmonary disease. Patient alert. Complaining of dizziness. Chronic back pain. Vitals stable. Answering all questions. EKG reviewed does not show any acute changes. CT of the head reviewed does not show any acute process. Chest x-ray reviewed does not show any acute process. Explained to the patient. Continue monitoring. Time of 1ST Reevaluation: 07:38 Reevaluation 1ST: Unchanged Patient Education/Counseling: Diagnosis, Treatment Family Education/Counseling: Diagnosis, Treatment SEPSIS Sepsis Screen Date sepsis recognized/suspect: Jul 05, 2025 Time Sepsis recognized/suspect: 624 Recent Procedure: No On Antibiotic Therapy: No Respiratory Rate >20: No Heart Rate >90: No Temp<36 C (96.8 F) or >38.3 C: No SBP <90 or MAP <65 mmHG: No New Acute Mental Status Change: No Is the patient on CPAP, BIPAP,: No Physician Orders Chest Portable (07/05/25 06:39) Head Without Contrast (07/05/25 06:40) Vital Signs Date Time Temp Pulse Resp B/P (MAP) Pulse Ox O2 Delivery O2 Flow Rate FiO2 07/05/25 06:21 98.1 75 20 163/87 98 98.1 Laboratory Tests Test 07/05/25 06:54 White Blood Count 8.6 10^3/uL (4.4-10.8) Departure 1 Departure Time of Disposition: 08:00 Impression: Primary Impression: TIA (transient ischemic attack) Additional Impressions: ESRD on dialysis Autonomic disorder Disposition: ADMITTED INPATIENT Admit to: Med Surg Condition: Guarded Critical Care Note Critical Care Time?: Yes (90 min-critical care time only) Stability Stability form required: No Heart Score Heart Score: Heart Score Response (Comments) Value History N/A 0 EKG N/A 0 Age N/A 0 Risk Factors N/A 0 Troponin N/A 0 Total 0 I personally scribed for SUSSY GARDUNO MD ([email or web address]) on 07/05/25 at 06:59. Electronically submitted by Cailin CauseyTroppin). I personally scribed for SUSSY GARDUNO MD (PRAFUL) on 07/05/25 at 07:33. Electronically submitted by Cailin Zeng (Troppin). I personally scribed for SUSSY GARDUNO MD (PRAFUL) on 07/05/25 at 07:50. Electronically submitted by Cailin Zeng (Troppin). I personally scribed for SUSSY GARDUNO MD (PRAFUL) on 07/05/25 at 17:06. Electronically submitted by Cailin Zeng (Troppin). SUSSY GARDUNO MD Jul 05, 2025 06:59
[2025-07-05 07:13] LABS: Hemoglobin 10.5 g/dL (12.2-16.2); Nucleated Red Blood Cells % 0.0 %
[2025-07-05 07:14] LABS: Hematocrit 33.6 % (36.0-46.0); Mean Corpuscular Hemoglobin 25.2 pg (28.0-32.0); Mean Corpuscular Volume 80.7 fL (80.0-100.0)
[2025-07-05 07:23] LABS: Potassium 4.0 mmol/L (3.5-5.1); Sodium 137 mmol/L (136-145)
[2025-07-05 07:24] LABS: Anion Gap 17 (5-15); Carbon Dioxide 25 mmol/L (20-31)
[2025-07-05 07:26] LABS: Calcium 8.7 mg/dL (8.7-10.4); Chloride 95 mmol/L (98-107)
--- NOTE | 2025-07-05 07:28 | DVH ---
EXAM: CT HEAD WITHOUT CONTRAST INDICATION: Dizzy TECHNIQUE: CT of the head without intravenous contrast. Coronal and sagittal reformatted images are s ubmitted. Radiation Dose : 1. Head: CT Dose: CTDI volume is 50.1 mGy. Dose-length product is 801.9 mGy*cm The dose indicators for CT are the volume Computed Tomography (CT) Dose Index (CTDIvol) and the Dose Length Product (DLP), and are measured in units of mGy and mGy-cm, respectively. These indicators are not patient dose, but values generated from the CT scanner acquisition factors. The report includes radiation exposure data for exposures received during this examination. All CT scans at this medical facility are performed using dose modulation techniques as appropriate to a performed exam including the following: Automated exposure control was utilized; adjustment of the MA and/or KV according to patient size; and use of iterative reconstruction technique. COMPARISON: CT HEAD WITHOUT CONTRAST on DOS: 01/10/24 FINDINGS: There is no evidence of acute intracranial hemorrhage, extra-axial collection, mass effect, midline s hift, herniation or hydrocephalus. The ventricles, sulci and cisterns are age appropriate. The holman-white differentiation is intact. The visualized paranasal sinuses and mastoid air cells are clear. No depressed calvarial fracture. The surrounding soft tissues are unremarkable. IMPRESSION: 1. No evidence of acute intracranial abnormality.
[2025-07-05 07:29] LABS: BUN/Creatinine Ratio 7.0 (10.0-20.0); Glucose 81 mg/dL (74-106)
[2025-07-05 07:30] LABS: Blood Urea Nitrogen 46 mg/dL (9-23)
--- NOTE | 2025-07-05 07:33 | DVH ---
CHEST RADIOGRAPH Indication: sob Technique: Single frontal view of the chest was obtained Comparison: XY CHEST PORTABLE on DOS: 05/19/25. FINDINGS: Lines and Tubes: None Lungs: No focal consolidation. Pleura: No effusion. No pneumothorax. Cardiomediastinal contours: Unremarkable Bones: No acute osseous abnormality. IMPRESSION: 1. No acute cardiopulmonary disease.
[2025-07-05 08:19] LABS: Urine Protein, UAD 2+ (Negative)
[2025-07-05] MEDS ORDERED: ACETAMINOPHEN 325 MG TAB PO PRN (08:45)
[2025-07-05] MEDS ORDERED: ONDANSETRON HCL 4 MG/2 ML VIAL IV PRN (08:45)
--- NOTE | 2025-07-05 08:56 | DVHHP2 ---
History of Present Illness Reason for Visit: Dizziness, back pain, and left shoulder pressure History of Present Illness Anette Chiu is a 75-year-old female with past medical history of kidney cyst removal, hernia repair, hysterectomy, thyroid node removal, diabetes, hypertension, hyperlipidemia, and ESRD on HD (M/W/F) who presents to the ED with dizziness, back pain, and left shoulder pressure for since 01/09 this morning. Patient reports that the pain is 9 "pain" and constant in nature. Patient reports that she was sitting in bed and suddenly became dizzy. She also reports that she has been compliant with her dialysis. Also reports that she was smoking in the past but no longer. Patient also reports that she was taking antibiotics before. She also states that she does not have diabetes. Patient denies any recent trauma or injury, recent sick contacts, recent travels, recent ingestion of spoiled food, chest pain, shortness of breath, fever, chills, lightheadedness, weakness, abdominal pain, nausea, vomiting, or diarrhea. Cardiovascular: HTN, hyperipidemia Renal/: Chronic renal failure Endocrine: Diabetes Past Surgical History: Hysterectomy, Hernia Repair, Other (Kidney cyst removal and thyroid node removal) Family History: Cancer, DM, Hypertension, Other (Mom with hypertension and liver cancer. Dad with diabetes and hypertension.) Smoke: Quit ALCOHOL: none Drugs: None Lives: with Family Domestic Violence: Neg Review of Systems Constitutional: Yes: Other (Dizziness) Musculoskeletal: shoulder pain (Left), back pain Allergies: Coded Allergies: Insulin (Verified Allergy, Unknown, 12/31/24) Penicillins (Verified Allergy, Unknown, 06/14/22) Exam Vital Signs Vital Signs Date Time Temp Pulse Resp B/P (MAP) Pulse Ox O2 Delivery O2 Flow Rate FiO2 07/05/25 06:21 98.1 75 20 163/87 98 98.1 General Appearance: Alert, Oriented X3, Cooperative, No acute distress HEENT: Atraumatic, PERRLA, EOMI, Mucous membr. moist/pink Respiratory: Clear to auscultation, Normal air movement Cardiovascular: Regular rate, Normal S1, Normal S2, No murmurs Abdominal: Normal bowel sounds, Soft Extremities: Normal pulses Neuro: Normal gait, Normal speech, Strength at 5/5 X4 ext, Normal tone, Sensation intact Psych/Mental Status: Mental status NL, Mood NL Labs/Xrays Labs Test 07/05/25 07:44 07/05/25 06:54 Range/Units Urine Color Light-yellow Yellow Urine Clarity Clear Clear Urine pH 8.5 5.0-9.0 Urine Specific [place] 1.008 1.001-1.035 Urine Protein 2+ H Negative Urine Ketones Negative Negative Urine Blood Trace H Negative /uL Urine Nitrite Negative Negative Urine Bilirubin Negative Negative Urine Urobilinogen Normal Negative mg/dL Urine Leukocyte Esterase 2+ Negative /uL Urine RBC 3 0 - 4 /hpf Urine Microscopic WBC 13 H 0-5 /HPF Urine Squamous Epithelial Cells Few <5 /hpf Urine Bacteria Few H None Seen /hpf Urine Glucose 1+ H Normal mg/dL White Blood Count 8.6 4.4-10.8 10^3/uL Red Blood Count 4.17 4.0-5.20 10^6/uL Hemoglobin 10.5 L 12.2-16.2 g/dL Hematocrit 33.6 L 36.0-46.0 % Mean Corpuscular Volume 80.7 80.0-100.0 fL Mean Corpuscular Hemoglobin 25.2 L 28.0-32.0 pg Mean Corpuscular Hemoglobin Concent 31.2 L 32.0-36.0 g/dL Red Cell Distribution Width 19.5 H 11.8-14.3 % Platelet Count 242 140-450 10^3/uL Mean Platelet Volume 7.8 6.9-10.8 fL Neutrophils (%) (Auto) 79.3 37.0-80.0 % Lymphocytes (%) (Auto) 8.8 L 10.0-50.0 % Monocytes (%) (Auto) 8.4 0.0-12.0 % Eosinophils (%) (Auto) 3.0 0.0-7.0 % Basophils (%) (Auto) 0.5 0.0-2.0 % Neutrophils # (Auto) 6.8 1.6-8.6 10 ^3/uL Lymphocytes # (Auto) 0.8 0.4-5.4 10 ^3/uL Monocytes # (Auto) 0.7 0-1.3 10 ^3/uL Eosinophils # (Auto) 0.3 0-0.8 10 ^3/uL Basophils # (Auto) 0 0-0.2 10 ^3/uL Nucleated Red Blood Cells 0.0 % Sodium Level 137 136-145 mmol/L Potassium Level 4.0 3.5-5.1 mmol/L Chloride Level 95 L 98-107 mmol/L Carbon Dioxide Level 25 20-31 mmol/L Anion Gap 17 H 5-15 Blood Urea Nitrogen 46 H 9-23 mg/dL Creatinine 6.60 H 0.550-1.02 mg/dL Glomerular Filtration Rate Calc 6 >90 mL/min BUN/Creatinine Ratio 7.0 L 10.0-20.0 Serum Glucose 81 74-106 mg/dL Calcium Level 8.7 8.7-10.4 mg/dL Troponin I High Sensitivity 21 </=34 ng/L SEPSIS Sepsis Screen Date sepsis recognized/suspect: Jul 05, 2025 Time Sepsis recognized/suspect: 624 Recent Procedure: No On Antibiotic Therapy: No Respiratory Rate >20: No Heart Rate >90: No Temp<36 C (96.8 F) or >38.3 C: No SBP <90 or MAP <65 mmHG: No New Acute Mental Status Change: No Is the patient on CPAP, BIPAP,: No Physician Orders Chest Portable (07/05/25 06:39) Head Without Contrast (07/05/25 06:40) Vital Signs Date Time Temp Pulse Resp B/P (MAP) Pulse Ox O2 Delivery O2 Flow Rate FiO2 07/05/25 06:21 98.1 75 20 163/87 98 98.1 Laboratory Tests Test 07/05/25 06:54 White Blood Count 8.6 10^3/uL (4.4-10.8) Assessment/Plan Assessment/Plan Assessment Autonomic imbalance UTI Normocytic anemia ESRD on HD (M/W/F) with left upper arm fistula History of diabetes History of hypertension History of hyperlipidemia History of tobacco use History of kidney cyst removal History of hernia repair History of hysterectomy History of thyroid node removal Plan Admit to med surge Antiemetics Pain management IV antibiotics-ceftriaxone UA CT head noted Chest x-ray Troponin noted Hemoglobin A1c ISS and Accu-Cheks Diet Home medications reconciled DVT prophylaxis-SCDs PUD prophylaxis-PPIs Nephrology consult for HD Counseled patient on continued cessation of tobacco use [id number] Behavior change smoking greater than 10 minutes about use of other options also gave option of nicotine patch [id number] Preventive counseling healthy eating habits, physical activity, and regular checkups Plan discussed with: Patient Date of Service: Jul 05, 2025 Billing Provider: ALBINA MENCHACA Common Visit Codes: [id number] INP/OBS CARE (HIGH) Secondary Visit Codes: [id number] COUNSELING IND, [id number] CHNG SMOKING >10MIN ALBINA MENCHACA Jul 05, 2025 08:56
[2025-07-05] MEDS ORDERED: DEXTROSE (50%) 50ML SYRG IV PRN (09:00)
[2025-07-05 09:38] VITALS: BP 147/70; PULSE 72; RESP 18; TEMP 98.4; O2SAT 97
[2025-07-05] MEDS ORDERED: PATIENTS OWN MEDICATION (Memantine Hydrochloride (Memantine HCl) 1 TAB) PO SCH (10:00)
[2025-07-05] MEDS: METOPROLOL SUCCINATE XL 50 MG TAB PO SCH (10:00)
[2025-07-05] MEDS: dilTIAZem 120MG ER CAP PO SCH (10:00)
[2025-07-05] MEDS ORDERED: PATIENTS OWN MEDICATION (Omeprazole (Omeprazole Dr) 1 CAP) PO SCH (10:00)
[2025-07-05] MEDS ORDERED: PATIENTS OWN MEDICATION (Diltiazem Hcl (Diltiazem Hcl Er) 1 CAP) PO SCH (10:00)
--- NOTE | 2025-07-05 11:04 | DVHINCON2 ---
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 Admitted for further workup and evaluation. Nephrology consulted for continuation of dialysis. Last dialysis was on Tuesday. Denies any shortness of breath Past Medical History As stated above Past Surgical History Hysterectomy, Hernia Repair, Other (Kidney cyst removal and thyroid node removal) Family History: Diabetes mellitus G8 FATHER, FH polycystic kidney 19 CHILD FH: cancer G8 MOTHER, Hypertension G8 MOTHER, G8 FATHER, Social History no active history of smoking or drug abuse . Does use alcohol regularly Allergies: Coded Allergies: Insulin (Verified Allergy, Unknown, 12/31/24) Penicillins (Verified Allergy, Unknown, 06/14/22) Home Meds Active Scripts Tramadol Hcl (Tramadol Hcl) 50 Mg Tab, 50 MG PO BID for 5 Days, #10 TAB Prov:SUSSY GARDUNO MD 04/30/25 Reported Medications Metoprolol Succinate (Metoprolol Succinate Er) 50 Mg Tab, 1 TAB PO DAILY for 90 Days, #90 05/20/25 Fluticasone Propionate (Nasal) (Fluticasone Propionate) 50 Mcg/Act Spr, 1 SPRAY TARA UD for 90 Days, #48 05/20/25 Clonidine Hydrochloride (Clonidine Hcl) 0.1 Mg Tab, 1 TAB PO BID for 90 Days, #180 05/20/25 Triamcinolone Acetonide (Kenalog) 1 Applic Ap, 1 APPLIC TOP PRN for 30 Days, #30 05/20/25 Hydralazine Hcl (Hydralazine Hcl) 50 Mg Tab, 1 TAB PO QID for 30 Days, #120 05/20/25 Apixaban Base (ELIQUIS) 2.5 Mg Tab, 1 TAB PO BID for 90 Days, #180 05/19/25 Omeprazole (Omeprazole Dr) 40 Mg Cap, 1 CAP PO DAILY for 90 Days, #90 05/19/25 Ondansetron HCl (Ondansetron Hydrochloride) 4 Mg Tab, 1 TAB PO Q8HPRN PRN for FOR STOMACH DISTRESS for 20 Days, #60 05/19/25 Memantine Hydrochloride (Memantine HCl) 10 Mg Tab, 1 TAB PO BID for 90 Days, #180 05/19/25 Donepezil Hydrochloride (DONEPEZIL HCL) 10 Mg Tab, 1 TAB PO HS for 90 Days, #90 05/19/25 Levothyroxine Sodium (Levothyroxine Sodium) 25 Mcg Tab, 1 TAB PO QAM for disorder of thyroid gland 01/01/25 B-Complex W/ C & Folic Acid (Shannan-Agnieszka Rx) Tab, 1 TAB PO DAILY for 30 Days, #30 12/19/23 Diltiazem Hcl (DILTIAZEM HCL ER) 240 Mg Cap, 1 CAP PO DAILY, #30 CAP 5 Refills 08/04/17 Atorvastatin Calcium (ATORVASTATIN CALCIUM) 40 Mg Tab, 1 TAB PO HS, #30 TAB 5 Refills 08/04/17 Current Medications Current Medications Medications (Trade) Dose Ordered Sig/Geo Route PRN Reason Start Time Stop Time Status Last Admin Ceftriaxone Sodium 50 ml @ 100 mls/hr DAILY@09 IV 07/05/25 08:45 Hold Ondansetron HCl (Zofran) 4 mg Q4HP PRN IV NAUSEA / VOMITING 07/05/25 08:45 Acetaminophen (Tylenol Tablet) 650 mg Q6HP PRN PO PAIN SCALE 1-3 OR TEMP>100.4 07/05/25 08:45 Apixaban (Eliquis) 2.5 mg BID PO 07/05/25 10:00 Multivit/Ca Carb/ B Cmplx/FA/Prenat (Nephro-Agnieszka Tablet) 1 tab DAILY PO 07/05/25 10:00 Clonidine HCl (Catapres Tablet) 0.1 mg BID PO 07/05/25 10:00 Levothyroxine Sodium (Synthroid Tablet) 25 mcg QAM PO 07/06/25 07:00 Metoprolol Succinate (Toprol Xl) 50 mg DAILY PO 07/05/25 10:00 Patient Own Medication 1 tab HS PO 07/05/25 22:00 UNV Patient Own Medication 1 cap DAILY PO 07/05/25 10:00 UNV Patient Own Medication 1 tab HS PO 07/05/25 22:00 UNV Patient Own Medication 1 tab QID PO 07/05/25 12:00 UNV Patient Own Medication 1 tab BID PO 07/05/25 10:00 UNV Patient Own Medication 1 cap DAILY PO 07/05/25 10:00 UNV Atorvastatin Calcium (Lipitor) 40 mg HS PO 07/05/25 22:00 Diagnostic Test (Pha) (Accu-Chek Comfort Curve T) 1 strip ACHS 07/05/25 11:30 Insulin Human Regular (InsuLIN R) ACHS SC 07/05/25 11:30 Dextrose 50 ml UD PRN IV Blood Sugar LESS THAN 60 07/05/25 09:00 Diltiazem HCl (Cardizem ER Capsule) 240 mg DAILY PO 07/05/25 10:00 Donepezil HCl (Aricept Tablet) 10 mg HS PO 07/05/25 22:00 Hydralazine HCl (Apresoline Tablet) 50 mg QID PO 07/05/25 12:00 Memantine (Namenda Tablet) 10 mg BID PO 07/05/25 10:00 Pantoprazole Sodium (Protonix Tablet) 40 mg DAILY PO 07/05/25 10:00 Review of Systems 12 point ROS negative except as stated in HPI Vital Signs Vital Signs Date Time Temp Pulse Resp B/P (MAP) Pulse Ox O2 Delivery O2 Flow Rate FiO2 07/05/25 09:38 98.4 72 18 147/70 (95) 97 98.4 07/05/25 08:36 Room Air Physical Exam General Appearance: Alert, Oriented X3, Cooperative, No acute distress HEENT: Atraumatic, PERRLA, EOMI Respiratory: Clear to auscultation, Normal air movement Cardiovascular: Regular rate and rhythm. Systolic murmur present. Abdominal: Normal bowel sounds, Soft Extremities: Normal pulses Neuro: No focal deficits. Labs/Diagnostic Data Labs Test 07/05/25 07:44 07/05/25 06:54 Range/Units Urine Color Light-yellow Yellow Urine Clarity Clear Clear Urine pH 8.5 5.0-9.0 Urine Specific [place] 1.008 1.001-1.035 Urine Protein 2+ H Negative Urine Ketones Negative Negative Urine Blood Trace H Negative /uL Urine Nitrite Negative Negative Urine Bilirubin Negative Negative Urine Urobilinogen Normal Negative mg/dL Urine Leukocyte Esterase 2+ Negative /uL Urine RBC 3 0 - 4 /hpf Urine Microscopic WBC 13 H 0-5 /HPF Urine Squamous Epithelial Cells Few <5 /hpf Urine Bacteria Few H None Seen /hpf Urine Glucose 1+ H Normal mg/dL White Blood Count 8.6 4.4-10.8 10^3/uL Red Blood Count 4.17 4.0-5.20 10^6/uL Hemoglobin 10.5 L 12.2-16.2 g/dL Hematocrit 33.6 L 36.0-46.0 % Mean Corpuscular Volume 80.7 80.0-100.0 fL Mean Corpuscular Hemoglobin 25.2 L 28.0-32.0 pg Mean Corpuscular Hemoglobin Concent 31.2 L 32.0-36.0 g/dL Red Cell Distribution Width 19.5 H 11.8-14.3 % Platelet Count 242 140-450 10^3/uL Mean Platelet Volume 7.8 6.9-10.8 fL Neutrophils (%) (Auto) 79.3 37.0-80.0 % Lymphocytes (%) (Auto) 8.8 L 10.0-50.0 % Monocytes (%) (Auto) 8.4 0.0-12.0 % Eosinophils (%) (Auto) 3.0 0.0-7.0 % Basophils (%) (Auto) 0.5 0.0-2.0 % Neutrophils # (Auto) 6.8 1.6-8.6 10 ^3/uL Lymphocytes # (Auto) 0.8 0.4-5.4 10 ^3/uL Monocytes # (Auto) 0.7 0-1.3 10 ^3/uL Eosinophils # (Auto) 0.3 0-0.8 10 ^3/uL Basophils # (Auto) 0 0-0.2 10 ^3/uL Nucleated Red Blood Cells 0.0 % Sodium Level 137 136-145 mmol/L Potassium Level 4.0 3.5-5.1 mmol/L Chloride Level 95 L 98-107 mmol/L Carbon Dioxide Level 25 20-31 mmol/L Anion Gap 17 H 5-15 Blood Urea Nitrogen 46 H 9-23 mg/dL Creatinine 6.60 H 0.550-1.02 mg/dL Glomerular Filtration Rate Calc 6 >90 mL/min BUN/Creatinine Ratio 7.0 L 10.0-20.0 Serum Glucose 81 74-106 mg/dL Hemoglobin A1c < 3.8 <5.7 % A1C Calcium Level 8.7 8.7-10.4 mg/dL Troponin I High Sensitivity 21 </=34 ng/L Assessment End-stage kidney disease on hemodialysis Dizziness Hypertension Hyperlipidemia Anemia in CKD Plan/Recommendation No evidence of fluid overload. Electrolytes within acceptable limits. Patient will be scheduled for dialysis tomorrow. Continue rest of plan of care as per primary. Plan discussed with: Patient FELICITY FOSTER MD Jul 05, 2025 11:04
[2025-07-05] MEDS: PANTOPRAZOLE 40 MG TAB PO SCH (11:24)
[2025-07-05] MEDS: B-COMPLEX W/ C & FOLIC ACID(NEPHROVITE TAB) PO SCH (11:24)
[2025-07-05] MEDS: APIXABAN 2.5 MG TAB PO SCH (11:25)
[2025-07-05] MEDS: MEMANTINE HCL 5 MG TAB PO SCH (11:25)
[2025-07-05] MEDS: InsuLIN REG 1unit/0.01ml Soln (100units/ml) SC SCH (11:30)
[2025-07-05] MEDS: ACCU-CHEK COMFORT CURVE STRIP VI SCH (11:43)
[2025-07-05] MEDS ORDERED: PATIENTS OWN MEDICATION (Hydralazine Hcl 1 TAB) PO SCH (12:00)
[2025-07-05 13:00] VITALS: BP 147/68; PULSE 72; RESP 17; TEMP 98.1; O2SAT 99
[2025-07-05 17:00] VITALS: BP 156/73; PULSE 72; RESP 18; TEMP 98.3; O2SAT 96
[2025-07-05 18:00] VITALS: BP 157/80; PULSE 72; RESP 18; TEMP 98.4; O2SAT 97
[2025-07-05 21:00] VITALS: BP 155/79; PULSE 77; RESP 18; TEMP 98; O2SAT 100
[2025-07-05] MEDS: ATORVASTATIN 20 MG TAB PO SCH (21:03)
[2025-07-05] MEDS: DONEPEZIL HYDROCHLORIDE 5 MG TAB PO SCH (21:04)
[2025-07-05] MEDS ORDERED: PATIENTS OWN MEDICATION (Atorvastatin Calcium 1 TAB) PO SCH (22:00)
[2025-07-05] MEDS ORDERED: PATIENTS OWN MEDICATION (Donepezil Hydrochloride (Donepezil Hcl) 1 TAB) PO SCH (22:00)
[2025-07-06] VITALS (7 sets, daily range): BP systolic 154–175; BP diastolic 79–89; PULSE 73–86; RESP 18–19; TEMP 97.5–98.3; O2SAT 95–99
[2025-07-06] MEDS: LEVOTHYROXINE SODIUM 25 MCG TAB PO SCH (06:31)
[2025-07-06] MEDS ORDERED: SODIUM CHL 0.9% 1000 ML BAG XX ONE (07:00)
[2025-07-06 07:21] LABS: Hematocrit 33.2 % (36.0-46.0); Hemoglobin 10.4 g/dL (12.2-16.2); Mean Corpuscular Hemoglobin 25.5 pg (28.0-32.0); Mean Corpuscular Volume 81.0 fL (80.0-100.0); Nucleated Red Blood Cells % 0.0 %
[2025-07-06 07:52] LABS: Anion Gap 17 (5-15); BUN/Creatinine Ratio 6.9 (10.0-20.0); Carbon Dioxide 24 mmol/L (20-31); Glucose 79 mg/dL (74-106); Potassium 4.4 mmol/L (3.5-5.1); Sodium 137 mmol/L (136-145)
[2025-07-06 07:53] LABS: Albumin 3.6 g/dL (3.2-4.8); Total Protein 6.4 g/dL (5.7-8.2)
[2025-07-06 07:54] LABS: Alanine Aminotransferase < 9 U/L (7-40); Alkaline Phosphatase 154 U/L (46-116); Bilirubin, Total < 0.2 mg/dL (0.2-1.0); Blood Urea Nitrogen 56 mg/dL (9-23); Calcium 8.2 mg/dL (8.7-10.4); Chloride 96 mmol/L (98-107)
[2025-07-06] MEDS ORDERED: LIDOCAINE HCL 5 % TOP OINT 35 GM TOP ONE (10:30)
--- NOTE | 2025-07-06 12:38 | DVHPN2 ---
Reviewed: Care Plan, H&P, Labs, Medications, Previous Orders, Radiology Changes from previous H/P or p: No Changes Musculoskeletal: shoulder pain (Left), back pain Objective Vitals Vital Signs Date Time Temp Pulse Resp B/P (MAP) Pulse Ox O2 Delivery O2 Flow Rate FiO2 07/06/25 10:00 76 172/76 07/06/25 09:00 97.9 19 97 97.9 07/06/25 08:00 Room Air* 0 21 Intake/Output Intake and Output 07/06/25 07:00 Intake Total 525 ml Balance 525 ml Intake Oral 525 ml # Voids 1 # Bowel Movements 1 Medications Current Medications Medications Dose Ordered Sig/Geo Route Start Time Stop Time Status Last Admin Dose Admin Ceftriaxone Sodium 50 ml @ 100 mls/hr DAILY@09 IV 07/05/25 08:45 Hold Ondansetron HCl 4 mg Q4HP PRN IV 07/05/25 08:45 Acetaminophen 650 mg Q6HP PRN PO 07/05/25 08:45 Apixaban 2.5 mg BID PO 07/05/25 10:00 07/06/25 10:08 2.5 MG Multivit/Ca Carb/ B Cmplx/FA/Prenat 1 tab DAILY PO 07/05/25 10:00 07/06/25 10:08 1 TAB Clonidine HCl 0.1 mg BID PO 07/05/25 10:00 07/05/25 21:04 0.1 MG Levothyroxine Sodium 25 mcg QAM PO 07/06/25 07:00 07/06/25 06:31 25 MCG Metoprolol Succinate 50 mg DAILY PO 07/05/25 10:00 Patient Own Medication 1 tab HS PO 07/05/25 22:00 UNV Patient Own Medication 1 cap DAILY PO 07/05/25 10:00 UNV Patient Own Medication 1 tab HS PO 07/05/25 22:00 UNV Patient Own Medication 1 tab QID PO 07/05/25 12:00 UNV Patient Own Medication 1 tab BID PO 07/05/25 10:00 UNV Patient Own Medication 1 cap DAILY PO 07/05/25 10:00 UNV Atorvastatin Calcium 40 mg HS PO 07/05/25 22:00 07/05/25 21:03 40 MG Diagnostic Test (Pha) 1 strip ACHS 07/05/25 11:30 07/06/25 11:30 1 STRIP Insulin Human Regular ACHS SC 07/05/25 11:30 Dextrose 50 ml UD PRN IV 07/05/25 09:00 Diltiazem HCl 240 mg DAILY PO 07/05/25 10:00 Donepezil HCl 10 mg HS PO 07/05/25 22:00 07/05/25 21:04 10 MG Hydralazine HCl 50 mg QID PO 07/05/25 12:00 07/06/25 06:32 50 MG Memantine 10 mg BID PO 07/05/25 10:00 07/06/25 10:08 10 MG Pantoprazole Sodium 40 mg DAILY PO 07/05/25 10:00 07/06/25 10:09 40 MG Laboratory Results Laboratory Tests 07/06/25 06:45 Chemistry Test 07/06/25 06:45 Albumin 3.6 g/dL (3.2-4.8) Calcium Level 8.2 mg/dL (8.7-10.4) L Total Protein 6.4 g/dL (5.7-8.2) LFT Test 07/06/25 06:45 Alanine Aminotransferase (ALT) < 9 U/L (7-40) Alkaline Phosphatase 154 U/L (46-116) H Aspartate Amino Transferase (AST) 11 U/L (13-40) L Total Bilirubin < 0.2 mg/dL (0.2-1.0) L Urinalysis Test 07/05/25 07:44 Urine Color Light-yellow (Yellow) Urine Clarity Clear (Clear) Urine pH 8.5 (5.0-9.0) Urine Specific [place] 1.008 (1.001-1.035) Urine Protein 2+ (Negative) H Urine Ketones Negative (Negative) Urine Blood Trace /uL (Negative) H Urine Nitrite Negative (Negative) Urine Bilirubin Negative (Negative) Urine Urobilinogen Normal mg/dL (Negative) Urine Leukocyte Esterase 2+ /uL (Negative) Urine RBC 3 /hpf (0 - 4) Urine Microscopic WBC 13 /HPF (0-5) H Urine Squamous Epithelial Cells Few /hpf (<5) Urine Bacteria Few /hpf (None Seen) H Urine Glucose 1+ mg/dL (Normal) H Labs and/or images reviewed: Labs reviewed by me, Image(s) reviewed by me Assessment/Plan Assessment/Plan End-stage kidney disease on hemodialysis consult by appreciated Dizziness Hypertension Hyperlipidemia Anemia in CKD AFib on Eliquis Dementia: Aricept Nemenda Chest x-ray no fluid overload CT head neg Continue current management Time Spent 70 minutes Advanced care planning time 20 minutes Patient is full code Plan discussed with: Patient Date of Service: Jul 06, 2025 Billing Provider: GERBER BRUCE MD Common Visit Codes: [id number] CARE 30-74 MIN GERBER BRUCE MD Jul 06, 2025 12:38
--- NOTE | 2025-07-06 16:52 | DVHPN2 ---
Progress Note - Dictate Date Seen: Jul 06, 2025 Medical Necessity Reason Pt with a Central, PICC or Fol: No Subjective underwent HD today vital signs Vital Sign Date Time Temp Pulse Resp B/P (MAP) Pulse Ox O2 Delivery O2 Flow Rate FiO2 07/06/25 16:43 98.3 73 18 174/82 (112) 97 98.3 07/06/25 08:00 Room Air* 0 21 Total Intake and Output 07/05/25 07/05/25 07/06/25 15:00 23:00 07:00 Intake Total 325 ml 200 ml Balance 325 ml 200 ml medications Current Medications Medications Dose Ordered Sig/Geo Route Start Time Stop Time Status Last Admin Dose Admin Ceftriaxone Sodium 50 ml @ 100 mls/hr DAILY@09 IV 07/05/25 08:45 Hold Ondansetron HCl 4 mg Q4HP PRN IV 07/05/25 08:45 Acetaminophen 650 mg Q6HP PRN PO 07/05/25 08:45 Apixaban 2.5 mg BID PO 07/05/25 10:00 07/06/25 10:08 2.5 MG Multivit/Ca Carb/ B Cmplx/FA/Prenat 1 tab DAILY PO 07/05/25 10:00 07/06/25 10:08 1 TAB Clonidine HCl 0.1 mg BID PO 07/05/25 10:00 07/05/25 21:04 0.1 MG Levothyroxine Sodium 25 mcg QAM PO 07/06/25 07:00 07/06/25 06:31 25 MCG Metoprolol Succinate 50 mg DAILY PO 07/05/25 10:00 Patient Own Medication 1 tab HS PO 07/05/25 22:00 UNV Patient Own Medication 1 cap DAILY PO 07/05/25 10:00 UNV Patient Own Medication 1 tab HS PO 07/05/25 22:00 UNV Patient Own Medication 1 tab QID PO 07/05/25 12:00 UNV Patient Own Medication 1 tab BID PO 07/05/25 10:00 UNV Patient Own Medication 1 cap DAILY PO 07/05/25 10:00 UNV Atorvastatin Calcium 40 mg HS PO 07/05/25 22:00 07/05/25 21:03 40 MG Diagnostic Test (Pha) 1 strip ACHS 07/05/25 11:30 07/06/25 11:30 1 STRIP Insulin Human Regular ACHS SC 07/05/25 11:30 Dextrose 50 ml UD PRN IV 07/05/25 09:00 Diltiazem HCl 240 mg DAILY PO 07/05/25 10:00 Donepezil HCl 10 mg HS PO 07/05/25 22:00 07/05/25 21:04 10 MG Hydralazine HCl 50 mg QID PO 07/05/25 12:00 07/06/25 16:20 50 MG Memantine 10 mg BID PO 07/05/25 10:00 07/06/25 10:08 10 MG Pantoprazole Sodium 40 mg DAILY PO 07/05/25 10:00 07/06/25 10:09 40 MG objective General Appearance: Alert, Oriented X3, Cooperative, No acute distress HEENT: Atraumatic, PERRLA, EOMI Respiratory: Clear to auscultation, Normal air movement Cardiovascular: Regular rate and rhythm. Systolic murmur present. Abdominal: Normal bowel sounds, Soft Extremities: Normal pulses Neuro: No focal deficits. laboratory and microbiology Laboratory Tests 07/06/25 06:45 Test 07/06/25 06:45 Range/Units Serum Glucose 79 74-106 mg/dL Problem List End-stage kidney disease on hemodialysis Dizziness Hypertension Hyperlipidemia Anemia in CKD Assessment/Plan Underwent HD today . Stable from renal standpoint for dc Plan discussed with: Patient FELICITY FOSTER MD Jul 06, 2025 16:52
[2025-07-06] MEDS: hydrALAZINE HCL 20 MG/ML VL IV PRN (18:32)
[2025-07-07] VITALS (7 sets, daily range): BP systolic 133–163; BP diastolic 74–85; PULSE 63–80; RESP 17–19; TEMP 97.3–98.8; O2SAT 94–100
[2025-07-07 05:35] LABS: Albumin 3.7 g/dL (3.2-4.8); Anion Gap 13 (5-15); BUN/Creatinine Ratio 6.4 (10.0-20.0); Bilirubin, Total 0.3 mg/dL (0.2-1.0); Calcium 8.8 mg/dL (8.7-10.4); Carbon Dioxide 30 mmol/L (20-31); Glucose 90 mg/dL (74-106); Potassium 4.1 mmol/L (3.5-5.1); Sodium 139 mmol/L (136-145); Total Protein 6.7 g/dL (5.7-8.2)
[2025-07-07 05:38] LABS: Alanine Aminotransferase < 9 U/L (7-40); Alkaline Phosphatase 166 U/L (46-116); Blood Urea Nitrogen 35 mg/dL (9-23); Chloride 96 mmol/L (98-107)
--- NOTE | 2025-07-07 11:59 | DVHPN2 ---
Progress Note - Dictate Date Seen: Jul 07, 2025 Medical Necessity Reason Pt with a Central, PICC or Fol: No Subjective Patient underwent dialysis yesterday. Ongoing issues with the elevated blood pressure. vital signs Vital Sign Date Time Temp Pulse Resp B/P (MAP) Pulse Ox O2 Delivery O2 Flow Rate FiO2 07/07/25 11:56 155/70 07/07/25 10:32 72 07/07/25 08:47 98.8 19 94 98.8 07/07/25 08:00 Room Air* 0 21 Total Intake and Output 07/06/25 07/06/25 07/07/25 15:00 23:00 07:00 Intake Total 760 ml 650 ml Output Total 560 ml Balance 200 ml 650 ml medications Current Medications Medications Dose Ordered Sig/Geo Route Start Time Stop Time Status Last Admin Dose Admin Ceftriaxone Sodium 50 ml @ 100 mls/hr DAILY@09 IV 07/05/25 08:45 Hold Ondansetron HCl 4 mg Q4HP PRN IV 07/05/25 08:45 Acetaminophen 650 mg Q6HP PRN PO 07/05/25 08:45 Apixaban 2.5 mg BID PO 07/05/25 10:00 07/07/25 10:31 2.5 MG Multivit/Ca Carb/ B Cmplx/FA/Prenat 1 tab DAILY PO 07/05/25 10:00 07/07/25 10:30 1 TAB Clonidine HCl 0.1 mg BID PO 07/05/25 10:00 07/07/25 10:31 0.1 MG Levothyroxine Sodium 25 mcg QAM PO 07/06/25 07:00 07/07/25 06:07 25 MCG Metoprolol Succinate 50 mg DAILY PO 07/05/25 10:00 07/07/25 10:32 50 MG Patient Own Medication 1 tab HS PO 07/05/25 22:00 UNV Patient Own Medication 1 cap DAILY PO 07/05/25 10:00 UNV Patient Own Medication 1 tab HS PO 07/05/25 22:00 UNV Patient Own Medication 1 tab QID PO 07/05/25 12:00 UNV Patient Own Medication 1 tab BID PO 07/05/25 10:00 UNV Patient Own Medication 1 cap DAILY PO 07/05/25 10:00 UNV Atorvastatin Calcium 40 mg HS PO 07/05/25 22:00 07/06/25 21:26 40 MG Diagnostic Test (Pha) 1 strip ACHS 07/05/25 11:30 07/07/25 11:48 1 STRIP Insulin Human Regular ACHS SC 07/05/25 11:30 Dextrose 50 ml UD PRN IV 07/05/25 09:00 Diltiazem HCl 240 mg DAILY PO 07/05/25 10:00 07/07/25 10:30 240 MG Donepezil HCl 10 mg HS PO 07/05/25 22:00 07/06/25 21:26 10 MG Hydralazine HCl 50 mg QID PO 07/05/25 12:00 07/07/25 11:56 50 MG Memantine 10 mg BID PO 07/05/25 10:00 07/07/25 10:31 10 MG Pantoprazole Sodium 40 mg DAILY PO 07/05/25 10:00 07/07/25 10:31 40 MG Hydralazine HCl 20 mg Q6HP PRN IV 07/06/25 18:15 Tramadol HCl 50 mg Q8HR PRN PO 07/07/25 01:00 07/07/25 01:25 50 MG objective General Appearance: Alert, Oriented X3, Cooperative, No acute distress HEENT: Atraumatic, PERRLA, EOMI Respiratory: Clear to auscultation, Normal air movement Cardiovascular: Regular rate and rhythm. Systolic murmur present. Abdominal: Normal bowel sounds, Soft Extremities: Normal pulses Neuro: No focal deficits. laboratory and microbiology Laboratory Tests 07/07/25 04:40 07/06/25 06:45 Test 07/07/25 04:40 Range/Units Serum Glucose 90 74-106 mg/dL Problem List End-stage kidney disease on hemodialysis Dizziness Accelerated Hypertension Hyperlipidemia Anemia in CKD Assessment/Plan Continue dialysis on Tuesday schedule. Patient does not want to get dialysis in the hospital tomorrow. Patient's antihypertensive regimen currently includes -Diltiazem 240 mg daily -Clonidine 0.1 mg b.i.d. -Hydralazine 50 mg q.i.d. -Toprol-XL 50 mg daily We will add losartan 25 mg q.h.s.. Plan discussed with: Patient FELICITY FOSTER MD Jul 07, 2025 11:59
--- NOTE | 2025-07-07 12:23 | DVHPN2 ---
Reviewed: Care Plan, H&P, Labs, Medications, Previous Orders, Radiology Changes from previous H/P or p: No Changes Musculoskeletal: shoulder pain (Left), back pain Objective Vitals Vital Signs Date Time Temp Pulse Resp B/P (MAP) Pulse Ox O2 Delivery O2 Flow Rate FiO2 07/07/25 11:56 155/70 07/07/25 10:32 72 07/07/25 08:47 98.8 19 94 98.8 07/07/25 08:00 Room Air* 0 21 Intake/Output Intake and Output 07/07/25 07:00 Intake Total 1410 ml Output Total 560 ml Balance 850 ml Intake Oral 1410 ml Output Urine Total 560 ml # Voids 1 Medications Current Medications Medications Dose Ordered Sig/Geo Route Start Time Stop Time Status Last Admin Dose Admin Ceftriaxone Sodium 50 ml @ 100 mls/hr DAILY@09 IV 07/05/25 08:45 Hold Ondansetron HCl 4 mg Q4HP PRN IV 07/05/25 08:45 Acetaminophen 650 mg Q6HP PRN PO 07/05/25 08:45 Apixaban 2.5 mg BID PO 07/05/25 10:00 07/07/25 10:31 2.5 MG Multivit/Ca Carb/ B Cmplx/FA/Prenat 1 tab DAILY PO 07/05/25 10:00 07/07/25 10:30 1 TAB Clonidine HCl 0.1 mg BID PO 07/05/25 10:00 07/07/25 10:31 0.1 MG Levothyroxine Sodium 25 mcg QAM PO 07/06/25 07:00 07/07/25 06:07 25 MCG Metoprolol Succinate 50 mg DAILY PO 07/05/25 10:00 07/07/25 10:32 50 MG Patient Own Medication 1 tab HS PO 07/05/25 22:00 UNV Patient Own Medication 1 cap DAILY PO 07/05/25 10:00 UNV Patient Own Medication 1 tab HS PO 07/05/25 22:00 UNV Patient Own Medication 1 tab QID PO 07/05/25 12:00 UNV Patient Own Medication 1 tab BID PO 07/05/25 10:00 UNV Patient Own Medication 1 cap DAILY PO 07/05/25 10:00 UNV Atorvastatin Calcium 40 mg HS PO 07/05/25 22:00 07/06/25 21:26 40 MG Diagnostic Test (Pha) 1 strip ACHS 07/05/25 11:30 07/07/25 11:48 1 STRIP Insulin Human Regular ACHS SC 07/05/25 11:30 Dextrose 50 ml UD PRN IV 07/05/25 09:00 Diltiazem HCl 240 mg DAILY PO 07/05/25 10:00 07/07/25 10:30 240 MG Donepezil HCl 10 mg HS PO 07/05/25 22:00 07/06/25 21:26 10 MG Hydralazine HCl 50 mg QID PO 07/05/25 12:00 07/07/25 11:56 50 MG Memantine 10 mg BID PO 07/05/25 10:00 07/07/25 10:31 10 MG Pantoprazole Sodium 40 mg DAILY PO 07/05/25 10:00 07/07/25 10:31 40 MG Hydralazine HCl 20 mg Q6HP PRN IV 07/06/25 18:15 Tramadol HCl 50 mg Q8HR PRN PO 07/07/25 01:00 07/07/25 01:25 50 MG Losartan Potassium 25 mg HS PO 07/07/25 22:00 UNV Laboratory Results Laboratory Tests 07/06/25 06:45 07/07/25 04:40 Chemistry Test 07/07/25 04:40 Albumin 3.7 g/dL (3.2-4.8) Calcium Level 8.8 mg/dL (8.7-10.4) Total Protein 6.7 g/dL (5.7-8.2) LFT Test 07/07/25 04:40 Alanine Aminotransferase (ALT) < 9 U/L (7-40) Alkaline Phosphatase 166 U/L (46-116) H Aspartate Amino Transferase (AST) 11 U/L (13-40) L Total Bilirubin 0.3 mg/dL (0.2-1.0) Urinalysis Test 07/05/25 07:44 Urine Color Light-yellow (Yellow) Urine Clarity Clear (Clear) Urine pH 8.5 (5.0-9.0) Urine Specific [place] 1.008 (1.001-1.035) Urine Protein 2+ (Negative) H Urine Ketones Negative (Negative) Urine Blood Trace /uL (Negative) H Urine Nitrite Negative (Negative) Urine Bilirubin Negative (Negative) Urine Urobilinogen Normal mg/dL (Negative) Urine Leukocyte Esterase 2+ /uL (Negative) Urine RBC 3 /hpf (0 - 4) Urine Microscopic WBC 13 /HPF (0-5) H Urine Squamous Epithelial Cells Few /hpf (<5) Urine Bacteria Few /hpf (None Seen) H Urine Glucose 1+ mg/dL (Normal) H Labs and/or images reviewed: Labs reviewed by me, Image(s) reviewed by me Assessment/Plan Assessment/Plan ESRD on hemodialysis consult by appreciated Dizziness Hypertension Hyperlipidemia Anemia in CKD AFib on Eliquis Dementia: Aricept Nemenda Chest x-ray no fluid overload CT head neg Urinary tract infection: Levaquin, urine cultures pending blood cultures Continue current management Time Spent 50 minutes Advanced care planning time 20 minutes Patient is full code Plan discussed with: Patient Date of Service: Jul 07, 2025 Billing Provider: GERBER BRUCE MD Common Visit Codes: [id number] INP/OBS CARE(HIGH) GERBER BRUCE MD Jul 07, 2025 12:23
[2025-07-07] MEDS: levoFLOXacin 500 MG TAB PO ONE (13:02)
[2025-07-07] MEDS: LOSARTAN POTASSIUM 25 MG TAB PO SCH (22:30)
[2025-07-08 01:00] VITALS: BP 159/86; PULSE 71; RESP 18; TEMP 97.8; O2SAT 100
[2025-07-08 05:00] VITALS: BP 153/77; PULSE 68; RESP 18; TEMP 97.4; O2SAT 100
[2025-07-08] MEDS ORDERED: LOSA-533 PO (08:08)
--- NOTE | 2025-07-08 08:14 | DVHDS2 ---
Discharge Summary Date of Admission Jul 05, 2025 at 08:35 Date of Discharge: Jul 08, 2025 Admitting Diagnosis Dizziness Wounds: None Labs/Diagnostic Data: Laboratory Results Test 07/08/25 05:38 07/07/25 04:40 07/06/25 06:45 07/05/25 07:44 POC Glucose 97 mg/dl (70-106) Sodium Level 139 mmol/L (136-145) Potassium Level 4.1 mmol/L (3.5-5.1) Chloride Level 96 mmol/L (98-107) Carbon Dioxide Level 30 mmol/L (20-31) Anion Gap 13 (5-15) Blood Urea Nitrogen 35 mg/dL (9-23) Creatinine 5.45 mg/dL (0.550-1.02) Glomerular Filtration Rate Calc 8 mL/min (>90) BUN/Creatinine Ratio 6.4 (10.0-20.0) Serum Glucose 90 mg/dL (74-106) Calcium Level 8.8 mg/dL (8.7-10.4) Total Bilirubin 0.3 mg/dL (0.2-1.0) Aspartate Amino Transferase (AST) 11 U/L (13-40) Alanine Aminotransferase (ALT) < 9 U/L (7-40) Alkaline Phosphatase 166 U/L (46-116) Total Protein 6.7 g/dL (5.7-8.2) Albumin 3.7 g/dL (3.2-4.8) White Blood Count 8.9 10^3/uL (4.4-10.8) Red Blood Count 4.10 10^6/uL (4.0-5.20) Hemoglobin 10.4 g/dL (12.2-16.2) Hematocrit 33.2 % (36.0-46.0) Mean Corpuscular Volume 81.0 fL (80.0-100.0) Mean Corpuscular Hemoglobin 25.5 pg (28.0-32.0) Mean Corpuscular Hemoglobin Concent 31.5 g/dL (32.0-36.0) Red Cell Distribution Width 19.5 % (11.8-14.3) Platelet Count 228 10^3/uL (140-450) Mean Platelet Volume 7.8 fL (6.9-10.8) Neutrophils (%) (Auto) 78.2 % (37.0-80.0) Lymphocytes (%) (Auto) 9.4 % (10.0-50.0) Monocytes (%) (Auto) 8.4 % (0.0-12.0) Eosinophils (%) (Auto) 3.5 % (0.0-7.0) Basophils (%) (Auto) 0.5 % (0.0-2.0) Neutrophils # (Auto) 6.9 10 ^3/uL (1.6-8.6) Lymphocytes # (Auto) 0.8 10 ^3/uL (0.4-5.4) Monocytes # (Auto) 0.7 10 ^3/uL (0-1.3) Eosinophils # (Auto) 0.3 10 ^3/uL (0-0.8) Basophils # (Auto) 0 10 ^3/uL (0-0.2) Nucleated Red Blood Cells 0.0 % Urine Color Light-yellow (Yellow) Urine Clarity Clear (Clear) Urine pH 8.5 (5.0-9.0) Urine Specific [place] 1.008 (1.001-1.035) Urine Protein 2+ (Negative) Urine Ketones Negative (Negative) Urine Blood Trace /uL (Negative) Urine Nitrite Negative (Negative) Urine Bilirubin Negative (Negative) Urine Urobilinogen Normal mg/dL (Negative) Urine Leukocyte Esterase 2+ /uL (Negative) Urine RBC 3 /hpf (0 - 4) Urine Microscopic WBC 13 /HPF (0-5) Urine Squamous Epithelial Cells Few /hpf (<5) Urine Bacteria Few /hpf (None Seen) Urine Glucose 1+ mg/dL (Normal) Test 07/05/25 06:54 Hemoglobin A1c < 3.8 % A1C (<5.7) Troponin I High Sensitivity 21 ng/L (</=34) Other Laboratory Tests 07/07/25 04:40 07/06/25 06:45 Brief Hx & Hospital Course: 75-year-old female with a history of hypertension hypercholesterolemia anemia of chronic disease AFib on Eliquis dementia ESRD on hemodialysis Tuesday by Dr. العراقي group came in complaining of dizziness. Chest x-ray showed no fluid overload CT head was negative mild urinary tract infection treated with Levaquin culture result pending but the patient wants to go home. Seen by Dr. Rojas received hemodialysis. Patient wants to be discharged in today morning to keep her appointment for dialysis at 11:[address] Dulce Maria rivero. She does not want dialysis in the hospital today. Discharged. Home medications reviewed new medications losartan transmitted to pharmacy. She was advised to requested primary Dr to follow up on the urine culture result General condition stable at the time of discharge Consults/Reason for consult Dr Rojas Operations or Procedures Hemodialysis Condition at Discharge: Fair Final Diagnosis/Problems List ESRD on hemodialysis consult by appreciated Dizziness Accelerated Hypertension Hyperlipidemia Anemia in CKD AFib on Eliquis Dementia: Aricept Nemenda Chest x-ray no fluid overload CT head neg Urinary tract infection: Levaquin, urine cultures pending blood cultures Continue current management Discharge Disposition: Home Discharge Instruct/Medications Diet: Renal Activity: Light activity Follow Up/Referral: Follow up with the primary Dr and with the Dr. Rojas for regular regular dialysis Tuesday Resume all previous home medications including Cardizem clonidine Toprol-XL hydralazine New medications losartan Your primary Dr to call for urine culture result Medications: Losartan Transmitted to pharmacy Scheduled Apixaban Base (Eliquis), 1 TAB PO BID, (Reported) Atorvastatin Calcium (Atorvastatin Calcium), 1 TAB PO HS, (Reported) B-Complex W/ C & Folic Acid (Shannan-Agnieszka Rx), 1 TAB PO DAILY, (Reported) Clonidine Hydrochloride (Clonidine Hcl), 1 TAB PO BID, (Reported) Diltiazem Hcl (Diltiazem Hcl Er), 1 CAP PO DAILY, (Reported) Donepezil Hydrochloride (Donepezil Hcl), 1 TAB PO HS, (Reported) Fluticasone Propionate (Nasal) (Fluticasone Propionate), 1 SPRAY TARA UD, (Reported) Hydralazine Hcl (Hydralazine Hcl), 1 TAB PO QID, (Reported) Levothyroxine Sodium (Levothyroxine Sodium), 1 TAB PO QAM, (Reported) Losartan Potassium (Losartan Potassium), 1 TAB PO DAILY Memantine Hydrochloride (Memantine HCl), 1 TAB PO BID, (Reported) Metoprolol Succinate (Metoprolol Succinate Er), 1 TAB PO DAILY, (Reported) Omeprazole (Omeprazole ), 1 CAP PO DAILY, (Reported) Tramadol Hcl (Tramadol Hcl), 50 MG PO BID Triamcinolone Acetonide (Kenalog), 1 APPLIC TOP PRN, (Reported) Scheduled PRN Ondansetron HCl (Ondansetron Hydrochloride), 1 TAB PO Q8HPRN PRN for FOR STOMACH DISTRESS, (Reported) 35 (Time taken for discharge summary 35 minutes) Discharge Statement: "Patient was advised to return to the ER or call 911 if any headaches, dizziness, shortness of breath, chest pain, abdominal pain, bleeding, fevers, or worsening of medical condition. Patient was counseled about treatment plan, medications, possible side effects, patientverbalized understanding. All questions were answered to the best of my ability. This discharge took greater then 30 minutes in planning, reviewing documentation, counseling the patient, and discussing with other team members." ASSESSMENT ASSESSMENT Hospital Course Improved Assessment ESRD on hemodialysis consult by appreciated Dizziness Accelerated Hypertension Hyperlipidemia Anemia in CKD AFib on Eliquis Dementia: Aricept Nemenda Chest x-ray no fluid overload CT head neg Urinary tract infection: Levaquin, urine cultures pending blood cultures Continue current management Date of Service: Jul 08, 2025 Billing Provider: GERBER BRUCE MD Common Visit Codes: [id number] INP/OBS CARE(HIGH) GERBER BRUCE MD Jul 08, 2025 08:14
[2025-07-08 08:44] VITALS: BP 153/77; PULSE 72; TEMP 36.3
[2025-07-08 09:00] VITALS: BP 142/77; PULSE 66; RESP 16; TEMP 97.1; O2SAT 99
[2025-07-08] MEDS ORDERED: LEVO500T91 PO (09:17)
[2025-07-08] MEDS: levoFLOXacin 500 MG TAB PO SCH (10:00)
== END 2025-07-08 10:10 | disposition home or self-care (01) | DRG 73 ==
LOC: ER 06:18 → OVERFLOW 08:35 → WEST WING 17:55
PROVIDERS: ADMIT Family Medicine; ATTEND Family Medicine
PROC: 5A1D70Z Performance of Urinary Filtration, Intermittent, Less than 6 Hours Per Day (ICD-10-PCS; principal; 2025-07-06)
DX: G90.89 Other disorders of autonomic nervous system (principal); N18.6 End stage renal disease; N30.01 Acute cystitis with hematuria; I12.0 Hypertensive chronic kidney disease with stage 5 chronic kidney disease or end stage renal disease; G45.9 Transient cerebral ischemic attack, unspecified; D63.1 Anemia in chronic kidney disease; E11.22 Type 2 diabetes mellitus with diabetic chronic kidney disease; I48.91 Unspecified atrial fibrillation; E78.00 Pure hypercholesterolemia, unspecified; F03.90 Unspecified dementia, unspecified severity, without behavioral disturbance, psychotic disturbance, mood disturbance, and anxiety; Z79.01 Long term (current) use of anticoagulants; Z79.899 Other long term (current) drug therapy; Z80.0 Family history of malignant neoplasm of digestive organs; Z82.49 Family history of ischemic heart disease and other diseases of the circulatory system; Z82.71 Family history of polycystic kidney; Z83.3 Family history of diabetes mellitus; Z87.891 Personal history of nicotine dependence; Z88.0 Allergy status to penicillin; Z90.710 Acquired absence of both cervix and uterus; Z99.2 Dependence on renal dialysis
CPT/HCPCS: 36415; 70450; 71045; 80048; 80053; 81001; 82962; 83036; 84484; 85025; 87040; 87081; 87086; 87340; 90935; 99291; 99292; G0378

== ENCOUNTER 2025-07-24 18:53 | Emergency (ER) | payer OTHER, MEDICAID ==
[~2025-07-24] VITALS: Ht 154.9 cm; Wt 55.1 kg
[~2025-07-24 18:53] MED LIST changes: +LEVO500T91 PO; +LOSA-533 PO
[2025-07-24 18:56] VITALS: BP 149/84; PULSE 65; RESP 18; TEMP 98.1; O2SAT 100
[2025-07-24] MEDS: methylPREDNISolone SOD SUCC 125 MG/2 ML VL IM ONE (19:44)
[2025-07-24] MEDS: HYDROcodone-ACET 5/325MG TAB PO ONE (19:44)
[2025-07-24] MEDS ORDERED: ACE3T PO (19:47)
[2025-07-24] MEDS ORDERED: PRED20TA2 PO (19:47)
--- NOTE | 2025-07-24 19:51 | ED.PDOC ---
Back pain HPI HPI Comments 75-year-old female presents to ER with complaints of right leg pain x 1 day. Patient with past medical history significant for chronic lumbar back pain reports that she woke up this morning with 10/10 pain centralized to right buttock that she states radiates down right posterior leg. States she did take a prescribed tramadol prior to arrival to ER without relief. Patient presents to ER in wheelchair in mild distress. Denies fever, body aches, chills, night sweats, back pain, nausea/vomiting, numbness/tingling, abdominal/pelvic pain, trauma/falls, extremity weakness, changes in urination/bm or any further symptoms/complaints Chief Complaint: Back Pain Time Seen by MD: 19:15 Primary Care Provider: TRINI Reviewed Notes: Nurses Notes, Medications, Allergies Allergies: Coded Allergies: Penicillins (Verified Allergy, Unknown, 06/14/22) Home Meds Active Scripts Levofloxacin Hemihydrate (LEVAQUIN 500 MG) 500 Mg Tab, 1 TAB PO DAILY, #7 TAB Prov:GERBER BRUCE MD 07/08/25 Losartan Potassium (Losartan Potassium) 25 Mg Tab, 1 TAB PO DAILY, #90 TAB 1 Refill Prov:GERBER BRUCE MD 07/08/25 Tramadol Hcl (Tramadol Hcl) 50 Mg Tab, 50 MG PO BID for 5 Days, #10 TAB Prov:SUSSY GARDUNO MD 04/30/25 Reported Medications Metoprolol Succinate (Metoprolol Succinate Er) 50 Mg Tab, 1 TAB PO DAILY for 90 Days, #90 05/20/25 Fluticasone Propionate (Nasal) (Fluticasone Propionate) 50 Mcg/Act Spr, 1 SPRAY TARA UD for 90 Days, #48 05/20/25 Clonidine Hydrochloride (Clonidine Hcl) 0.1 Mg Tab, 1 TAB PO BID for 90 Days, #180 05/20/25 Triamcinolone Acetonide (Kenalog) 1 Applic Ap, 1 APPLIC TOP PRN for 30 Days, #30 05/20/25 Hydralazine Hcl (Hydralazine Hcl) 50 Mg Tab, 1 TAB PO QID for 30 Days, #120 05/20/25 Apixaban Base (ELIQUIS) 2.5 Mg Tab, 1 TAB PO BID for 90 Days, #180 05/19/25 Omeprazole (Omeprazole Dr) 40 Mg Cap, 1 CAP PO DAILY for 90 Days, #90 05/19/25 Ondansetron HCl (Ondansetron Hydrochloride) 4 Mg Tab, 1 TAB PO Q8HPRN PRN for FOR STOMACH DISTRESS for 20 Days, #60 05/19/25 Memantine Hydrochloride (Memantine HCl) 10 Mg Tab, 1 TAB PO BID for 90 Days, #180 05/19/25 Donepezil Hydrochloride (DONEPEZIL HCL) 10 Mg Tab, 1 TAB PO HS for 90 Days, #90 05/19/25 Levothyroxine Sodium (Levothyroxine Sodium) 25 Mcg Tab, 1 TAB PO QAM for disorder of thyroid gland 01/01/25 B-Complex W/ C & Folic Acid (Shannan-Agnieszka Rx) Tab, 1 TAB PO DAILY for 30 Days, #30 12/19/23 Diltiazem Hcl (DILTIAZEM HCL ER) 240 Mg Cap, 1 CAP PO DAILY, #30 CAP 5 Refills 08/04/17 Atorvastatin Calcium (ATORVASTATIN CALCIUM) 40 Mg Tab, 1 TAB PO HS, #30 TAB 5 Refills 08/04/17 Information Source: Patient Mode of Arrival: Ambulatory Past Medical History PAST MEDICAL HISTORY: CKF, DM, ESRD, High Lipids, HTN, Thyroid Past Medical History (Other): Chronic lumbar back pain Surgical History: Hernia Repair, Hysterectomy [employer] BLASTING 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 Hx Family History Family History: Unknown Social History Smoker: Non-Smoker Alcohol: Denies ETOH Use Drugs: Denies Drug Use Lives In: Home Constitutional: denies: chills, diaphoresis, fatigue, fever, malaise, sweats, weakness, others EENTM: denies: blurred vision, double vision, ear bleeding, ear discharge, ear drainage, ear pain, ear ringing, eye pain, eye redness, hearing loss, mouth pain, mouth swelling, nasal discharge, nose bleeding, nose congestion, nose pain, photophobia, tearing, throat pain, throat swelling, voice changes, others Respiratory: denies: cough, hemoptysis, orthopnea, SOB at rest, shortness of breath, SOB with excertion, stridor, wheezing, others Cardiovascular: denies: chest pain, dizzy spells, diaphoresis, Dyspnea on exertion, edema, irregular heart beat, left arm pain, lightheadedness, palpitations, PND, syncope, others Gastrointestinal: denies: abdomen distended, abdominal pain, blood streaked bowels, constipated, diarrhea, dysphagia, difficulty swallowing, hematemesis, melena, nausea, poor appetite, poor fluid intake, rectal bleeding, rectal pain, vomiting, others Genitourinary: denies: abnormal vagina bleeding, burning, dyspareunia, dysuria, flank pain, frequency, hematuria, incontinence, pain, , vagina discharge, urgency, others Neurological: denies: dizziness, fainting, headache, left sided numbness, left sided weakness, numbness, paresthesia, pre-existing deficit, right sided numbness, right sided weakness, seizure, speech problems, tingling, tremors, weakness, others Musculoskeletal: reports: others (As stated in HPI) Integumetry: denies: bruises, change in color, change in hair/nails, dryness, laceration, lesions, lumps, rash, wounds, others Allergic/Immunocompromised: denies: Difficulty Healing, Frequent Infections, Hives, Itching, others Hematologic/Lymphatic: denies: anemia, blood clots, easy bleeding, easy bruising, swollen glands, others Endocrine: denies: excessive hunger, excessive sweating, excessive thirst, excessive urination, flushing, intolerance to cold, intolerance to heat, unexplained weight gain, unexplained weight loss, others Psychiatric: denies: anxiety, bipolar disorder, depression, hopeless, panic disorder, schizophrenia, sleepless, suicidal, others Physical Exam General Appearance: Mild Distress HEENT: PERRL/EOMI Neck: Full Range of Motion, Non-Tender, Normal Respiratory: Chest Non-Tender, Lungs Clear, No Accessory Muscle Use, No Respiratory Distress, Normal Breath Sounds Cardiovascular: No Murmur, No Gallop, Regular Rate/Rhythm Breast Exam: Deferred Gastrointestinal: Non Tender, No Pulsatile Mass, Soft Genitalia: Deferred Pelvic: Deferred Rectal: Deferred Extremities: No calf tenderness, Normal capillary refill, Normal range of motion Musculoskeletal : Extremity Location: Other (TTP centralized to right buttock. Slowed gait noted) Neurologic: Alert, No Motor Deficits, Normal Affect, Normal Mood, No Sensory Deficits Cerebellar Function: Normal Reflexes: Normal Skin: Dry, Normal Color, Warm Peripheral Pulses: 2+ femoral (R), 2+ femoral (L), 2+ dorsalis pedis (R), 2+ dorsalis pedis (L), 2+ Radial (R), 2+ Radial (L), 2+ Brachial (R), 2+ Brachial (L) Lymphatic: No Adenopathy Was a procedure done? Was a procedure done?: No Sedation Sedation?: No Back Pain Differential Dx Differential Diagnosis: Fracture, Urolithiasis, Other (UTI, DVT) X-Ray, Labs, Meds, VS Vital Signs Date Time Temp Pulse Resp B/P (MAP) Pulse Ox O2 Delivery O2 Flow Rate FiO2 07/24/25 18:56 98.1 65 18 149/84 100 98.1 [place] 5/325 mg p.o. ordered Solu-Medrol 125 mg IM ordered Patient had improvement in symptoms and in no distress prior to discharge Advised on rest/no strenuous activity Previous chart visits reviewed Advised to follow up with PCP in 1-2 days Patient verbalized understanding and agreeable with current plan of care Advised to return to ER immediately if symptoms worsen Time of 1ST Reevaluation: 19:22 Reevaluation 1ST: N/A Patient Education/Counseling: Diagnosis, Treatment, Prognosis, Need For Follow Up Family Education/Counseling: No Family Present SEPSIS Sepsis Screen Date sepsis recognized/suspect: Jul 24, 2025 Time Sepsis recognized/suspect: 1908 Recent Procedure: No On Antibiotic Therapy: No Respiratory Rate >20: No Heart Rate >90: No Temp<36 C (96.8 F) or >38.3 C: No SBP <90 or MAP <65 mmHG: No New Acute Mental Status Change: No Is the patient on CPAP, BIPAP,: No Physician Orders Methylprednisolone Sod Succ (Solu Medrol (07/24/25 19:45) Hydrocodone-Acet 5/325mg Tab ([place] 5/32 (07/24/25 19:45) Vital Signs Date Time Temp Pulse Resp B/P (MAP) Pulse Ox O2 Delivery O2 Flow Rate FiO2 07/24/25 18:56 98.1 65 18 149/84 100 98.1 Departure 1 Departure Time of Disposition: 19:45 Impression: Primary Impression: Sciatica, right side Disposition: HOME / SELF CARE / HOMELESS Condition: Stable e-Prescriptions Acetaminophen W/ Codeine (Tylenol W/Cod #3) 1 Tab Tb 1 TAB PO Q6HPRN, #10 TAB 0 Refills Prov: ALEJANDRO AGUIRRE 07/24/25 Prednisone (Prednisone) 20 Mg Tab 20 MG PO BID for 5 Days, #10 TAB 0 Refills Prov: ALEJANDRO AGUIRRE 07/24/25 Discharged With: Other (daughter) Critical Care Note Critical Care Time?: No Stability Stability form required: No Heart Score Heart Score: Heart Score Response (Comments) Value History N/A 0 EKG N/A 0 Age N/A 0 Risk Factors N/A 0 Troponin N/A 0 Total 0 ALEJANDRO AGUIRRE Jul 24, 2025 19:51
== END 2025-07-24 20:45 | disposition home or self-care (01) ==
LOC: ER 18:53
DX: M54.31 Sciatica, right side (principal); I12.0 Hypertensive chronic kidney disease with stage 5 chronic kidney disease or end stage renal disease; E11.22 Type 2 diabetes mellitus with diabetic chronic kidney disease; N18.6 End stage renal disease; Z98.890 Other specified postprocedural states; Z90.710 Acquired absence of both cervix and uterus; Z88.0 Allergy status to penicillin; Z79.899 Other long term (current) drug therapy
CPT/HCPCS: 96372; 99283; J2919

== ENCOUNTER 2025-08-08 08:34 | Emergency (ER) | payer OTHER, MEDICAID ==
[~2025-08-08] VITALS: Ht 157.5 cm; Wt 54.5 kg
[~2025-08-08 08:34] MED LIST changes: +ACE3T PO; +PRED20TA2 PO
--- NOTE | 2025-08-08 09:09 | ED.PDOC ---
Back pain HPI HPI Comments 75 y.o female presents to the ED for a chief complaint of body pain and chills x 4 days. Patient reports pain is generalized but most notable to upper extremity, head, and upper back. She denies any recent falls or injuries. She denies dysuria, hematuria, fever, chest pain, SOB, palpitations, numbness, tingling sensation. Chief Complaint: Body Pain Time Seen by MD: 09:03 Primary Care Provider: TRINI Reviewed Notes: Nurses Notes, Medications, Allergies Allergies: Coded Allergies: Penicillins (Verified Allergy, Unknown, 06/14/22) Home Meds Active Scripts Acetaminophen W/ Codeine (Tylenol W/Cod #3) 1 Tab Tb, 1 TAB PO Q6HPRN, #10 TAB 0 Refills Prov:ALEJANDRO AGUIRRE 07/24/25 Prednisone (Prednisone) 20 Mg Tab, 20 MG PO BID for 5 Days, #10 TAB 0 Refills Prov:ALEJANDRO AGUIRRE 07/24/25 Levofloxacin Hemihydrate (LEVAQUIN 500 MG) 500 Mg Tab, 1 TAB PO DAILY, #7 TAB Prov:GERBER BRUCE MD 07/08/25 Losartan Potassium (Losartan Potassium) 25 Mg Tab, 1 TAB PO DAILY, #90 TAB 1 Refill Prov:GERBER BRUCE MD 07/08/25 Tramadol Hcl (Tramadol Hcl) 50 Mg Tab, 50 MG PO BID for 5 Days, #10 TAB Prov:SUSSY GARDUNO MD 04/30/25 Reported Medications Metoprolol Succinate (Metoprolol Succinate Er) 50 Mg Tab, 1 TAB PO DAILY for 90 Days, #90 05/20/25 Fluticasone Propionate (Nasal) (Fluticasone Propionate) 50 Mcg/Act Spr, 1 SPRAY TARA UD for 90 Days, #48 05/20/25 Clonidine Hydrochloride (Clonidine Hcl) 0.1 Mg Tab, 1 TAB PO BID for 90 Days, #180 05/20/25 Triamcinolone Acetonide (Kenalog) 1 Applic Ap, 1 APPLIC TOP PRN for 30 Days, #30 05/20/25 Hydralazine Hcl (Hydralazine Hcl) 50 Mg Tab, 1 TAB PO QID for 30 Days, #120 05/20/25 Apixaban Base (ELIQUIS) 2.5 Mg Tab, 1 TAB PO BID for 90 Days, #180 05/19/25 Omeprazole (Omeprazole Dr) 40 Mg Cap, 1 CAP PO DAILY for 90 Days, #90 05/19/25 Ondansetron HCl (Ondansetron Hydrochloride) 4 Mg Tab, 1 TAB PO Q8HPRN PRN for FOR STOMACH DISTRESS for 20 Days, #60 05/19/25 Memantine Hydrochloride (Memantine HCl) 10 Mg Tab, 1 TAB PO BID for 90 Days, #180 05/19/25 Donepezil Hydrochloride (DONEPEZIL HCL) 10 Mg Tab, 1 TAB PO HS for 90 Days, #90 05/19/25 Levothyroxine Sodium (Levothyroxine Sodium) 25 Mcg Tab, 1 TAB PO QAM for disorder of thyroid gland 01/01/25 B-Complex W/ C & Folic Acid (Shannan-Agnieszka Rx) Tab, 1 TAB PO DAILY for 30 Days, #30 12/19/23 Diltiazem Hcl (DILTIAZEM HCL ER) 240 Mg Cap, 1 CAP PO DAILY, #30 CAP 5 Refills 08/04/17 Atorvastatin Calcium (ATORVASTATIN CALCIUM) 40 Mg Tab, 1 TAB PO HS, #30 TAB 5 Refills 08/04/17 Information Source: Patient Mode of Arrival: Ambulatory Timing: Days (4) Duration: Since onset Severity: Moderate Quality: Sharp Onset: Spontaneous History of: None Modifying Factors: Nothing Associated signs and symptoms: Other Past Medical History PAST MEDICAL HISTORY: CKF, DM, ESRD, High Lipids, HTN, Thyroid Surgical History: Hernia Repair, Hysterectomy 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 History: Denies all LITIGATION SUPPORT ANALYST Hx Family History Family History: Unknown Social History Smoker: Non-Smoker Alcohol: Denies ETOH Use Drugs: Denies Drug Use Lives In: Home Constitutional: denies: chills, diaphoresis, fatigue, fever, malaise, sweats, weakness, others EENTM: denies: blurred vision, double vision, ear bleeding, ear discharge, ear drainage, ear pain, ear ringing, eye pain, eye redness, hearing loss, mouth pain, mouth swelling, nasal discharge, nose bleeding, nose congestion, nose pa in, photophobia, tearing, throat pain, throat swelling, voice changes, others Respiratory: denies: cough, hemoptysis, orthopnea, SOB at rest, shortness of breath, SOB with excertion, stridor, wheezing, others Cardiovascular: denies: chest pain, dizzy spells, diaphoresis, Dyspnea on exertion, edema, irregular heart beat, left arm pain, lightheadedness, palpitations, PND, syncope, others Gastrointestinal: denies: abdomen distended, abdominal pain, blood streaked bowels, constipated, diarrhea, dysphagia, difficulty swallowing, hematemesis, melena, nausea, poor appetite, poor fluid intake, rectal bleeding, rectal pain, vomiting, others Genitourinary: denies: abnormal vagina bleeding, burning, dyspareunia, dysuria, flank pain, frequency, hematuria, incontinence, pain, , vagina discharge, urgency, others Neurological: reports: headache; denies: dizziness, fainting, left sided nu mbness, left sided weakness, numbness, paresthesia, pre-existing deficit, right sided numbness, right sided weakness, seizure, speech problems, tingling, tremors, weakness, others Musculoskeletal: reports: back pain, muscle pain; denies: gout, joint pain, joint swelling, muscle stiffness, neck pain, others Integumetry: denies: bruises, change in color, change in hair/nails, dryness, laceration, lesions, lumps, rash, wounds, others Allergic/Immunocompromised: denies: Difficulty Healing, Frequent Infections, Hives, Itching, others Hematologic/Lymphatic: denies: anemia, blood clots, easy bleeding, easy bruising, swollen glands, others Endocrine: denies: excessive hunger, excessive sweating, excessive thirst, excessive urination, flushing, intolerance to cold, intolerance to heat, unexplained weight gain, unexplained weight loss, others Psychiatric: denies: anxiety, bipolar disorder, depression, hopeless, panic disorder, schizophrenia, sleepless, suicidal, others All Other Systems: Reviewed and Negative Physical Exam General Appearance: Moderate Distress HEENT: Normal ENT Inspection, Pharynx Normal, TMs Normal Neck: Full Range of Motion, Non-Tender, Normal, Normal Inspection Respiratory: Chest Non-Tender, Lungs Clear, No Accessory Muscle Use, No Respiratory Distress, Normal Breath Sounds Cardiovascular: No Edema, No JVD, No Murmur, No Gallop, Normal Peripheral Pulses, Regular Rate/Rhythm Breast Exam: Deferred Gastrointestinal: No Organomegaly, Non Tender, No Pulsatile Mass, Normal Bowel Sounds, Soft Genitalia: Deferred Pelvic: Deferred Rectal: Deferred Extremities: No calf tenderness, Normal capillary refill, Normal inspection, Normal range of motion, Non-tender, No pedal edema Musculoskeletal : Apperance: Normal Neurologic: Alert, polymer tester II-XII nml as Tested, No Motor Deficits, Normal Affect, Normal Mood, No Sensory Deficits Cerebellar Function: Normal Reflexes: Normal Skin: Dry, Normal Color, Warm Peripheral Pulses: 3+ Radial (R), 3+ Radial (L) Lymphatic: No Adenopathy Was a procedure done? Was a procedure done?: No Back Pain Differential Dx Differential Diagnosis: DJD, Musculoskeletal Pain, Strain, Urolithiasis X-Ray, Labs, Meds, VS Vital Signs Date Time Temp Pulse Resp B/P (MAP) Pulse Ox O2 Delivery O2 Flow Rate FiO2 08/08/25 10:03 98.2 80 18 138/77 (97) 97 98.2 08/08/25 10:03 18 97 Room Air 08/08/25 09:02 Room Air* 0 21 08/08/25 08:48 98.0 78 16 151/73 (99) 96 98.0 08/08/25 08:39 98.0 78 16 151/73 96 98.0 Current Medications Medications (Trade) Dose Ordered Sig/Geo Route Start Time Stop Time Status Last Admin Acetaminophen/ Hydrocodone Bitart (Secor 7.5/325MG Tab) 1 tab ONCE ONCE PO 08/08/25 10:00 08/08/25 10:01 DC 08/08/25 10:05 Patient alert. Complaining of generalized body pain. Vitals stable. Answering questions. Blood pressure slightly elevated. Reviewed her previous visit. Got relief with Secor. Auscultation does have coarse breath sounds. Possible read pneumonitis. Possible urinary tract infection. Possible pneumonitis. Chest x-ray is not needed. Was given prescription of Levaquin antibiotic. Explained to the patient. Was told to follow up with her primary care physician. Was told to come back if there is any problem. Time of 1ST Reevaluation: 09:06 Reevaluation 1ST: Unchanged Patient Education/Counseling: Diagnosis, Treatment, Prognosis Family Education/Counseling: No Family Present SEPSIS Sepsis Screen Date sepsis recognized/suspect: Aug 08, 2025 Time Sepsis recognized/suspect: 0839 Recent Procedure: No On Antibiotic Therapy: No Respiratory Rate >20: No Heart Rate >90: No Temp<36 C (96.8 F) or >38.3 C: No SBP <90 or MAP <65 mmHG: No New Acute Mental Status Change: No Is the patient on CPAP, BIPAP,: No Physician Orders Urinalysis (08/08/25 09:55) Vital Signs Date Time Temp Pulse Resp B/P (MAP) Pulse Ox O2 Delivery O2 Flow Rate FiO2 08/08/25 10:03 98.2 80 18 138/77 (97) 97 98.2 08/08/25 10:03 18 97 Room Air 08/08/25 09:02 Room Air* 0 21 08/08/25 08:48 98.0 78 16 151/73 (99) 96 98.0 08/08/25 08:39 98.0 78 16 151/73 96 98.0 Medications Medications Dose Ordered Sig/Geo Route Start Time Stop Time Status Last Admin Dose Admin Acetaminophen/ Hydrocodone Bitart 1 tab ONCE ONCE PO 08/08/25 10:00 08/08/25 10:01 DC 08/08/25 10:05 Departure 1 Departure Time of Disposition: 10:34 Impression: Primary Impression: Pneumonitis Disposition: 01 HOME / SELF CARE / HOMELESS Condition: Good e-Prescriptions Levofloxacin Hemihydrate (LEVOFLOXACIN) 500 Mg Tab 500 MG PO DAILY for 5 Days, #5 MG Prov: SUSSY GARDUNO MD 08/08/25 Discharged With: Self Critical Care Note Critical Care Time?: No Stability Stability form required: No I personally scribed for SUSSY GARDUNO MD ([email or web address]) on 08/08/25 at 09:09. Electronically submitted by Lexie Huerta ([facility]). SUSSY GARDUNO MD Aug 08, 2025 09:09
[2025-08-08 10:03] VITALS: BP 138/77; PULSE 80; RESP 18; TEMP 98.2; O2SAT 97
[2025-08-08] MEDS: HYDROcodone-ACET 7.5/325MG TAB PO ONE (10:05)
[2025-08-08] MEDS: HYDROcodone-ACET 10/325MG TAB PO ONE (10:25)
[2025-08-08] MEDS ORDERED: LEVO500T91 PO (10:37)
== END 2025-08-08 11:26 | disposition home or self-care (01) ==
LOC: ER 08:34
DX: J98.4 Other disorders of lung (principal); I12.0 Hypertensive chronic kidney disease with stage 5 chronic kidney disease or end stage renal disease; E11.22 Type 2 diabetes mellitus with diabetic chronic kidney disease; N18.6 End stage renal disease; Z88.0 Allergy status to penicillin; Z79.899 Other long term (current) drug therapy; Z98.890 Other specified postprocedural states; Z90.710 Acquired absence of both cervix and uterus

== ENCOUNTER 2025-08-10 09:51 | Emergency (ER) | payer OTHER, MEDICAID ==
[~2025-08-10] VITALS: Ht 154.9 cm; Wt 55.8 kg
--- NOTE | 2025-08-10 11:32 | ED.PDOC ---
History of Present Illness HPI Comments 75 y/o Ethiopian-speaking F presents with c/c of generalized back and right ear pain. Patient reports on returning to the ED for same complaints she was seen for a few days ago and inquires for a prescription of 50mg of Tramadol. Denies any recent falls or injuries since previous visit. Denies any further acute symptoms. Chief Complaint: Back Pain Time Seen by MD: 11:00 Primary Care Provider: TRINI Reviewed Notes: Nurses Notes Allergies: Coded Allergies: Penicillins (Verified Allergy, Unknown, 06/14/22) Home Meds Active Scripts Levofloxacin Hemihydrate (LEVOFLOXACIN) 500 Mg Tab, 500 MG PO DAILY for 5 Days, #5 MG Prov:SUSSY GARDUNO MD 08/08/25 Acetaminophen W/ Codeine (Tylenol W/Cod #3) 1 Tab Tb, 1 TAB PO Q6HPRN, #10 TAB 0 Refills Prov:ALEJANDRO AGUIRRE 07/24/25 Prednisone (Prednisone) 20 Mg Tab, 20 MG PO BID for 5 Days, #10 TAB 0 Refills Prov:ALEJANDRO AGUIRRE 07/24/25 Levofloxacin Hemihydrate (LEVAQUIN 500 MG) 500 Mg Tab, 1 TAB PO DAILY, #7 TAB Prov:GERBER BRUCE MD 07/08/25 Losartan Potassium (Losartan Potassium) 25 Mg Tab, 1 TAB PO DAILY, #90 TAB 1 Refill Prov:GERBER BRUCE MD 07/08/25 Tramadol Hcl (Tramadol Hcl) 50 Mg Tab, 50 MG PO BID for 5 Days, #10 TAB Prov:SUSSY GARDUNO MD 04/30/25 Reported Medications Metoprolol Succinate (Metoprolol Succinate Er) 50 Mg Tab, 1 TAB PO DAILY for 90 Days, #90 05/20/25 Fluticasone Propionate (Nasal) (Fluticasone Propionate) 50 Mcg/Act Spr, 1 SPRAY TARA UD for 90 Days, #48 05/20/25 Clonidine Hydrochloride (Clonidine Hcl) 0.1 Mg Tab, 1 TAB PO BID for 90 Days, #180 05/20/25 Triamcinolone Acetonide (Kenalog) 1 Applic Ap, 1 APPLIC TOP PRN for 30 Days, #30 05/20/25 Hydralazine Hcl (Hydralazine Hcl) 50 Mg Tab, 1 TAB PO QID for 30 Days, #120 05/20/25 Apixaban Base (ELIQUIS) 2.5 Mg Tab, 1 TAB PO BID for 90 Days, #180 05/19/25 Omeprazole (Omeprazole Dr) 40 Mg Cap, 1 CAP PO DAILY for 90 Days, #90 05/19/25 Ondansetron HCl (Ondansetron Hydrochloride) 4 Mg Tab, 1 TAB PO Q8HPRN PRN for FOR STOMACH DISTRESS for 20 Days, #60 05/19/25 Memantine Hydrochloride (Memantine HCl) 10 Mg Tab, 1 TAB PO BID for 90 Days, #180 05/19/25 Donepezil Hydrochloride (DONEPEZIL HCL) 10 Mg Tab, 1 TAB PO HS for 90 Days, #90 05/19/25 Levothyroxine Sodium (Levothyroxine Sodium) 25 Mcg Tab, 1 TAB PO QAM for disorder of thyroid gland 01/01/25 B-Complex W/ C & Folic Acid (Shannan-Agnieszka Rx) Tab, 1 TAB PO DAILY for 30 Days, #30 12/19/23 Diltiazem Hcl (DILTIAZEM HCL ER) 240 Mg Cap, 1 CAP PO DAILY, #30 CAP 5 Refills 08/04/17 Atorvastatin Calcium (ATORVASTATIN CALCIUM) 40 Mg Tab, 1 TAB PO HS, #30 TAB 5 Refills 08/04/17 Information Source: Patient Mode of Arrival: Ambulatory Severity: Moderate Timing: Hours Duration: Since onset Prehospital treatment: None Past Medical History PAST MEDICAL HISTORY: CKF, DM, ESRD, High Lipids, HTN, Thyroid Surgical History: Hernia Repair, Hysterectomy 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 History: 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 all DANCING MASTER Hx Family History Family History: Unknown Social History Smoker: Non-Smoker Alcohol: Denies ETOH Use Drugs: Denies Drug Use Lives In: Home All Other Systems: Reviewed and Negative (Comprehensive review of systems are negative unless stated in HPI) Physical Exam General Appearance: Moderate Distress HEENT: Normal ENT Inspection, Pharynx Normal, TMs Normal Neck: Full Range of Motion, Non-Tender, Normal, Normal Inspection Respiratory: Chest Non-Tender, Lungs Clear, No Accessory Muscle Use, No Respiratory Distress, Normal Breath Sounds Cardiovascular: No Edema, No JVD, No Murmur, No Gallop, Normal Peripheral Pulses, Regular Rate/Rhythm Breast Exam: Deferred Gastrointestinal: No Organomegaly, Non Tender, No Pulsatile Mass, Normal Bowel Sounds, Soft Genitalia: Deferred Pelvic: Deferred Rectal: Deferred Extremities: No calf tenderness, Normal capillary refill, Normal inspection, Normal range of motion, Non-tender, No pedal edema Musculoskeletal : Apperance: Normal Neurologic: Alert, linux system admin II-XII nml as Tested, No Motor Deficits, Normal Affect, Normal Mood, No Sensory Deficits Cerebellar Function: Normal Reflexes: Normal Skin: Dry, Normal Color, Warm Peripheral Pulses: 3+ Radial (R), 3+ Radial (L) Lymphatic: No Adenopathy Was a procedure done? Was a procedure done?: No Differential Dx Considerations may include: chronic back pain, sciatic, musculoskeletal pain, DDD, fractures, contusions, sprain, strain, otitis media, otitis externa, among others X-Ray, Labs, Meds, VS Vital Signs Date Time Temp Pulse Resp B/P (MAP) Pulse Ox O2 Delivery O2 Flow Rate FiO2 08/10/25 13:24 99.8 92 16 156/71 (99) 97 99.8 08/10/25 09:53 98.1 87 18 155/82 96 98.1 Patient alert. Comes here all the time for back pain. Vitals stable. Answering all questions pain No injuries. She comes in for pain medication. Was given prescription of tramadol. Was told to follow up with her primary care physician. Was told to come back if there is any problem. Time of 1ST Reevaluation: 11:30 Reevaluation 1ST: Improved Patient Education/Counseling: Diagnosis, Treatment, Need For Follow Up Family Education/Counseling: No Family Present SEPSIS Sepsis Screen Date sepsis recognized/suspect: Aug 10, 2025 Time Sepsis recognized/suspect: 953 Recent Procedure: No On Antibiotic Therapy: No Respiratory Rate >20: No Heart Rate >90: No Temp<36 C (96.8 F) or >38.3 C: No SBP <90 or MAP <65 mmHG: No New Acute Mental Status Change: No Is the patient on CPAP, BIPAP,: No Vital Signs Date Time Temp Pulse Resp B/P (MAP) Pulse Ox O2 Delivery O2 Flow Rate FiO2 08/10/25 13:24 99.8 92 16 156/71 (99) 97 99.8 08/10/25 09:53 98.1 87 18 155/82 96 98.1 Departure 1 Departure Time of Disposition: 14:07 Impression: Primary Impression: Hypertensive urgency Additional Impressions: Musculoskeletal pain Lumbar sprain Qualified Codes: S33.5XXS - Sprain of ligaments of lumbar spine, sequela Disposition: HOME / SELF CARE / HOMELESS Condition: Good e-Prescriptions Tramadol Hcl (Tramadol Hcl) 50 Mg Tab 50 MG PO BS for 5 Days, #5 TAB Prov: SUSSY GARDUNO MD 08/10/25 Discharged With: Self Critical Care Note Critical Care Time?: No Stability Stability form required: No Heart Score Heart Score: Heart Score Response (Comments) Value History N/A 0 EKG N/A 0 Age N/A 0 Risk Factors N/A 0 Troponin N/A 0 Total 0 I personally scribed for SUSSY GARDUNO MD ([email or web address]) on 08/10/25 at 11:32. Electronically submitted by Saleem Fry ([email or web address]). SUSSY GARDUNO MD Aug 10, 2025 11:32
[2025-08-10] MEDS ORDERED: TRAM50TA2 PO (14:08)
[2025-08-10] MEDS: HYDROcodone-ACET 10/325MG TAB PO ONE (15:05)
[2025-08-10 15:24] VITALS: BP 132/64; PULSE 76; RESP 18; TEMP 98.8; O2SAT 98
== END 2025-08-10 15:29 | disposition home or self-care (01) ==
LOC: ER 09:51
DX: S33.5XXA Sprain of ligaments of lumbar spine, initial encounter (principal); I16.0 Hypertensive urgency; M79.18 Myalgia, other site; I12.0 Hypertensive chronic kidney disease with stage 5 chronic kidney disease or end stage renal disease; E11.22 Type 2 diabetes mellitus with diabetic chronic kidney disease; N18.6 End stage renal disease; Z79.899 Other long term (current) drug therapy; Z90.710 Acquired absence of both cervix and uterus; Z98.890 Other specified postprocedural states; Z88.0 Allergy status to penicillin; X58.XXXA Exposure to other specified factors, initial encounter; Y93.89 Activity, other specified; Y92.89 Other specified places as the place of occurrence of the external cause; Y99.8 Other external cause status

== ENCOUNTER 2025-08-12 12:53 | Inpatient (IN) | payer MEDICARE, MEDICAID ==
[~2025-08-12] VITALS: Ht 154.9 cm; Wt 55.5 kg
--- NOTE | 2025-08-12 13:17 | ED.PDOC ---
History of Present Illness HPI Comments 75 year old female with PMHx CKF, DM, ESRD, HLD, HTN, thyroid disease presents to the ED with a chief complaint of generalized weakness onset last night. Patient has been seen in this ED multiple times, last visit was 08/10/25. Patient states she began experiencing generalized weakness as well as tremors, chills since last night. Denies fever, headache, dizziness, blurred vision, numbness/tingling, chest pain, shortness of breath, nausea, vomiting, diarrhea, cough, congestion, dysuria, hematuria. No other symptoms or modifying factors present at this time. Chief Complaint: General Weakness Time Seen by MD: 13:05 Primary Care Provider: TRINI Reviewed Notes: Medications, Allergies Allergies: Coded Allergies: Penicillins (Verified Allergy, Unknown, 06/14/22) Home Meds Active Scripts Tramadol Hcl (Tramadol Hcl) 50 Mg Tab, 50 MG PO BS for 5 Days, #5 TAB Prov:SUSSY GARDUNO MD 08/10/25 Levofloxacin Hemihydrate (LEVOFLOXACIN) 500 Mg Tab, 500 MG PO DAILY for 5 Days, #5 MG Prov:SUSSY GARDUNO MD 08/08/25 Acetaminophen W/ Codeine (Tylenol W/Cod #3) 1 Tab Tb, 1 TAB PO Q6HPRN, #10 TAB 0 Refills Prov:ALEJANDRO AGUIRRE 07/24/25 Prednisone (Prednisone) 20 Mg Tab, 20 MG PO BID for 5 Days, #10 TAB 0 Refills Prov:ALEJANDRO AGUIRRE 07/24/25 Levofloxacin Hemihydrate (LEVAQUIN 500 MG) 500 Mg Tab, 1 TAB PO DAILY, #7 TAB Prov:GERBER BRUCE MD 07/08/25 Losartan Potassium (Losartan Potassium) 25 Mg Tab, 1 TAB PO DAILY, #90 TAB 1 Refill Prov:GERBER BRUCE MD 07/08/25 Tramadol Hcl (Tramadol Hcl) 50 Mg Tab, 50 MG PO BID for 5 Days, #10 TAB Prov:SUSSY GARDUNO MD 04/30/25 Reported Medications Metoprolol Succinate (Metoprolol Succinate Er) 50 Mg Tab, 1 TAB PO DAILY for 90 Days, #90 05/20/25 Fluticasone Propionate (Nasal) (Fluticasone Propionate) 50 Mcg/Act Spr, 1 SPRAY TARA UD for 90 Days, #48 05/20/25 Clonidine Hydrochloride (Clonidine Hcl) 0.1 Mg Tab, 1 TAB PO BID for 90 Days, #180 05/20/25 Triamcinolone Acetonide (Kenalog) 1 Applic Ap, 1 APPLIC TOP PRN for 30 Days, #30 05/20/25 Hydralazine Hcl (Hydralazine Hcl) 50 Mg Tab, 1 TAB PO QID for 30 Days, #120 05/20/25 Apixaban Base (ELIQUIS) 2.5 Mg Tab, 1 TAB PO BID for 90 Days, #180 05/19/25 Omeprazole (Omeprazole Dr) 40 Mg Cap, 1 CAP PO DAILY for 90 Days, #90 05/19/25 Ondansetron HCl (Ondansetron Hydrochloride) 4 Mg Tab, 1 TAB PO Q8HPRN PRN for FOR STOMACH DISTRESS for 20 Days, #60 05/19/25 Memantine Hydrochloride (Memantine HCl) 10 Mg Tab, 1 TAB PO BID for 90 Days, #180 05/19/25 Donepezil Hydrochloride (DONEPEZIL HCL) 10 Mg Tab, 1 TAB PO HS for 90 Days, #90 05/19/25 Levothyroxine Sodium (Levothyroxine Sodium) 25 Mcg Tab, 1 TAB PO QAM for disorder of thyroid gland 01/01/25 B-Complex W/ C & Folic Acid (Shannan-Agnieszka Rx) Tab, 1 TAB PO DAILY for 30 Days, #30 12/19/23 Diltiazem Hcl (DILTIAZEM HCL ER) 240 Mg Cap, 1 CAP PO DAILY, #30 CAP 5 Refills 08/04/17 Atorvastatin Calcium (ATORVASTATIN CALCIUM) 40 Mg Tab, 1 TAB PO HS, #30 TAB 5 Refills 08/04/17 Information Source: Patient Mode of Arrival: Ambulatory Severity: Moderate Timing: Hours Duration: Since onset Prehospital treatment: None Past Medical History PAST MEDICAL HISTORY: CKF, DM, ESRD, High Lipids, HTN, Thyroid Surgical History: Hernia Repair, Hysterectomy ENVIRONMENTAL LAW PROFESSOR History: Denies all ENVIRONMENTAL LAW PROFESSOR Hx Family History Family History: Unknown Social History Smoker: Non-Smoker Alcohol: Denies ETOH Use Drugs: Denies Drug Use Lives In: Home Constitutional: reports: chills, weakness; denies: diaphoresis, fatigue, fever, malaise, sweats, others EENTM: denies: blurred vision, double vision, ear bleeding, ear discharge, ear drainage, ear pain, ear ringing, eye pain, eye redness, hearing loss, mouth pain, mouth swelling, nasal discharge, nose bleeding, nose congestion, nose pain, photophobia, tearing, throat pain, throat swelling, voice changes, others Respiratory: denies: cough, hemoptysis, orthopnea, SOB at rest, shortness of breath, SOB with excertion, stridor, wheezing, others Cardiovascular: denies: chest pain, dizzy spells, diaphoresis, Dyspnea on exertion, edema, irregular heart beat, left arm pain, lightheadedness, palpitations, PND, syncope, others Gastrointestinal: denies: abdomen distended, abdominal pain, blood streaked bowels, constipated, diarrhea, dysphagia, difficulty swallowing, hematemesis, melena, nausea, poor appetite, poor fluid intake, rectal bleeding, rectal pain, vomiting, others Genitourinary: denies: abnormal vagina bleeding, burning, dyspareunia, dysuria, flank pain, frequency, hematuria, incontinence, pain, , vagina discharge, urgency, others Neurological: reports: tremors, weakness; denies: dizziness, fainting, headache, left sided numbness, left sided weakness, numbness, paresthesia, pre-e xisting deficit, right sided numbness, right sided weakness, seizure, speech problems, tingling, others Musculoskeletal: denies: back pain, gout, joint pain, joint swelling, muscle pain, muscle stiffness, neck pain, others Integumetry: denies: bruises, change in color, change in hair/nails, dryness, laceration, lesions, lumps, rash, wounds, others Allergic/Immunocompromised: denies: Difficulty Healing, Frequent Infections, Hives, Itching, others Hematologic/Lymphatic: denies: anemia, blood clots, easy bleeding, easy bruising, swollen glands, others Endocrine: denies: excessive hunger, excessive sweating, excessive thirst, excessive urination, flushing, intolerance to cold, intolerance to heat, unexplained weight gain, unexplained weight loss, others Psychiatric: denies: anxiety, bipolar disorder, depression, hopeless, panic disorder, schizophrenia, sleepless, suicidal, others All Other Systems: Reviewed and Negative Physical Exam General Appearance: Moderate Distress, Normal HEENT: Normal ENT Inspection, Pharynx Normal, TMs Normal Neck: Full Range of Motion, Non-Tender, Normal, Normal Inspection Respiratory: Chest Non-Tender, Lungs Clear, No Accessory Muscle Use, No Respiratory Distress, Normal Breath Sounds Cardiovascular: No Edema, No JVD, No Murmur, No Gallop, Normal Peripheral Pulses, Regular Rate/Rhythm Breast Exam: Deferred Gastrointestinal: No Organomegaly, Non Tender, No Pulsatile Mass, Normal Bowel Sounds, Soft Genitalia: Deferred Pelvic: Deferred Rectal: Deferred Extremities: No calf tenderness, Normal capillary refill, Normal inspection, Normal range of motion, Non-tender, No pedal edema Musculoskeletal : Apperance: Normal Neurologic: Alert, senior care provider II-XII nml as Tested, No Motor Deficits, Normal Affect, Normal Mood, No Sensory Deficits Cerebellar Function: Normal Reflexes: Normal Skin: Dry, Normal Color, Warm Peripheral Pulses: 3+ Radial (R), 3+ Radial (L) Lymphatic: No Adenopathy Was a procedure done? Was a procedure done?: No Differential Dx Considerations may include: Pneumonitis Electrolyte imbalance X-Ray, Labs, Meds, VS Vital Signs Date Time Temp Pulse Resp B/P (MAP) Pulse Ox O2 Delivery O2 Flow Rate FiO2 08/12/25 13:05 90 08/12/25 12:55 98.1 81 18 101/73 95 98.1 Lab Test 08/12/25 13:37 Range/Units White Blood Count 9.3 4.4-10.8 10^3/uL Red Blood Count 4.55 4.0-5.20 10^6/uL Hemoglobin 12.5 12.2-16.2 g/dL Hematocrit 39.0 36.0-46.0 % Mean Corpuscular Volume 85.8 80.0-100.0 fL Mean Corpuscular Hemoglobin 27.5 L 28.0-32.0 pg Mean Corpuscular Hemoglobin Concent 32.1 32.0-36.0 g/dL Red Cell Distribution Width 20.7 H 11.8-14.3 % Platelet Count 356 140-450 10^3/uL Mean Platelet Volume 8.1 6.9-10.8 fL Neutrophils (%) (Auto) 84.1 H 37.0-80.0 % Lymphocytes (%) (Auto) 8.1 L 10.0-50.0 % Monocytes (%) (Auto) 5.9 0.0-12.0 % Eosinophils (%) (Auto) 1.4 0.0-7.0 % Basophils (%) (Auto) 0.5 0.0-2.0 % Neutrophils # (Auto) 7.8 1.6-8.6 10 ^3/uL Lymphocytes # (Auto) 0.8 0.4-5.4 10 ^3/uL Monocytes # (Auto) 0.6 0-1.3 10 ^3/uL Eosinophils # (Auto) 0.1 0-0.8 10 ^3/uL Basophils # (Auto) 0 0-0.2 10 ^3/uL Nucleated Red Blood Cells 0.0 % Sodium Level 141 136-145 mmol/L Potassium Level 3.6 3.5-5.1 mmol/L Chloride Level 94 L 98-107 mmol/L Carbon Dioxide Level 32 H 20-31 mmol/L Anion Gap 15 5-15 Blood Urea Nitrogen 31 H 9-23 mg/dL Creatinine 4.06 H 0.550-1.02 mg/dL Glomerular Filtration Rate Calc 11 >90 mL/min BUN/Creatinine Ratio 7.6 L 10.0-20.0 Serum Glucose 102 74-106 mg/dL Calcium Level 9.5 8.7-10.4 mg/dL Troponin I High Sensitivity 17 </=34 ng/L Patient alert. Complaining of shortness a breath. Back pain. Vitals stable. Kidney function elevated. Establish intravenous access. Was given fluids. Cardiac marker within normal limits. Reviewed her previous visit. Explained to the patient she will be admitted for further workup. Continue monitoring. Time of 1ST Reevaluation: 13:35 Reevaluation 1ST: Unchanged Patient Education/Counseling: Diagnosis, Treatment, Prognosis Family Education/Counseling: No Family Present SEPSIS Sepsis Screen Date sepsis recognized/suspect: Aug 12, 2025 Time Sepsis recognized/suspect: 1256 Recent Procedure: No On Antibiotic Therapy: No Respiratory Rate >20: No Heart Rate >90: No Temp<36 C (96.8 F) or >38.3 C: No SBP <90 or MAP <65 mmHG: No New Acute Mental Status Change: No Is the patient on CPAP, BIPAP,: No Physician Orders Chest Portable (08/12/25 13:18) Urinalysis (08/12/25 13:18) Vital Signs Date Time Temp Pulse Resp B/P (MAP) Pulse Ox O2 Delivery O2 Flow Rate FiO2 08/12/25 13:05 90 08/12/25 12:55 98.1 81 18 101/73 95 98.1 Laboratory Tests Test 08/12/25 13:37 White Blood Count 9.3 10^3/uL (4.4-10.8) Departure 1 Departure Time of Disposition: 15:03 Impression: Primary Impression: Acute kidney injury Additional Impression: Pneumonitis Disposition: ADMITTED INPATIENT Admit to: Med Surg Condition: Guarded Critical Care Note Critical Care Time?: No Stability Stability form required: No Heart Score Heart Score: Heart Score Response (Comments) Value History N/A 0 EKG N/A 0 Age N/A 0 Risk Factors N/A 0 Troponin N/A 0 Total 0 I personally scribed for SUSSY GARDUNO MD ([email or web address]) on 08/12/25 at 13:17. Electronically submitted by Winnie Diaz ([email or web address]). SUSSY GARDUNO MD Aug 12, 2025 13:17
--- NOTE | 2025-08-12 13:42 | ECG ---
[facility] Test Date: 2025-08-12 Test Time: 13:05:10 Pat Name: JOSE DANIEL ZAFAR Department: ED Room: 0248 Gender: F Typesetting Machine Tender: ERA : 1950 Requested By: SUSSY GARDUNO Order Number: [id number] Reading MD: Jose Luis Chairez Measurements Intervals Regent Rate: 90 P: 0 SC: 0 QRS: 154 QRSD: 90 T: -1 QT: 394 QTc: 482 Interpretive Statements Atrial fibrillation Probable right ventricular hypertrophy Borderline T abnormalities, diffuse leads Electronically Signed On 08-13-2025 15:07:34 PST by Jose Luis Chairez Please click the below link to view image of tracing.
[2025-08-12 13:48] LABS: Hematocrit 39.0 % (36.0-46.0); Hemoglobin 12.5 g/dL (12.2-16.2); Mean Corpuscular Hemoglobin 27.5 pg (28.0-32.0); Mean Corpuscular Volume 85.8 fL (80.0-100.0); Nucleated Red Blood Cells % 0.0 %
[2025-08-12 13:56] LABS: Potassium 3.6 mmol/L (3.5-5.1); Sodium 141 mmol/L (136-145)
--- NOTE | 2025-08-12 13:56 | DVH ---
CHEST RADIOGRAPH Indication: sob Technique: Single frontal view of the chest was obtained COMPARISON: XY CHEST PORTABLE on DOS: 07/05/25, XY CHEST PORTABLE on DOS: 05/19/25, XY CHEST XRAY 1 VIEW on DOS: 01/01/25, XY CHEST TWO VIEWS ROUTINE on DOS: 12/02/24, XY CHEST PORTABLE on DOS: 12/28/23 FINDINGS: Lines and Tubes: None Lungs: Clear Pleura: No effusion. No pneumothorax. Cardiomediastinal contours: Unremarkable Bones: Unremarkable IMPRESSION: No acute disease.
[2025-08-12 13:57] LABS: Anion Gap 15 (5-15); Calcium 9.5 mg/dL (8.7-10.4)
[2025-08-12 13:58] LABS: Carbon Dioxide 32 mmol/L (20-31); Chloride 94 mmol/L (98-107)
[2025-08-12 14:02] LABS: BUN/Creatinine Ratio 7.6 (10.0-20.0); Blood Urea Nitrogen 31 mg/dL (9-23); Glucose 102 mg/dL (74-106)
[2025-08-12] MEDS: SODIUM CHLORIDE 0.9% 1,000 ML IV ONE (15:15)
[2025-08-12] MEDS ORDERED: ACETAMINOPHEN 325 MG TAB PO PRN (16:15)
--- NOTE | 2025-08-12 17:58 | DVHHP2 ---
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 She underwent HD earlier today but cannot recall how much UF was removed. She states that symptoms started last night. She denies fever, cough, dyspnea, chest pain, abdominal pain, N/V/D, dysuria, urinary frequency, or recent sick contacts. She reports no missed HD s essions and no issues with her AV fistula. No recent antibiotics. No recent hospitalizations other than routine HD. REVIEW OF SYSTEMS Negative for fever, weight loss, headache, visual changes, sore throat, cough, sputum, wheezing, chest pain, palpitations, orthopnea, PND, abdominal pain, N/V/D, melena, hematochezia, dysuria, flank pain, rash, joint pain. Positive only for chills and tremors. PAST MEDICAL HISTORY ESRD on HD, anemia of CKD, secondary hyperparathyroidism, HFmrEF improved to normal EF, Afib, asthma, chronic back pain, hypothyroidism. PAST SURGICAL HISTORY AV fistula creation. MEDICATIONS apixaban, atorvastatin, diltiazem, fluticasone, levothyroxine. ALLERGIES penicillin SOCIAL HISTORY No tobacco, alcohol, or drug use. Lives at home. Review of Systems Allergies: Coded Allergies: Penicillins (Verified Allergy, Unknown, 06/14/22) Medications Current Medications Medications Dose Ordered Sig/Geo Route Start Time Stop Time Status Last Admin Dose Admin Acetaminophen 650 mg Q6HP PRN PO 08/12/25 16:15 Enoxaparin Sodium 50 mg DAILY SC 08/13/25 10:00 Ceftriaxone Sodium 50 ml @ 100 mls/hr DAILY@09 IV 08/12/25 17:00 Exam Vital Signs Vital Signs Date Time Temp Pulse Resp B/P (MAP) Pulse Ox O2 Delivery O2 Flow Rate FiO2 08/12/25 13:05 90 08/12/25 12:55 98.1 18 101/73 95 98.1 Exam General: Alert, oriented, non-toxic, resting comfortably, intermittently shivering. HEENT: PERRLA, MMM, no pharyngeal erythema. Neck: Supple, no JVD. Lungs: Clear to auscultation, no wheezes, rales, or rhonchi. CV: Regular rate and rhythm, no murmurs/rubs/gallops. Abdomen: Soft, NT/ND, +BS. Extremities: No edema. AVF: Thrill and bruit present, no erythema, warmth, or drainage. Neuro: Moves all extremities, no focal deficits, no asterixis. Skin: No rash, ecchymosis, or lesions. Labs/Xrays Labs Test 08/12/25 13:37 Range/Units White Blood Count 9.3 4.4-10.8 10^3/uL Red Blood Count 4.55 4.0-5.20 10^6/uL Hemoglobin 12.5 12.2-16.2 g/dL Hematocrit 39.0 36.0-46.0 % Mean Corpuscular Volume 85.8 80.0-100.0 fL Mean Corpuscular Hemoglobin 27.5 L 28.0-32.0 pg Mean Corpuscular Hemoglobin Concent 32.1 32.0-36.0 g/dL Red Cell Distribution Width 20.7 H 11.8-14.3 % Platelet Count 356 140-450 10^3/uL Mean Platelet Volume 8.1 6.9-10.8 fL Neutrophils (%) (Auto) 84.1 H 37.0-80.0 % Lymphocytes (%) (Auto) 8.1 L 10.0-50.0 % Monocytes (%) (Auto) 5.9 0.0-12.0 % Eosinophils (%) (Auto) 1.4 0.0-7.0 % Basophils (%) (Auto) 0.5 0.0-2.0 % Neutrophils # (Auto) 7.8 1.6-8.6 10 ^3/uL Lymphocytes # (Auto) 0.8 0.4-5.4 10 ^3/uL Monocytes # (Auto) 0.6 0-1.3 10 ^3/uL Eosinophils # (Auto) 0.1 0-0.8 10 ^3/uL Basophils # (Auto) 0 0-0.2 10 ^3/uL Nucleated Red Blood Cells 0.0 % Sodium Level 141 136-145 mmol/L Potassium Level 3.6 3.5-5.1 mmol/L Chloride Level 94 L 98-107 mmol/L Carbon Dioxide Level 32 H 20-31 mmol/L Anion Gap 15 5-15 Blood Urea Nitrogen 31 H 9-23 mg/dL Creatinine 4.06 H 0.550-1.02 mg/dL Glomerular Filtration Rate Calc 11 >90 mL/min BUN/Creatinine Ratio 7.6 L 10.0-20.0 Serum Glucose 102 74-106 mg/dL Hemoglobin A1c 4.2 <5.7 % A1C Calcium Level 9.5 8.7-10.4 mg/dL Troponin I High Sensitivity 17 </=34 ng/L SEPSIS Sepsis Screen Date sepsis recognized/suspect: Aug 12, 2025 Time Sepsis recognized/suspect: 1255 Recent Procedure: No On Antibiotic Therapy: No Respiratory Rate >20: No Heart Rate >90: No Temp<36 C (96.8 F) or >38.3 C: No SBP <90 or MAP <65 mmHG: No New Acute Mental Status Change: No Is the patient on CPAP, BIPAP,: No Physician Orders Chest Portable (08/12/25 13:18) Urinalysis (08/12/25 13:18) Admit (08/12/25 16:08) Code Status (08/12/25 16:08) Vital Signs .PER UNIT PROTOCOL (08/12/25 16:08) Review Orders With Adm. (08/12/25 16:08) [facility]Diabetes (08/12/25 Dinner) Acetaminophen Tablet (Tylenol Tablet) (08/12/25 16:15) Notify Md Of Changes From Base (08/12/25 16:08) Advance Directive (08/12/25 16:08) Urine Bacterial Culture (08/12/25 16:08) Patient Condition (08/12/25 16:08) Allergies (08/12/25 16:08) Ambulate Every 4hours Q4H (08/12/25 16:08) Oxygen By Nasal Cannula (08/12/25 16:08) Stat Ekg For Chest Pain (08/12/25 16:08) Notify Md Of Changes From Base (08/12/25 16:08) Road Production General Manager For 24 Hours (08/12/25 16:08) Emergency Dysrhythmia Protocol (08/12/25 16:08) Rhythm Strips Once Every Shift (08/12/25 16:08) Covid19 Antigen Nona (08/12/25 ) Rapid Influenza A&B (08/12/25 16:08) Blood Culture (08/12/25 16:08) *Dr. Dulce Maria Reyez -Alfredo Salazar (08/12/25 16:08) Enoxaparin Sodium (Lovenox) (08/13/25 10:00) Ceftriaxone 1gm/50ml (Rocephin) (08/12/25 17:00) Vital Signs Date Time Temp Pulse Resp B/P (MAP) Pulse Ox O2 Delivery O2 Flow Rate FiO2 08/12/25 13:05 90 08/12/25 12:55 98.1 81 18 101/73 95 98.1 Laboratory Tests Test 08/12/25 13:37 White Blood Count 9.3 10^3/uL (4.4-10.8) Assessment/Plan Assessment/Plan 74F ESRD on HD presenting with chills without clear infectious source. Hemodynamically stable. CXR normal, CBC without leukocytosis. Concern for early infection (HD access bacteremia), electrolyte shifts post-HD, or viral illness. 1. Rule out sepsis, possible early infection Afebrile, WBC 9.3. CXR normal. No pulmonary symptoms. UA pending; UTI less likely based on history. AVF looks clean but access infections can present subtly. Plan: Blood cultures 2. UA and UCx. Respiratory viral panel. Trend CBC, CMP. Empiric ceftriaxone Monitor closely for bacteremia. 2. ESRD on HD Dialyzed today; unknown UF removed. Cr 4.0 (baseline ESRD). Plan: Nephrology consult for next HD session Avoid nephrotoxins. Strict I/Os, daily weights. Continue renal diet. 3. HF previously 35% now improved to EF 60% Euvolemic. No chest pain or SOB. 4. Afib on apixaban HR controlled 5. Hypothyroidism Plan: Continue levothyroxine. 6. Asthma No symptoms Covid and flu test ordered 7. Anemia of CKD Hgb 12.5. Stable. 8. Secondary Hyperparathyroidism Full code Case discussed with Dr Mckinley Plan discussed with: Patient, Other (rn) My Orders Orders - FADI DAIGLE Procedure Category Date Status Time Admit ADMIT 08/12/25 Transmitted 16:08 Code Status CODE 08/12/25 Transmitted 16:08 Vital Signs SARA 08/12/25 In Process 16:08 Review Orders With [facility] 08/12/25 In Process Adm. 16:08 Consistent DIET 08/12/25 Transmitted Carb(Ccho)Diabetes Dinner Acetaminophen Tablet PHA 08/12/25 In Process (Tylenol Tablet) 16:15 Notify Md Of Changes [facility] 08/12/25 In Process From Base 16:08 Advance Directive SARA 08/12/25 In Process 16:08 Urine Bacterial DEMETRIO 08/12/25 Logged Culture 16:08 Patient Condition ORDERS 08/12/25 Transmitted 16:08 Allergies [facility] 08/12/25 In Process 16:08 Ambulate Every 4hours [facility] 08/12/25 In Process 16:08 Oxygen By Nasal RT 08/12/25 Transmitted Cannula 16:08 Stat Ekg For Chest [facility] 08/12/25 In Process Pain 16:08 Notify Md Of Changes [facility] 08/12/25 In Process From Base 16:08 Road Production General Manager For [facility] 08/12/25 In Process 24 Hours 16:08 Emergency Dysrhythmia [facility] 08/12/25 In Process Protocol 16:08 Rhythm Strips Once [facility] 08/12/25 In Process Every Shift 16:08 Covid19 Antigen Nona [facility] 08/12/25 Logged Rapid Influenza A&B LAB 08/12/25 Logged 16:08 Blood Culture DEMETRIO 08/12/25 In Process 16:08 *Dr. الع[facility] -[facility] CONS 08/12/25 Transmitted Marie 16:08 Enoxaparin Sodium PHA 08/13/25 In Process (Lovenox) 10:00 Ceftriaxone 1gm/50ml PHA 08/12/25 In Process (Rocephin) 17:00 Date of Service: Aug 12, 2025 Billing Provider: FADI DAIGLE Common Visit Codes: [id number] INP/OBS CARE (HIGH) FADI DAIGLE Aug 12, 2025 17:58
[2025-08-12 21:00] LABS: COVID19 ANTIGEN SOFIA FIA NEGATIVE (NEGATIVE)
[2025-08-12 23:57] VITALS: BP 155/84; PULSE 73; RESP 16; TEMP 98.6; O2SAT 97
[2025-08-13] VITALS (8 sets, daily range): BP systolic 123–161; BP diastolic 57–88; PULSE 64–81; RESP 16–20; TEMP 97–98.6; O2SAT 95–99
[2025-08-13 06:35] LABS: Urine Protein, UAD 2+ (Negative)
[2025-08-13 06:35] LABS: Hematocrit 32.6 % (36.0-46.0); Hemoglobin 10.4 g/dL (12.2-16.2); Mean Corpuscular Hemoglobin 27.4 pg (28.0-32.0); Mean Corpuscular Volume 85.8 fL (80.0-100.0); Nucleated Red Blood Cells % 0.0 %
[2025-08-13 07:14] LABS: Alanine Aminotransferase 13 U/L (7-40); Anion Gap 13 (5-15); BUN/Creatinine Ratio 8.9 (10.0-20.0); Glucose 84 mg/dL (74-106); Potassium 4.9 mmol/L (3.5-5.1); Sodium 140 mmol/L (136-145); Total Protein 6.1 g/dL (5.7-8.2)
[2025-08-13 07:15] LABS: Albumin 3.5 g/dL (3.2-4.8)
[2025-08-13 07:22] LABS: Alkaline Phosphatase 184 U/L (46-116); Bilirubin, Total 0.2 mg/dL (0.2-1.0); Blood Urea Nitrogen 50 mg/dL (9-23); Calcium 8.6 mg/dL (8.7-10.4); Carbon Dioxide 31 mmol/L (20-31); Chloride 96 mmol/L (98-107)
[2025-08-13 08:45] LABS: Free T3 2.23 pg/mL (2.3-4.2)
[2025-08-13 08:46] LABS: Free T4 (Free Thyroxine) 1.18 ng/dL (0.89-1.76)
[2025-08-13] MEDS: ENOXAPARIN SOD 60 MG/0.6 ML SYRINGE SC SCH (09:27)
--- NOTE | 2025-08-13 15:36 | DVHPNRES ---
Progress Note Date Seen: Aug 13, 2025 Resident Creating Document: TAMARA CUEVAS RESIDENT Medical Necessity Reason Pt with a Central, PICC or Fol: No Subjective Review of Systems A 74-year-old female with PMHx ESRD on HD (functioning AVF), chronic anemia, secondary hyperparathyroidism, HFmrEF (EF 35% in 2020 improved to 60% in 2024), Afib on apixaban, chronic back pain, hypothyroidism, asthma, and chronic pain presented due to acute onset chills and tremors. She underwent HD earlier on 08/12/2020 but cannot recall how much was removed. She states that symptoms started last night. She denies fever, cough, dyspnea, chest pain, abdominal pain, N/V/D, dysuria, urinary frequency, or recent sick contacts. She reports no missed HD sessions and no issues with her AV fistula. No recent antibiotics. No recent hospitalizations other than routine HD. Significant initial lab workup revealed RDW 20.7, serum creatinine 4.06, BUN 31, A1c 4.2, TSH 13.2, urinalysis revealed leukocyte esterase 2+, WBC 26. COVID and flu negative. CXR no acute disease PMH-ESRD on HD, anemia of CKD, secondary hyperparathyroidism, HFmrEF improved to normal EF, Afib, asthma, chronic back pain, hypothyroidism. PSH- AV fistula creation. Allergy- PCN Personal History/ Social History- denies smoking/alcoholism/drug abuse, lives at home ROS Cardiovascular- deny acute chest pain or shortness of breath or cough or palpitation Respiratory denies cough or short of breath or wheezing Gastrointestinal- denies any rectal bleeding, nausea or vomiting Musculoskeletal-denies acute joint swelling or tenderness or redness Neurological- denies acute dysarthria, dysphagia, change in vision Psychiatry- denies depression or SI or HI Skin- denies acute rash or purpura Patient was seen today at bedside Labs and chart reviewed Patient on IV antibiotic ceftriaxone for suspected UTI Pending urine culture Blood culture no growth so far Increase levothyroxine from 25 mcg 50 mcg p.o. daily Patient complained of loose motion, nonbloody, continue oral hydration Objective vital signs Vital Sign Date Time Temp Pulse Resp B/P (MAP) Pulse Ox O2 Delivery O2 Flow Rate FiO2 08/13/25 13:00 97.0 71 20 149/83 (105) 97 97.0 08/12/25 23:57 Room Air* 0 21 Total Intake and Output 08/12/25 08/12/25 08/13/25 15:00 23:00 07:00 Intake Total 290 ml Balance 290 ml medications Current Medications Medications Dose Ordered Sig/Geo Route Start Time Stop Time Status Last Admin Dose Admin Acetaminophen 650 mg Q6HP PRN PO 08/12/25 16:15 Ceftriaxone Sodium 50 ml @ 100 mls/hr DAILY@09 IV 08/12/25 17:00 08/13/25 09:28 100 MLS/HR Apixaban 2.5 mg BID PO 08/13/25 22:00 Multivit/Ca Carb/ B Cmplx/FA/Prenat 1 tab DAILY PO 08/14/25 10:00 Clonidine HCl 0.1 mg BID PO 08/13/25 22:00 Losartan Potassium 25 mg DAILY PO 08/14/25 10:00 Metoprolol Succinate 50 mg DAILY PO 08/14/25 10:00 Tramadol HCl 50 mg BID PO 08/13/25 22:00 Atorvastatin Calcium 40 mg HS PO 08/13/25 22:00 Diltiazem HCl 240 mg DAILY PO 08/14/25 10:00 Donepezil HCl 10 mg HS PO 08/13/25 22:00 Hydralazine HCl 50 mg QID PO 08/13/25 18:00 Memantine 10 mg BID PO 08/13/25 22:00 Levothyroxine Sodium 50 mcg QAM PO 08/14/25 07:00 Examination General examination- awake, alert, oriented HEENT- PEERLA, no acute nasal discharge Cardiovascular- S1-S2 audible, rate and rhythm regular, no murmur Respiratory- CTAB, no wheeze or rhonchi Gastrointestinal-nontender, bowel sound+. Nondistended Musculoskeletal-no acute joint swelling or tenderness or redness extremity- fistula in the left upper arm Neurological- cranial nerves intact, no acute dysarthria or dysphagia Psychiatry- denies depression or SI or HI Skin- no acute rash or purpura laboratory and microbiology Laboratory Tests 08/13/25 06:00 Test 08/13/25 06:00 Range/Units Serum Glucose 84 74-106 mg/dL Problem List/Assessment/Plan Problem List/Assessment/Plan Assessment and plan # UTI, rule out sepsis -no sign or symptoms of infection or inflammation at the fistula site -no leukocytosis -continue ceftriaxone as prescribed -pending urine culture - blood culture no growth so far -pending MRSA screening -monitor CBC, CMP # ESRD on HD-Tuesday/Tuesday/Tuesday Nephrology consult for next HD session Avoid nephrotoxins. Strict I/Os, daily weights. Continue renal diet. # heart failure with a preserved ejection fraction # acute diarrhea/ gastroenteritis likely viral -continue oral hydration -ordered stool for ova, parasite, stool for WBC, stool bacterial culture 4. Afib on apixaban -HR controlled #Hypothyroidism -TSH 13.2 -increase levothyroxine from 25 to 50 micro po daily -monitor TSH as outpatient # Asthma no acute exacerbation No symptoms Covid and flu test negative # Anemia of CKD Hgb 12.5. Stable. #Secondary Hyperparathyroidism -Rx as per Nephrology Goals of care, Code status ; discussed with >15 minutes PUD prophylaxis: Pantoprazole DVT prophylaxis: Patient on Eliquis Plan discussed with Dr. Mckinley , nursing staff, RN Total time spent on patient evaluation, chart review, assessment and plan, discussion discussion >35 minutes Plan discussed with: Patient, Other (RN) My Orders My Orders Orders - TAMARA CUEVAS RESIDENT Procedure Category Date Status Time Drug Screen LAB 08/13/25 Logged 07:54 Apixaban (Eliquis) PHA 08/13/25 In Process 22:00 B-Complex W/ C & PHA 08/14/25 In Process Folic Tablet 10:00 Clonidine Hcl Tablet PHA 08/13/25 In Process (Catapres Tablet) 22:00 Losartan Tablet PHA 08/14/25 In Process (Cozaar Tablet) 10:00 Metoprolol Xl PHA 08/14/25 In Process Succinate (Toprol Xl) 10:00 Tramadol Hcl (Ultram) PHA 08/13/25 In Process 22:00 Atorvastatin (Lipitor) PHA 08/13/25 In Process 22:00 Diltiazem Er Capsule PHA 08/14/25 In Process (Cardizem Er Capsul 10:00 Donepezil Tablet PHA 08/13/25 In Process (Aricept Tablet) 22:00 Hydralazine Hcl PHA 08/13/25 In Process Tablet (Apresoline 18:00 Memantine Tablet PHA 08/13/25 In Process (Namenda Tablet) 22:00 Levothyroxine Tablet PHA 08/14/25 In Process (Synthroid Tablet) 07:00 Basic Metabolic Panel LAB 08/14/25 Verified 04:00 Magnesium LAB 08/14/25 Verified 04:00 Visit Coding STANDARD RES Billing Provider: TAMARA CUEVAS Date of Service if different f: Aug 13, 2025 Common Visit Codes: [id number] INP/OBS CARE(HIGH) TAMARA CUEVAS RESIDENT Aug 13, 2025 15:35
[2025-08-13] MEDS: DONEPEZIL HYDROCHLORIDE 5 MG TAB PO SCH (21:54)
[2025-08-13] MEDS: LOPERAMIDE HCL 2 MG CAP/TAB PO PRN (21:54)
[2025-08-13] MEDS: MEMANTINE HCL 5 MG TAB PO SCH (21:54)
[2025-08-13] MEDS: ATORVASTATIN 20 MG TAB PO SCH (21:55)
[2025-08-13] MEDS: APIXABAN 2.5 MG TAB PO SCH (21:56)
[2025-08-14] VITALS (8 sets, daily range): BP systolic 148–157; BP diastolic 67–75; PULSE 69–77; RESP 16–20; TEMP 36.6; O2SAT 99–100
--- NOTE | 2025-08-14 01:33 | DVHINCON2 ---
DATE OF CONSULTATION: 08/13/2025 REASON FOR CONSULTATION: Management of dialysis. HISTORY OF PRESENT ILLNESS: She is a 75-year-old female, well known to me. I see her regularly at the dialysis facility. She has been on dialysis for several years. She has end-stage kidney disease due to polycystic kidney and hypertension. She came to the hospital yesterday complaining of vague symptoms like chills and not feeling well. She was admitted under "rule out sepsis," however, there is no any source of infection. Her white blood cell count is normal. She is afebrile. Nevertheless, she is here in the hospital and being consulted to handle her dialysis treatments. REVIEW OF SYSTEMS: Otherwise unremarkable. PAST MEDICAL HISTORY: As stated above. PHYSICAL EXAMINATION: VITAL SIGNS: Blood pressure is , heart rate 64, respirations 18, and temperature 98. GENERAL: This patient is in no acute distress. Alert and oriented x3. HEENT: Exam is unremarkable. NECK: No jugular venous distention or palpable thyroid or lymphadenopathy. LUNGS: Clear to auscultation. CARDIOVASCULAR: Exam shows regular rate, S4 gallop, 1/6 systolic murmur. ABDOMEN: Soft, nontender. No organomegaly. EXTREMITIES: Show no clubbing, cyanosis, or edema. SKIN: Shows no infection. NEUROLOGIC: Normal. LABORATORY FINDINGS: Sodium 140, potassium 4.9, creatinine 5.6, hemoglobin , white blood cell count 6.8. IMAGING DATA: Chest x-ray is unremarkable. Blood cultures have not been done. ASSESSMENT AND PLAN: ? Stable end-stage renal disease. ? No electrolyte imbalances. ? Controlled hypertension. ? Anemia of renal disease. Hemoglobin is at target range. ? Polycystic kidney disease, stable. If the patient does not have any ongoing infection and she is clinically asymptomatic and afebrile, please discharge her home to continue dialysis at the clinic. Thank you for the consultation. MD SUZANNE Moura/TIM TID: [id number] RECEIPT: [id number]
[2025-08-14 04:42] LABS: Cannabinoid Screen, Urine Neg (NEGATIVE); Opiate Scree,Urine Neg (NEGATIVE)
[2025-08-14 04:46] LABS: Amphetamine Screen, Urine Neg (NEGATIVE); Barbiturate Scree,Urine Neg (NEGATIVE); Phencyclidine Screen, Urine Neg (NEGATIVE)
[2025-08-14 04:47] LABS: Benzodiazephine Screen, Urine Neg (NEGATIVE); Cocaine Screen, Urine Neg (NEGATIVE)
[2025-08-14] MEDS: LEVOTHYROXINE SODIUM 25 MCG TAB PO SCH (06:13)
[2025-08-14 06:32] LABS: Hematocrit 34.7 % (36.0-46.0); Hemoglobin 10.9 g/dL (12.2-16.2); Mean Corpuscular Hemoglobin 27.0 pg (28.0-32.0); Mean Corpuscular Volume 86.0 fL (80.0-100.0); Nucleated Red Blood Cells % 0.0 %
[2025-08-14 06:48] LABS: Sodium 141 mmol/L (136-145)
[2025-08-14 06:49] LABS: Anion Gap 14 (5-15); Calcium 8.8 mg/dL (8.7-10.4); Carbon Dioxide 31 mmol/L (20-31)
[2025-08-14 06:54] LABS: BUN/Creatinine Ratio 9.6 (10.0-20.0); Glucose 97 mg/dL (74-106)
[2025-08-14 06:55] LABS: Magnesium 2.4 mg/dL (1.6-2.6)
[2025-08-14 06:56] LABS: Blood Urea Nitrogen 69 mg/dL (9-23); Chloride 96 mmol/L (98-107); Potassium 5.2 mmol/L (3.5-5.1)
[2025-08-14] MEDS ORDERED: LEVOTHYROXINE SODIUM 25 MCG TAB PO SCH (07:00)
[2025-08-14] MEDS ORDERED: CEPH250C PO (08:08)
[2025-08-14] MEDS ORDERED: SODIUM ZIRCONIUM CYCL 10 GM PAK PO ONE (08:15)
[2025-08-14] MEDS: SODIUM ZIRCONIUM CYCL 10 GM PAK PO ONE (08:22)
[2025-08-14] MEDS: FUROSEMIDE 20 MG/2 ML VIAL IV ONE (08:22)
[2025-08-14] MEDS: dilTIAZem 120MG ER CAP PO SCH (08:24)
[2025-08-14] MEDS: B-COMPLEX W/ C & FOLIC ACID(NEPHROVITE TAB) PO SCH (08:25)
[2025-08-14] MEDS: CALCIUM CHL 100MG/ML 1,000 MG in D5W 5% 100 ML IV ONE (08:26)
[2025-08-14] MEDS: LOSARTAN POTASSIUM 25 MG TAB PO SCH (08:33)
[2025-08-14] MEDS: METOPROLOL SUCCINATE XL 50 MG TAB PO SCH (08:33)
[2025-08-14] MEDS: ALBUTEROL SULF 2.5 MG/0.5ML(0.5%) NEB SOLN NEB ONE (09:13)
--- NOTE | 2025-08-14 13:53 | DVHDSRES ---
Discharge Summary Date of Admission Resident Creating Document: TAMARA CUEVAS RESIDENT Aug 12, 2025 at 16:08 Date of Discharge: Aug 14, 2025 Admitting Diagnosis Acute complicated UTI Labs/Diagnostic Data: Laboratory Results Test 08/14/25 05:58 08/14/25 05:50 08/14/25 04:15 08/13/25 18:45 White Blood Count 5.5 10^3/uL (4.4-10.8) Red Blood Count 4.04 10^6/uL (4.0-5.20) Hemoglobin 10.9 g/dL (12.2-16.2) Hematocrit 34.7 % (36.0-46.0) Mean Corpuscular Volume 86.0 fL (80.0-100.0) Mean Corpuscular Hemoglobin 27.0 pg (28.0-32.0) Mean Corpuscular Hemoglobin Concent 31.4 g/dL (32.0-36.0) Red Cell Distribution Width 21.1 % (11.8-14.3) Platelet Count 263 10^3/uL (140-450) Mean Platelet Volume 8.3 fL (6.9-10.8) Neutrophils (%) (Auto) 66.8 % (37.0-80.0) Lymphocytes (%) (Auto) 16.4 % (10.0-50.0) Monocytes (%) (Auto) 12.5 % (0.0-12.0) Eosinophils (%) (Auto) 3.5 % (0.0-7.0) Basophils (%) (Auto) 0.8 % (0.0-2.0) Neutrophils # (Auto) 3.7 10 ^3/uL (1.6-8.6) Lymphocytes # (Auto) 0.9 10 ^3/uL (0.4-5.4) Monocytes # (Auto) 0.7 10 ^3/uL (0-1.3) Eosinophils # (Auto) 0.2 10 ^3/uL (0-0.8) Basophils # (Auto) 0 10 ^3/uL (0-0.2) Nucleated Red Blood Cells 0.0 % Sodium Level 141 mmol/L (136-145) Potassium Level 5.2 mmol/L (3.5-5.1) Chloride Level 96 mmol/L (98-107) Carbon Dioxide Level 31 mmol/L (20-31) Anion Gap 14 (5-15) Blood Urea Nitrogen 69 mg/dL (9-23) Creatinine 7.16 mg/dL (0.550-1.02) Glomerular Filtration Rate Calc 6 mL/min (>90) BUN/Creatinine Ratio 9.6 (10.0-20.0) Serum Glucose 97 mg/dL (74-106) Calcium Level 8.8 mg/dL (8.7-10.4) Magnesium Level 2.4 mg/dL (1.6-2.6) Hepatitis B Surface Antigen Negative (Negative) Urine Opiates Screen Neg (NEGATIVE) Urine Fentanyl Screen Neg (NEGATIVE) Urine Barbiturates Screen Neg (NEGATIVE) Urine Phencyclidine Screen Neg (NEGATIVE) Urine Amphetamines Screen Neg (NEGATIVE) Urine Benzodiazepines Screen Neg (NEGATIVE) Urine Cocaine Screen Neg (NEGATIVE) Urine Cannabinoids Screen Neg (NEGATIVE) Stool for White Cells Few Test 08/13/25 06:00 08/12/25 19:30 08/12/25 13:45 08/12/25 13:37 Total Bilirubin 0.2 mg/dL (0.2-1.0) Aspartate Amino Transferase (AST) 20 U/L (13-40) Alanine Aminotransferase (ALT) 13 U/L (7-40) Alkaline Phosphatase 184 U/L (46-116) Total Protein 6.1 g/dL (5.7-8.2) Albumin 3.5 g/dL (3.2-4.8) Vitamin B12 Level 359 pg/mL (211-911) Vitamin D 25-Hydroxy 32.4 ng/mL (30.0-100) Folic Acid 15.32 ng/mL (>5.38) Free Thyroxine (T4) Calculated 1.18 ng/dL (0.89-1.76) Free Triiodothyronine (T3) pg/mL 2.23 pg/mL (2.3-4.2) Influenza Type A Antigen Negative (Negative) Influenza Type B Antigen Negative (Negative) SARS-CoV-2 Antigen (Rapid) Negative (NEGATIVE) Thyroid Stimulating Hormone (TSH) 13.22 uIU/mL (0.55-4.78) Hemoglobin A1c 4.2 % A1C (<5.7) Troponin I High Sensitivity 17 ng/L (</=34) Test 08/12/25 05:45 Urine Color Light-yellow (Yellow) Urine Clarity Clear (Clear) Urine pH 8.5 (5.0-9.0) Urine Specific [place] 1.008 (1.001-1.035) Urine Protein 2+ (Negative) Urine Ketones Negative (Negative) Urine Blood Trace /uL (Negative) Urine Nitrite Negative (Negative) Urine Bilirubin Negative (Negative) Urine Urobilinogen Normal mg/dL (Negative) Urine Leukocyte Esterase 2+ /uL (Negative) Urine RBC 4 /hpf (0 - 4) Urine Microscopic WBC 26 /HPF (0-5) Urine Squamous Epithelial Cells Few /hpf (<5) Urine Bacteria None seen /hpf (None Seen) Urine Glucose 2+ mg/dL (Normal) Other Laboratory Tests 08/14/25 05:58 Brief Hx & Hospital Course: A 74-year-old female with PMHx ESRD on HD (functioning AVF), chronic anemia, secondary hyperparathyroidism, HFmrEF (EF 35% in 2020 improved to 60% in 2024), Afib on apixaban, chronic back pain, hypothyroidism, asthma, and chronic pain presented due to acute onset chills and tremors. She underwent HD earlier on 08/12/2020 but cannot recall how much was removed. She states that symptoms started last night. She denies fever, cough, dyspnea, chest pain, abdominal pain, N/V/D, dysuria, urinary frequency, or recent sick contacts. She reports no missed HD sessions and no issues with her AV fistula. No recent antibiotics. No recent hospitalizations other than routine HD. Significant initial lab workup revealed RDW 20.7, serum creatinine 4.06, BUN 31, A1c 4.2, TSH 13.2, urinalysis revealed leukocyte esterase 2+, WBC 26. COVID and flu negative. CXR no acute disease. Course patient was treated with IV ceftriaxone.Increase levothyroxine from 25 mcg 50 mcg p.o. daily. During hospital course patient also had diarrhea. Patient's symptoms improved. Blood culture no growth. Urine culture no growth. Stool was positive for Campylobacter antigen, Patient was discharged with a Keflex 250 mg p.o. b.i.d. for 5 days and azithromycin for 3 days. Patient was advised to follow up with the [facility] clinic, PCP and director data processing as per schedule. Patient was hemodynamically stable on discharge. Cardiovascular- deny acute chest pain or shortness of breath or cough or palpitation Respiratory denies cough or short of breath or wheezing Gastrointestinal- denies any rectal bleeding, nausea or vomiting Musculoskeletal-denies acute joint swelling or tenderness or redness Neurological- denies acute dysarthria, dysphagia, change in vision Psychiatry- denies depression or SI or HI Skin- denies acute rash or purpura Plan of care discussed with Dr. Mckinley Operations or Procedures [place] [id number] Ph: [phone] DIAGNOSTIC IMAGING Diagnostic Imaging Report : [id number] Signed PATIENT: JOSE DANIEL ZAFARCCT: [id number] UNIT: [id number] : 1950 LOC: ER ROOM / BED: / AGE / SEX: 75 / F ADM STATUS: REG ER SERVICE 1318 ORDERING PHYSICIAN: SUSSY GARDUNO MD PROCEDURE(s): CXRP - CHEST PORTABLE REASON: sob ORDER NUMBER(s): [id number], ACCESSION NUMBER(s): [id number] CHEST RADIOGRAPH Indication: sob Technique: Single frontal view of the chest was obtained COMPARISON: XY CHEST PORTABLE on DOS: 07/05/25, XY CHEST PORTABLE on DOS: 05/19/25, XY CHEST XRAY 1 VIEW on DOS: 01/01/25, XY CHEST TWO VIEWS ROUTINE on DOS: 12/02/24, XY CHEST PORTABLE on DOS: 12/28/23 FINDINGS: Lines and Tubes: None Lungs: Clear Pleura: No effusion. No pneumothorax. Cardiomediastinal contours: Unremarkable Bones: Unremarkable IMPRESSION: No acute disease. ATED BY: JALIL FITZGERALD MD DICTATED DATE/TIME: 08/12/25 1353 SIGNED BY: JALIL FITZGERALD MD SIGNED DATE/TIME: 08/12/25 1357 CC: Condition at Discharge: Stable Final Diagnosis/Problems List # UTI, ruled out sepsis # ESRD on HD-Tuesday/Tuesday/Tuesday # heart failure with a preserved ejection fraction # acute diarrhea/ gastroenteritis -Campylobacter antigen positive in his stool #. Afib on apixaban # hypothyroidism # Asthma no acute exacerbation # Anemia of CKD #Secondary Hyperparathyroidism Discharge Disposition: Home Discharge Instruct/Medications Diet: Regular, Cardiac 2g Na,low cholest Activity: Light activity Follow Up/Referral: [facility] PCP NEPHROLOGY F[facility]EMO DIALYSIS SCHEDULE Medications: PRESCRIBED Scheduled Acetaminophen W/ Codeine (Tylenol W/Cod #3), 1 TAB PO Q6HPRN Apixaban Base (Eliquis), 1 TAB PO BID, (Reported) Atorvastatin Calcium (Atorvastatin Calcium), 1 TAB PO HS, (Reported) Azithromycin (Zithromax Tablet), 500 MG PO DAILY B-Complex W/ C & Folic Acid (Shannan-Agnieszka Rx), 1 TAB PO DAILY, (Reported) Cephalexin (Keflex Capsule), 250 MG PO BID Clonidine Hydrochloride (Clonidine Hcl), 1 TAB PO BID, (Reported) Diltiazem Hcl (Diltiazem Hcl Er), 1 CAP PO DAILY, (Reported) Donepezil Hydrochloride (Donepezil Hcl), 1 TAB PO HS, (Reported) Fluticasone Propionate (Nasal) (Fluticasone Propionate), 1 SPRAY TARA UD, (Reported) Hydralazine Hcl (Hydralazine Hcl), 1 TAB PO QID, (Reported) Levofloxacin Hemihydrate (Levaquin 500 Mg), 1 TAB PO DAILY Levofloxacin Hemihydrate (Levofloxacin), 500 MG PO DAILY Levothyroxine Sodium (Levothyroxine Sodium), 1 TAB PO QAM, (Reported) Losartan Potassium (Losartan Potassium), 1 TAB PO DAILY Memantine Hydrochloride (Memantine HCl), 1 TAB PO BID, (Reported) Metoprolol Succinate (Metoprolol Succinate Er), 1 TAB PO DAILY, (Reported) Omeprazole (Omeprazole Dr), 1 CAP PO DAILY, (Reported) Prednisone (Prednisone), 20 MG PO BID Tramadol Hcl (Tramadol Hcl), 50 MG PO BID Tramadol Hcl (Tramadol Hcl), 50 MG PO BS Triamcinolone Acetonide (Kenalog), 1 APPLIC TOP PRN, (Reported) Scheduled PRN Ondansetron HCl (Ondansetron Hydrochloride), 1 TAB PO Q8HPRN PRN for FOR STOMACH DISTRESS, (Reported) Discharge Statement: "Patient was advised to return to the ER or call 911 if any headaches, dizziness, shortness of breath, chest pain, abdominal pain, bleeding, fevers, or worsening of medical condition. Patient was counseled about treatment plan, medications, possible side effects, patientverbalized understanding. All questions were answered to the best of my ability. This discharge took greater then 30 minutes in planning, reviewing documentation, counseling the patient, and discussing with other team members." ASSESSMENT ASSESSMENT Assessment UTI ESRD Visit Coding STANDARD RES Billing Provider: ROSA ISELA MCKINLEY MD Date of Service if different f: Aug 14, 2025 Common Visit Codes: [id number] DISCH DAY >30min TAMARA CUEVAS RESIDENT Aug 14, 2025 13:53
[2025-08-14] MEDS ORDERED: AZIT-185 PO (14:16)
== END 2025-08-14 11:17 | disposition home or self-care (01) | DRG 371 ==
LOC: ER 12:53 → OVERFLOW 16:08 → EAST 20:25
PROVIDERS: ADMIT Internal Medicine Geriatric Medicine; ATTEND Internal Medicine Geriatric Medicine
DX: A04.5 Campylobacter enteritis (principal); N18.6 End stage renal disease; I13.2 Hypertensive heart and chronic kidney disease with heart failure and with stage 5 chronic kidney disease, or end stage renal disease; N25.81 Secondary hyperparathyroidism of renal origin; D63.1 Anemia in chronic kidney disease; N39.0 Urinary tract infection, site not specified; N17.9 Acute kidney failure, unspecified; Z99.2 Dependence on renal dialysis; Z79.01 Long term (current) use of anticoagulants; E11.22 Type 2 diabetes mellitus with diabetic chronic kidney disease; E03.9 Hypothyroidism, unspecified; J45.909 Unspecified asthma, uncomplicated; Q61.3 Polycystic kidney, unspecified; I50.22 Chronic systolic (congestive) heart failure; Z20.822 Contact with and (suspected) exposure to COVID-19; I48.91 Unspecified atrial fibrillation; J98.4 Other disorders of lung; G89.29 Other chronic pain; E78.5 Hyperlipidemia, unspecified; Z88.0 Allergy status to penicillin; Z90.710 Acquired absence of both cervix and uterus
CPT/HCPCS: 36415; 71045; 80048; 80053; 80307; 81001; 82306; 82607; 82746; 83036; 83735; 84439; 84443; 84481; 84484; 85025; 85048; 87040; 87045; 87081; 87086; 87340; 87426; 87804; 93005; 94640; G0378; J7060

== ENCOUNTER 2025-09-07 11:40 | Emergency (ER) | payer OTHER, MEDICAID ==
[~2025-09-07] VITALS: Ht 154.9 cm; Wt 56.9 kg
[~2025-09-07 11:40] MED LIST changes: +AZIT-185 PO; +CEPH250C PO
[2025-09-07 11:42] VITALS: O2SAT 98
--- NOTE | 2025-09-07 14:27 | ED.PDOC ---
Back pain HPI HPI Comments 75 y/o F, with PMHx of chronic back pain, DM, ESRD, HLD, HTN, and thyroid disease presents to the ED for CC of back pain. Patient states, she has been experiencing lower lumbar back pain with associated bilateral shoulder pain [id number]. Patient relays, that she also has ran out of her Tramadol Rx and is requesting a refill at this time. Patient denies any new trauma, injury, or fall. Chief Complaint: Back Pain Time Seen by MD: 13:50 Primary Care Provider: TRINI Reviewed Notes: Nurses Notes, Medications, Allergies Allergies: Coded Allergies: Penicillins (Verified Allergy, Unknown, 06/14/22) Home Meds Active Scripts Tramadol HCl (Tramadol HCl) 50 Mg Tab, 50 MG PO TID for 10 Days, #30 TAB Prov:MINA TORRES MD 09/07/25 Azithromycin (ZITHROMAX TABLET) 250 Mg Tb, 500 MG PO DAILY for 3 Days, #6 TAB Prov:TAMARA CUEVAS 08/14/25 Cephalexin (KEFLEX CAPSULE) 250 Mg Cp, 250 MG PO BID for 5 Days, #10 CAP Prov:TAMARA CUEVAS 08/14/25 Tramadol Hcl (Tramadol Hcl) 50 Mg Tab, 50 MG PO BS for 5 Days, #5 TAB Prov:SUSSY GARDUNO MD 08/10/25 Levofloxacin Hemihydrate (LEVOFLOXACIN) 500 Mg Tab, 500 MG PO DAILY for 5 Days, #5 MG Prov:SUSSY GARDUNO MD 08/08/25 Acetaminophen W/ Codeine (Tylenol W/Cod #3) 1 Tab Tb, 1 TAB PO Q6HPRN, #10 TAB 0 Refills Prov:ALEJANDRO AGUIRRE 07/24/25 Prednisone (Prednisone) 20 Mg Tab, 20 MG PO BID for 5 Days, #10 TAB 0 Refills Prov:ALEJANDRO AGUIRRE 07/24/25 Levofloxacin Hemihydrate (LEVAQUIN 500 MG) 500 Mg Tab, 1 TAB PO DAILY, #7 TAB Prov:GERBER BRUCE MD 07/08/25 Losartan Potassium (Losartan Potassium) 25 Mg Tab, 1 TAB PO DAILY, #90 TAB 1 Refill Prov:GERBER BRUCE MD 07/08/25 Tramadol Hcl (Tramadol Hcl) 50 Mg Tab, 50 MG PO BID for 5 Days, #10 TAB Prov:SUSSY GARDUNO MD 04/30/25 Reported Medications Metoprolol Succinate (Metoprolol Succinate Er) 50 Mg Tab, 1 TAB PO DAILY for 90 Days, #90 05/20/25 Fluticasone Propionate (Nasal) (Fluticasone Propionate) 50 Mcg/Act Spr, 1 SPRAY TARA UD for 90 Days, #48 05/20/25 Clonidine Hydrochloride (Clonidine Hcl) 0.1 Mg Tab, 1 TAB PO BID for 90 Days, #180 05/20/25 Triamcinolone Acetonide (Kenalog) 1 Applic Ap, 1 APPLIC TOP PRN for 30 Days, #30 05/20/25 Hydralazine Hcl (Hydralazine Hcl) 50 Mg Tab, 1 TAB PO QID for 30 Days, #120 05/20/25 Apixaban Base (ELIQUIS) 2.5 Mg Tab, 1 TAB PO BID for 90 Days, #180 05/19/25 Omeprazole (Omeprazole Dr) 40 Mg Cap, 1 CAP PO DAILY for 90 Days, #90 05/19/25 Ondansetron HCl (Ondansetron Hydrochloride) 4 Mg Tab, 1 TAB PO Q8HPRN PRN for FOR STOMACH DISTRESS for 20 Days, #60 05/19/25 Memantine Hydrochloride (Memantine HCl) 10 Mg Tab, 1 TAB PO BID for 90 Days, #180 05/19/25 Donepezil Hydrochloride (DONEPEZIL HCL) 10 Mg Tab, 1 TAB PO HS for 90 Days, #90 05/19/25 Levothyroxine Sodium (Levothyroxine Sodium) 25 Mcg Tab, 1 TAB PO QAM for disorder of thyroid gland 01/01/25 B-Complex W/ C & Folic Acid (Shannan-Agnieszka Rx) Tab, 1 TAB PO DAILY for 30 Days, #30 12/19/23 Diltiazem Hcl (DILTIAZEM HCL ER) 240 Mg Cap, 1 CAP PO DAILY, #30 CAP 5 Refills 08/04/17 Atorvastatin Calcium (ATORVASTATIN CALCIUM) 40 Mg Tab, 1 TAB PO HS, #30 TAB 5 Refills 08/04/17 Information Source: Patient Mode of Arrival: Ambulatory Timing: Weeks Duration: Since onset Location of Back pain: (B) Lumbar Severity: Moderate Prehospital treatment: None Onset: Spontaneous History of: Chronic Back Pain Modifying Factors: Nothing Associated signs and symptoms: None Past Medical History PAST MEDICAL HISTORY: CKF, DM, ESRD, High Lipids, HTN, Thyroid Surgical History: Hernia Repair, Hysterectomy EYEGLASS CUTTER History: Denies all EYEGLASS CUTTER Hx Family History Family History: Unknown Social History Smoker: Non-Smoker Alcohol: Denies ETOH Use Drugs: Denies Drug Use Lives In: Home Constitutional: denies: chills, diaphoresis, fatigue, fever, malaise, sweats, weakness, others EENTM: denies: blurred vision, double vision, ear bleeding, ear discharge, ear drainage, ear pain, ear ringing, eye pain, eye redness, hearing loss, mouth pain, mouth swelling, nasal discharge, nose bleeding, nose congestion, nose pain, photophobia, tearing, throat pain, throat swelling, voice changes, others Respiratory: denies: cough, hemoptysis, orthopnea, SOB at rest, shortness of breath, SOB with excertion, stridor, wheezing, others Cardiovascular: denies: chest pain, dizzy spells, diaphoresis, Dyspnea on exertion, edema, irregular heart beat, left arm pain, lightheadedness, palpitations, PND, syncope, others Gastrointestinal: denies: abdomen distended, abdominal pain, blood streaked bowels, constipated, diarrhea, dysphagia, difficulty swallowing, hematemesis, melena, nausea, poor appetite, poor fluid intake, rectal bleeding, rectal pain, vomiting, others Genitourinary: denies: abnormal vagina bleeding, burning, dyspareunia, dysuria, flank pain, frequency, hematuria, incontinence, pain, , vagina discharge, urgency, others Neurological: denies: dizziness, fainting, headache, left sided numbness, left sided weakness, numbness, paresthesia, pre-existing deficit, right sided numbness, right sided weakness, seizure, speech problems, tingling, tremors, weakness, others Musculoskeletal: reports: back pain; denies: gout, joint pain, joint swelling, muscle pain, muscle stiffness, neck pain, others Integumetry: denies: bruises, change in color, change in hair/nails, dryness, laceration, lesions, lumps, rash, wounds, others Allergic/Immunocompromised: denies: Difficulty Healing, Frequent Infections, Hives, Itching, others Hematologic/Lymphatic: denies: anemia, blood clots, easy bleeding, easy bruising, swollen glands, others Endocrine: denies: excessive hunger, excessive sweating, excessive thirst, excessive urination, flushing, intolerance to cold, intolerance to heat, unexplained weight gain, unexplained weight loss, others Psychiatric: denies: anxiety, bipolar disorder, depression, hopeless, panic disorder, schizophrenia, sleepless, suicidal, others All Other Systems: Reviewed and Negative Physical Exam General Appearance: Mild Distress HEENT: Normal ENT Inspection, PERRL/EOMI Neck: Full Range of Motion, Non-Tender, Normal, Normal Inspection Respiratory: Chest Non-Tender, Lungs Clear, No Accessory Muscle Use, No R espiratory Distress, Normal Breath Sounds Cardiovascular: No Edema, No JVD, No Murmur, No Gallop, Normal Peripheral Pulses, Regular Rate/Rhythm Breast Exam: Deferred Gastrointestinal: No Organomegaly, Non Tender, No Pulsatile Mass, Normal Bowel Sounds, Soft Genitalia: Deferred Pelvic: Deferred Rectal: Deferred Extremities: No calf tenderness, Normal capillary refill, Normal inspection, Normal range of motion, Non-tender, No pedal edema Musculoskeletal : Location: Bilateral Extremity Location: Back, Shoulder Apperance: Limited ROM, Tenderness: Moderate, Other (Chronic back pain refill medication) Neurologic: Alert, 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 Was a procedure done?: No Back Pain Differential Dx Differential Diagnosis: Musculoskeletal Pain, Strain X-Ray, Labs, Meds, VS Vital Signs Date Time Temp Pulse Resp B/P (MAP) Pulse Ox O2 Delivery O2 Flow Rate FiO2 09/07/25 14:36 98.1 76 18 149/66 (93) 98.1 09/07/25 11:42 97.8 77 17 133/74 98 97.8 Current Medications Medications (Trade) Dose Ordered Sig/Geo Route Start Time Stop Time Status Last Admin Acetaminophen/ Hydrocodone Bitart ([place] 5/325MG Tab) 1 tab ONCE ONCE PO 09/07/25 16:00 09/07/25 16:01 DC 09/07/25 16:09 X-Ray, Labs, Meds, VS Comment Course in fast track eventful Patient the came in because of back pain and shoulder pain chronic ran out thrombin from abdominal her medication patient is the on dialysis Time of 1ST Reevaluation: 14:20 Reevaluation 1ST: Unchanged Time of 2ND Reevaluation: 15:45 Reevaluation 2ND: Improved Consultation: PCP Patient Education/Counseling: Diagnosis, Treatment, Prognosis, Need For Follow Up Family Education/Counseling: Diagnosis, Treatment, Prognosis, Need For Follow Up, No Family Present SEPSIS Sepsis Screen Date sepsis recognized/suspect: Sep 07, 2025 Time Sepsis recognized/suspect: 1145 Recent Procedure: No On Antibiotic Therapy: No Respiratory Rate >20: No Heart Rate >90: No Temp<36 C (96.8 F) or >38.3 C: No SBP <90 or MAP <65 mmHG: No New Acute Mental Status Change: No Is the patient on CPAP, BIPAP,: No Vital Signs Date Time Temp Pulse Resp B/P (MAP) Pulse Ox O2 Delivery O2 Flow Rate FiO2 09/07/25 14:36 98.1 76 18 149/66 (93) 98.1 09/07/25 11:42 97.8 77 17 133/74 98 97.8 Medications Medications Dose Ordered Sig/Ego Route Start Time Stop Time Status Last Admin Dose Admin Acetaminophen/ Hydrocodone Bitart 1 tab ONCE ONCE PO 09/07/25 16:00 09/07/25 16:01 DC 09/07/25 16:09 Departure 1 Departure Time of Disposition: 18:00 Impression: Primary Impression: Lumbar radiculopathy Additional Impressions: Musculoskeletal pain Acute renal failure on dialysis Disposition: 01 HOME / SELF CARE / HOMELESS Condition: Fair e-Prescriptions Tramadol HCl (Tramadol HCl) 50 Mg Tab 50 MG PO TID for 10 Days, #30 TAB Prov: MINA TORRES MD 09/07/25 Discharged With: Self Critical Care Note Critical Care Time?: No Stability Stability form required: No Heart Score Heart Score: Heart Score Response (Comments) Value History N/A 0 EKG N/A 0 Age >65 2 Risk Factors 1 or 2 risk factors 1 Troponin N/A 0 Total 3 I personally scribed for MINA TORRES MD ([email or web address]) on 09/07/25 at 14:27. Electronically submitted by Karen Gilman ([email or web address]). MINA TORRES MD Sep 07, 2025 14:27
[2025-09-07 14:36] VITALS: BP 149/66; PULSE 76; RESP 18; TEMP 98.1
[2025-09-07] MEDS ORDERED: TRAM-626 PO (15:50)
[2025-09-07] MEDS: HYDROcodone-ACET 5/325MG TAB PO ONE (16:09)
== END 2025-09-07 16:48 | disposition home or self-care (01) ==
LOC: ER 11:40
DX: M54.16 Radiculopathy, lumbar region (principal); M79.18 Myalgia, other site; I12.0 Hypertensive chronic kidney disease with stage 5 chronic kidney disease or end stage renal disease; E11.22 Type 2 diabetes mellitus with diabetic chronic kidney disease; N17.9 Acute kidney failure, unspecified; N18.6 End stage renal disease; Z88.0 Allergy status to penicillin; Z90.710 Acquired absence of both cervix and uterus; Z98.890 Other specified postprocedural states; Z79.899 Other long term (current) drug therapy